=== PATIENT | female | born 1945 | race Caucasian/White ===

== ENCOUNTER 2024-05-04 12:33 | Inpatient (IN) | payer MEDICARE, SELFPAY ==
[2024-05-04] VITALS (11 sets, daily range): BP systolic 113–202; BP diastolic 46–153; BMI 48.5
--- NOTE | 2024-05-04 10:09 | ED.GENMED ---
History of Present Illness
General
Chief Complaint: Breathing Problem
Time Seen by Provider: 05/04/24 09:58
History of Present Illness
History of Present Illness:
78-year-old female with history of coronary artery disease status post myocardial infarction and CABG in 2021 as well as insulin-dependent diabetes, hypertension, and hyperlipidemia presents to the emergency department for evaluation of dry cough
and shortness of breath gradually worsening for the past 3 to 4 days. Reports a mild sore throat but denies fevers or chills. Went to urgent care where she was noted to have a pulse oximetry in the 80s and was given a DuoNeb, and route given a
second DuoNeb by EMS with no improvement. Patient denies any chest pain or leg swelling.
Past History
Past History
ED Past Medical History: CAD, HTN, Hypercholesterolemia and IDDM
ED Past Surgical History: Cardiac, Gynecological and Other (cataract)
Patient has exhibited threatening behavior?: No
Social History
Tobacco: Non-smoker
Alcohol: None
Drug: None
Personal: Single
Living: alone
Employment: Retired
Review of Systems
Review of Systems
Allergies reviewed?: Yes
All Other Systems: ROS reviewed and negative except as documented in HPI and ROS
Phy Exam
Physical Exam
Physical Exam:
GEN: Well appearing, NAD, WDWN
HEENT: Oral mucosa moist, no scleral icterus
Cardiac: Mildly tachycardic, regular
Lung: Tachypneic with audible stridor, no lower field wheezes or rales
MSK: No gross deformity or injuries
Skin: Good color, no pallor or jaundice, no rashes
Neuro: AO x3, moves all extremities freely
Psych: Calm, cooperative
Scores
Heart Failure Risk
Heart Failure Risk Score: Not Applicable
Course
Orders/Labs/Results
Orders:
Orders
05/04/24 10:03
EKG [Electrocardiogram (*1)] Urgent
Reason for Study: Chest Pain
05/04/24 10:04
EKG- Treatment ONCE
05/04/24 10:09
Racepinephrine [Vaponefrin Nebs] 0.5 ml INH R NOW STA
CR Chest - 2 Views Urgent
Comment:
Reason For Exam: SOB
05/04/24 10:15
COVID-19 Antigen Urgent
Source: Nasal Swab
Complete Blood Count/With Diff Urgent
Comprehensive Metabolic Panel Urgent
NT-proBNP Urgent
Influenza A+B Rapid Molecular Urgent
ANA LILIA Source: Nasal Swab
Specimen Description:
05/04/24 10:20
Sodium Chloride 0.9% [Sodium Chloride 0.9% For Inhalation 3 ml] 1 vial .ROUTE .STK-MED ONE
05/04/24 11:04
Bedside Glucose- Treatment ONCE
Dexamethasone Sod Phosphate [Decadron] 10 mg IV NOW STA
Insulin Aspart [NOVOLOG vial] 12 units SC NOW STA
Racepinephrine [Vaponefrin Nebs] 0.5 ml INH R NOW STA
05/04/24 11:57
Admit/Transfer Patient As Directed
Co-Sign Provider:
Level of Care: Inpatient admission
Assign to:: Medical/Surgical
Physician / Group: Hospitalist
Transfer to: Telemetry
Diagnosis: Laryngothracheitis
Reason for Telemetry: Arrhythmia
Date to Stop Telemetry: 05/07/24
Time to Stop Telemetry: 11:00
Reason for Hospitalization: Laryngothracheitis, Respiratory management
Expected length of stay greater than two midnights?: Yes
ELOS- Estimated Length of Stay in days: 3
I certify the patient meets the requirements for IP care: Yes
05/04/24 11:58
PRN Pain Medication Management As Directed
May give lesser potent ordered pain med per pt: Yes
preference::
Protocol:: Medication orders for pain may be administered in a
manner that supports deferring to patient preference
when the pt is:
- Requesting an ordered lesser potent pain medication.
Least to most potent pain medications are defined
as: acetaminophen < NSAID < tramadol < opioids
(morphine, oxycodone, hydromorphone).
- Requesting a lesser dose of the same medication IF
ORDERED.
- Requesting a less intrusive route of administration
if both routes are prescribed by the provider (PO <
IV).
05/04/24 12:07
Code Status As Directed
Resuscitation Status: Full Code
05/04/24 Dinner
1800 calorie (15 carb) Diabetic
At Your Request: Full Participation
05/04/24 16:21
Acetaminophen [Tylenol] 650 mg PO Q6HPRN PRN
Amiodarone [Pacerone] 200 mg PO DAILY
Aspirin Chewable [Low Strength Aspirin] 81 mg PO DAILY
Atorvastatin [Lipitor] 40 mg PO DAILY
Cholecalciferol (Vitamin D3) [VITAMIN D3 (cholecalciferol)] 50 mcg PO DAILY
Clopidogrel Bisulfate [Plavix] 75 mg PO DAILY
Dextrose 50%-Water [Dextrose 50% Syringe] 12.5 grams IV [id number] PRN
Ferrous Sulfate [Feosol] 325 mg PO BID
Glucagon [GlucaGen] 1 mg IM PRN PRN
Heparin 5,000 units SC Q12
Metoprolol Xl [Toprol Xl] 25 mg PO BID
Miconazole Nitrate [Desenex/Mitrazol/Zeasorb] 1 applic TOPICAL BID
Pantoprazole [Protonix] 40 mg PO DAILY
Silver Sulfadiazine [Silvadene] 1 applic TOPICAL DAILY
05/04/24 16:21
Activity As Directed
Activity Level: As Tolerated
Bedside Glucose Monitoring As Directed
Frequency: AC&HS
Additional Instructions:: Change to q6h if pt on TPN, tube feeding or not eating
Intake/ Output As Directed
Frequency: Per unit guidelines
Vital Signs As Directed
Frequency: Per unit guidelines
O2 Therapy [RESP] Routine
Titrate/Wean O2 to maintain O2 sat greater than (%): 92
DX Deep Vein Thrombosis Video Routine
05/04/24 16:30
Insulin Aspart High Resistance [Novolog Flexpen-High Resistance] See Protocol SC AC
Insulin Aspart Pen [Novolog Flexpen] 8 units SC DAILY@1630
05/04/24 22:00
Insulin Glargine Lantus [Lantus] 25 units Subcutaneous Insulin Syringe [Syringe-Insulin] 0 unit SC HS
05/05/24 07:30
Insulin Aspart Pen [Novolog Flexpen] 8 units SC DAILY@0730
05/05/24 11:30
Insulin Aspart Pen [Novolog Flexpen] 8 units SC DAILY@1130
05/07/24 11:00
DC Protocol for Telemetry ONCE
Abnormal Lab Results
05/04/24
10:15
MCHC 32.6 L g/dL
(33.0-37.0)
Absolute Neuts (auto) 7.3 H 10^3/uL
(1.4-6.5)
Neutrophils % 75.8 H %
(42.2-75.2)
Lymphocytes % 15.8 L %
(20.5-51.1)
BUN 29 H mg/dl
(7-17)
Creatinine 1.3 H mg/dL
(0.6-1.0)
Glucose 394 H mg/dl
(70-99)
Total Bilirubin 2.1 H mg/dl
(0.2-1.3)
Total Protein 6.0 L g/dl
(6.3-8.2)
05/04/24 10:15
05/04/24 10:15
Vital Signs
Initial and Last Documented VS:
Initial Vital Signs
Temp Pulse Resp BP Pulse Ox
98.4 F 102 20 202/98 94
05/04/24 09:57 05/04/24 09:57 05/04/24 09:57 05/04/24 09:57 05/04/24 09:57
Last Documented Vital Signs
Temp Pulse Resp BP Pulse Ox
98.4 F 114 22 137/58 94
05/04/24 09:57 05/04/24 16:00 05/04/24 16:00 05/04/24 16:00 05/04/24 16:00
MDM/Problems Addressed
MDM/Problems Addressed:
Patient with audible stridor, modestly improved after racemic epinephrine, chest x-ray and remainder of workup unremarkable. Likely viral induced laryngotracheitis, given some improvement after neb do not suspect parapharyngeal infection thus
imaging is not indicated at this time. She is markedly hyperglycemic thus complicating outpatient management with steroid treatment, given that she is also mildly hypoxic still after neb treatment will admit for IV steroids, glucose management, and
supplemental oxygen as needed
*Critical Care Note
Total Time (30-74mins, 75-104mins- exclusive of procedures): Not Applicable
ED Attending Note
-
Portions of this chart may have been created with voice recognition software.� Occasional wrong word or��sound alike� substitutions may have occurred due to the inherent limitations of voice recognition software.
Discharge Plan
Departure
Patient Disposition: Admit
Date of Disposition: 05/04/24
Time of Disposition: 11:06
Admit to: Med/Surg
Presentation/result/management discussed w/ accepting MD/DO: Hospitalist
Discharge Problem:
Acute laryngotracheitis, Acute hypoxemic respiratory failure
Interventions
Interventions:
*Risk Screen - Suicide Last Done: 05/04/24 10:04
*General Assessment Last Done: 05/04/24 10:04
*Neglect/Abuse Screening Last Done: 05/04/24 10:04
ED- Fall Risk Assessment Last Done: 05/04/24 10:04
*ED COVID-19 Vaccine History Last Done: 05/04/24 10:04
*Nursing Disposition Last Done: 05/04/24 16:13
ED- Cardiac Assessment Last Done: 05/04/24 11:02
ED- Pulmonary Assessment Last Done: 05/04/24 11:02
Discharge Date and Time
Discharge Date/Time: 05/04/24 16:13
[2024-05-04 10:29] LABS: % Basophils 0.3 % (0-2); % Eosinophils 1.5 % (0-6); % Immature Granulocytes 0.3 % (0-0.5); % Lymphocytes 15.8 % (20.5-51.1); % Monocytes 6.3 % (1.7-9.3); % Neutrophils 75.8 % (42.2-75.2); Absolute Eosinophils 0.1 10^3/uL (0-0.7); Absolute Lymphocytes 1.5 10^3/uL (1.2-3.4); Absolute Monocytes 0.6 10^3/uL (0.1-0.6); Absolute Neutrophils 7.3 10^3/uL (1.4-6.5); Hematocrit 40.5 % (37.0-47.0); Hemoglobin 13.2 g/dL (12.0-16.0); Mean Corp Hgb Conc. 32.6 g/dL (33.0-37.0); Mean Corpuscular Hgb 28.8 pg (27.0-31.0); Mean Corpuscular Volume 88.4 fL (81.0-99.0); Mean Platelet Volume 10.1 fL (7.4-10.4); Nucleated Red Blood Cells % 0 %; Platelet Count 182 10^3/uL (130-400); Red Blood Cell Count 4.58 10^6/uL (4.20-5.40); Red Cell Dist. Width 13.9 % (11.5-14.5); White Blood Cell Count 9.6 10^3/uL (4.8-10.8)
[2024-05-04] MEDS: VAPONEFRIN NEBS 0.5 ML INH ×2 (10:34→11:10)
[2024-05-04 10:37] LABS: ALT (SGPT) 20 U/L (0-35); AST (SGOT) 21 U/L (14-36); Albumin 4.1 g/dl (3.5-5.0); Alkaline Phosphatase 126 U/L (38-126); Blood Urea Nitrogen 29 mg/dl (7-17); Calcium 9.2 mg/dl (8.4-10.2); Carbon Dioxide 25 mmol/L (22-30); Chloride 100 mmol/L (98-107); Estimated Creatinine Clearance 44 ml/min; Glucose 394 mg/dl (70-99); Sodium 137 mmol/L (135-145); Total Bilirubin 2.1 mg/dl (0.2-1.3); eGFR 42.09
[2024-05-04 10:41] LABS: COVID-19 Antigen Negative (Negative)
[2024-05-04 10:45] LABS: NT-proBNP 149 pg/ml
[2024-05-04] MEDS: NOVOLOG vial 12 UNITS SC (11:09)
[2024-05-04] MEDS: DECADRON 10 MG IV (11:10)
--- NOTE | 2024-05-04 12:54 | W.PN.UPDATE ---
Update Note
Progress Note Update
I personally performed a history and physical exam of the patient and discussed management with the resident. I reviewed the resident's note and agree with the documented findings and plan of care HPI/CC.
78 y/o F who presents with CC cough/SOB and was found to be stridorous in the ER.
Gen: NAD, AAOx3.
Eyes: EOMI, PERRLA, no scleral icterus.
Neck: supple. No stridor
CV: tachy, reg rhythm, +S1/S2, no m/r/g.
Resp: decreased AE and end expiratory wheezes
Abd: +BS, soft, NT, ND
Skin: No rashes.
Neuro: CN 2-12 intact, non-focal.
Psych: Normal mood and affect.
Lab Results
05/04/24
10:15
WBC 9.6
RBC 4.58
Hgb 13.2
Hct 40.5
MCV 88.4
MCH 28.8
MCHC 32.6 L
RDW 13.9
Plt Count 182
MPV 10.1
Abs Immat Gran (auto) 0.0
Absolute Neuts (auto) 7.3 H
Absolute Lymphs (auto) 1.5
Absolute Monos (auto) 0.6
Absolute Eos (auto) 0.1
Absolute Basos (auto) 0.0
Immature Gran % 0.3
Neutrophils % 75.8 H
Lymphocytes % 15.8 L
Monocytes % 6.3
Eosinophils % 1.5
Basophils % 0.3
Nucleated RBC % 0
Sodium 137
Potassium 4.0
Chloride 100
Carbon Dioxide 25
BUN 29 H
Creatinine 1.3 H
Estimated Creat Clear 44
eGFR 42.09
Glucose 394 H
Calcium 9.2
Total Bilirubin 2.1 H
AST 21
ALT 20
Alkaline Phosphatase 126
Ark-Y-Okviiaxlqft Pept 149
Total Protein 6.0 L
Albumin 4.1
SARS-CoV-2 Antigen Negative
CXR: No acute cardiopulmonary abnormality.
ACute hypoxemic respiratory failure due to acute laryngotracheitis, likely viral:
-COVID/Flu NEG
-CXR without PNA
-s/p racemic epi and Decadron 10mg IV in ER
-duonebs PRN
-cont Decadron 4mg IV Q6H
DM2:
-with steroid induced hypoglycemia
-basal/bolus insulin
-high-res SSI
--- NOTE | 2024-05-04 13:18 | HPS.HSE ---
Addendum entered and electronically signed by Carlos Thacker MD 05/05/24 09:00:
I personally performed a history and physical exam of the patient and discussed management with the resident. I reviewed the resident's note and agree with the documented findings and plan of care HPI/CC.
Original Note:
Family Physician
-
Family Physician: Judah Branch
Chief Complaint
-
Trouble breathing/ coughs
History of Present Illness
Patient is a 78-year-old female with past medical history of CAD/[place] s/p CABG (in 2021), IDDM, essential hypertension, and hyperlipidemia who who mentions she started a 'funny throat' and nasal and chest congestion on Monday. Symptoms progressed
over the next couple day and she started to develop dry cough, as well as shortness of breath. This morning, she was feeling unwell and felt as if she was gagging after coughs, so, she visited urgent care. At urgent care, per patient, she had low
O2sats and was advised to come to the ED. Her son had an upper respiratory symptoms during the past week but had not received a formal diagnosis.
She received DuoNeb in urgent care and also en-route to hospital by EMS, without significant improvement in symptoms.
She denies any fevers or chills. Denies any chest pain or feeling of palpitations. Denies any recent leg swelling. Denies any recent surgery or travel. No history of DVTs in the past. No urinary symptoms. No nausea/vomiting, or diarrhea.
Medical History
Past Medical History
Past Medical History: Reports CAD, Hypercholesterolemia and IDDM
Additional Past Medical History:
right lower extremity surgical wound for CABG
Past Surgical History: Reports Cardiac (CABG), Gynocological and Other (cataract surgery)
Social History
Tobacco: Non-smoker
Alcohol: None
Drug: None
Living: Alone
Employment: Retired
Family History
Family History: Not pertinent
Allergies / Home Medications
Allergies reflects when Allergies were last updated in [email or web address].
Home Medications with original date entered in [employer]
Allergy/Medication List:
Allergies
Allergy/AdvReac Type Severity Reaction Status Date / Time
No Known Allergies Allergy Verified 05/04/24 09:56
Home Medications
atorvastatin 40 mg tablet (Lipitor) 40 mg PO DAILY High cholesterol 01/20/22
cholecalciferol (vitamin D3) 50 mcg (2,000 unit) capsule (Vitamin D3) 50 mcg PO DAILY Supplement 01/20/22
dulaglutide 3 mg/0.5 mL subcutaneous pen injector (Trulicity) 3 mg SC MO Diabetes 01/20/22
insulin aspar prot-insulin aspart 100 unit/mL (70-30) subcutaneous pen (Novolog Mix 70-30FlexPen U-100) 65 unit SC BID Diabetes 01/20/22
acetaminophen 325 mg tablet 650 mg (2 x 325 mg) PO Q6HPRN PRN mild pain,headache,temp >101F #0 tabs 02/01/22
aspirin 81 mg chewable tablet 81 mg PO DAILY #0 tabs 02/01/22
clopidogrel 75 mg tablet 75 mg PO DAILY #0 tabs 02/01/22
ferrous sulfate 325 mg (65 mg iron) tablet 325 mg PO BID #60 tabs 02/01/22
pantoprazole 40 mg tablet,delayed release 40 mg PO DAILY #0 tabs 02/01/22
potassium chloride 20 mEq tablet,extended release(part/cryst) (Klor-Con M) 20 meq PO DAILY #0 tabs 02/01/22
amiodarone 200 mg tablet (Pacerone) 200 mg PO DAILY 02/23/22
cephalexin 500 mg capsule 500 mg PO QID 7 days #28 caps 02/23/22
metoprolol succinate 25 mg tablet,extended release 24 hr 25 mg PO BID 02/23/22
miconazole nitrate 2 % topical powder (Miconazorb AF) 1 applic topical BID abd folds, grion and under breasts 02/23/22
silver sulfadiazine 1 % topical cream (Silvadene) 1 applic topical DAILY #400 grams 02/23/22
torsemide 40 mg tablet 40 mg PO [id number] 02/23/22
midodrine 2.5 mg tablet 2.5 mg PO TID ORTHOSTATIC HYPOTENSION #30 tabs 06/19/22
Review of Systems
-
History Source: Patient and Other (see HPI)
A 12 point ROS was completed and negative except as noted: Yes
Physical Exam
Vital Signs
Vital Signs
Temp Pulse Resp BP Pulse Ox
98.4 F 99 25 149/50 93
05/04/24 09:57 05/04/24 11:02 05/04/24 11:00 05/04/24 10:41 05/04/24 11:00
Physical Exam
General: Respiratory Distress, Good Appetite and Morbidly Obese
HEENT: NormoCephalic, Anicteric and Moist mucous membranes
Respiratory: Wheezes (b/l expiratory wheeze)
Cardiac: S1/S2 and Regular Rhythm
GI: Soft, Non Tender, Non Distended and Normal Bowel Sounds
Musculoskeletal: No Clubbing, No Cyanosis and No Edema
Skin: Warm and Dry
Neuro: Awake, Alert, Oriented and AO x 3
Laboratory Results
-
05/04/24 10:15
05/04/24 10:15
Laboratory Results
Total Bilirubin 2.1 mg/dl (0.2-1.3) H 05/04/24 10:15
AST 21 U/L (14-36) 05/04/24 10:15
ALT 20 U/L (0-35) 05/04/24 10:15
Alkaline Phosphatase 126 U/L (38-126) 05/04/24 10:15
Impression/Plan
-
78-year-old female with past medical history of CAD/[place] s/p CABG, IDDM, essential hypertension, and hyperlipidemia who presented with respiratory distress consistent with laryngotracheitis. Hemodynamic stable on arrival.
Labs were okay except for elevated blood glucose. Patient states she did not take her usual morning insulin today. Received racemic epinephrine and Decadron 10mg IV in ER.
CXR (05/04): No acute cardiopulmonary abnormality.
# Acute hypoxic respiratory failure most likely secondary to viral upper respiratory illness
-Admit to Med/Surg with telemetry monitoring
-COVID/Flu negative
-Supplemental oxygen as needed to maintain SpO2 more than 92%
-Duonebs PRN
-Decadron 4mg IV Q6H
# Insulin-dependent diabetes
-Basal bolus plus high resistance SSI
-Bedside glucose monitoring
-Hemoglobin A1c checked this morning=7.2
-Carb controlled diet
# Elevated bilirubin
-Likely reactive in the setting of underlying infection
# History of CAD/[place] s/p CABG
-Continue aspirin and Plavix
# GERD
-Pantoprazole
# DVT prophylaxis
-Heparin SC Q12h
CODE STATUS: Full code
[2024-05-04 16:29] LABS: Glucose - Point of Care 404 mg/dl (70-99)
[2024-05-04 17:14] LABS: Glucose 445 mg/dl (70-99)
[2024-05-04] MEDS: DESENEX/MITRAZOL/ZEASORB TOPICAL (17:25)
[2024-05-04] MEDS: PROTONIX 40 MG PO (17:28)
[2024-05-04] MEDS: LOW STRENGTH ASPIRIN 81 MG PO (17:28)
[2024-05-04] MEDS: LIPITOR 40 MG PO (17:28)
[2024-05-04] MEDS: TOPROL XL 25 MG PO ×2 (17:29→20:58)
[2024-05-04] MEDS: HEPARIN 5000 UNITS SC ×2 (17:29→20:57)
[2024-05-04] MEDS: VITAMIN D3 (cholecalciferol) 50 MCG PO (17:29)
[2024-05-04] MEDS: FEOSOL PO ×2 (18:12→20:57)
[2024-05-04] MEDS: DECADRON 4 MG IV ×2 (18:12→23:53)
[2024-05-04] MEDS: NOVOLOG FLEXPEN 10 UNITS SC (18:14)
[2024-05-04] MEDS: NOVOLOG FLEXPEN-HIGH RESISTANCE 14 UNITS SC (18:16)
[2024-05-04 20:23] LABS: Glucose - Point of Care 518 mg/dl (70-99)
[2024-05-04] MEDS: DESENEX/MITRAZOL/ZEASORB 1 APPLIC TOPICAL (20:58)
[2024-05-04 21:20] LABS: Glucose 515 mg/dl (70-99)
[2024-05-04] MEDS: NOVOLOG FLEXPEN 12 UNITS SC (21:48)
[2024-05-04] MEDS: LANTUS 0.35 UNITS SC (21:52)
[2024-05-04] MEDS: PULMICORT 0.25 MG INH (22:43)
[2024-05-04 23:57] LABS: Glucose - Point of Care 384 mg/dl (70-99)
[2024-05-05 03:11] VITALS: BP 107/71
[2024-05-05] MEDS: DECADRON 4 MG IV ×2 (05:31→17:12)
[2024-05-05 06:00] VITALS: BMI 47.0
[2024-05-05 06:55] VITALS: BP 180/90
[2024-05-05 07:14] LABS: Glucose - Point of Care 377 mg/dl (70-99)
[2024-05-05 07:25] LABS: ALT (SGPT) 25 U/L (0-35); AST (SGOT) 48 U/L (14-36); Albumin 4.4 g/dl (3.5-5.0); Alkaline Phosphatase 103 U/L (38-126); Blood Urea Nitrogen 40 mg/dl (7-17); Calcium 10.1 mg/dl (8.4-10.2); Carbon Dioxide 25 mmol/L (22-30); Chloride 100 mmol/L (98-107); Estimated Creatinine Clearance 43 ml/min; Glucose 394 mg/dl (70-99); Potassium 4.8 mmol/L (3.5-5.1); Sodium 138 mmol/L (135-145); Total Bilirubin 1.7 mg/dl (0.2-1.3); Total Protein 6.4 g/dl (6.3-8.2); eGFR 42.09
[2024-05-05 07:31] LABS: % Basophils 0.1 % (0-2); % Eosinophils 0.1 % (0-6); % Immature Granulocytes 0.8 % (0-0.5); % Lymphocytes 3.3 % (20.5-51.1); % Monocytes 1.3 % (1.7-9.3); % Neutrophils 94.4 % (42.2-75.2); Absolute Immature Granulocytes 0.1 10^3/uL (0-0.05); Absolute Lymphocytes 0.5 10^3/uL (1.2-3.4); Absolute Monocytes 0.2 10^3/uL (0.1-0.6); Absolute Neutrophils 14.9 10^3/uL (1.4-6.5); Hematocrit 41.7 % (37.0-47.0); Hemoglobin 13.9 g/dL (12.0-16.0); Mean Corp Hgb Conc. 33.3 g/dL (33.0-37.0); Mean Corpuscular Hgb 29.3 pg (27.0-31.0); Mean Corpuscular Volume 87.8 fL (81.0-99.0); Mean Platelet Volume 10.4 fL (7.4-10.4); Nucleated Red Blood Cells % 0 %; Platelet Count 236 10^3/uL (130-400); Red Blood Cell Count 4.75 10^6/uL (4.20-5.40); White Blood Cell Count 15.8 10^3/uL (4.8-10.8)
[2024-05-05] MEDS: NOVOLOG FLEXPEN 10 UNITS SC (08:11)
[2024-05-05] MEDS: NOVOLOG FLEXPEN-HIGH RESISTANCE 12 UNITS SC (08:11)
[2024-05-05] MEDS: FEOSOL PO (08:12)
[2024-05-05] MEDS: DESENEX/MITRAZOL/ZEASORB 1 APPLIC TOPICAL ×2 (08:12→19:51)
[2024-05-05] MEDS: HEPARIN 5000 UNITS SC ×2 (08:12→19:51)
[2024-05-05] MEDS: LOW STRENGTH ASPIRIN 81 MG PO (08:13)
[2024-05-05] MEDS: LIPITOR 40 MG PO (08:13)
[2024-05-05] MEDS: VITAMIN D3 (cholecalciferol) 50 MCG PO (08:14)
[2024-05-05] MEDS: PROTONIX 40 MG PO (08:14)
[2024-05-05] MEDS: TOPROL XL 25 MG PO ×2 (08:14→19:53)
[2024-05-05] MEDS: PULMICORT 0.25 MG INH ×2 (08:37→20:07)
--- NOTE | 2024-05-05 09:01 | W.PN.HOSP.TC ---
Today's Communication/Plan
-
Adjust basal bolus and short-acting insulin dose
Decadron 4 mg every 12 hours
Stable for discharge later in the day/tomorrow
Assessment / Plan
Assessment / Plan
78-year-old female with past medical history of CAD/[place] s/p CABG, IDDM, essential hypertension, and hyperlipidemia who presented with respiratory distress consistent with laryngotracheitis. Hemodynamics stable on arrival.
Hyperglycemia noted on labs.
CXR (05/04): No acute cardiopulmonary abnormality.
# Acute hypoxic respiratory failure most likely secondary to viral upper respiratory illness
-COVID/Flu negative
-Was able to be weaned off supplemental oxygen
-Pulmicort twice daily
-Decadron 4mg IV Q12H
# Insulin-dependent diabetes
-Basal bolus and short acting dose adjusted (35 BID and 15 AC)
-SSI high
-Bedside glucose monitoring-POC and blood glucose show improvement
-Hemoglobin A1c checked prior to admission=7.2
-Continue carb controlled diet
# Elevated bilirubin
-Improving
-Likely reactive in the setting of underlying infection
# History of CAD/[place] s/p CABG
-Continue aspirin and Plavix
# Essential hypertension
-Continue Toprol XL 25 twice daily
# GERD
-Pantoprazole
# DVT prophylaxis
-Heparin SC Q12h
CODE STATUS: Full code
Anticipated Discharge: Within 24 hours
Subjective/Interval History
-
Date of Service: May 05, 2024
Patient is feeling good. Is saturating well on room air without any respiratory distress. No more wheezing. Coughing has improved. Denies any chest pain/fevers/chills.
Objective Data
-
Labs:
Laboratory Results
05/04/24 05/05/24
20:40 06:27
WBC 15.8 H
Hgb 13.9
Hct 41.7
Plt Count 236 D
Sodium 138
Potassium 4.8
Chloride 100
Carbon Dioxide 25
BUN 40 H
Creatinine 1.3 H
Glucose 515 H* 394 H
Calcium 10.1
Total Bilirubin 1.7 H
AST 48 H
ALT 25
Alkaline Phosphatase 103
Vital Signs:
Vital Signs
Temp Pulse Resp BP Pulse Ox
98.1 F 93 16 180/90 97
05/05/24 06:55 05/05/24 08:41 05/05/24 08:41 05/05/24 06:55 05/05/24 08:41
I&O
05/04/24 05/05/24 05/06/24
06:59 06:59 06:59
Intake Total 600 / 600
Balance 600 / 600
Review of Systems
-
History Source: Patient
All other systems: Reviewed and negative
Constitutional: Reports No Symptoms
EENT: Reports No Symptoms Reported
Respiratory: Denies Cough or Trouble Breathing
Cardiac: Denies Chest Pain
Abdomen/GI: Reports No Symptoms
Genitourinary: Reports No Symptoms
Musculoskeletal: Reports No Symptoms
Skin: Reports No Symptoms
Neuro: Reports No Symptoms
Physical Exam
-
General: Well Developed, Well Nourished, No Apparent Distress, Comfortable, Conversant and Morbidly Obese; Negative Respiratory Distress
HEENT: Normocephalic, Atraumatic, Nose Appears Normal and Ears Appear Normal; Negative Oxygen
Respiratory: Clear to Auscultation and Non Labored Respirations; Negative Wheezes, Crackles or Accessory Resp Muscle Use
Cardiac: Regular Rhythm and S1/S2
GI: Soft, Nontender, Nondistended and Normal Bowel Sounds
Musculoskeletal: Normal Gait & Station and Other (RLE > LLE (chronic per pt due to varicose vein))
Skin: Warm and Dry
Neuro: Awake, Alert, Oriented, AO x 3 and No Motor Deficits
Psych: Calm and Intact Judgement/Insight
--- NOTE | 2024-05-05 09:05 | W.PN.UPDATE ---
Update Note
Progress Note Update
I saw and evaluated the patient. I reviewed the resident�s note and agree with findings and plan as documented in the resident�s note.
Gen: NAD, AAOx3.
Eyes: EOMI, PERRLA, no scleral icterus.
Neck: supple.
CV: RRR, +S1/S2, no m/r/g.
Resp: CTAB
Abd: +BS, soft, NT, ND
Skin: No rashes.
Neuro: CN 2-12 intact, non-focal.
Psych: Normal mood and affect.
CXR: No acute cardiopulmonary abnormality.
Acute hypoxemic respiratory failure due to acute laryngotracheitis, likely viral:
-COVID/Flu NEG
-CXR without PNA
-s/p racemic epi and Decadron 10mg IV in ER
-duonebs PRN
-change Decadron to 4mg IV Q12H with last dose this evening
-weaned to RA
DM2:
-with steroid induced hypoglycemia
-change Lantus to 35U BID
-change premeal Novolog to 15U
-high-res SSI
-check a1c
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
Other problems:
CKD3b
CAD s/p CABG, h/o PA
GERD
Morbid obesity due to excess calories: Encourage weight loss. Affects all aspects of care
FULL/Heparin
Dispo: Patient with rapid clinical improvement but severe hyperglycemia limits discharged today. Suspect patient will be able to be discharged later in the day tomorrow.
[2024-05-05] MEDS: LANTUS 0.35 UNITS SC ×2 (09:31→21:47)
[2024-05-05 11:00] VITALS: BP 112/76
[2024-05-05 11:59] LABS: Glucose - Point of Care 337 mg/dl (70-99)
--- NOTE | 2024-05-05 12:41 | CM ---
incident response manager reviewed patient's chart and met with patient and patient lives alone in a one story home with one step to enter, patient is independent with adl's and ambulation, patient has a walker in home that she does not use, patient drives, plan
is to home possibly tomorrow.
PCP: Dr. Mimi Branch
Pharmacy: [facility]
Plan; Home tomorrow no needs.
[2024-05-05] MEDS: NOVOLOG FLEXPEN 15 UNITS SC ×2 (12:48→18:24)
[2024-05-05] MEDS: NOVOLOG FLEXPEN-HIGH RESISTANCE 10 UNITS SC ×2 (12:48→18:24)
[2024-05-05 14:44] LABS: Glycohemoglobin (HgbA1c) 8.7 % (4.0-5.6)
[2024-05-05 15:00] VITALS: BP 157/83
[2024-05-05 17:04] LABS: Glucose - Point of Care 341 mg/dl (70-99)
[2024-05-05 19:33] VITALS: BP 165/75
[2024-05-05] MEDS: FEOSOL 325 MG PO (19:51)
[2024-05-05 21:46] LABS: Glucose - Point of Care 310 mg/dl (70-99)
[2024-05-05 22:56] VITALS: BP 150/77
[2024-05-06 03:18] VITALS: BP 139/73
[2024-05-06 06:00] VITALS: BMI 47.2
[2024-05-06 07:00] VITALS: BP 162/79
[2024-05-06 07:12] LABS: Glucose - Point of Care 446 mg/dl (70-99)
--- NOTE | 2024-05-06 07:28 | PN.DE.MGMTRT ---
Insulin Management
- -
05/06/2024 Diabetes Management Consult
Patient admitted 05/04 with breathing problem. PMH CAD, [place], CABG 2021, HTN, HLD, diabetes. Prior to admission was taking 70/30 insulin 60 units BID. A1C 8.7, cr 1.3, eGFR 42.09.
Patient has been receiving lantus 35 units BID with 15 units novolog AC. Glucose range 310 to 446.
Patient is awake alert and oriented able to discuss diabetes management.
Will stop lantus and AC novlog and resume 70/30 increased dose 64 units BID first dose this AM. Patient has been receiving steroids IV Q12 hours, course has been completed.
Will follow for further needed adjustments.
Diabetes History
- -
Type of Diabetes: 2 requiring insulin
Pre-Admission Diabetes Regimen
Lab Results
Hemoglobin A1c 8.7 % (4.0-5.6) H 05/05/24 06:27
Insulin Pump Settings
IP Diabetes Regimen
05/05/24 05/05/24 05/05/24
11:58 16:58 21:44
POC Glucose 337 H 341 H 310 H
05/06/24
07:10
POC Glucose 446 H
Meal type: Lunch
Meal type: Breakfast
Amount consumed: 100%
Amount consumed: 100%
Patient Education
[2024-05-06 07:43] LABS: % Basophils 0.1 % (0-2); % Immature Granulocytes 0.7 % (0-0.5); % Lymphocytes 2.2 % (20.5-51.1); % Monocytes 5.5 % (1.7-9.3); % Neutrophils 91.5 % (42.2-75.2); Absolute Immature Granulocytes 0.1 10^3/uL (0-0.05); Absolute Lymphocytes 0.4 10^3/uL (1.2-3.4); Absolute Monocytes 0.9 10^3/uL (0.1-0.6); Hematocrit 39.6 % (37.0-47.0); Hemoglobin 12.9 g/dL (12.0-16.0); Mean Corp Hgb Conc. 32.6 g/dL (33.0-37.0); Mean Corpuscular Hgb 28.8 pg (27.0-31.0); Mean Corpuscular Volume 88.4 fL (81.0-99.0); Mean Platelet Volume 10.2 fL (7.4-10.4); Nucleated Red Blood Cells % 0 %; Platelet Count 241 10^3/uL (130-400); Red Blood Cell Count 4.48 10^6/uL (4.20-5.40); Red Cell Dist. Width 14.1 % (11.5-14.5); White Blood Cell Count 16.3 10^3/uL (4.8-10.8)
[2024-05-06 07:54] LABS: Blood Urea Nitrogen 60 mg/dl (7-17); Calcium 9.3 mg/dl (8.4-10.2); Carbon Dioxide 22 mmol/L (22-30); Chloride 97 mmol/L (98-107); Estimated Creatinine Clearance 37 ml/min; Glucose 431 mg/dl (70-99); Potassium 4.6 mmol/L (3.5-5.1); Sodium 133 mmol/L (135-145); eGFR 35.45
[2024-05-06] MEDS: NOVOLOG FLEXPEN-HIGH RESISTANCE 14 UNITS SC (08:13)
[2024-05-06] MEDS: NOVOLOG MIX 70/30 FLEXPEN 64 UNITS SC (08:14)
[2024-05-06] MEDS: PULMICORT 0.25 MG INH (08:14)
[2024-05-06] MEDS: TOPROL XL 25 MG PO (08:15)
[2024-05-06] MEDS: LOW STRENGTH ASPIRIN 81 MG PO (08:15)
[2024-05-06] MEDS: LIPITOR 40 MG PO (08:15)
[2024-05-06] MEDS: PROTONIX 40 MG PO (08:15)
[2024-05-06] MEDS: HEPARIN 5000 UNITS SC (08:18)
[2024-05-06] MEDS: VITAMIN D3 (cholecalciferol) 50 MCG PO (08:25)
[2024-05-06] MEDS: FEOSOL PO (09:53)
[2024-05-06] MEDS: DESENEX/MITRAZOL/ZEASORB 1 APPLIC TOPICAL (09:55)
[2024-05-06 11:35] LABS: Glucose - Point of Care 251 mg/dl (70-99)
[2024-05-06 11:41] VITALS: BP 111/57
[2024-05-06] MEDS: NOVOLOG FLEXPEN-HIGH RESISTANCE 7 UNITS SC (13:18)
[2024-05-06 15:26] VITALS: BP 152/74
[2024-05-06 15:37] LABS: Glucose - Point of Care 385 mg/dl (70-99)
--- NOTE | 2024-05-06 17:17 | W.PN.HOSP.TC ---
Addendum entered and electronically signed by Deshawn Sandoval MD 05/07/24 00:26:
Attending Addendum:
I saw and evaluated the patient. I reviewed the resident�s note and agree with findings and plan as documented in the resident�s note. Sub: 'My sugars are high because of the steroids. I know how to manage my sugars at home and ill follow up with my
endo. Im going home' Full 12 point ROS reviewed and negative except as documented Exam: Vitals reviewed in chart GEN NAD heart RRR lungs clear abd soft LE no edema
# Acute hypoxemic respiratory failure due to acute laryngotracheitis, likely viral:
-COVID/Flu NEG
-CXR without PNA
-s/p racemic epi and Decadron 10mg IV in ER
-duonebs PRN
-off IV steroids
-weaned to RA
# DM2:
- uncontrolled
- with steroid induced hypoglycemia
- cont home dose SSI
# Leukocytosis
- steroid induced
- repeat CBC as OP
Other problems:
CKD3b- cr @ baseline f/u as OP
CAD s/p CABG, h/o IN
GERD
Morbid obesity due to excess calories: Encourage weight loss. Affects all aspects of care
FULL/Heparin
Dispo: DC home with close follow UP
Time spent coordinating care, DC planning, review of DC plan of care with resident, transition of care, review of records, med rec/scripts sent electronically, consults, notes, d/w consultants, nursing, family, and CM� 35 mins
Original Note:
Today's Communication/Plan
-
Discharge patient to home, patient will resume home medications for diabetes management and continue with inhaler that she has at home as well to manage her breathing.
Assessment / Plan
Assessment / Plan
Assessment: 78-year-old female with past medical history of CAD/IN s/p CABG, IDDM, essential hypertension, and hyperlipidemia who presented to the hospital with acute hypoxic respiratory failure most likely due to acute viral laryngotracheitis and
was found to be hyperglycemic at this time.
# Acute hypoxic respiratory failure most likely secondary to viral upper respiratory illness
-COVID/Flu negative and CXR did not suggest pneumonia
-CXR (05/04): No acute cardiopulmonary abnormality
-Weaned off supplemental oxygen and currently on room air
-Patient to continue Pulmicort twice daily
-Decadron discontinued
# Insulin-dependent diabetes
- Diabetic Nurse Practitioner consulted, input appreciated
- Patient resumed home dose of Insulin regimen
- HbA1c- 8.7%
- Continued bedside glucose monitoring showed range from 200-300
- Carb-controlled diet to be continued
# Elevated bilirubin
-Improving
-Likely were reactive in the setting of underlying infection
# History of CAD/IN s/p CABG
-Continue aspirin and Plavix
# Essential hypertension
-Continue Toprol XL 25 twice daily
#Leukocytosis
-WBC elevated, could be due to airway disease or hyperglycemia
-Repeat CBC in a week in outpatient setting
# GERD
-Pantoprazole
# DVT prophylaxis
-Heparin SC Q12h
CODE STATUS: Full code
Anticipated Discharge: Today
Subjective/Interval History
-
Date of Service: May 06, 2024
Patient has been feeling well. Reports that her breathing is much improved. Says she has been able to ambulate by herself and has no issues with respiration. She attributes her high glucose to being on steroid therapy for her breathing. No acute
concerns for today.
Objective Data
-
Labs:
Laboratory Results
05/06/24 05/06/24 05/06/24
07:18 07:18 15:14
WBC 16.3 H
Hgb 12.9
Hct 39.6
Plt Count 241
Sodium 133 L
Potassium 4.6
Chloride 97 L
Carbon Dioxide 22
BUN 60 H
Creatinine 1.5 H
Glucose 431 H Cancelled Cancelled
Calcium 9.3
Vital Signs:
Vital Signs
Temp Pulse Resp BP Pulse Ox
97.8 F 83 18 152/74 96
05/06/24 15:26 05/06/24 15:26 05/06/24 15:26 05/06/24 15:26 05/06/24 15:26
I&O
05/05/24 05/06/24 05/07/24
06:59 06:59 06:59
Intake Total 600 / 600 360 / 360
Balance 600 / 600 360 / 360
Review of Systems
-
History Source: Patient
Constitutional: Reports No Symptoms
EENT: Reports No Symptoms Reported
Respiratory: Denies Cough, Trouble Breathing or Wheezing
Cardiac: Denies Chest Pain, Diaphoresis or Palpitations
Abdomen/GI: Denies Abdominal Pain, Nausea or Vomiting
Genitourinary: Denies Dysuria or Frequency
Skin: Denies Rash
Neuro: Reports No Symptoms
Endocrine: Denies Polyuria, Polydipsia or Excessive Thirst
Physical Exam
-
General: Well Developed, Well Nourished, No Apparent Distress and Comfortable
HEENT: Normocephalic and Atraumatic
Respiratory: Clear to Auscultation and Non Labored Respirations; Negative Wheezes
Cardiac: Regular Rhythm and S1/S2
GI: Soft, Nontender, Nondistended and Normal Bowel Sounds
Musculoskeletal: No Clubbing, No Cyanosis and No Edema
Skin: Warm and Dry
Neuro: Awake, Alert, Oriented and AO x 3
Psych: Calm
Data Reviewed
-
Diagnostic Radiology: Report Reviewed by me, Discussed with Physician and Discussed with Patient
Labs: Labs Reviewed by me, Discussed with Physician and Discussed with Patient
--- NOTE | 2024-05-06 19:37 | W.DCSUMMARY ---
Addendum entered and electronically signed by Deshawn Sandoval MD 05/07/24 00:27:
Read, reviewed, and agree. See same day progress note for additional details. Patient requesting to go home. Safe for DC with close follow UP.
Rodrigo Sandoval MD
Original Note:
Documented by User: Hilton Oscar MD, Resident 05/06/24 19:51
Discharge Summary
Discharge Data
Date of Admission: 05/04/24
Date of Discharge: 05/06/24
-
Pending Results: No
Hospital Course
Discharging Physician : Dr. Deshawn Sandoval
Disposition : Home
Primary care physician : Dr. Branch
Principal Discharge diagnosis : Acute hypoxic respiratory failure most likely secondary to viral upper respiratory illness
Chronic Discharge diagnosis : Insulin-dependent diabetes, Elevated Bilirubin, History of CAD/[place] s/p CABG, Essential Hypertension, GERD
Hospital Course : 78 year old female with a past medical history of CAD/[place] s/p CABG (2021), IDDM, essential hypertension, and hyperlipidemia came to the ED on 05/04 due to having several days of discomfort in her throat along with nasal and chest
congestion. These symptoms kept on progressing until she ended up going to an Urgent care where they told her that her O2 saturation levels were very low and to go to the ED. Patient received DuoNeb treatment in urgent care and also en-route to the
hospital with no apparent improvement in symptoms. Patient was admitted to Med/Surg with telemetry for her acute hypoxic respiratory failure most likely due to a viral upper respiratory illness. Patient was started on supplemental oxygen as needed
and also given Decadron 4mg IV Q6h. Patient's blood sugar levels continued to be monitored at this time and her basal bolus and short-acting doses of insulin were adjusted. Patient's acute hypoxia resolved with treatment and she was able to tolerate
RA but was kept in the hospital due to her uncontrolled hyperglycemia that was most likely caused by the steroid treatment. Her dose was adjusted and her glucose levels started to normalize after and she was discharged home with instructions to
contact her PCP regarding her current hospitalization and also to use her inhaler which she says she has at home if needed.
Insulin-Dependent Diabetes: Patient to resume home medications for management of hyperglycemia upon discharge
Hypertension: Continue Toprol XL 25 BID
History of CAD/[place] s/p CABG: Continue aspirin and Plavix
GERD:Continue Pantoprazole
Images done:
Chest X-Ray (05/04/2024): No acute cardiopulmonary abnormality.
Discharge Plan
-
Patient Disposition: Home (Routine Discharge)
Discharge Diagnosis/Procedures: Acute Hypoxic Respiratory Failure Secondary to Acute Viral Laryngotracheitis
Condition: Fair
Diet: Diabetic, Carb Controlled
Activity: No restrictions
Driving Restrictions: As prior to admission
Bathing Restrictions: None
Instructions: Diabetes and diet, Diabetes and heart disease
Referrals:
Judah Branch DPM [Family Provider] - in one to two weeks (Please call PCP and let them know about hospital stay )
Prescriptions:
New
amiodarone 200 mg Tablet
200 mg PO DAILY 30 Days Qty: 30 0RF
clopidogrel 75 mg Tablet
75 mg PO DAILY 30 Days Qty: 30 0RF
Continued
atorvastatin [Lipitor] 40 mg Tablet
40 mg PO DAILY
insulin asp prt-insulin aspart [Novolog Mix 70-30FlexPen U-100] 100 unit/mL (70-30) Insulin Pen
60 unit SC BID
Patient Comments:
patient explained that her child care group leader told her to log her blood sugar for next couple of weeks, and she lowered her dose to 65 units she also said when she woke up in the middle of night her bs was 67 and before she came here her bs was 168
Rx Instructions:
before breakfast and dinner
cholecalciferol (vitamin D3) [Vitamin D3] 50 mcg (2,000 unit) Capsule
50 mcg PO DAILY
aspirin 81 mg Tablet,Chewable
81 mg PO DAILY Qty: 0 0RF
acetaminophen 325 mg Tablet
650 mg PO Q6HPRN PRN (Reason: mild pain,headache,temp >101F ) Qty: 0 0RF
miconazole nitrate [Miconazorb AF] 2 % powder
1 applic topical BID
metoprolol succinate 25 mg tablet extended release 24 hr
25 mg PO BID
pantoprazole [Protonix] 40 mg Tablet,Delayed Release (Dr/Ec)
40 mg PO DAILY
ezetimibe [Zetia] 10 mg Tablet
10 mg PO DAILY
Mounjaro 7.5 mg/0.5 mL Pen Injector
7.5 mg SC QWEEK
Rx Instructions:
every monday
Discharge Orders:
Discharge Patient (As Directed); Ordered 05/06/24
Ordered By: Hilton Oscar
Discharge Date and Time
Discharge Date/Time: 05/06/24 17:45
Print Language: PORTUGUESE

Documented by User: Deshawn Sandoval MD 05/07/24 00:20
Discharge Summary
Discharge Data
Date of Admission: 05/04/24
Date of Discharge: 05/07/24
Discharge Plan
-
Patient Disposition: Home (Routine Discharge)
Discharge Diagnosis/Procedures: Acute Hypoxic Respiratory Failure Secondary to Acute Viral Laryngotracheitis
Condition: Fair
Diet: Diabetic, Carb Controlled
Activity: No restrictions
Driving Restrictions: As prior to admission
Bathing Restrictions: None
Instructions: Diabetes and diet, Diabetes and heart disease
Referrals:
Judah Branch DPM [Family Provider] - in one to two weeks (Please call PCP and let them know about hospital stay )
Prescriptions:
New
amiodarone 200 mg Tablet
200 mg PO DAILY 30 Days Qty: 30 0RF
clopidogrel 75 mg Tablet
75 mg PO DAILY 30 Days Qty: 30 0RF
Continued
atorvastatin [Lipitor] 40 mg Tablet
40 mg PO DAILY
insulin asp prt-insulin aspart [Novolog Mix 70-30FlexPen U-100] 100 unit/mL (70-30) Insulin Pen
60 unit SC BID
Patient Comments:
patient explained that her child care group leader told her to log her blood sugar for next couple of weeks, and she lowered her dose to 65 units she also said when she woke up in the middle of night her bs was 67 and before she came here her bs was 168
Rx Instructions:
before breakfast and dinner
cholecalciferol (vitamin D3) [Vitamin D3] 50 mcg (2,000 unit) Capsule
50 mcg PO DAILY
aspirin 81 mg Tablet,Chewable
81 mg PO DAILY Qty: 0 0RF
acetaminophen 325 mg Tablet
650 mg PO Q6HPRN PRN (Reason: mild pain,headache,temp >101F ) Qty: 0 0RF
miconazole nitrate [Miconazorb AF] 2 % powder
1 applic topical BID
metoprolol succinate 25 mg tablet extended release 24 hr
25 mg PO BID
pantoprazole [Protonix] 40 mg Tablet,Delayed Release (Dr/Ec)
40 mg PO DAILY
ezetimibe [Zetia] 10 mg Tablet
10 mg PO DAILY
Mounjaro 7.5 mg/0.5 mL Pen Injector
7.5 mg SC QWEEK
Rx Instructions:
every monday
Discharge Orders:
Discharge Patient (As Directed); Ordered 05/06/24
Ordered By: Hilton Oscar
Discharge Date and Time
Discharge Date/Time: 05/06/24 17:45
Print Language: PORTUGUESE
== END 2024-05-06 17:45 | disposition home or self-care (01) | DRG 152 ==
LOC: 4 WEST ACU 12:33
PROVIDERS: ADMITTING PHYSICIAN Internal Medicine; ATTENDING PHYSICIAN Family Medicine; EMERGENCY PHYSICIAN Student in an Organized Health Care Education/Training Program; FAMILY PHYSICIAN Podiatrist Foot & Ankle Surgery
DX: J04.2 Acute laryngotracheitis (principal); J96.01 Acute respiratory failure with hypoxia; R17 Unspecified jaundice; Z68.42 Body mass index [BMI] 45.0-49.9, adult; Z79.4 Long term (current) use of insulin; E11.65 Type 2 diabetes mellitus with hyperglycemia; E11.36 Type 2 diabetes mellitus with diabetic cataract; I25.2 Old myocardial infarction; Z95.1 Presence of aortocoronary bypass graft; I10 Essential (primary) hypertension; K21.9 Gastro-esophageal reflux disease without esophagitis; I25.10 Atherosclerotic heart disease of native coronary artery without angina pectoris; E78.00 Pure hypercholesterolemia, unspecified; Z79.02 Long term (current) use of antithrombotics/antiplatelets; Z79.82 Long term (current) use of aspirin; E66.01 Morbid (severe) obesity due to excess calories; Z11.52 Encounter for screening for COVID-19
CPT/HCPCS: 71046; 80048; 80053; 82947; 82962; 83036; 83880; 85025; 87502; 87811; 93005; 94640; 96372; 96374; 99284

== ENCOUNTER 2024-06-03 11:43 | Inpatient (IN) | payer OTHER, SELFPAY ==
[2024-06-01 22:00] VITALS: BP 94/47
[2024-06-01 22:09] VITALS: BP 98/53
[2024-06-01 22:09] LABS: Glucose - Point of Care 165 mg/dl (70-99)
[2024-06-01 22:32] LABS: % Basophils 0.4 % (0-2); % Eosinophils 0.3 % (0-6); % Immature Granulocytes 0.5 % (0-0.5); % Lymphocytes 5.8 % (20.5-51.1); % Monocytes 7.2 % (1.7-9.3); % Neutrophils 85.8 % (42.2-75.2); Absolute Basophils 0.1 10^3/uL (0-0.2); Absolute Immature Granulocytes 0.1 10^3/uL (0-0.05); Absolute Lymphocytes 0.8 10^3/uL (1.2-3.4); Absolute Neutrophils 12.1 10^3/uL (1.4-6.5); Hematocrit 46.6 % (37.0-47.0); Hemoglobin 15.7 g/dL (12.0-16.0); Mean Corp Hgb Conc. 33.7 g/dL (33.0-37.0); Mean Corpuscular Hgb 28.8 pg (27.0-31.0); Mean Corpuscular Volume 85.5 fL (81.0-99.0); Mean Platelet Volume 10.1 fL (7.4-10.4); Nucleated Red Blood Cells % 0 %; Platelet Count 341 10^3/uL (130-400); Red Blood Cell Count 5.45 10^6/uL (4.20-5.40); Red Cell Dist. Width 14.5 % (11.5-14.5); White Blood Cell Count 14.1 10^3/uL (4.8-10.8)
[2024-06-01 22:48] LABS: ALT (SGPT) 20 U/L (0-35); AST (SGOT) 27 U/L (14-36); Albumin 4.4 g/dl (3.5-5.0); Alkaline Phosphatase 95 U/L (38-126); Blood Urea Nitrogen 46 mg/dl (7-17); Calcium 9.1 mg/dl (8.4-10.2); Carbon Dioxide 17 mmol/L (22-30); Chloride 105 mmol/L (98-107); Glucose 164 mg/dl (70-99); Lipase 162 U/L (23-300); Potassium 4.3 mmol/L (3.5-5.1); Sodium 141 mmol/L (135-145); Total Bilirubin 2.1 mg/dl (0.2-1.3); Total Protein 6.4 g/dl (6.3-8.2)
[2024-06-01 23:00] VITALS: BP 107/61
[2024-06-01 23:05] LABS: Troponin I < 0.012 ng/ml
[2024-06-01] MEDS: ZOFRAN 4 MG IV (23:20)
[2024-06-01] MEDS: NSS 500 IV (23:23)
[2024-06-01 23:40] VITALS: BMI 47.4
--- NOTE | 2024-06-01 23:43 | ED.GENMED ---
History of Present Illness
General
Chief Complaint: Fainting Sensation
Source: patient
Exam Limitations: none
Time Seen by Provider: 06/01/24 23:34
History of Present Illness
History of Present Illness:
See MDM
Past History
Past History
ED Past Medical History: CAD, HTN, Hypercholesterolemia and IDDM
ED Past Surgical History: Cardiac, Gynecological and Other (cataract)
Patient has exhibited threatening behavior?: No
Social History
Tobacco: Non-smoker
Alcohol: None
Drug: None
Personal: Single
Living: alone
Employment: Retired
Phy Exam
Physical Exam
Physical Exam:
See MDM
Course
Orders/Labs/Results
Orders:
Orders
06/01/24 22:18
EKG [Electrocardiogram (*1)] Urgent
Reason for Study: Syncope
EKG- Treatment ONCE
06/01/24 22:25
Complete Blood Count/With Diff Urgent
Comprehensive Metabolic Panel Urgent
Lipase Urgent
Troponin I Urgent
06/01/24 22:49
Ondansetron Injectable [Zofran] 4 mg .ROUTE .STK-MED ONE
06/01/24 23:19
Ondansetron Injectable [Zofran] 4 mg IV NOW STA
06/01/24 23:23
0.9% Sodium Chloride 500 ml [Nss] 500 ml IV BOLUS
06/01/24 23:41
Norovirus by PCR Urgent
ANA LILIA Source: Feces/Stool
Specimen Description:
Abnormal Lab Results
06/01/24 06/01/24
22:08 22:25
WBC 14.1 H 10^3/uL
(4.8-10.8)
RBC 5.45 H 10^6/uL
(4.20-5.40)
Abs Immat Gran (auto) 0.1 H 10^3/uL
(0-0.05)
Absolute Neuts (auto) 12.1 H 10^3/uL
(1.4-6.5)
Absolute Lymphs (auto) 0.8 L 10^3/uL
(1.2-3.4)
Absolute Monos (auto) 1.0 H 10^3/uL
(0.1-0.6)
Neutrophils % 85.8 H %
(42.2-75.2)
Lymphocytes % 5.8 L %
(20.5-51.1)
Carbon Dioxide 17 L mmol/L
(22-30)
BUN 46 H mg/dl
(7-17)
Creatinine 2.0 H mg/dL
(0.6-1.0)
Glucose 164 H mg/dl
(70-99)
Total Bilirubin 2.1 H mg/dl
(0.2-1.3)
POC Glucose 165 H mg/dl
(70-99)
06/01/24 22:25
06/01/24 22:25
Vital Signs
Initial and Last Documented VS:
Initial Vital Signs
Temp Pulse Resp BP Pulse Ox
97.7 F 82 17 94/47 97
06/01/24 22:00 06/01/24 22:00 06/01/24 22:00 06/01/24 22:00 06/01/24 22:00
Last Documented Vital Signs
Temp Pulse Resp BP Pulse Ox
97.7 F 88 16 107/61 98
06/01/24 22:00 06/01/24 23:30 06/01/24 23:30 06/01/24 23:00 06/01/24 23:30
MDM/Problems Addressed
Differential Diagnosis Includes:
HPI and MDM Narrative:
78-year-old female presenting with nausea, vomiting and diarrhea. Patient states it was sudden onset earlier in the evening. She went to the bathroom and was throwing up. She then had diarrhea. While on the toilet, patient syncopized and found
herself wedged between the toilet and the shower. Patient planing of generalized weakness. On arrival, patient started on IV fluids and given Zofran. She states her nausea has improved but she is too weak to get herself out of the bed to go to
the bathroom. Blood work was done prior to my evaluation and she does have elevated creatinine from baseline. Given her comorbidities and lab abnormalities and her inability to get herself to the bathroom, will admit for IV fluids and further
treatment
Physical exam
General: Weak and fatigued
HEENT: protecting airway. Dry mucous membranes
Neck: appears supple
CV: No evidence of cyanosis
Resp: No accessory muscle use
Abd: Non-distended. Soft and nontender
Extremities: No deformities
Neuro: alert
Psych: Normal affect
Skin: Intact
Problems Addressed including Acute and Chronic Conditions affecting care:
1. Acute dehydration
Acuity: acute
Prognosis: stable
Details: Patient started on IV fluids
2. Nausea, vomiting and diarrhea
Acuity: acute
Prognosis: stable
Details: Nausea improved with Zofran
3. Acute kidney injury
Acuity: acute
Prognosis: stable
Details: Appears prerenal. Will continue IV fluids
Differential Diagnosis (but not limited to): Norovirus, gastroenteritis, gastritis
Testing considered: CT abdomen/pelvis but there is no tenderness noted
Drug therapy (if applicable): OTC meds, please see d/c instruction regarding Rx drugs
Amount and/or Complexity of Data Reviewed
Clinical info obtained from: Patient
External data reviewed: N/A
Labs I independently reviewed (but not limited to): Leukocytosis, hyperglycemia, elevated creatinine
Radiology: N/A
Pulse Ox: not hypoxic
EKG independently reviewed: Sinus rhythm, normal axis, no STEMI
Delivery Crew Worker: N/A
Critical Care: N/A
Risk of Complication:
Social Determinants of health: Good social support
Discussed with other providers: Hospitalist
Escalation of Care includes Admit/Obs: Given her comorbidities with dehydration and RACHELLE, will admit for fluids and further evaluation
Occasional wrong word or 'sound a like' substitutions may have occurred due to the inherent limitations of voice recognition software. Read the chart carefully and recognize, using context, where substitutions have occurred.
*Critical Care Note
Total Time (30-74mins, 75-104mins- exclusive of procedures): Not Applicable
ED Attending Note
-
Portions of this chart may have been created with voice recognition software.� Occasional wrong word or��sound alike� substitutions may have occurred due to the inherent limitations of voice recognition software.
Discharge Plan
Departure
Patient Disposition: Admit
Date of Disposition: 06/01/24
Time of Disposition: 23:43
Admit to: Med/Surg
Presentation/result/management discussed w/ accepting MD/DO: Hospitalist
Discharge Problem:
Acute dehydration, RACHELLE (acute kidney injury), Gastroenteritis
Prescriptions:
No Action
atorvastatin [Lipitor] 40 mg Tablet
40 mg PO DAILY
insulin asp prt-insulin aspart [Novolog Mix 70-30FlexPen U-100] 100 unit/mL (70-30) Insulin Pen
60 unit SC BID
Patient Comments:
patient explained that her lens grinder rough told her to log her blood sugar for next couple of weeks, and she lowered her dose to 65 units she also said when she woke up in the middle of night her bs was 67 and before she came here her bs was 168
Rx Instructions:
before breakfast and dinner
cholecalciferol (vitamin D3) [Vitamin D3] 50 mcg (2,000 unit) Capsule
50 mcg PO DAILY
aspirin 81 mg Tablet,Chewable
81 mg PO DAILY Qty: 0 0RF
acetaminophen 325 mg Tablet
650 mg PO Q6HPRN PRN (Reason: mild pain,headache,temp >101F ) Qty: 0 0RF
miconazole nitrate [Miconazorb AF] 2 % powder
1 applic topical BID
metoprolol succinate 25 mg tablet extended release 24 hr
25 mg PO BID
pantoprazole [Protonix] 40 mg Tablet,Delayed Release (Dr/Ec)
40 mg PO DAILY
ezetimibe [Zetia] 10 mg Tablet
10 mg PO DAILY
Mounjaro 7.5 mg/0.5 mL Pen Injector
7.5 mg SC QWEEK
Rx Instructions:
every monday
amiodarone 200 mg Tablet
200 mg PO DAILY 30 Days Qty: 30 0RF
clopidogrel 75 mg Tablet
75 mg PO DAILY 30 Days Qty: 30 0RF
Referrals:
Latasha Branch DO [Family Provider] -
Interventions
Interventions:
*Risk Screen - Suicide Last Done: 06/01/24 22:11
*General Assessment Last Done: 06/01/24 22:11
*Neglect/Abuse Screening Last Done: 06/01/24 22:11
ED- Fall Risk Assessment Last Done: 06/01/24 22:11
*ED COVID-19 Vaccine History Last Done: 06/01/24 22:11
WG-Cdvaxi-Quxlvtsnei Assessment Last Done: 06/01/24 22:11
ED- Cardiac Assessment Last Done: 06/01/24 22:11
ED- Neurological Assessment Last Done: 06/01/24 22:11
Discharge Date and Time
Print Language: KHMER
[2024-06-02] VITALS (15 sets, daily range): BP systolic 113–167; BP diastolic 34–72; PULSE 96; O2SAT 99
--- NOTE | 2024-06-02 00:03 | HPS.HSE ---
Family Physician
-
Family Physician: Latasha Branch
Chief Complaint
-
Weakness and diarrhea
History of Present Illness
78-year-old woman comes in with nausea, vomiting and diarrhea. Sudden onset earlier in the evening. While on the toilet, patient syncopized and found herself wedged between the toilet and the shower. In ED she complaned of generalized weakness.
In ED she was given IV fluids and Zofran. She states her nausea has improved but she is too weak to get herself out of the bed to go to the bathroom. Comfortable. No current chest pain. No difficulties breathing while lying down in bed. No
recent h/o increased leg edema. H/O past OK.
Medical History
Past Medical History
Past Medical History: Reports Other
Additional Past Medical History:
Acute congestive heart failure with left ventricular diastolic dysfunction
Primary hypertension
Acute kidney failure
Breath shortness
Acute myocardial infarction, subendocardial infarction
NSTEMI
Diabetes, Type II
Dyslipidemia
morbid obesity
RACHELLE
neuropathy lat-fem nerve
Ferreira's Palsy
Surgical History DH-CABGx4 MORFIN->LAD,RSVG->Diag, RSVG->OM, RSVG->PDA, ROCIO exclusion with Atriclip 35mm 01/26/22
DH-CABG 01/20-
DH-L and R heart cath. 01/21/22
DHER-for scan for Ferreira's palsy 04/2021
hyperglycemia 01/2022
Coronary artery disease involving [place] coronary artery of [place] heart with unstable angina pectoris
Heart failure with preserved ejection fraction, borderline, class II
PAF (paroxysmal atrial fibrillation)
Aortic atherosclerosis
Renal insufficiency
Hepatic steatosis
Suspected sleep apnea
Past Surgical History: Reports Other
Additional Past Surgical History:
See above
Social History
Tobacco: Non-smoker
Alcohol: None
Drug: None
Living: With Family
Employment: Not Employed
Family History
Family History: Not pertinent
Allergies / Home Medications
Allergies reflects when Allergies were last updated in [employer].
Home Medications with original date entered in [employer]
Allergy/Medication List:
Allergies
Allergy/AdvReac Type Severity Reaction Status Date / Time
No Known Allergies Allergy Verified 05/04/24 09:56
Home Medications
atorvastatin 40 mg tablet (Lipitor) 40 mg PO DAILY High cholesterol 01/20/22
cholecalciferol (vitamin D3) 50 mcg (2,000 unit) capsule (Vitamin D3) 50 mcg PO DAILY Supplement 01/20/22
insulin aspar prot-insulin aspart 100 unit/mL (70-30) subcutaneous pen (Novolog Mix 70-30FlexPen U-100) 60 unit SC BID Diabetes 01/20/22
acetaminophen 325 mg tablet 650 mg (2 x 325 mg) PO Q6HPRN PRN mild pain,headache,temp >101F #0 tabs 02/01/22
aspirin 81 mg chewable tablet 81 mg PO DAILY #0 tabs 02/01/22
metoprolol succinate 25 mg tablet,extended release 24 hr 25 mg PO BID 02/23/22
miconazole nitrate 2 % topical powder (Miconazorb AF) 1 applic topical BID abd folds, grion and under breasts 02/23/22
ezetimibe 10 mg tablet (Zetia) 10 mg PO DAILY 05/04/24
pantoprazole 40 mg tablet,delayed release (Protonix) 40 mg PO DAILY 05/04/24
tirzepatide 7.5 mg/0.5 mL subcutaneous pen injector (Mounjaro) 7.5 mg SC QWEEK 05/04/24
amiodarone 200 mg tablet 200 mg PO DAILY 30 days #30 tabs 05/06/24
clopidogrel 75 mg tablet 75 mg PO DAILY 30 days #30 tabs 05/06/24
Review of Systems
-
History Source: Patient
A 12 point ROS was completed and negative except as noted: Yes
Physical Exam
Vital Signs
Vital Signs
Temp Pulse Resp BP Pulse Ox
97.7 F 88 16 107/61 98
06/01/24 22:00 06/01/24 23:30 06/01/24 23:30 06/01/24 23:00 06/01/24 23:30
Physical Exam
General: Well Developed, Well Nourished, No Apparent Distress, Comfortable and Morbidly Obese
HEENT: NormoCephalic, Moist mucous membranes, Nose Appears Normal and Ears Appear Normal
Respiratory: Clear
Cardiac: S1/S2 and Regular Rhythm
GI: Soft, Non Tender and Non Distended
Musculoskeletal: No Clubbing, No Cyanosis and No Edema
Skin: Warm and Dry
Neuro: Awake, Alert, Oriented and AO x 3
Psych: Calm
Laboratory Results
-
06/01/24 22:25
06/01/24 22:25
Laboratory Results
Total Bilirubin 2.1 mg/dl (0.2-1.3) H 06/01/24 22:25
AST 27 U/L (14-36) 06/01/24 22:25
ALT 20 U/L (0-35) 06/01/24 22:25
Alkaline Phosphatase 95 U/L (38-126) 06/01/24 22:25
Troponin I < 0.012 ng/ml 06/01/24 22:25
Lipase 162 U/L (23-300) 06/01/24 22:25
Data Reviewed
-
Lab Data: Labs Reviewed by me
Impression/Plan
-
IMPRESSION:
78 woman with complex PMH and gastroenteritis. Weak and cannot walk. Significant findings:
WBC 14.1
BUN/Creat 46/2.0 (baseline 40-60/1.5)
PLAN:
1. Gastroenteritis - likely viral
IV fluids overnight
PT consult in AM
2. Acute on chronic renal injury (RACHELLE)
IV fluids overnight
Recheck renal function in am
3. High risk of miocardial injury given past h/o OK and probable low BP leading to syncope
Cycle troponins
Monitor on telemetry
4. Otherwise complex PMH - continue home meds for:
Acute congestive heart failure with left ventricular diastolic dysfunction
Primary hypertension
Acute kidney failure
Breath shortness
Acute myocardial infarction, subendocardial infarction
NSTEMI
Diabetes, Type II
Dyslipidemia
morbid obesity
RACHELLE episodes
neuropathy lat-fem nerve
Ferreira's Palsy
Surgical History DH-CABGx4 MORFIN->LAD,RSVG->Diag, RSVG->OM, RSVG->PDA, ROCIO exclusion with Atriclip 35mm 01/26/22
DH-CABG 01/20-
DH-L and R heart cath. 01/21/22
hyperglycemia 01/2022
Coronary artery disease involving [place] coronary artery of [place] heart with unstable angina pectoris
Heart failure with preserved ejection fraction, borderline, class II
PAF (paroxysmal atrial fibrillation)
Aortic atherosclerosis
Renal insufficiency
Hepatic steatosis
Suspected sleep apnea
Code: DNR
VCD for DVTp
[2024-06-02] MEDS: LR 1000 IV ×2 (04:59→14:06)
[2024-06-02] MEDS: ZOFRAN 4 MG IV (06:52)
[2024-06-02 07:25] LABS: Blood Urea Nitrogen 57 mg/dl (7-17); Calcium 8.2 mg/dl (8.4-10.2); Carbon Dioxide 18 mmol/L (22-30); Chloride 105 mmol/L (98-107); Estimated Creatinine Clearance 30 ml/min; Glucose 293 mg/dl (70-99); Potassium 4.5 mmol/L (3.5-5.1); Sodium 136 mmol/L (135-145); eGFR 26.69
[2024-06-02 07:26] LABS: Troponin I 0.014 ng/ml
[2024-06-02 08:43] LABS: Hematocrit 39.7 % (37.0-47.0); Hemoglobin 13.6 g/dL (12.0-16.0); Mean Corp Hgb Conc. 34.3 g/dL (33.0-37.0); Mean Corpuscular Hgb 29.8 pg (27.0-31.0); Mean Corpuscular Volume 87.1 fL (81.0-99.0); Mean Platelet Volume 10.2 fL (7.4-10.4); Platelet Count 212 10^3/uL (130-400); Red Blood Cell Count 4.56 10^6/uL (4.20-5.40); Red Cell Dist. Width 14.6 % (11.5-14.5); White Blood Cell Count 8.6 10^3/uL (4.8-10.8)
[2024-06-02] MEDS: ZETIA 10 MG PO (08:57)
[2024-06-02] MEDS: PROTONIX 40 MG PO (08:57)
[2024-06-02] MEDS: PLAVIX 75 MG PO (08:57)
[2024-06-02] MEDS: LOW STRENGTH ASPIRIN 81 MG PO (08:58)
[2024-06-02] MEDS: PACERONE 200 MG PO (08:58)
[2024-06-02] MEDS: VITAMIN D3 (cholecalciferol) 50 MCG PO (09:01)
[2024-06-02] MEDS: TOPROL XL 25 MG PO ×2 (09:01→20:49)
[2024-06-02] MEDS: LIPITOR 40 MG PO (09:01)
[2024-06-02] MEDS: DESENEX/MITRAZOL/ZEASORB 1 APPLIC TOPICAL ×2 (09:02→20:49)
[2024-06-02] MEDS: NOVOLOG MIX 70/30 FLEXPEN 60 UNITS SC ×2 (09:06→21:32)
[2024-06-02] MEDS: NOVOLOG FLEXPEN-MODERATE RESISTANCE 7 UNITS SC (09:09)
[2024-06-02 09:15] LABS: Glucose - Point of Care 326 mg/dl (70-99)
[2024-06-02 10:23] LABS: Troponin I 0.016 ng/ml
[2024-06-02 12:57] LABS: Glucose - Point of Care 241 mg/dl (70-99)
[2024-06-02] MEDS: NOVOLOG FLEXPEN-MODERATE RESISTANCE 3 UNITS SC (13:01)
--- NOTE | 2024-06-02 13:34 | W.PN.HOSP.TC ---
Today's Communication/Plan
-
Supportive care for norovirus
Maintenance IVF
Hold ANABEL and HCTZ
Resume amlodipine at 5 mg, uptitrate as needed
Telemetry
Assessment / Plan
Assessment / Plan
#Syncope
#Hypotension
-Suspicion for hypotension versus vasovagal response; had low BP with EMS
-Was on the commode when syncope occurred, denies prodromal symptoms
-States she typically has high blood pressure, BP here softer on arrival
-No evidence of underlying arrhythmia on studies done here
-Denies any issues with syncope previously
-Continue on telemetry
-Consider MCOT at DC
#Norovirus gastroenteritis
-Presented with nausea and diarrhea that abruptly started evening of 06/01
-Has family members/friends with similar symptomatology
-Norovirus today was positive, started Imodium
-Continue with supportive medications
#Prerenal RACHELLE on CKD
-Secondary to reduced intake, diarrhea; reportedly hypotensive with EMS
-Baseline creatinine 1.3, creatinine 2.0 on arrival
-Started on IV fluids, HCTZ and ACEi held; creatinine down to 1.9
-Trend BMP on IVF, avoid NSAIDs and IV contrast
-Hold ANABEL inhibitor and HCTZ, may DC HCTZ permanently
#HFpEF
-Likely ischemic cardiomyopathy without systolic dysfunction
-Not currently on GDMT or loop diuretic
-Unclear if this is true diagnosis
-Monitor volume status on IVF
#Paroxysmal AF
-Unclear history, possibly transient and related with CABG
-Home medications include metoprolol and amiodarone; not on AC
-Appears to be in sinus rhythm at this time
#CAD s/p CABG x 4
-Home medications include metoprolol succinate, high intensity statin, aspirin
-Patient states she does have chronic exertional dyspnea since CABG
-Would likely benefit from repeat ischemic workup as OP
-No signs of acute coronary syndrome
#Primary HTN
-No known history of hypertensive systemic disease states
-Home medications include HCTZ, metoprolol, amlodipine, benazepril
-Holding benazepril and HCTZ for RACHELLE
-Resume amlodipine, was held for hypotension
#HLD
-History of ASCVD with CAD status post CABG
-Home regimen includes high intensity statin and ezetimibe
#GERD
-Home medications include daily PPI
-No known history of Phillips's or erosive disease
#IDDM
-Home medications include NovoLog 70-30 65 units daily, 60 units HS
-Also currently on Mounjaro, high intensity statin for ASCVD
-Unclear if she has some associated microvascular disease
-Possibly related with CKD and history of CAD
#H/O Ferreira's palsy
-Unclear etiology
#Suspected SATURNINO
-Should have follow-up with pulm for sleep study
DVT prophylaxis: SCDs
Diet: Regular, as tolerated
CODE STATUS: DNR
Anticipated Discharge: Within 24 hours
Subjective/Interval History
-
Date of Service: June 02, 2024
Seen and examined at the bedside. No acute events reported overnight. AFVSS this morning
States that she feels better, still has some diarrhea and nausea. Norovirus positive. Creatinine down from 2-1.9
Denies any new complaints
Objective Data
-
Labs:
Laboratory Results
06/02/24
06:49
WBC 8.6
Hgb 13.6
Hct 39.7
Plt Count 212 D
Sodium 136
Potassium 4.5
Chloride 105
Carbon Dioxide 18 L
BUN 57 H
Creatinine 1.9 H
Glucose 293 H
Calcium 8.2 L
Vital Signs:
Vital Signs
Temp Pulse Resp BP Pulse Ox
99.6 F 93 20 158/54 97
06/02/24 12:08 06/02/24 12:00 06/02/24 12:00 06/02/24 11:57 06/02/24 06:45
Review of Systems
-
History Source: Patient
All other systems: Reviewed and negative
Physical Exam
-
General: Well Developed, No Apparent Distress, Comfortable and Morbidly Obese
HEENT: Normocephalic, Atraumatic, Moist Mucous Membranes and Anicteric
Respiratory: Clear to Auscultation and Non Labored Respirations
Cardiac: Regular Rhythm, S1/S2 and Tachycardic; Negative Murmur, Rub or Gallop
GI: Soft, Nontender, Nondistended and Normal Bowel Sounds
Musculoskeletal: No Clubbing, No Cyanosis and No Edema
Skin: Warm and Dry; Negative Rash
Neuro: AO x 3 and Nonfocal/Grossly Intact
Psych: Calm
Data Reviewed
-
Labs: Labs Reviewed by me and Discussed with Patient
[2024-06-02] MEDS: NORVASC 5 MG PO (14:05)
[2024-06-02] MEDS: IMODIUM 2 MG PO ×2 (14:06→20:50)
[2024-06-02 17:13] LABS: Troponin I 0.013 ng/ml
[2024-06-02 17:49] LABS: Glucose - Point of Care 284 mg/dl (70-99)
[2024-06-02] MEDS: NOVOLOG FLEXPEN-MODERATE RESISTANCE 5 UNITS SC (17:54)
[2024-06-02] MEDS: MAALOX 30 ML PO (18:40)
[2024-06-02 20:49] LABS: Glucose - Point of Care 284 mg/dl (70-99)
[2024-06-03] VITALS (12 sets, daily range): BP systolic 133–171; BP diastolic 47–108; PULSE 80; O2SAT 94; BMI 47.7
[2024-06-03] MEDS: LR 1000 IV ×4 (00:22→20:24)
[2024-06-03 06:36] LABS: % Basophils 0.2 % (0-2); % Eosinophils 0.9 % (0-6); % Immature Granulocytes 0.8 % (0-0.5); % Lymphocytes 15.5 % (20.5-51.1); % Monocytes 13.6 % (1.7-9.3); Absolute Eosinophils 0.1 10^3/uL (0-0.7); Absolute Lymphocytes 0.8 10^3/uL (1.2-3.4); Absolute Monocytes 0.7 10^3/uL (0.1-0.6); Absolute Neutrophils 3.7 10^3/uL (1.4-6.5); Hematocrit 36.1 % (37.0-47.0); Hemoglobin 12.1 g/dL (12.0-16.0); Mean Corp Hgb Conc. 33.5 g/dL (33.0-37.0); Mean Corpuscular Hgb 29.3 pg (27.0-31.0); Mean Corpuscular Volume 87.4 fL (81.0-99.0); Mean Platelet Volume 10.5 fL (7.4-10.4); Nucleated Red Blood Cells % 0 %; Platelet Count 189 10^3/uL (130-400); Red Blood Cell Count 4.13 10^6/uL (4.20-5.40); Red Cell Dist. Width 14.7 % (11.5-14.5); White Blood Cell Count 5.3 10^3/uL (4.8-10.8)
[2024-06-03 06:52] LABS: Blood Urea Nitrogen 52 mg/dl (7-17); Calcium 7.8 mg/dl (8.4-10.2); Carbon Dioxide 21 mmol/L (22-30); Chloride 104 mmol/L (98-107); Estimated Creatinine Clearance 35 ml/min; Glucose 76 mg/dl (70-99); Potassium 3.7 mmol/L (3.5-5.1); Sodium 136 mmol/L (135-145); eGFR 32.81
[2024-06-03] MEDS: NOVOLOG FLEXPEN-MODERATE RESISTANCE SC ×3 (09:42→18:04)
[2024-06-03] MEDS: PACERONE 200 MG PO (09:43)
[2024-06-03] MEDS: LOW STRENGTH ASPIRIN 81 MG PO (09:43)
[2024-06-03] MEDS: PROTONIX 40 MG PO (09:43)
[2024-06-03] MEDS: TOPROL XL 25 MG PO ×2 (09:44→20:17)
[2024-06-03] MEDS: ZETIA 10 MG PO (09:45)
[2024-06-03] MEDS: NORVASC 5 MG PO (09:45)
[2024-06-03] MEDS: VITAMIN D3 (cholecalciferol) 50 MCG PO (09:46)
[2024-06-03] MEDS: LIPITOR 40 MG PO (09:46)
[2024-06-03] MEDS: DESENEX/MITRAZOL/ZEASORB 1 APPLIC TOPICAL ×2 (09:46→20:18)
[2024-06-03] MEDS: NOVOLOG MIX 70/30 FLEXPEN 60 UNITS SC ×2 (09:47→18:07)
[2024-06-03] MEDS: PLAVIX PO (09:49)
--- NOTE | 2024-06-03 12:30 | CM ---
Addendum entered by Veena Stahl 06/03/24 14:50:
PT now inpatient- IMM verbally reviewed
Copy provided
Original Note:
CM spoke with pt on room phone due to contact precautions [phone]
Pt resides alone in a condo in a [place] community
Rancher with 1 BELINDA
Pt is indep with her ADLs, no ADs
Pt has a WW and SPC for use if needed
Pt has hx with [facility] and [facility]
No financial insecurities
PCP- Latasha Branch
Rx- [facility]
PT eval yesterday notes SNF vs VN recs
Per nursing, plan for dc today pending PT re-eval
Call with therapy and they will see her today
per pt, she is not interested in SNF
She is in agreement with [facility] referral
She notes her dtr will be available to assist her and will transport her home on dc
NEETA verbally reviewed- copy provided
VN order requested
Discharge Disposition- home with [facility] VN via dtr transport
Fax- [phone]
--- NOTE | 2024-06-03 12:37 | W.PN.HOSP.TC ---
Addendum entered and electronically signed by Pawan Noble MD 06/03/24 15:08:
bps slightly lower, will provide additional iv fluids and reassess with PT for safe DC
Original Note:
Today's Communication/Plan
-
supportive care
bmp in 3-5 days
f/u pcp, pulmonary, cardiology outpt
hold ACEI, HCTZ for now
Assessment / Plan
Assessment / Plan
#Syncope
#Hypotension
-Suspicion for hypotension versus vasovagal response; had low BP with EMS
-Was on the commode when syncope occurred, denies prodromal symptoms
�No further episodes inpatient
� Follow-up cardiology outpatient
#Norovirus gastroenteritis
-Presented with nausea and diarrhea that abruptly started evening of 06/01
-Has family members/friends with similar symptomatology
-Norovirus today was positive, started Imodium
-Continue with supportive medications
� Improved, tolerated LRD - continue supportyive care
#Prerenal RACHELLE on CKD
-Secondary to reduced intake, diarrhea; reportedly hypotensive with EMS
-Baseline creatinine 1.3, creatinine 2.0 on arrival
-Started on IV fluids, HCTZ and ACEi held; creatinine down to 1.9
-Trend BMP on IVF, avoid NSAIDs and IV contrast
-Hold ANABEL inhibitor and HCTZ, can consider restarting outpt
-f/u bmp outpt
#HFpEF
-Likely ischemic cardiomyopathy without systolic dysfunction
-Not currently on GDMT or loop diuretic
-Unclear if this is true diagnosis
-Monitor volume status on IVF
-f/u cards outpt
#Paroxysmal AF
-Unclear history, possibly transient and related with CABG
-Home medications include metoprolol and amiodarone; not on AC
-Appears to be in sinus rhythm at this time
-f/u cards outpt
#CAD s/p CABG x 4
-Home medications include metoprolol succinate, high intensity statin, aspirin
-Patient states she does have chronic exertional dyspnea since CABG
-Would likely benefit from repeat ischemic workup as OP
-No signs of acute coronary syndrome
-f/u cards oupt
-hold acei due to rachelle and restart outpt
#Primary HTN
-No known history of hypertensive systemic disease states
-Home medications include HCTZ, metoprolol, amlodipine, benazepril
-Holding benazepril and HCTZ for RACHELLE
-Resume amlodipine, was held for hypotension
#HLD
-History of ASCVD with CAD status post CABG
-Home regimen includes high intensity statin and ezetimibe
#GERD
-Home medications include daily PPI
-No known history of Phillips's or erosive disease
#IDDM
-Home medications include NovoLog 70-30 65 units daily, 60 units HS
-Also currently on Mounjaro, high intensity statin for ASCVD
-Unclear if she has some associated microvascular disease
-Possibly related with CKD and history of CAD
#H/O Ferreira's palsy
-Unclear etiology
#Suspected SATURNINO
-Should have follow-up with pulm for sleep study
DVT prophylaxis: SCDs
Diet: Regular, as tolerated
CODE STATUS: DNR
More than 30 minutes spent in discharge including
Final examination of the patient
Summarizing hospital stay
Instructions for continuing care to all relevant caregivers
Preparation of discharge records, prescriptions, and referral forms
Total time spent (36 in minutes):
Anticipated Discharge: Today
Subjective/Interval History
-
Date of Service: June 03, 2024
Had appetite, tolerating diet
Objective Data
-
Labs:
Laboratory Results
06/03/24
05:40
WBC 5.3
Hgb 12.1
Hct 36.1 L
Plt Count 189
Sodium 136
Potassium 3.7
Chloride 104
Carbon Dioxide 21 L
BUN 52 H
Creatinine 1.6 H
Glucose 76
Calcium 7.8 L
Vital Signs:
Vital Signs
Temp Pulse Resp BP Pulse Ox
98.6 F 80 20 137/56 94
06/03/24 03:00 06/03/24 04:00 06/03/24 04:00 06/03/24 04:00 06/03/24 10:50
Review of Systems
-
History Source: Patient
All other systems: Not reviewed unless documented
Physical Exam
-
General: Well Developed, No Apparent Distress, Comfortable and Morbidly Obese
HEENT: Normocephalic, Atraumatic, Moist Mucous Membranes and Anicteric
Respiratory: Clear to Auscultation and Non Labored Respirations
Cardiac: Regular Rhythm, S1/S2 and Tachycardic; Negative Murmur, Rub or Gallop
GI: Soft, Nontender, Nondistended and Normal Bowel Sounds
Musculoskeletal: No Clubbing, No Cyanosis and No Edema
Skin: Warm and Dry; Negative Rash
Neuro: AO x 3 and Nonfocal/Grossly Intact
Psych: Calm
Data Reviewed
-
Labs: Labs Reviewed by me
--- NOTE | 2024-06-03 12:46 | W.DS.TRANS ---
DC Summary - Concession Manager
-
Discharge Instructions:
Discharge Diagnosis/Procedures #Norovirus gastroenteritis
##Syncope
#Hypotension
Diet Low Residue
Activity As tolerated
Blood Work cbc and bmp in 3-5 days with pcp
Others Tests sleep study
Instructions:
Stand-Alone Forms:
Changes to Home Medications: Yes
Discharge Medications:
DC Medications w/original date entered in [employer]
cholecalciferol (vitamin D3) 50 mcg (2,000 unit) capsule (Vitamin D3) 50 mcg PO DAILY Supplement 01/20/22
insulin aspar prot-insulin aspart 100 unit/mL (70-30) subcutaneous pen (Novolog Mix 70-30FlexPen U-100) 65 unit SC DAILY Diabetes 01/20/22
metoprolol succinate 25 mg tablet,extended release 24 hr 25 mg PO BID Blood Pressure 02/23/22
miconazole nitrate 2 % topical powder (Miconazorb AF) 1 applic topical BIDPRN PRN skin folds 02/23/22
ezetimibe 10 mg tablet (Zetia) 10 mg PO DAILY High Cholesterol 05/04/24
pantoprazole 40 mg tablet,delayed release (Protonix) 40 mg PO DAILY Gastrointestinal Issue 05/04/24
tirzepatide 7.5 mg/0.5 mL subcutaneous pen injector (Mounjaro) 7.5 mg SC MO Diabetes 05/04/24
acetaminophen 325 mg tablet 650 mg PO Q6H PRN mild pain 06/02/24
albuterol sulfate 90 mcg/actuation aerosol inhaler 2 puff inhalation R Q4HPRN PRN sob 06/02/24
amlodipine 5 mg-benazepril 10 mg capsule 1 cap PO DAILY 06/02/24
aspirin 81 mg tablet,delayed release 81 mg PO DAILY 06/02/24
atorvastatin 80 mg tablet 80 mg PO DAILY 06/02/24
hydrochlorothiazide 25 mg tablet 25 mg PO DAILY 06/02/24
insulin aspar prot-insulin aspart 100 unit/mL (70-30) subcutaneous pen 60 unit SC QPM 06/02/24
amiodarone 200 mg tablet 200 mg PO DAILY #0 tabs 06/03/24
amlodipine 5 mg tablet 5 mg PO DAILY #0 tabs 06/03/24
clopidogrel 75 mg tablet 75 mg PO DAILY #0 tabs 06/03/24
loperamide 2 mg capsule (Imodium A-D) 2 mg PO Q6H PRN loose stool #30 caps 06/03/24
Home Medication Changes
loperamide 2 mg capsule (Imodium A-D) 2 mg PO Q6H PRN loose stool #30 caps 06/03/24
Pending Results: No
[2024-06-03 12:50] LABS: Glucose - Point of Care 70 mg/dl (70-99)
[2024-06-03] MEDS: IMODIUM 2 MG PO (15:25)
[2024-06-03 18:01] LABS: Glucose - Point of Care 138 mg/dl (70-99)
[2024-06-03 22:46] LABS: Glucose - Point of Care 76 mg/dl (70-99)
[2024-06-03] MEDS: ZOFRAN 4 MG IV (23:06)
[2024-06-04] VITALS (9 sets, daily range): BP systolic 97–171; BP diastolic 50–129; PULSE 88–143; BMI 49.5
[2024-06-04] MEDS: LR 1000 IV ×3 (06:09→13:09)
--- NOTE | 2024-06-04 06:44 | W.PN.UPDATE ---
Update Note
Progress Note Update
RN reports pt with abd yisel and nausea overnight. RN bladder scanned pt due to her pain and found to have >900 [address] Str cath for 950ml.
cloudy and odorous. will send for ua cs. Pt feels better afterwards
[2024-06-04 06:49] LABS: Blood Urea Nitrogen 47 mg/dl (7-17); Calcium 8.4 mg/dl (8.4-10.2); Carbon Dioxide 20 mmol/L (22-30); Chloride 103 mmol/L (98-107); Estimated Creatinine Clearance 31 ml/min; Glucose 118 mg/dl (70-99); Magnesium 1.6 mg/dl (1.6-2.3); Potassium 4.2 mmol/L (3.5-5.1); Sodium 135 mmol/L (135-145); eGFR 28.48
[2024-06-04 07:19] LABS: Urine Albumin Negative (Neg - Trace); Urine Bilirubin Negative (Negative); Urine Character Clear (Clear); Urine Color Yellow; Urine Glucose Negative (Negative); Urine Ketone Negative (Negative); Urine Leukocyte Negative (Negative); Urine Nitrite Negative (Negative); Urine Occult Blood Negative (Negative); Urine Urobilinogen Negative (Neg - 1+)
[2024-06-04] MEDS: PACERONE 200 MG PO (08:46)
[2024-06-04] MEDS: ZETIA 10 MG PO (08:46)
[2024-06-04] MEDS: PLAVIX 75 MG PO (08:46)
[2024-06-04] MEDS: LOW STRENGTH ASPIRIN 81 MG PO (08:47)
[2024-06-04] MEDS: VITAMIN D3 (cholecalciferol) 50 MCG PO (08:47)
[2024-06-04] MEDS: TOPROL XL 25 MG PO ×2 (08:48→20:13)
[2024-06-04] MEDS: PROTONIX 40 MG PO (08:48)
[2024-06-04] MEDS: NORVASC 5 MG PO (08:49)
[2024-06-04] MEDS: LIPITOR 40 MG PO (08:49)
--- NOTE | 2024-06-04 09:00 | PTCARENOTE ---
pt ambulated to bathroom w/ minimal assitance. upon walking back to bathroom pt became light headed and fell to the ground. nursing able to assist pt back to bed. no loc. vss. bs 147. pulse ox was 88%. 2l nc placed. md aware of entire event. nursing
water and sewer systems supervisor aware. orthos obtained. +tilt. lr bolus ordered and infusing. pt safely back in bed.
[2024-06-04 09:08] LABS: Glucose - Point of Care 145 mg/dl (70-99)
[2024-06-04] MEDS: NOVOLOG FLEXPEN-MODERATE RESISTANCE SC (09:16)
[2024-06-04] MEDS: NOVOLOG MIX 70/30 FLEXPEN SC ×2 (10:18→18:39)
[2024-06-04] MEDS: DESENEX/MITRAZOL/ZEASORB 1 APPLIC TOPICAL ×2 (10:18→20:33)
[2024-06-04] MEDS: NOVOLOG MIX 70/30 FLEXPEN 60 UNITS SC (10:35)
[2024-06-04 13:02] LABS: Glucose - Point of Care 210 mg/dl (70-99)
[2024-06-04] MEDS: NOVOLOG FLEXPEN-MODERATE RESISTANCE 3 UNITS SC (13:08)
--- NOTE | 2024-06-04 14:40 | W.PN.HOSP.TC ---
Today's Communication/Plan
-
aggressive fluid resuscitation
may need pat stockings/abd binder if continued ortho positive
Assessment / Plan
Assessment / Plan
#Syncope
#Hypotension
#Orthostatic Hypotension
-denies prodromal symptoms, remembers event
�No further episodes inpatient
� Follow-up cardiology outpatient
-IVF; LR bolus x 2
-Monitor orthos
-will benefit from SNF
-f/u ECHO
#Norovirus gastroenteritis
-Presented with nausea and diarrhea that abruptly started evening of 06/01
-Has family members/friends with similar symptomatology
-Norovirus was positive, started Imodium
-Continue with supportive medications
� Improved, tolerated LRD - continue supportyive care
#Prerenal RACHELLE on CKD
-Secondary to reduced intake, diarrhea; reportedly hypotensive with EMS
-Baseline creatinine 1.3, creatinine 2.0 on arrival
-Started on IV fluids, HCTZ and ACEi held; creatinine down to 1.9
-Trend BMP on IVF, avoid NSAIDs and IV contrast
-Hold ANABEL inhibitor and HCTZ, can consider restarting outpt
-f/u bmp outpt
#HFpEF
-Likely ischemic cardiomyopathy without systolic dysfunction
-Not currently on GDMT or loop diuretic
-Unclear if this is true diagnosis
-Monitor volume status on IVF
-f/u cards outpt
#Paroxysmal AF
-Unclear history, possibly transient and related with CABG
-Home medications include metoprolol and amiodarone; not on AC
-Appears to be in sinus rhythm at this time
-f/u cards outpt
#CAD s/p CABG x 4
-Home medications include metoprolol succinate, high intensity statin, aspirin
-Patient states she does have chronic exertional dyspnea since CABG
-Would likely benefit from repeat ischemic workup as OP
-No signs of acute coronary syndrome
-f/u cards oupt
-hold acei due to rachelle and restart outpt
#Primary HTN
-No known history of hypertensive systemic disease states
-Home medications include HCTZ, metoprolol, amlodipine, benazepril
-Holding benazepril and HCTZ for RACHELLE
-Resume amlodipine, was held for hypotension
#HLD
-History of ASCVD with CAD status post CABG
-Home regimen includes high intensity statin and ezetimibe
#GERD
-Home medications include daily PPI
-No known history of Phillips's or erosive disease
#IDDM
-Home medications include NovoLog 70-30 65 units daily, 60 units HS
-Also currently on Mounjaro, high intensity statin for ASCVD
-Unclear if she has some associated microvascular disease
-Possibly related with CKD and history of CAD
#H/O Ferreira's palsy
-Unclear etiology
#Suspected SATURNINO
-Should have follow-up with pulm for sleep study
DVT prophylaxis: hsq
Diet: Regular, as tolerated
CODE STATUS: DNR
Anticipated Discharge: Within 24 hours
Subjective/Interval History
-
Date of Service: June 04, 2024
Fell today, ortho positive. no loss of consciousness
Objective Data
-
Labs:
Laboratory Results
06/04/24
05:57
Sodium 135
Potassium 4.2
Chloride 103
Carbon Dioxide 20 L
BUN 47 H
Creatinine 1.8 H
Glucose 118 H
Calcium 8.4
Vital Signs:
Vital Signs
Temp Pulse Resp BP Pulse Ox
98.1 F 99 29 151/68 95
06/04/24 12:23 06/04/24 09:20 06/04/24 09:20 06/04/24 09:20 06/04/24 09:20
I&O
06/03/24 06/04/24 06/05/24
06:59 06:59 06:59
Intake Total 3160 / 3160
Output Total 950 / 950
Balance 2210 / 2210
Review of Systems
-
History Source: Patient
All other systems: Not reviewed unless documented
Physical Exam
-
General: Well Developed, No Apparent Distress, Comfortable and Morbidly Obese
HEENT: Normocephalic, Atraumatic, Moist Mucous Membranes and Anicteric
Respiratory: Clear to Auscultation and Non Labored Respirations
Cardiac: Regular Rhythm, S1/S2 and Tachycardic; Negative Murmur, Rub or Gallop
GI: Soft, Nontender, Nondistended and Normal Bowel Sounds
Musculoskeletal: No Clubbing, No Cyanosis and No Edema
Skin: Warm and Dry; Negative Rash
Neuro: AO x 3 and Nonfocal/Grossly Intact
Psych: Calm
Data Reviewed
-
Labs: Labs Reviewed by me
--- NOTE | 2024-06-04 14:46 | CM ---
CM spoke with pt on room phone due to precautions
Pt will fall in room and now in agreement with SNF
PASRR completed and large net of SNF referrals sent via [facility] is 1 st choice and she will require iso bed
TT/Dr Noble and OT order requested for auth
Pt will require BC auth for SNF placement
Discharge Disposition- SNF pending auth
[2024-06-04 16:00] LABS: Glucose - Point of Care 157 mg/dl (70-99)
[2024-06-04] MEDS: HEPARIN 5000 UNITS SC (16:49)
[2024-06-04] MEDS: NOVOLOG FLEXPEN-MODERATE RESISTANCE 1 UNITS SC (18:09)
[2024-06-04] MEDS: NOVOLOG MIX 70/30 FLEXPEN 50 UNITS SC (19:09)
[2024-06-04 21:19] LABS: Glucose - Point of Care 136 mg/dl (70-99)
[2024-06-04] MEDS: ZOFRAN 4 MG IV (22:56)
[2024-06-05] VITALS (9 sets, daily range): BP systolic 130–173; BP diastolic 57–90; PULSE 81–90; O2SAT 93
[2024-06-05] MEDS: LR 1000 IV (00:16)
[2024-06-05] MEDS: HEPARIN 5000 UNITS SC ×2 (00:16→09:31)
[2024-06-05] MEDS: TYLENOL 650 MG PO (04:06)
[2024-06-05] MEDS: MYLICON 80 MG PO (04:07)
--- NOTE | 2024-06-05 04:30 | PTCARENOTE ---
Pt only voiding a small amount of urine into [employer]. Bladder scan result at 0430 was 1199 mL. This RN and four other RNs attempted to straight cath patient ~ 10 times with 15 Fr and 16 Fr catheters, unsuccessful on each attempt. Will pass along
to day shift RN to place urology consult for difficult catheterization and Andrade placement. Pt updated on plan of care.
[2024-06-05 07:32] LABS: Hematocrit 36.6 % (37.0-47.0); Hemoglobin 12.6 g/dL (12.0-16.0); Mean Corp Hgb Conc. 34.4 g/dL (33.0-37.0); Mean Corpuscular Hgb 29.3 pg (27.0-31.0); Mean Corpuscular Volume 85.1 fL (81.0-99.0); Mean Platelet Volume 10.3 fL (7.4-10.4); Platelet Count 209 10^3/uL (130-400); Red Cell Dist. Width 14.6 % (11.5-14.5); White Blood Cell Count 13.2 10^3/uL (4.8-10.8)
[2024-06-05 08:05] LABS: Blood Urea Nitrogen 41 mg/dl (7-17); Calcium 7.9 mg/dl (8.4-10.2); Carbon Dioxide 23 mmol/L (22-30); Chloride 101 mmol/L (98-107); Estimated Creatinine Clearance 26 ml/min; Glucose 66 mg/dl (70-99); Potassium 3.9 mmol/L (3.5-5.1); Sodium 134 mmol/L (135-145); eGFR 22.39
[2024-06-05 08:10] LABS: Glucose - Point of Care 75 mg/dl (70-99)
[2024-06-05] MEDS: NOVOLOG FLEXPEN-MODERATE RESISTANCE SC ×2 (08:15→12:36)
[2024-06-05] MEDS: NORVASC 5 MG PO (09:31)
[2024-06-05] MEDS: PROTONIX 40 MG PO (09:31)
[2024-06-05] MEDS: ZETIA 10 MG PO (09:31)
[2024-06-05] MEDS: TOPROL XL 25 MG PO ×2 (09:31→20:42)
[2024-06-05] MEDS: PACERONE 200 MG PO (09:31)
[2024-06-05] MEDS: LOW STRENGTH ASPIRIN 81 MG PO (09:31)
[2024-06-05] MEDS: PLAVIX 75 MG PO (09:31)
[2024-06-05] MEDS: VITAMIN D3 (cholecalciferol) 50 MCG PO (09:31)
[2024-06-05] MEDS: LIPITOR 40 MG PO (09:31)
[2024-06-05] MEDS: NOVOLOG MIX 70/30 FLEXPEN SC ×3 (09:32→17:53)
[2024-06-05] MEDS: DESENEX/MITRAZOL/ZEASORB 1 APPLIC TOPICAL ×2 (09:33→20:43)
[2024-06-05] MEDS: LR IV (09:52)
[2024-06-05 11:30] LABS: Glucose - Point of Care 132 mg/dl (70-99)
[2024-06-05] MEDS: NOVOLOG MIX 70/30 FLEXPEN 40 UNITS SC (13:05)
--- NOTE | 2024-06-05 13:46 | CM ---
Chart reviewed and plan is for skilled placement, insurance case manager met with patient this am and patient is agreeable to [facility], referral sent to [facility] and PT/OT notes updated today.
Plan; Skilled placement at [facility].
--- NOTE | 2024-06-05 14:12 | W.PN.HOSP.TC ---
Today's Communication/Plan
-
For placement
UA with reflex
Supportive care
IVF as needed
Assessment / Plan
Assessment / Plan
#Syncope
#Hypotension
#Orthostatic Hypotension
-denies prodromal symptoms, remembers event
�No further episodes inpatient
� Follow-up cardiology outpatient
-IVF; LR bolus x 2
-Monitor orthos
-will benefit from SNF
-f/u ECHO�EF 51%
#Norovirus gastroenteritis
-Presented with nausea and diarrhea that abruptly started evening of 06/01
-Has family members/friends with similar symptomatology
-Norovirus was positive, started Imodium
-Continue with supportive medications
� Improved, tolerated LRD - continue supportyive care
#Prerenal RACHELLE on CKD
-Secondary to reduced intake, diarrhea; reportedly hypotensive with EMS
-Baseline creatinine 1.3, creatinine 2.0 on arrival
-Started on IV fluids, HCTZ and ACEi held; creatinine down to 1.9
-Trend BMP on IVF, avoid NSAIDs and IV contrast
-Hold ANABEL inhibitor and HCTZ, can consider restarting outpt
-f/u bmp outpt
- Difficulty urinating, urology consulted for Andrade placement
#Burning with urination
- Questionable UTI
� Follow-up UA/urine culture with Andrade placement
#Hyponatremia
� Monitor with resuscitation
#HFpEF
-EF 51%
-Not currently on GDMT or loop diuretic
-Monitor volume status on IVF
-f/u cards outpt
#Paroxysmal AF
-Unclear history, possibly transient and related with CABG
-Home medications include metoprolol and amiodarone; not on AC
-Appears to be in sinus rhythm at this time
-f/u cards outpt
#CAD s/p CABG x 4
-Home medications include metoprolol succinate, high intensity statin, aspirin
-Patient states she does have chronic exertional dyspnea since CABG
-Would likely benefit from repeat ischemic workup as OP
-No signs of acute coronary syndrome
-f/u cards oupt
-hold acei due to rachelle and restart outpt
#Primary HTN
-No known history of hypertensive systemic disease states
-Home medications include HCTZ, metoprolol, amlodipine, benazepril
-Holding benazepril and HCTZ for RACHELLE
-Resume amlodipine, was held for hypotension
#HLD
-History of ASCVD with CAD status post CABG
-Home regimen includes high intensity statin and ezetimibe
#GERD
-Home medications include daily PPI
-No known history of Phillips's or erosive disease
#IDDM
-Home medications include NovoLog 70-30 65 units daily, 60 units HS
-Also currently on Mounjaro, high intensity statin for ASCVD
-Unclear if she has some associated microvascular disease
-Possibly related with CKD and history of CAD
#H/O Ferreira's palsy
-Unclear etiology
#Suspected SATURNINO
-Should have follow-up with pulm for sleep study
DVT prophylaxis: hsq
Diet: Regular, as tolerated
CODE STATUS: DNR
Anticipated Discharge: 24 - 48 hours
Subjective/Interval History
-
Date of Service: June 05, 2024
Difficulty urinating, difficulty placing urinary cath, burning with urination
Objective Data
-
Labs:
Laboratory Results
06/05/24
06:52
WBC 13.2 H
Hgb 12.6
Hct 36.6 L
Plt Count 209
Sodium 134 L
Potassium 3.9
Chloride 101
Carbon Dioxide 23
BUN 41 H
Creatinine 2.2 H
Glucose 66 L
Calcium 7.9 L
Vital Signs:
Vital Signs
Temp Pulse Resp BP Pulse Ox
97.9 F 74 18 169/82 94
06/05/24 07:30 06/05/24 07:30 06/05/24 07:30 06/05/24 07:30 06/05/24 13:11
I&O
06/04/24 06/05/24 06/06/24
06:59 06:59 06:59
Intake Total 3160 / 3160 1720 / 1720
Output Total 950 / 950
Balance 2210 / 2210 1720 / 1720
Review of Systems
-
History Source: Patient
All other systems: Not reviewed unless documented
Data Reviewed
-
Labs: Labs Reviewed by me
--- NOTE | 2024-06-05 16:21 | W.PN.URO.CBU ---
Today's Communication / Plan
-
keep nascimento through discharge
Assessment / Plan
-
urinary retention difficuilt nascimento placed 1500cc drained cx ent kep nascimento
Diagnosis
-
Date of Service: June 05, 2024
-
Patient Diagnosis:urinary retention difficult nascimento atrophic vaginiits
Post Op Day:
Subjective
-
lower abd peressure cannotn void
Objective
-
Vital Signs
Temp Pulse Resp BP Pulse Ox
98.2 F 85 18 173/72 94
06/05/24 15:31 06/05/24 15:31 06/05/24 15:31 06/05/24 15:31 06/05/24 15:31
Intake and Output
06/04/24 06/05/24 06/06/24
06:59 06:59 06:59
Intake Total 3160 / 3160 1720 / 1720
Output Total 950 / 950
Balance 2210 / 2210 1720 / 1720
Intake:
Oral fluids 960 / 960 720 / 720
IV fluids (Total) 1200 / 1200 1000 / 1000
IV piggybacks 1000 / 1000
Output:
Straight cath output 950 / 950
Other:
How many times incontinent 1
MODERATE amount urine
How many times incontinent 3
SATURATED amount urine
Laboratory Results
06/05/24 06:52
06/05/24 06:52
Review of Systems
-
: Difficulty Voiding
Physical Exam
-
General - well developed, well nourished, no acute distress
Chest - clear bilaterally
Abdomen - soft, non-tender, positive bowel sounds, no CVAT, no incisional pain or distention
Genitalia - atrophic
Rectal - normal
Skin - warm & dry with no rash
Neuro - AOx3, no motor deficits
Extremities - no clubbing, no cyanosis, no edema
Incision - clean, dry
Dressing - clean, dry, intact
Care Review
Data Reviewed
Discussed with: Hospitalist and Nursing
CT Scan: Image Pers Reviewed
[2024-06-05 16:28] LABS: Urine Albumin 3+ (Neg - Trace); Urine Bilirubin Negative (Negative); Urine Character Very Cloudy (Clear); Urine Color Red; Urine Glucose Negative (Negative); Urine Ketone Trace (Negative); Urine Leukocyte 2+ (Negative); Urine Nitrite Negative (Negative); Urine Occult Blood 4+ (Negative); Urine Specific Gravity 1.015 (<1.030); Urine Urobilinogen Negative (Neg - 1+)
[2024-06-05 16:36] LABS: Urine Red Blood Cell >100 /HPF (0-2)
[2024-06-05 16:37] LABS: Urine Bacteria Many (Negative)
[2024-06-05] MEDS: HEPARIN SC (16:43)
[2024-06-05 17:17] LABS: Glucose - Point of Care 150 mg/dl (70-99)
[2024-06-05] MEDS: NOVOLOG FLEXPEN-MODERATE RESISTANCE 1 UNITS SC (18:32)
[2024-06-05] MEDS: NOVOLOG MIX 70/30 FLEXPEN 50 UNITS SC (18:33)
[2024-06-05 20:57] LABS: Glucose - Point of Care 155 mg/dl (70-99)
[2024-06-06] MEDS: TYLENOL 650 MG PO ×3 (00:29→20:33)
[2024-06-06 07:59] LABS: Hematocrit 37.3 % (37.0-47.0); Hemoglobin 12.2 g/dL (12.0-16.0); Mean Corp Hgb Conc. 32.7 g/dL (33.0-37.0); Mean Corpuscular Hgb 28.5 pg (27.0-31.0); Mean Corpuscular Volume 87.1 fL (81.0-99.0); Mean Platelet Volume 9.9 fL (7.4-10.4); Platelet Count 182 10^3/uL (130-400); Red Blood Cell Count 4.28 10^6/uL (4.20-5.40); Red Cell Dist. Width 14.6 % (11.5-14.5); White Blood Cell Count 13.1 10^3/uL (4.8-10.8)
[2024-06-06] MEDS: LIPITOR 40 MG PO (08:02)
[2024-06-06] MEDS: PROTONIX 40 MG PO (08:02)
[2024-06-06] MEDS: TOPROL XL 25 MG PO ×2 (08:03→20:27)
[2024-06-06] MEDS: PACERONE 200 MG PO (08:03)
[2024-06-06] MEDS: PLAVIX 75 MG PO (08:04)
[2024-06-06] MEDS: LOW STRENGTH ASPIRIN 81 MG PO (08:04)
[2024-06-06] MEDS: VITAMIN D3 (cholecalciferol) 50 MCG PO (08:06)
[2024-06-06] MEDS: NORVASC 5 MG PO (08:10)
[2024-06-06] MEDS: ZETIA 10 MG PO (08:10)
[2024-06-06] MEDS: DESENEX/MITRAZOL/ZEASORB 1 APPLIC TOPICAL ×2 (08:11→20:42)
[2024-06-06 08:15] VITALS: BP 176/67
[2024-06-06 08:17] LABS: Glucose - Point of Care 67 mg/dl (70-99)
[2024-06-06] MEDS: NOVOLOG FLEXPEN-MODERATE RESISTANCE SC (08:19)
[2024-06-06 08:38] LABS: Glucose - Point of Care 64 mg/dl (70-99)
[2024-06-06 09:00] LABS: Blood Urea Nitrogen 36 mg/dl (7-17); Calcium 8.1 mg/dl (8.4-10.2); Carbon Dioxide 28 mmol/L (22-30); Chloride 100 mmol/L (98-107); Estimated Creatinine Clearance 39 ml/min; Glucose 58 mg/dl (70-99); Potassium 3.5 mmol/L (3.5-5.1); Sodium 138 mmol/L (135-145); eGFR 35.45
[2024-06-06 09:01] LABS: Glucose - Point of Care 87 mg/dl (70-99)
--- NOTE | 2024-06-06 09:24 | PN.DE.MGMTRT ---
Insulin Management
- -
06/06/2024 Diabetes Management Consult
Patient admitted 06/01 with weakness, diarrhea, gastroenteritis. PMH CAD, SC, CABG 2021, HTN, HLD, diabetes, CKD. Prior to admission was taking 70/30 insulin 65 units with breakfast and 60 units with dinner. A1C 8.7, cr 1.5, eGFR 35.45.
Patient received 40 units 70/30 @ 13:05 and another 50 units of 70/30 @ 16:30. Fasting this AM glucose 58.
Patient is awake alert and oriented able to discuss diabetes management. States she sees Dr. Renea Hartley at [facility] on a regular basis for diabetes care. She states that she often has to decrease her 70/30 doses which she does based on
her blood sugar.
She has agreed to 50 units 70/30 BID, will change moderate corrective to low.
Discussed with nurse.
Will follow for further needed adjustments
Diabetes History
- -
Type of Diabetes: 2 requiring insulin
Pre-Admission Diabetes Regimen
06/06/24
07:12
Creatinine 1.5 H
Insulin Pump Settings
IP Diabetes Regimen
06/05/24 06/05/24 06/05/24
11:29 17:16 20:55
Glucose
POC Glucose 132 H 150 H 155 H
06/06/24 06/06/24 06/06/24
07:12 08:16 08:37
Glucose 58 L
POC Glucose 67 L 64 L
06/06/24
08:59
Glucose
POC Glucose 87
Patient Education
[2024-06-06] MEDS: NOVOLOG MIX 70/30 FLEXPEN 50 UNITS SC ×2 (10:35→18:13)
--- NOTE | 2024-06-06 10:35 | CM ---
client program manager spoke with patient this am and plan is for skilled placement for patient, patient has selected [facility] referral sent to [facility] and immigration case manager is waiting to see if they have a bed for paint, patient will need Auth for skilled
placement.
Plan; Skilled placement at [facility] depending if they have a bed for patient.
[2024-06-06 10:41] LABS: Glucose - Point of Care 178 mg/dl (70-99)
[2024-06-06] MEDS: ROCEPHIN 1000 MG IV (12:06)
[2024-06-06] MEDS: STERILE WATER FOR INJECTION 10 ML IV (12:07)
[2024-06-06] MEDS: FLUSH (NSS) 2 FLUSH IV (12:10)
--- NOTE | 2024-06-06 12:11 | W.PN.URO.CBU ---
Today's Communication / Plan
-
keep nascimento
Assessment / Plan
-
urinary retention difficuilt nascimento placed 1500cc drained cx ent kep nascimento
Diagnosis
-
Date of Service: June 06, 2024
-
Patient Diagnosis:
Post Op Day:
Patient Diagnosis:urinary retention difficult nascimento atrophic vaginiits
Post Op Day:
Subjective
-
tolerating nascimento
Objective
-
Vital Signs
Temp Pulse Resp BP Pulse Ox
98.0 F 75 20 176/67 98
06/06/24 08:15 06/06/24 08:15 06/06/24 08:15 06/06/24 08:15 06/06/24 08:15
Intake and Output
06/05/24 06/06/24 06/07/24
06:59 06:59 06:59
Intake Total 1720 / 1720 960 / 960 480 / 480
Output Total 1600 / 1600 1200 / 1200
Balance 1720 / 1720 -640 / -640 -720 / -720
Intake:
Oral fluids 720 / 720 960 / 960 480 / 480
IV fluids (Total) 1000 / 1000
Output:
Urine, Nascimento 1600 / 1600 1200 / 1200
Other:
How many times incontinent 1
MODERATE amount urine
Laboratory Results
06/06/24 07:12
06/06/24 07:12
Review of Systems
-
: Difficulty Voiding
Physical Exam
-
General - well developed, well nourished, no acute distress
Chest - clear bilaterally
Abdomen - soft, non-tender, positive bowel sounds, no CVAT, no incisional pain or distention
Genitalia - normal
Rectal - normal
Skin - warm & dry with no rash
Neuro - AOx3, no motor deficits
Extremities - no clubbing, no cyanosis, no edema
Incision - clean, dry
Dressing - clean, dry, intact
Care Review
Data Reviewed
Discussed with: Hospitalist
[2024-06-06 12:24] LABS: Glucose - Point of Care 186 mg/dl (70-99)
[2024-06-06] MEDS: NOVOLOG FLEXPEN-LOW RESISTANCE 1 UNITS SC (13:56)
--- NOTE | 2024-06-06 14:25 | W.PN.HOSP.TC ---
Today's Communication/Plan
-
Initiate antibiotics
Follow-up cultures
Monitor renal function with Andrade
Diabetic management
Increase amlodipine to 10 mg daily
Assessment / Plan
Assessment / Plan
#Syncope
#Hypotension
#Orthostatic Hypotension
-denies prodromal symptoms, remembers event
�No further episodes inpatient
� Follow-up cardiology outpatient
-IVF; LR bolus x 2
-Monitor orthos
-will benefit from SNF
-f/u ECHO�EF 51%
#Norovirus gastroenteritis
-Presented with nausea and diarrhea that abruptly started evening of 06/01
-Has family members/friends with similar symptomatology
-Norovirus was positive, started Imodium
-Continue with supportive medications
� Improved, tolerated LRD - continue supportyive care
#UTI
� Empiric antibiotics initiated
� Follow-up cultures
#Prerenal RACHELLE on CKD, improving
-Secondary to reduced intake, diarrhea; reportedly hypotensive with EMS although possibly worse with urinary retention
-Baseline creatinine 1.3, creatinine 2.0 on arrival
-Started on IV fluids, HCTZ and ACEi held; creatinine down to 1.9
-Trend BMP on IVF, avoid NSAIDs and IV contrast
-Hold ANABEL inhibitor and HCTZ, can consider restarting outpt
-f/u bmp outpt
#Urinary retention
Andrade placed
� Follow-up urology outpatient
#Hyponatremia
� Monitor with resuscitation
#HFpEF
-EF 51%
-Not currently on GDMT or loop diuretic
-Monitor volume status on IVF
-f/u cards outpt
#Paroxysmal AF
-Unclear history, possibly transient and related with CABG
-Home medications include metoprolol and amiodarone; not on AC
-Appears to be in sinus rhythm at this time
-f/u cards outpt
#CAD s/p CABG x 4
-Home medications include metoprolol succinate, high intensity statin, aspirin
-Patient states she does have chronic exertional dyspnea since CABG
-Would likely benefit from repeat ischemic workup as OP
-No signs of acute coronary syndrome
-f/u cards oupt
-hold acei due to rachelle and restart outpt
#Primary HTN
-No known history of hypertensive systemic disease states
-Home medications include HCTZ, metoprolol, amlodipine, benazepril
-Holding benazepril and HCTZ for RACHELLE; may cont to hold hctz in the future
-Resume amlodipine, was held for hypotension; increase to 10mg; hold ACEI for now
#HLD
-History of ASCVD with CAD status post CABG
-Home regimen includes high intensity statin and ezetimibe
#GERD
-Home medications include daily PPI
-No known history of Phillips's or erosive disease
#IDDM
-Home medications include NovoLog 70-30 65 units daily, 60 units HS
-Also currently on Mounjaro, high intensity statin for ASCVD
-Unclear if she has some associated microvascular disease
-Possibly related with CKD and history of CAD
� Diabetic SALON ASSISTANT consulted
#H/O Ferreira's palsy
-Unclear etiology
#Suspected SATURNINO
-Should have follow-up with pulm for sleep study
DVT prophylaxis: hsq
Diet: Regular, as tolerated
CODE STATUS: DNR
Anticipated Discharge: Within 24 hours
Subjective/Interval History
-
Date of Service: June 06, 2024
Retaining, Andrade placed and resolution of symptoms.
Objective Data
-
Labs:
Laboratory Results
06/06/24
07:12
WBC 13.1 H
Hgb 12.2
Hct 37.3
Plt Count 182
Sodium 138
Potassium 3.5
Chloride 100
Carbon Dioxide 28
BUN 36 H
Creatinine 1.5 H
Glucose 58 L
Calcium 8.1 L
Vital Signs:
Vital Signs
Temp Pulse Resp BP Pulse Ox
98.0 F 75 20 176/67 98
06/06/24 08:15 06/06/24 08:15 06/06/24 08:15 06/06/24 08:15 06/06/24 08:15
I&O
06/05/24 06/06/24 06/07/24
06:59 06:59 06:59
Intake Total 1720 / 1720 960 / 960 480 / 480
Output Total 1600 / 1600 1200 / 1200
Balance 1720 / 1720 -640 / -640 -720 / -720
Review of Systems
-
History Source: Patient
All other systems: Not reviewed unless documented
Physical Exam
-
General: Well Developed, No Apparent Distress, Comfortable and Morbidly Obese
HEENT: Normocephalic, Atraumatic, Moist Mucous Membranes and Anicteric
Respiratory: Clear to Auscultation and Non Labored Respirations
Cardiac: Regular Rhythm, S1/S2 and Tachycardic; Negative Murmur, Rub or Gallop
GI: Soft, Nontender, Nondistended and Normal Bowel Sounds
Musculoskeletal: No Clubbing, No Cyanosis and No Edema
Skin: Warm and Dry; Negative Rash
Neuro: AO x 3 and Nonfocal/Grossly Intact
Psych: Calm
Data Reviewed
-
Labs: Labs Reviewed by me
[2024-06-06 16:00] VITALS: BP 150/54
[2024-06-06 17:28] LABS: Glucose - Point of Care 106 mg/dl (70-99)
[2024-06-06] MEDS: NOVOLOG FLEXPEN-LOW RESISTANCE SC (18:12)
[2024-06-06] MEDS: NOVOLOG MIX 70/30 FLEXPEN SC (19:38)
[2024-06-06 20:09] VITALS: BP 161/64
[2024-06-06 21:23] LABS: Glucose - Point of Care 63 mg/dl (70-99)
[2024-06-06 21:42] LABS: Glucose - Point of Care 61 mg/dl (70-99)
[2024-06-06 21:59] LABS: Glucose - Point of Care 75 mg/dl (70-99)
[2024-06-06 23:17] VITALS: BP 165/63
[2024-06-07] VITALS (7 sets, daily range): BP systolic 90–192; BP diastolic 56–101; PULSE 65–91; O2SAT 99; BMI 48.8
[2024-06-07 00:17] LABS: Glucose - Point of Care 91 mg/dl (70-99)
[2024-06-07] MEDS: TUMS CHEWABLE TABLET 200 MG PO (00:57)
[2024-06-07 02:14] LABS: Glucose - Point of Care 60 mg/dl (70-99)
[2024-06-07 02:41] LABS: Glucose - Point of Care 65 mg/dl (70-99)
[2024-06-07 03:10] LABS: Glucose - Point of Care 92 mg/dl (70-99)
[2024-06-07 06:36] LABS: Glucose - Point of Care 85 mg/dl (70-99)
--- NOTE | 2024-06-07 06:53 | PTCARENOTE ---
Patient reports feeling 'run down and weak.' Reported dry heaving about 30 mins ago. Vital signs Temp 101.6, Resp rate 24, HR 86, BP 192/72, Pulse ox 95% room air. Most recent bedside glucose check this morning was 85. Patient agreeable to drink
apple juice.
Repeat BP check 175/64. Administered Tylenol and scheduled BP medications. Patient had difficulty taking medications as she started dry heaving. Day shift nurse receiving report was informed during bedside report.
[2024-06-07] MEDS: TOPROL XL 25 MG PO ×2 (07:03→20:57)
[2024-06-07] MEDS: TYLENOL 650 MG PO ×2 (07:04→16:47)
[2024-06-07] MEDS: NORVASC 10 MG PO (07:04)
--- NOTE | 2024-06-07 07:25 | PN.DE.MGMTRT ---
Insulin Management
- -
06/07/2024 Diabetes Management Consult Follow up
Patient admitted 06/01 with weakness, diarrhea, gastroenteritis. PMH CAD, [place], CABG 2021, HTN, HLD, diabetes, CKD. Prior to admission was taking 70/30 insulin 65 units with breakfast and 60 units with dinner. A1C 8.7, cr 1.5, eGFR 35.45.
Patient is awake alert and oriented able to discuss diabetes management. States she sees Dr. Renea Hartley at [facility] on a regular basis for diabetes care. She states that she often has to decrease her 70/30 doses which she does based on
her blood sugar and that Dr. aHrtley has agreed that Nicki knows her diabetes and is OK that she adjusts the insulin.
06/06 Dose of 70/30 decreased to 50 units BID. First dose administered @ 10:35AM dinner dose administered @ 18:13. 9:21pm glucose 63, treated. 3AM glucose 92, fasting this AM glucose 85.
Will further reduce 70/30 insulin to 40 units BID, with low corrective AC.
Will follow for further needed adjustments
Diabetes History
- -
Type of Diabetes: 2 requiring insulin
Pre-Admission Diabetes Regimen
06/06/24
07:12
Creatinine 1.5 H
Insulin Pump Settings
IP Diabetes Regimen
06/06/24 06/06/24 06/06/24
07:12 08:16 08:37
Glucose 58 L
POC Glucose 67 L 64 L
06/06/24 06/06/24 06/06/24
08:59 10:40 12:23
Glucose
POC Glucose 87 178 H 186 H
06/06/24 06/06/24 06/06/24
17:27 21:21 21:41
Glucose
POC Glucose 106 H 63 L 61 L
06/06/24 06/07/24 06/07/24
21:58 00:16 02:09
Glucose
POC Glucose 75 91 60 L
06/07/24 06/07/24 06/07/24
02:35 03:08 06:34
Glucose
POC Glucose 65 L 92 85
Meal type: Breakfast
Amount consumed: 50%
Patient Education
[2024-06-07 07:58] LABS: Hemoglobin 12.6 g/dL (12.0-16.0); Mean Corp Hgb Conc. 34.1 g/dL (33.0-37.0); Mean Corpuscular Hgb 28.8 pg (27.0-31.0); Mean Corpuscular Volume 84.5 fL (81.0-99.0); Mean Platelet Volume 9.7 fL (7.4-10.4); Platelet Count 206 10^3/uL (130-400); Red Blood Cell Count 4.38 10^6/uL (4.20-5.40); Red Cell Dist. Width 14.2 % (11.5-14.5); White Blood Cell Count 22.2 10^3/uL (4.8-10.8)
[2024-06-07] MEDS: ZOFRAN 4 MG IV (08:36)
[2024-06-07 08:38] LABS: Blood Urea Nitrogen 25 mg/dl (7-17); Calcium 7.8 mg/dl (8.4-10.2); Carbon Dioxide 26 mmol/L (22-30); Chloride 98 mmol/L (98-107); Estimated Creatinine Clearance 57 ml/min; Glucose 97 mg/dl (70-99); Sodium 135 mmol/L (135-145); eGFR 57.66
[2024-06-07] MEDS: NOVOLOG FLEXPEN-LOW RESISTANCE SC (08:48)
[2024-06-07] MEDS: NOVOLOG MIX 70/30 FLEXPEN SC ×2 (08:49)
--- NOTE | 2024-06-07 09:32 | W.PN.URO.CBU ---
Today's Communication / Plan
-
keep nascimento
Assessment / Plan
-
urinary retention difficuilt nascimento placed 1500cc drained cx ent kep nascimento
Diagnosis
-
Date of Service: June 07, 2024
-
Patient Diagnosis:
Post Op Day:
Patient Diagnosis:
Post Op Day:
Patient Diagnosis:urinary retention difficult nascimento atrophic vaginiits
Post Op Day:
Subjective
-
tolerating nascimento
Objective
-
Vital Signs
Temp Pulse Resp BP Pulse Ox
99.8 F 82 18 147/63 95
06/07/24 08:47 06/07/24 08:47 06/07/24 08:47 06/07/24 08:47 06/07/24 08:47
Intake and Output
06/06/24 06/07/24 06/08/24
06:59 06:59 06:59
Intake Total 960 / 960 1200 / 1200
Output Total 1600 / 1600 3700 / 3700
Balance -640 / -640 -2500 / -2500
Intake:
Oral fluids 960 / 960 1200 / 1200
Output:
Urine, Nascimento 1600 / 1600 3700 / 3700
Laboratory Results
06/07/24 07:33
06/07/24 07:33
Physical Exam
-
General - well developed, well nourished, no acute distress
Chest - clear bilaterally
Abdomen - soft, non-tender, positive bowel sounds, no CVAT, no incisional pain or distention
Genitalia - normal
Rectal - normal
Skin - warm & dry with no rash
Neuro - AOx3, no motor deficits
Extremities - no clubbing, no cyanosis, no edema
Incision - clean, dry
Dressing - clean, dry, intact
Care Review
Data Reviewed
Discussed with: Hospitalist and Nursing
[2024-06-07 10:23] LABS: Glucose - Point of Care 123 mg/dl (70-99)
--- NOTE | 2024-06-07 10:49 | CM ---
business relationship manager reviewed patient's chart and met with patient and patient is not stable for discharge today per physician, plan is for patient to go to a skilled facility at discharge.
Plan; Skilled placement at [facility] when stable, referral sent to [facility].
[2024-06-07] MEDS: PROTONIX 40 MG PO (10:58)
[2024-06-07] MEDS: VITAMIN D3 (cholecalciferol) 50 MCG PO (10:58)
[2024-06-07] MEDS: LIPITOR 40 MG PO (10:58)
[2024-06-07] MEDS: ZETIA 10 MG PO (10:58)
[2024-06-07] MEDS: STERILE WATER FOR INJECTION IV (10:59)
[2024-06-07] MEDS: ZOSYN 100 IV ×3 (10:59→21:41)
[2024-06-07] MEDS: LOW STRENGTH ASPIRIN 81 MG PO (10:59)
[2024-06-07 13:21] LABS: Glucose - Point of Care 207 mg/dl (70-99)
[2024-06-07] MEDS: DESENEX/MITRAZOL/ZEASORB 1 APPLIC TOPICAL ×2 (14:12→20:57)
[2024-06-07] MEDS: NOVOLOG FLEXPEN-LOW RESISTANCE 2 UNITS SC ×2 (14:12→18:28)
[2024-06-07 14:52] LABS: COVID-19 Antigen Negative (Negative)
--- NOTE | 2024-06-07 15:29 | W.PN.HOSP.TC ---
Today's Communication/Plan
-
cultures
adv to zosyn
Assessment / Plan
Assessment / Plan
#Syncope
#Hypotension
#Orthostatic Hypotension
-denies prodromal symptoms, remembers event
�No further episodes inpatient
� Follow-up cardiology outpatient
-IVF; LR bolus x 2
-Monitor orthos
-will benefit from SNF
-f/u ECHO�EF 51%
#Norovirus gastroenteritis
-Presented with nausea and diarrhea that abruptly started evening of 06/01
-Has family members/friends with similar symptomatology
-Norovirus was positive, started Imodium
-Continue with supportive medications
� Improved, tolerated LRD - continue supportyive care
#Sepsis
#UTI
� Empiric antibiotics initiated
� Follow-up cultures
#Prerenal RACHELLE on CKD, resolved
-Secondary to reduced intake, diarrhea; reportedly hypotensive with EMS although possibly worse with urinary retention
-Started on IV fluids, HCTZ and ACEi held
-Trend BMP on IVF, avoid NSAIDs and IV contrast
-Hold ANABEL inhibitor and HCTZ
#Urinary retention
Andrade placed
� Follow-up urology outpatient
#Hyponatremia
� Monitor with resuscitation
-resolved
#HFpEF
-EF 51%
-Not currently on GDMT or loop diuretic
-Monitor volume status on IVF
-f/u cards outpt
#Paroxysmal AF
-Unclear history, possibly transient and related with CABG
-Home medications include metoprolol and amiodarone; not on AC
-Appears to be in sinus rhythm at this time
-f/u cards outpt
#CAD s/p CABG x 4
-Home medications include metoprolol succinate, high intensity statin, aspirin
-Patient states she does have chronic exertional dyspnea since CABG
-Would likely benefit from repeat ischemic workup as OP
-No signs of acute coronary syndrome
-f/u cards oupt
-hold acei due to rachelle and restart outpt
#Primary HTN
-No known history of hypertensive systemic disease states
-Home medications include HCTZ, metoprolol, amlodipine, benazepril
-Holding benazepril and HCTZ for RACHELLE; may cont to hold hctz in the future due to hyponatremia
-Resume amlodipine, was held for hypotension; increase to 10mg; hold ACEI for now
#HLD
-History of ASCVD with CAD status post CABG
-Home regimen includes high intensity statin and ezetimibe
#GERD
-Home medications include daily PPI
-No known history of Phillips's or erosive disease
#IDDM
-Home medications include NovoLog 70-30 65 units daily, 60 units HS
-Also currently on Mounjaro, high intensity statin for ASCVD
-Unclear if she has some associated microvascular disease
-Possibly related with CKD and history of CAD
� Diabetic HIGH PRESSURE KETTLE OPERATOR consulted
#H/O Ferreira's palsy
-Unclear etiology
#Suspected SATURNINO
-Should have follow-up with pulm for sleep study
DVT prophylaxis: hsq
Diet: Regular, as tolerated
CODE STATUS: DNR
Anticipated Discharge: 24 - 48 hours
Subjective/Interval History
-
Date of Service: June 07, 2024
spiked temp today
Objective Data
-
Labs:
Laboratory Results
06/07/24
07:33
WBC 22.2 H
Hgb 12.6
Hct 37.0
Plt Count 206
Sodium 135
Potassium 4.0
Chloride 98
Carbon Dioxide 26
BUN 25 H
Creatinine 1.0
Glucose 97
Calcium 7.8 L
Vital Signs:
Vital Signs
Temp Pulse Resp BP Pulse Ox
99.8 F 82 18 147/63 95
01/17/25 08:47 06/07/24 08:47 06/07/24 08:47 06/07/24 08:47 06/07/24 08:47
I&O
06/06/24 06/07/24 06/08/24
06:59 06:59 06:59
Intake Total 960 / 960 1200 / 1200
Output Total 1600 / 1600 3700 / 3700
Balance -640 / -640 -2500 / -2500
Review of Systems
-
History Source: Patient
All other systems: Not reviewed unless documented
Physical Exam
-
General: Well Developed, No Apparent Distress, Comfortable and Morbidly Obese
HEENT: Normocephalic, Atraumatic, Moist Mucous Membranes and Anicteric
Respiratory: Clear to Auscultation and Non Labored Respirations
Cardiac: Regular Rhythm, S1/S2 and Tachycardic; Negative Murmur, Rub or Gallop
GI: Soft, Nontender, Nondistended and Normal Bowel Sounds
Musculoskeletal: No Clubbing, No Cyanosis and No Edema
Skin: Warm and Dry; Negative Rash
Neuro: AO x 3 and Nonfocal/Grossly Intact
Psych: Calm
Data Reviewed
-
Diagnostic Radiology: Report Reviewed by me
Labs: Labs Reviewed by me
[2024-06-07] MEDS: HEPARIN 5000 UNITS SC (16:47)
[2024-06-07 17:33] LABS: Glucose - Point of Care 230 mg/dl (70-99)
[2024-06-07] MEDS: NOVOLOG MIX 70/30 FLEXPEN 40 UNITS SC (18:27)
[2024-06-07 21:36] LABS: Glucose - Point of Care 220 mg/dl (70-99)
[2024-06-08] MEDS: TYLENOL 650 MG PO ×2 (00:11→21:41)
[2024-06-08] MEDS: HEPARIN 5000 UNITS SC ×4 (00:13→21:40)
[2024-06-08] MEDS: ZOSYN 100 IV ×4 (03:54→21:40)
[2024-06-08 08:37] VITALS: BP 150/58
[2024-06-08 08:40] LABS: Glucose - Point of Care 199 mg/dl (70-99)
[2024-06-08] MEDS: LIPITOR 40 MG PO (08:40)
[2024-06-08] MEDS: VITAMIN D3 (cholecalciferol) 50 MCG PO (08:40)
[2024-06-08] MEDS: NORVASC 10 MG PO (08:40)
[2024-06-08] MEDS: PROTONIX 40 MG PO (08:40)
[2024-06-08] MEDS: TOPROL XL 25 MG PO ×2 (08:40→19:49)
[2024-06-08] MEDS: LOW STRENGTH ASPIRIN 81 MG PO (08:40)
[2024-06-08] MEDS: ZETIA 10 MG PO (08:40)
[2024-06-08] MEDS: NOVOLOG MIX 70/30 FLEXPEN 40 UNITS SC ×2 (08:41→16:48)
[2024-06-08] MEDS: NOVOLOG FLEXPEN-LOW RESISTANCE 1 UNITS SC (08:41)
[2024-06-08] MEDS: ZOFRAN 4 MG IV ×2 (08:42→21:49)
[2024-06-08 09:03] LABS: Hematocrit 33.8 % (37.0-47.0); Hemoglobin 11.4 g/dL (12.0-16.0); Mean Corp Hgb Conc. 33.7 g/dL (33.0-37.0); Mean Corpuscular Hgb 28.7 pg (27.0-31.0); Mean Corpuscular Volume 85.1 fL (81.0-99.0); Mean Platelet Volume 9.8 fL (7.4-10.4); Platelet Count 197 10^3/uL (130-400); Red Blood Cell Count 3.97 10^6/uL (4.20-5.40); Red Cell Dist. Width 14.4 % (11.5-14.5); White Blood Cell Count 21.9 10^3/uL (4.8-10.8)
[2024-06-08] MEDS: DESENEX/MITRAZOL/ZEASORB 1 APPLIC TOPICAL ×2 (09:09→19:49)
[2024-06-08 09:25] LABS: Blood Urea Nitrogen 25 mg/dl (7-17); Calcium 7.5 mg/dl (8.4-10.2); Carbon Dioxide 27 mmol/L (22-30); Chloride 96 mmol/L (98-107); Estimated Creatinine Clearance 44 ml/min; Glucose 147 mg/dl (70-99); Potassium 3.7 mmol/L (3.5-5.1); Sodium 132 mmol/L (135-145); eGFR 42.09
[2024-06-08] MEDS: STERILE WATER FOR INJECTION IV (10:52)
--- NOTE | 2024-06-08 11:43 | PTOTSP ---
Speech Therapy
Presentation: Patient was oriented and willing to participate. Patient's speech and language appeared to be WNL during conversation.
Complaints: Patient reported having 'gagging episodes' since having the norovirus. These episodes do not result in vomiting or nausea but are difficult on patient. Patient was administered medication by RN (whole with thin liquids) which improved
patient's reported discomfort.
Swallowing Function: MOBILE HOME SERVICER observed patient with several bites of cracker and straw sips of thin liquids in which patient appeared to tolerate as she did not exhibit any overt clinical s/sx of aspiration or difficulty with mastication/ manipulation.
Patient denied dysphagia complaints or 'gagging episode' during the evaluation. Patient shared that she sometimes takes larger pills with puree to assist with propelling as it can be diffiuclt for patient (since 2021).
Recommendations:
1) Continuation of regular consistency solids and thin liquids
2) Aspiration precautions
3) Medications as tolerated (larger pills with puree)
Plan: MOBILE HOME SERVICER will continue to follow; pending hospitalization.
[2024-06-08 12:17] LABS: Glucose - Point of Care 146 mg/dl (70-99)
[2024-06-08] MEDS: NOVOLOG FLEXPEN-LOW RESISTANCE SC (12:17)
--- NOTE | 2024-06-08 13:23 | W.PN.HOSP.TC ---
Today's Communication/Plan
-
zosyn
repeat blood cultures
Assessment / Plan
Assessment / Plan
#Sepsis
#UTI - E. coli, Klebsiella Aerogenes
� Cont Zosyn
� Follow-up cultures, repeat today
#Norovirus gastroenteritism, resolved
-Presented with nausea and diarrhea that abruptly started evening of 06/01
-Has family members/friends with similar symptomatology
-Norovirus was positive, started Imodium
-Continue with supportive medications
� Improved, tolerated LRD - continue supportyive care
#Syncope
#Hypotension
#Orthostatic Hypotension
--likely 2/2 to above
-denies prodromal symptoms, remembers event
�No further episodes inpatient
� Follow-up cardiology outpatient
-IVF; LR bolus x 2
-Monitor orthos
-will benefit from SNF
-f/u ECHO�EF 51%
#Prerenal RACHELLE on CKD, resolved
-Secondary to reduced intake, diarrhea; reportedly hypotensive with EMS although possibly worse with urinary retention
-Started on IV fluids, HCTZ and ACEi held
-Trend BMP on IVF, avoid NSAIDs and IV contrast
-Hold ANABEL inhibitor and HCTZ
#Urinary retention
Andrade placed
� Follow-up urology outpatient
#Hyponatremia
� Monitor with resuscitation
#HFpEF
-EF 51%
-Not currently on GDMT or loop diuretic
-Monitor volume status on IVF
-f/u cards outpt
#Paroxysmal AF
-Home medications include metoprolol and amiodarone; not on AC
-f/u cards outpt
#CAD s/p CABG x 4
-Home medications include metoprolol succinate, high intensity statin, aspirin
-Patient states she does have chronic exertional dyspnea since CABG
-Would likely benefit from repeat ischemic workup as OP
-No signs of acute coronary syndrome
-f/u cards oupt
-hold acei due to rachelle and restart outpt
#Primary HTN
-No known history of hypertensive systemic disease states
-Home medications include HCTZ, metoprolol, amlodipine, benazepril
-Holding benazepril and HCTZ for RACHELLE; may cont to hold hctz in the future due to hyponatremia
-Resume amlodipine, was held for hypotension; increase to 10mg; hold ACEI for now
#HLD
-History of ASCVD with CAD status post CABG
-Home regimen includes high intensity statin and ezetimibe
#GERD
-Home medications include daily PPI
-No known history of Phillips's or erosive disease
#IDDM
-Home medications include NovoLog 70-30 65 units daily, 60 units HS
-Also currently on Mounjaro, high intensity statin for ASCVD
-Unclear if she has some associated microvascular disease
-Possibly related with CKD and history of CAD
� Diabetic AMMONIA REFRIGERATION TECHNICIAN consulted
#H/O Ferreira's palsy
-Unclear etiology
#Suspected SATURNINO
-Should have follow-up with pulm for sleep study
DVT prophylaxis: hsq
Diet: Regular, as tolerated
CODE STATUS: DNR
Anticipated Discharge: 24 - 48 hours
Subjective/Interval History
-
Date of Service: June 08, 2024
Spiked temperature overnight
Objective Data
-
Labs:
Laboratory Results
06/08/24
07:26
WBC 21.9 H
Hgb 11.4 L
Hct 33.8 L
Plt Count 197
Sodium 132 L
Potassium 3.7
Chloride 96 L
Carbon Dioxide 27
BUN 25 H
Creatinine 1.3 H
Glucose 147 H
Calcium 7.5 L
Vital Signs:
Vital Signs
Temp Pulse Resp BP Pulse Ox
99.7 F 74 20 150/58 95
06/08/24 08:37 06/08/24 08:37 06/08/24 08:37 06/08/24 08:37 06/08/24 08:37
I&O
06/07/24 06/08/24 06/09/24
06:59 06:59 06:59
Intake Total 1200 / 1200 1300 / 1300
Output Total 3700 / 3700 1250 / 1250
Balance -2500 / -2500 50 / 50
Review of Systems
-
History Source: Patient
All other systems: Not reviewed unless documented
Data Reviewed
-
Diagnostic Radiology: Report Reviewed by me
Labs: Labs Reviewed by me
[2024-06-08 15:14] VITALS: BP 154/57; BP 159/53; PULSE 84; PULSE 85
[2024-06-08 15:15] VITALS: BP 154/57
[2024-06-08 16:38] LABS: Glucose - Point of Care 204 mg/dl (70-99)
[2024-06-08] MEDS: NOVOLOG FLEXPEN-LOW RESISTANCE 2 UNITS SC (16:47)
[2024-06-08] MEDS: MYLICON PO (21:43)
[2024-06-08 23:00] VITALS: BP 156/60
[2024-06-08 23:19] LABS: Glucose - Point of Care 150 mg/dl (70-99)
[2024-06-08] MEDS: IMODIUM 2 MG PO (23:52)
--- NOTE | 2024-06-08 23:57 | PTCARENOTE ---
Patient with nausea followed by abrupt onset diarrhea. 3 episodes liquid stool thus far, PRN Immodium given, PRN Zofran given. Patient states she had not had a BM since Monday prior to this. Nascimneto draining brown urine with sediment, extensive nascimento
care performed.
[2024-06-09 00:39] VITALS: BP 156/60
[2024-06-09] MEDS: ZOSYN 100 IV ×2 (03:29→09:20)
[2024-06-09] MEDS: MYLICON 80 MG PO ×2 (04:19→09:20)
[2024-06-09 07:10] LABS: Glucose - Point of Care 194 mg/dl (70-99)
[2024-06-09 07:45] VITALS: BP 155/56; BP 158/76; PULSE 80; PULSE 83
[2024-06-09 08:18] LABS: Hemoglobin 11.3 g/dL (12.0-16.0); Mean Corp Hgb Conc. 35.3 g/dL (33.0-37.0); Mean Corpuscular Hgb 30.1 pg (27.0-31.0); Mean Corpuscular Volume 85.1 fL (81.0-99.0); Mean Platelet Volume 9.7 fL (7.4-10.4); Platelet Count 234 10^3/uL (130-400); Red Blood Cell Count 3.76 10^6/uL (4.20-5.40); Red Cell Dist. Width 14.6 % (11.5-14.5); White Blood Cell Count 19.7 10^3/uL (4.8-10.8)
[2024-06-09 08:51] LABS: ALT (SGPT) 25 U/L (0-35); AST (SGOT) 32 U/L (14-36); Albumin 2.3 g/dl (3.5-5.0); Alkaline Phosphatase 126 U/L (38-126); Blood Urea Nitrogen 32 mg/dl (7-17); Calcium 7.5 mg/dl (8.4-10.2); Carbon Dioxide 26 mmol/L (22-30); Chloride 96 mmol/L (98-107); Estimated Creatinine Clearance 30 ml/min; Glucose 196 mg/dl (70-99); Sodium 132 mmol/L (135-145); Total Protein 4.4 g/dl (6.3-8.2); eGFR 26.69
[2024-06-09 08:58] LABS: Potassium 3.6 mmol/L (3.5-5.1)
[2024-06-09] MEDS: NOVOLOG FLEXPEN-LOW RESISTANCE 1 UNITS SC (09:08)
[2024-06-09] MEDS: NOVOLOG MIX 70/30 FLEXPEN 40 UNITS SC ×2 (09:09→17:48)
[2024-06-09] MEDS: DESENEX/MITRAZOL/ZEASORB 1 APPLIC TOPICAL ×2 (09:14→19:56)
[2024-06-09] MEDS: TOPROL XL 25 MG PO ×2 (09:20→19:56)
[2024-06-09] MEDS: LIPITOR 40 MG PO (09:21)
[2024-06-09] MEDS: LOW STRENGTH ASPIRIN 81 MG PO (09:21)
[2024-06-09] MEDS: PROTONIX 40 MG PO (09:21)
[2024-06-09] MEDS: NORVASC 10 MG PO (09:21)
[2024-06-09] MEDS: VITAMIN D3 (cholecalciferol) 50 MCG PO (09:22)
[2024-06-09] MEDS: STERILE WATER FOR INJECTION IV (09:22)
[2024-06-09] MEDS: HEPARIN 5000 UNITS SC ×3 (09:22→23:22)
[2024-06-09] MEDS: ZETIA 10 MG PO (09:25)
[2024-06-09 11:53] LABS: Glucose - Point of Care 279 mg/dl (70-99)
--- NOTE | 2024-06-09 13:04 | W.PN.HOSP.TC ---
Today's Communication/Plan
-
LR Bolus, IVF - monitor Scr
CDiff f/u
F/u fever, temp curve on abx
Assessment / Plan
Assessment / Plan
#Sepsis
#UTI - E. coli, Klebsiella Aerogenes
� Cont Zosyn
� Afebrile for 24 hours
� Monitor white count on Zosyn
� Follow cultures from 06/08
#Worsening diarrhea
� Norovirus symptoms resolved although now with new diarrhea over the last 12 hours with antibiotics
� Follow-up C. difficile
#Norovirus gastroenteritism, resolved
-Presented with nausea and diarrhea that abruptly started evening of 06/01
-Has family members/friends with similar symptomatology
-Norovirus was positive, started Imodium
-Continue with supportive medications
� Improved, tolerated LRD - continue supportyive care
#Syncope
#Hypotension
#Orthostatic Hypotension
--likely 2/2 to above
-denies prodromal symptoms, remembers event
�No further episodes inpatient
� Follow-up cardiology outpatient
-IVF PRN
-Monitor orthos
-will benefit from SNF
-f/u ECHO�EF 51%
#Prerenal RACHELLE on CKD, now again worsening
-LR bolus today, IVF
-Secondary to reduced intake, diarrhea; reportedly hypotensive with EMS although possibly worse with urinary retention
-Started on IV fluids, HCTZ and ACEi held
-Trend BMP on IVF, avoid NSAIDs and IV contrast
-Hold ANABEL inhibitor and HCTZ
#Elevated bilirubin
-now abd pain
-monitor
#Urinary retention
Andrade placed
� Follow-up urology outpatient
#Hyponatremia
� Monitor with resuscitation
#HFpEF
-EF 51%
-Not currently on GDMT or loop diuretic
-Monitor volume status on IVF
-f/u cards outpt
#Paroxysmal AF
-Home medications include metoprolol and amiodarone; not on AC
-f/u cards outpt
#CAD s/p CABG x 4
-Home medications include metoprolol succinate, high intensity statin, aspirin
-Patient states she does have chronic exertional dyspnea since CABG
-Would likely benefit from repeat ischemic workup as OP
-No signs of acute coronary syndrome
-f/u cards oupt
-hold acei due to rachelle and restart outpt
#Primary HTN
-No known history of hypertensive systemic disease states
-Home medications include HCTZ, metoprolol, amlodipine, benazepril
-Holding benazepril and HCTZ for RACHELLE; may cont to hold hctz in the future due to hyponatremia
-Resume amlodipine, was held for hypotension; increase to 10mg; hold ACEI for now
#HLD
-History of ASCVD with CAD status post CABG
-Home regimen includes high intensity statin and ezetimibe
#GERD
-Home medications include daily PPI
-No known history of Phillips's or erosive disease
#IDDM
-Home medications include NovoLog 70-30 65 units daily, 60 units HS
-Also currently on Mounjaro, high intensity statin for ASCVD
-Unclear if she has some associated microvascular disease
-Possibly related with CKD and history of CAD
� Diabetic PIER MASTER ASSISTANT consulted
#H/O Ferreira's palsy
-Unclear etiology
#Suspected SATURNINO
-Should have follow-up with pulm for sleep study
DVT prophylaxis: hsq
Diet: Regular, as tolerated
CODE STATUS: DNR
Anticipated Discharge: > 48 hours
Subjective/Interval History
-
Date of Service: June 09, 2024
Afebrile for 24 hours now, although with diarrhea
Objective Data
-
Labs:
Laboratory Results
06/09/24
07:47
WBC 19.7 H
Hgb 11.3 L
Hct 32.0 L
Plt Count 234
Sodium 132 L
Potassium 3.6
Chloride 96 L
Carbon Dioxide 26
BUN 32 H
Creatinine 1.9 H
Glucose 196 H
Calcium 7.5 L
Total Bilirubin 2.0 H
AST 32
ALT 25
Alkaline Phosphatase 126
Vital Signs:
Vital Signs
Temp Pulse Resp BP Pulse Ox
98.6 F 80 20 155/56 93
06/09/24 07:45 06/09/24 07:45 06/09/24 07:45 06/09/24 07:45 06/09/24 07:45
I&O
06/08/24 06/09/24 06/10/24
06:59 06:59 06:59
Intake Total 1300 / 1300 1490 / 1490 100 / 100
Output Total 1250 / 1250 1025 / 1025
Balance 50 / 50 465 / 465 100 / 100
Review of Systems
-
History Source: Patient
All other systems: Not reviewed unless documented
Data Reviewed
-
Diagnostic Radiology: Report Reviewed by me
Labs: Labs Reviewed by me
[2024-06-09] MEDS: NOVOLOG FLEXPEN-LOW RESISTANCE 3 UNITS SC (13:39)
[2024-06-09] MEDS: LR 1000 IV ×2 (13:47→15:28)
[2024-06-09] MEDS: FLUSH (NSS) 1 FLUSH IV (13:49)
[2024-06-09] MEDS: ZOSYN 50 IV ×2 (15:33→21:21)
[2024-06-09 15:39] VITALS: BP 160/62
[2024-06-09 17:36] LABS: Glucose - Point of Care 221 mg/dl (70-99)
[2024-06-09] MEDS: NOVOLOG FLEXPEN-LOW RESISTANCE 2 UNITS SC (17:47)
[2024-06-09 21:16] LABS: Glucose - Point of Care 152 mg/dl (70-99)
[2024-06-09] MEDS: TYLENOL 650 MG PO (21:22)
[2024-06-09 23:11] VITALS: BP 140/60
[2024-06-09 23:27] LABS: Glucose - Point of Care 104 mg/dl (70-99)
--- NOTE | 2024-06-09 23:28 | PTCARENOTE ---
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 was checked by RN and was 104. Pt asked for some orange juice.
[2024-06-10] MEDS: ZOSYN 50 IV ×4 (03:21→21:24)
[2024-06-10] MEDS: TYLENOL 650 MG PO ×2 (03:22→15:40)
[2024-06-10 07:33] VITALS: BP 138/55
[2024-06-10 07:33] LABS: Hematocrit 32.6 % (37.0-47.0); Hemoglobin 10.8 g/dL (12.0-16.0); Mean Corp Hgb Conc. 33.1 g/dL (33.0-37.0); Mean Corpuscular Hgb 28.3 pg (27.0-31.0); Mean Corpuscular Volume 85.6 fL (81.0-99.0); Mean Platelet Volume 9.4 fL (7.4-10.4); Platelet Count 245 10^3/uL (130-400); Red Blood Cell Count 3.81 10^6/uL (4.20-5.40); Red Cell Dist. Width 14.4 % (11.5-14.5); White Blood Cell Count 20.9 10^3/uL (4.8-10.8)
[2024-06-10 07:50] LABS: Glucose - Point of Care 137 mg/dl (70-99)
--- NOTE | 2024-06-10 07:54 | PN.DE.MGMTRT ---
Insulin Management
- -
06/10/2024 Diabetes Management Follow up
Patient admitted 06/01 with weakness, diarrhea, gastroenteritis. PMH CAD, [place], CABG 2021, HTN, HLD, diabetes, CKD. Prior to admission was taking 70/30 insulin 65 units with breakfast and 60 units with dinner. States she sees Dr. Renea Hartley at
[facility] on a regular basis for diabetes care. She states that she often has to decrease her 70/30 doses which she does based on her blood sugar and that Dr. Hartley has agreed that Nicki knows her diabetes and is OK that she adjusts
the insulin. A1C 8.7, cr 1.5, eGFR 35.45.
Patient is awake alert and oriented, sitting up in bed, offers no complaints, able to discuss diabetes management.
05/22 Dose of 70/30 decreased to 40 units BID. Premeal glucose consistently >180, range of 194 to 279, requiring 1-3 units of corrective insulin with meals
Will increase AM dose to 55 units. Cont PM dose of 40 units, with low corrective AC.
Will follow for further needed adjustments.
Discussed with pt and nurse.
Diabetes History
- -
Type of Diabetes: 2 requiring insulin
Pre-Admission Diabetes Regimen
06/09/24
07:47
Creatinine 1.9 H
Insulin Pump Settings
IP Diabetes Regimen
06/09/24 06/09/24 06/09/24
07:47 11:52 17:34
Glucose 196 H
POC Glucose 279 H 221 H
06/09/24 06/09/24 06/10/24
21:13 23:24 07:49
Glucose
POC Glucose 152 H 104 H 137 H
Meal type: Lunch
Amount consumed: 100%
Patient Education
[2024-06-10 08:07] LABS: ALT (SGPT) 24 U/L (0-35); AST (SGOT) 36 U/L (14-36); Albumin 2.2 g/dl (3.5-5.0); Alkaline Phosphatase 153 U/L (38-126); Blood Urea Nitrogen 40 mg/dl (7-17); Calcium 7.3 mg/dl (8.4-10.2); Carbon Dioxide 25 mmol/L (22-30); Chloride 95 mmol/L (98-107); Estimated Creatinine Clearance 20 ml/min; Glucose 117 mg/dl (70-99); Potassium 3.7 mmol/L (3.5-5.1); Sodium 131 mmol/L (135-145); Total Bilirubin 1.2 mg/dl (0.2-1.3); Total Protein 4.1 g/dl (6.3-8.2); eGFR 16.07
[2024-06-10] MEDS: NOVOLOG FLEXPEN-LOW RESISTANCE SC (08:43)
[2024-06-10] MEDS: LR 1000 IV ×2 (08:50→15:41)
[2024-06-10] MEDS: PROTONIX 40 MG PO (08:52)
[2024-06-10] MEDS: HEPARIN 5000 UNITS SC ×2 (08:52→15:41)
[2024-06-10] MEDS: TOPROL XL 25 MG PO ×2 (08:52→21:24)
[2024-06-10] MEDS: ZETIA 10 MG PO (08:53)
[2024-06-10] MEDS: NORVASC 10 MG PO (08:53)
[2024-06-10] MEDS: LOW STRENGTH ASPIRIN 81 MG PO (08:53)
[2024-06-10] MEDS: LIPITOR 40 MG PO (08:53)
[2024-06-10] MEDS: VITAMIN D3 (cholecalciferol) 50 MCG PO (08:53)
[2024-06-10] MEDS: DESENEX/MITRAZOL/ZEASORB 1 APPLIC TOPICAL ×2 (08:54→21:24)
[2024-06-10] MEDS: NOVOLOG MIX 70/30 FLEXPEN SC (10:00)
[2024-06-10] MEDS: STERILE WATER FOR INJECTION IV (10:16)
[2024-06-10] MEDS: NOVOLOG MIX 70/30 FLEXPEN 55 UNITS SC (10:19)
--- NOTE | 2024-06-10 11:10 | W.PN.HOSP.TC ---
Today's Communication/Plan
-
Reduce dose of Zosyn
Nephrology consult
Recheck labs in the morning
Assessment / Plan
Assessment / Plan
Gen-AAOx3, NAD, morbid obesity
HEENT-NC, AT, anicteric, clear oral mm
Neck-supple
CV-reg, no M, +S1/S2
Lungs-clear B/L
Abd-soft, NT, ND
Ext-no edema
Musculoskeletal-no cyanosis, clubbing
Skin-warm and dry
Neuro-grossly non-focal
Psych-calm, cooperative
Sepsis due to UTI -hemodynamically stable. Leukocytosis noted. Last fever was 18 AM. Blood cultures negative so far. Urine culture shows E. coli, Klebsiella. Currently on IV Zosyn. Will reduce dose given RACHELLE.
Acute norovirus gastroenteritis -symptoms improved. Stool negative for C. difficile.
-Presented with nausea and diarrhea that abruptly started evening of 06/01
-Has family members/friends with similar symptomatology
-Norovirus was positive, started Imodium
-Continue with supportive medications
� Improved, tolerated LRD - continue supportyive care
Syncope, Orthostatic Hypotension
--likely 2/2 to volume depletion due to GI losses
-denies prodromal symptoms, remembers event
�No further episodes inpatient
� Follow-up cardiology outpatient
-IVF PRN
-Monitor orthos
-will benefit from SNF
-f/u ECHO�EF 51%
RACHELLE on CKD 3a -worsening RACHELLE noted. Creatinine was 1.0 on 06/07, 2.9 today. Unclear if due to antibiotic induced interstitial nephritis versus ATN from orthostasis versus other etiology. Consult nephrology. Check differential and CBC.
Renal ultrasound shows chronic medical renal disease without hydronephrosis.
-Hold ANABEL inhibitor and HCTZ
Acute urinary retention
Andrade placed 06/05.
� Follow-up urology outpatient
Hyponatremia
� Monitor with resuscitation
Chronic heart failure preserved EF
-EF 51%
-Not currently on GDMT or loop diuretic
-Monitor volume status on IVF
-f/u cards outpt
Paroxysmal AF
-Home medications include metoprolol and amiodarone; not on AC
-f/u cards outpt
CAD s/p CABG x 4
-Home medications include metoprolol succinate, high intensity statin, aspirin
-Patient states she does have chronic exertional dyspnea since CABG
-Would likely benefit from repeat ischemic workup as OP
-No signs of acute coronary syndrome
-f/u cards oupt
-hold acei due to rachelle and restart outpt
Essential hypertension
-No known history of hypertensive systemic disease states
-Home medications include HCTZ, metoprolol, amlodipine, benazepril
-Holding benazepril and HCTZ for RACHELLE; may cont to hold hctz in the future due to hyponatremia
-Resume amlodipine, was held for hypotension; increase to 10mg; hold ACEI for now
Hyperlipidemia
-History of ASCVD with CAD status post CABG
-Home regimen includes high intensity statin and ezetimibe
GERD
-Home medications include daily PPI
-No known history of Phillips's or erosive disease
DM2 with hyperglycemia -glucose 117 this morning. Hemoglobin A1c 8.7% in April.
-Home medications include NovoLog 70-30 65 units daily, 60 units HS
-Also currently on Mounjaro, high intensity statin for ASCVD
-Unclear if she has some associated microvascular disease
-Possibly related with CKD and history of CAD
� Diabetic FOREST PATHOLOGY PROFESSOR consulted
H/O Ferreira's palsy
Suspected SATURNINO
-Should have follow-up with pulm for sleep study
Morbid obesity due to excess calories
DNR
Dispo -SNF when medically stable.
Anticipated Discharge: > 48 hours
Subjective/Interval History
-
Date of Service: June 10, 2024
Patient seen and examined. Complaining of abdominal bloating, gas.
Objective Data
-
Labs:
Laboratory Results
06/10/24
07:03
WBC 20.9 H
Hgb 10.8 L
Hct 32.6 L
Plt Count 245
Sodium 131 L
Potassium 3.7
Chloride 95 L
Carbon Dioxide 25
BUN 40 H
Creatinine 2.9 H
Glucose 117 H
Calcium 7.3 L
Total Bilirubin 1.2
AST 36
ALT 24
Alkaline Phosphatase 153 H
Vital Signs:
Vital Signs
Temp Pulse Resp BP Pulse Ox
99.6 F 74 18 138/55 95
06/10/24 07:33 06/10/24 08:52 06/10/24 07:33 06/10/24 08:53 06/10/24 07:33
I&O
06/09/24 06/10/24 06/11/24
06:59 06:59 06:59
Intake Total 1490 / 1490 2930 / 2930
Output Total 1025 / 1025 750 / 750
Balance 465 / 465 2180 / 2180
Review of Systems
-
History Source: Patient
All other systems: Reviewed and negative
[2024-06-10 11:47] LABS: Glucose - Point of Care 167 mg/dl (70-99)
[2024-06-10 11:57] LABS: % Basophils 0.3 % (0-2); % Immature Granulocytes 1.6 % (0-0.5); % Monocytes 6.6 % (1.7-9.3); % Neutrophils 86.5 % (42.2-75.2); Absolute Basophils 0.1 10^3/uL (0-0.2); Absolute Eosinophils 0.2 10^3/uL (0-0.7); Absolute Immature Granulocytes 0.3 10^3/uL (0-0.05); Absolute Lymphocytes 0.8 10^3/uL (1.2-3.4); Absolute Monocytes 1.4 10^3/uL (0.1-0.6); Absolute Neutrophils 17.9 10^3/uL (1.4-6.5); Nucleated Red Blood Cells % 0 %
[2024-06-10] MEDS: NOVOLOG FLEXPEN-LOW RESISTANCE 1 UNITS SC ×2 (13:53→17:21)
--- NOTE | 2024-06-10 14:01 | W.CON.NEPH ---
Consultation
-
Date/Time Consultation Requested: 06/10/2024 12 PM
Date/Time Consultation Performed: 06/10/2024 2pm
Requesting Provider: Dr. Miranda
Performing Provider: Dr. Izquierdo
Reason for Consultation: RACHELLE
Medical History
-
Chief Complaint: Nausea vomiting diarrhea
History of Present Illness:
This is a 78-year-old female who has hypertension controlled with a multidrug regimen, hyperlipidemia controlled on statin therapy, diabetes controlled with insulin therapy. She had acute onset of nausea vomiting and diarrhea. She began feeling
quite weak and was brought to the emergency room. She was found to have norovirus. While in the hospital she was also noted to have significant urinary retention of over 1 L and Andrade catheter was required to be placed by urology given the
difficulty of placement. She also had a urinary tract infection and is now on antibiotics. Her creatinine baseline is somewhat variable by her report and from past records appears to run between 1 and 2.0. Her creatinine was 1 at the time of
admission is risen now up to 2.9 and we are asked to assist with management of the acute kidney injury. She reports that her diarrhea has improved slightly. There have been no issues with the Andrade catheter.
Past Medical History
Primary hypertension
Breath shortness
Acute myocardial infarction, subendocardial infarction
NSTEMI
Diabetes, Type II
Dyslipidemia
morbid obesity
neuropathy lat-fem nerve
Ferreira's Palsy
DH-CABG 01/20-
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
hyperglycemia 01/2022
Heart failure with preserved ejection fraction, borderline, class II
PAF (paroxysmal atrial fibrillation)
Aortic atherosclerosis
Renal insufficiency
Hepatic steatosis
Suspected sleep apnea
Social History
Tobacco: Non-Smoker
Alcohol: None
Family History
Family History: Not Pertinent
Allergies / Home Medications
Allergy/AdvReac Type Severity Reaction Status Date / Time
No Known Allergies Allergy Verified 06/02/24 11:06
�Medication �Instructions �Recorded �Confirmed �Type
cholecalciferol (vitamin D3) 50 50 mcg PO DAILY Supplement 01/20/22 06/02/24 History
mcg (2,000 unit) capsule (Vitamin
D3)
insulin aspar prot-insulin aspart 65 unit SC DAILY Diabetes 01/20/22 06/02/24 History
100 unit/mL (70-30) subcutaneous
pen (Novolog Mix 70-30FlexPen
U-100)
metoprolol succinate 25 mg 25 mg PO BID Blood Pressure 02/23/22 06/02/24 History
tablet,extended release 24 hr
miconazole nitrate 2 % topical 1 applic topical BIDPRN PRN skin 02/23/22 06/02/24 History
powder (Miconazorb AF) folds
ezetimibe 10 mg tablet (Zetia) 10 mg PO DAILY High Cholesterol 05/04/24 06/02/24 History
pantoprazole 40 mg tablet,delayed 40 mg PO DAILY Gastrointestinal 05/04/24 06/02/24 History
release (Protonix) Issue
tirzepatide 7.5 mg/0.5 mL 7.5 mg SC MO Diabetes 05/04/24 06/02/24 History
subcutaneous pen injector
(Mounjaro)
acetaminophen 325 mg tablet 650 mg PO Q6H PRN mild pain 06/02/24 06/02/24 History
albuterol sulfate 90 mcg/actuation 2 puff inhalation R Q4HPRN PRN sob 06/02/24 06/02/24 History
aerosol inhaler
amlodipine 5 mg-benazepril 10 mg 1 cap PO DAILY 06/02/24 06/02/24 History
capsule
aspirin 81 mg tablet,delayed 81 mg PO DAILY 06/02/24 06/02/24 History
release
atorvastatin 80 mg tablet 80 mg PO DAILY 06/02/24 06/02/24 History
hydrochlorothiazide 25 mg tablet 25 mg PO DAILY 06/02/24 06/02/24 History
insulin aspar prot-insulin aspart 60 unit SC QPM 06/02/24 06/02/24 History
100 unit/mL (70-30) subcutaneous
pen
amlodipine 5 mg tablet 5 mg PO DAILY #0 tabs 06/03/24 Rx
loperamide 2 mg capsule (Imodium 2 mg PO Q6H PRN loose stool #30 06/03/24 Rx
A-D) caps
Review of Systems
-
Diarrhea
No shortness of breath or chest pain
No nausea
All other systems: Negative unless noted
Physical Exam
Vital Signs
Vital Signs
Temp Pulse Resp BP Pulse Ox
99.6 F 74 18 138/55 95
06/10/24 07:33 06/10/24 08:52 06/10/24 07:33 06/10/24 08:53 06/10/24 07:33
Lab Results
WBC 20.9 10^3/uL (4.8-10.8) H 06/10/24 07:03
RBC 3.81 10^6/uL (4.20-5.40) L 06/10/24 07:03
Hgb 10.8 g/dL (12.0-16.0) L 06/10/24 07:03
Hct 32.6 % (37.0-47.0) L 06/10/24 07:03
Plt Count 245 10^3/uL (130-400) 06/10/24 07:03
Sodium 131 mmol/L (135-145) L 06/10/24 07:03
Potassium 3.7 mmol/L (3.5-5.1) 06/10/24 07:03
Chloride 95 mmol/L (98-107) L 06/10/24 07:03
Carbon Dioxide 25 mmol/L (22-30) 06/10/24 07:03
BUN 40 mg/dl (7-17) H 06/10/24 07:03
Creatinine 2.9 mg/dL (0.6-1.0) H 06/10/24 07:03
eGFR 16.07 06/10/24 07:03
Glucose 117 mg/dl (70-99) H 06/10/24 07:03
Calcium 7.3 mg/dl (8.4-10.2) L 06/10/24 07:03
Albumin 2.2 g/dl (3.5-5.0) L 06/10/24 07:03
Laboratory Tests
06/05/24 06/07/24 06/08/24
16:18 07:33 07:26
Sodium
Creatinine 1.0 1.3 H
Calcium
Ur Occult Blood Reflex 4+ A
Urine RBC >100 A
Urine Bacteria (Reflex) Many A
Urine Albumin (Reflex) 3+ A
06/09/24 06/10/24
07:47 07:03
Sodium 132 L
Creatinine 1.9 H
Calcium 7.3 L
Ur Occult Blood Reflex
Urine RBC
Urine Bacteria (Reflex)
Urine Albumin (Reflex)
Renal ultrasound 06/06/2024
Findings: Right kidney measures 8.9 cm, and the left kidney measures 10.7 cm in length. Bilateral renal cortical thinning redemonstrated, similar to prior. No hydronephrosis, contour deforming solid renal mass or echogenic shadowing foci to suggest
renal calculi.
Physical Exam
Patient is awake alert oriented and in no distress. Mood and affect were pleasant, insight and judgment were good. Pupils are equal round and reactive to light, extraocular movements are intact, sclera were anicteric. Hearing was normal, ears and
nose are intact. Oropharynx was clear. Neck was supple with trachea midline and no thyromegaly. Heart was regular rate and rhythm without rubs. Lower extremities with 1+ edema. Lungs were clear to auscultation bilaterally and with normal
excursion. Abdomen was soft, nontender, with normal active bowel sounds, and no hepatosplenomegaly. Skin was without rash and with normal turgor.
Data Reviewed
-
Radiology: Image Personally Visualized and interpreted (Chest x-ray on 06/07/2024 by my reading shows no acute disease)
Ultrasound: Report Reviewed by me
Medical Tests (Nuc Med, Echo etc): Report Reviewed by me (Echocardiogram on 06/05/2024 shows ejection fraction 51%, mild TR, aortic sclerosis)
Labs: Labs Reviewed by me
Old Records: Reviewed
Assessment/Plan
-
Assessment
RACHELLE
Norovirus gastroenteritis
Urinary retention
Heart failure preserved EF
Paroxysmal atrial fibrillation
Coronary artery disease with bypass
Hypertension
Diabetes mellitus type 2
Obesity
Plan
Check urine eosinophils
Repeat urine studies
IV fluids will continue
Maintain Andrade catheter
Follow BMP
Cause of RACHELLE uncertain
--- NOTE | 2024-06-10 15:13 | CM ---
Chart reviewed and plan is for skilled placement, per updated physical therapy notes recommendation is for skilled placement, referral sent to [facility].
Plan; Skilled placement at [facility] when stable, referral sent to [facility].
[2024-06-10 15:18] VITALS: BP 139/46
[2024-06-10 16:28] LABS: Urine Albumin 1+ (Neg - Trace); Urine Bilirubin Negative (Negative); Urine Character Very Cloudy (Clear); Urine Color Yellow; Urine Glucose Negative (Negative); Urine Ketone Negative (Negative); Urine Leukocyte Trace (Negative); Urine Nitrite Negative (Negative); Urine Occult Blood 4+ (Negative); Urine Urobilinogen Negative (Neg - 1+)
[2024-06-10 16:29] LABS: Osmolality Urine 213 mOsm/kg (300-900)
[2024-06-10 16:43] LABS: Urine Sodium 29 mmol/L (30-90)
[2024-06-10 16:55] LABS: Urine Red Blood Cell 70-80 /HPF (0-2)
[2024-06-10 16:56] LABS: Urine Bacteria Many (Negative)
[2024-06-10 16:59] LABS: Glucose - Point of Care 160 mg/dl (70-99)
[2024-06-10] MEDS: NOVOLOG MIX 70/30 FLEXPEN 40 UNITS SC (17:23)
[2024-06-10 20:57] LABS: Glucose - Point of Care 122 mg/dl (70-99)
--- NOTE | 2024-06-10 22:52 | PTCARENOTE ---
Pt with new onset bright red blood in nascimento catheter tubing, pt offers no complaints at this time. Coverint mens locker room attendant notified, responded bedside to assess pt. SQ heparin placed on hold at this time.
[2024-06-10 23:33] VITALS: BP 147/55
[2024-06-11] MEDS: ZOSYN 50 IV ×4 (03:39→21:08)
[2024-06-11] MEDS: TYLENOL 650 MG PO ×2 (03:39→22:19)
[2024-06-11 05:51] LABS: Glucose - Point of Care 86 mg/dl (70-99)
[2024-06-11] MEDS: ZOFRAN 4 MG IV (05:53)
[2024-06-11 06:08] VITALS: BP 190/69
[2024-06-11 06:15] VITALS: BP 182/72
[2024-06-11] MEDS: NORVASC 10 MG PO (06:16)
[2024-06-11] MEDS: TOPROL XL 25 MG PO ×2 (06:17→21:08)
--- NOTE | 2024-06-11 07:07 | PTCARENOTE ---
Pt c/o 'not feeling well' and feeling sweaty. Accuchek obtained, resulted 86, apple juice given to pt upon request. Pt denies nausea, reports 'upset stomach', PRN Zofran given. Manual BP 182/72. Discussed with covering CREW SCHEDULER, pt scheduled for Norvasc
and Metoprolol 0800 this AM, administered early per CREW SCHEDULER request.
[2024-06-11 07:56] VITALS: BP 137/54
[2024-06-11] MEDS: LIPITOR 40 MG PO (08:02)
[2024-06-11] MEDS: VITAMIN D3 (cholecalciferol) 50 MCG PO (08:02)
[2024-06-11] MEDS: ZETIA 10 MG PO (08:02)
[2024-06-11] MEDS: PROTONIX 40 MG PO (08:02)
[2024-06-11] MEDS: LOW STRENGTH ASPIRIN 81 MG PO (08:02)
[2024-06-11 08:04] LABS: Glucose - Point of Care 100 mg/dl (70-99)
[2024-06-11] MEDS: DESENEX/MITRAZOL/ZEASORB 1 APPLIC TOPICAL ×2 (08:05→21:08)
--- NOTE | 2024-06-11 08:13 | PN.DE.MGMTRT ---
Insulin Management
- -
06/11/2024 Diabetes Management Follow up
Patient admitted 06/01 with weakness, diarrhea, gastroenteritis. PMH CAD, [place], CABG 2021, HTN, HLD, diabetes, CKD. Prior to admission was taking 70/30 insulin 65 units with breakfast and 60 units with dinner. States she sees Dr. Renea Hartley at
[facility] on a regular basis for diabetes care. She states that she often has to decrease her 70/30 doses which she does based on her blood sugar and that Dr. Hartley has agreed that Nicki knows her diabetes and is OK that she adjusts
the insulin. A1C 8.7; cr 2.9, eGFR 16.07 06/10.
Patient is awake alert and oriented, sitting up in bed, offers no complaints, able to discuss diabetes management.
06/10 Dose of 70/30 increased to 55 units in AM. Premeal glucose range of 137 to 167. Dinner dose of 70/30 remains @ 40 units. Fasting glucose this AM 86.
Will continue AM dose 70/30 55 units and PM dose 40 units, with low corrective AC.
Will follow for further needed adjustments.
Discussed with pt and nurse.
Diabetes History
- -
Type of Diabetes: 2 requiring insulin
Pre-Admission Diabetes Regimen
Insulin Pump Settings
IP Diabetes Regimen
06/10/24 06/10/24 06/10/24
11:46 16:58 20:55
POC Glucose 167 H 160 H 122 H
06/11/24 06/11/24
05:49 08:02
POC Glucose 86 100 H
Meal type: Breakfast
Amount consumed: 100%
Patient Education
[2024-06-11] MEDS: NOVOLOG FLEXPEN-LOW RESISTANCE SC ×3 (08:16→17:34)
[2024-06-11] MEDS: NOVOLOG MIX 70/30 FLEXPEN 55 UNITS SC (08:16)
--- NOTE | 2024-06-11 08:35 | W.PN.HOSP.TC ---
Today's Communication/Plan
-
Await labs
Assessment / Plan
Assessment / Plan
Gen-AAOx3, NAD, morbid obesity
HEENT-NC, AT, anicteric, clear oral mm
Neck-supple
CV-reg, no M, +S1/S2
Lungs-clear B/L
Abd-soft, NT, ND
Ext-no edema
Musculoskeletal-no cyanosis, clubbing
Skin-warm and dry
Neuro-grossly non-focal
Psych-calm, cooperative
Sepsis due to UTI -hemodynamically stable. Leukocytosis noted. Last fever was 06/08 AM. Blood cultures negative so far. Urine culture shows E. coli, Klebsiella. Currently on IV Zosyn, started 06/07.
Acute norovirus gastroenteritis -symptoms improved. Stool negative for C. difficile.
-Presented with nausea and diarrhea that abruptly started evening of 06/01
-Has family members/friends with similar symptomatology
-Norovirus was positive, started Imodium
-Continue with supportive medications
Ongoing diarrhea likely due to antibiotics. Stool C. difficile -06/09. Patient declined Imodium as needed, concerned about constipation..
Syncope, Orthostatic Hypotension
--likely 2/2 to volume depletion due to GI losses
-denies prodromal symptoms, remembers event
�No further episodes inpatient
� Follow-up cardiology outpatient
-IVF PRN
-Monitor orthos
-will benefit from SNF
-f/u ECHO�EF 51%
RACHELLE on CKD 3a -worsening RACHELLE noted. Creatinine was 1.0 on 06/07, 2.9 today. Unclear if due to antibiotic induced interstitial nephritis versus ATN from orthostasis versus other etiology. Nephrology consulted.
Renal ultrasound shows chronic medical renal disease without hydronephrosis.
-Hold ANABEL inhibitor and HCTZ
Acute urinary retention
Andrade placed 06/05.
� Follow-up urology outpatient
Hyponatremia
� Monitor with resuscitation
Chronic heart failure preserved EF
-EF 51%
-Not currently on GDMT or loop diuretic
-Monitor volume status on IVF
-f/u cards outpt
Paroxysmal AF
-Home medications include metoprolol and amiodarone; not on AC
-f/u cards outpt
CAD s/p CABG x 4
-Home medications include metoprolol succinate, high intensity statin, aspirin
-Patient states she does have chronic exertional dyspnea since CABG
-Would likely benefit from repeat ischemic workup as OP
-No signs of acute coronary syndrome
-f/u cards oupt
-hold ACEI due to RACHELLE and restart outpt
Essential hypertension
-No known history of hypertensive systemic disease states
-Home medications include HCTZ, metoprolol, amlodipine, benazepril
-Holding benazepril and HCTZ for RACHELLE; may cont to hold hctz in the future due to hyponatremia
-Resume amlodipine, was held for hypotension; increase to 10mg; hold ACEI for now
Hyperlipidemia
-History of ASCVD with CAD status post CABG
-Home regimen includes high intensity statin and ezetimibe
GERD
-Home medications include daily PPI
-No known history of Phillips's or erosive disease
DM2 with hyperglycemia -glucose 117 this morning. Hemoglobin A1c 8.7% in April.
-Home medications include NovoLog 70-30 65 units daily, 60 units HS
-Also currently on Mounjaro, high intensity statin for ASCVD
-Unclear if she has some associated microvascular disease
-Possibly related with CKD and history of CAD
� Diabetic HEAVY MACHINERY OPERATOR consulted
H/O Ferreira's palsy
Suspected SATURNINO
-Should have follow-up with pulm for sleep study
Morbid obesity due to excess calories
DNR
Dispo -SNF when medically stable.
Anticipated Discharge: > 48 hours
Subjective/Interval History
-
Date of Service: June 11, 2024
Patient seen and examined. Complaining of diarrhea.
Objective Data
-
Labs:
Laboratory Results
06/11/24
07:11
WBC Pending
Hgb Pending
Hct Pending
Plt Count Pending
Sodium Pending
Potassium Pending
Chloride Pending
Carbon Dioxide Pending
BUN Pending
Creatinine Pending
Glucose Pending
Calcium Pending
Vital Signs:
Vital Signs
Temp Pulse Resp BP Pulse Ox
98.3 F 67 18 137/54 95
06/11/24 07:56 06/11/24 07:56 06/11/24 07:56 06/11/24 07:56 06/11/24 07:56
I&O
06/10/24 06/11/24 06/12/24
06:59 06:59 06:59
Intake Total 2930 / 2930 2365 / 2365
Output Total 750 / 750 1575 / 1575
Balance 2180 / 2180 790 / 790
Review of Systems
-
History Source: Patient
All other systems: Reviewed and negative
[2024-06-11 08:56] LABS: % Basophils 0.2 % (0-2); % Eosinophils 1.2 % (0-6); % Lymphocytes 4.9 % (20.5-51.1); % Monocytes 6.1 % (1.7-9.3); % Neutrophils 86.6 % (42.2-75.2); Absolute Eosinophils 0.2 10^3/uL (0-0.7); Absolute Immature Granulocytes 0.2 10^3/uL (0-0.05); Absolute Lymphocytes 0.9 10^3/uL (1.2-3.4); Absolute Monocytes 1.2 10^3/uL (0.1-0.6); Absolute Neutrophils 16.4 10^3/uL (1.4-6.5); Hematocrit 32.1 % (37.0-47.0); Hemoglobin 10.8 g/dL (12.0-16.0); Mean Corp Hgb Conc. 33.6 g/dL (33.0-37.0); Mean Corpuscular Hgb 28.6 pg (27.0-31.0); Mean Corpuscular Volume 84.9 fL (81.0-99.0); Mean Platelet Volume 9.5 fL (7.4-10.4); Nucleated Red Blood Cells % 0 %; Platelet Count 249 10^3/uL (130-400); Red Blood Cell Count 3.78 10^6/uL (4.20-5.40); Red Cell Dist. Width 14.3 % (11.5-14.5)
[2024-06-11 09:30] LABS: Blood Urea Nitrogen 43 mg/dl (7-17); Calcium 7.4 mg/dl (8.4-10.2); Carbon Dioxide 25 mmol/L (22-30); Chloride 96 mmol/L (98-107); Estimated Creatinine Clearance 17 ml/min; Glucose 92 mg/dl (70-99); Potassium 3.6 mmol/L (3.5-5.1); Sodium 133 mmol/L (135-145); eGFR 13.28
[2024-06-11] MEDS: STERILE WATER FOR INJECTION IV (10:53)
--- NOTE | 2024-06-11 11:09 | W.PN.NEPH.PH ---
Today's Communication / Plan
-
serologies
Assessment/Plan
-
Assessment
RACHELLE
Norovirus gastroenteritis
Urinary retention
Heart failure preserved EF
Paroxysmal atrial fibrillation
Coronary artery disease with bypass
Hypertension
Diabetes mellitus type 2
Obesity
Plan
IV fluids will continue
Maintain Nascimento catheter
Follow BMP
Cr may be plateauing, but will consider a third insult at this time. check serologies.
-
-
Date of Service: June 11, 2024
CC / HPI / ROS
-
Chief Complaint:
RACHELLE
History of Present Illness:
RACHELLE/Cr worse to 3.4
Na remains low 133
K normal
diarrhea worse today
nascimento in place for retention and gross hematuria
Review of Systems:
no CP/SOB
Labs
-
Labs:
WBC 19.0 10^3/uL (4.8-10.8) H 06/11/24 07:11
RBC 3.78 10^6/uL (4.20-5.40) L 06/11/24 07:11
Hgb 10.8 g/dL (12.0-16.0) L 06/11/24 07:11
Hct 32.1 % (37.0-47.0) L 06/11/24 07:11
Plt Count 249 10^3/uL (130-400) 06/11/24 07:11
Sodium 133 mmol/L (135-145) L 06/11/24 07:11
Potassium 3.6 mmol/L (3.5-5.1) 06/11/24 07:11
Chloride 96 mmol/L (98-107) L 06/11/24 07:11
Carbon Dioxide 25 mmol/L (22-30) 06/11/24 07:11
BUN 43 mg/dl (7-17) H 06/11/24 07:11
Creatinine 3.4 mg/dL (0.6-1.0) H 06/11/24 07:11
eGFR 13.28 06/11/24 07:11
Glucose 92 mg/dl (70-99) 06/11/24 07:11
Calcium 7.4 mg/dl (8.4-10.2) L 06/11/24 07:11
Albumin 2.2 g/dl (3.5-5.0) L 06/10/24 07:03
Physical Exam
-
Vital Signs:
Vital Signs
Temp Pulse Resp BP Pulse Ox
98.3 F 67 18 137/54 95
06/11/24 07:56 06/11/24 07:56 06/11/24 07:56 06/11/24 07:56 06/11/24 07:56
Cardiovascular:: Regular rate and rhythm
Respiratory:: Bilateral: Coarse
Lung Excursion:: Normal
Abdomen:: Nontender and Soft
Bowel Sounds:: Normal
Extremity Edema:: None: Bilateral:
[2024-06-11 12:48] LABS: Glucose - Point of Care 110 mg/dl (70-99)
--- NOTE | 2024-06-11 13:54 | CM ---
Chart reviewed and patient is for skilled placement at [facility] when stable, director case management did reach out to [facility] admissions.
Plan; Skilled placement at [facility] when stable.
[2024-06-11 14:27] LABS: Anti Streptolysin Negative (Negative)
[2024-06-11 15:40] VITALS: BP 156/55
[2024-06-11] MEDS: LR 1000 IV ×2 (15:49)
[2024-06-11 17:15] LABS: Glucose - Point of Care 131 mg/dl (70-99)
[2024-06-11] MEDS: NOVOLOG MIX 70/30 FLEXPEN 40 UNITS SC (18:30)
[2024-06-11 22:33] LABS: Glucose - Point of Care 88 mg/dl (70-99)
[2024-06-11 23:31] VITALS: BP 168/52
[2024-06-12] MEDS: ZOSYN 50 IV ×4 (04:09→21:20)
--- NOTE | 2024-06-12 05:03 | DOWNTIME ---
There was a [employer] Work[employer] Management Consultant Downtime on 06/12/2024 from 0100 to 06/12/2023 at 0205 . Downtime documentation of patient's care, including medication administrations, has been reconciled in the electronic record per guidelines. Refer to the
patient's paper chart under the miscellaneous tab to see printed paper medication records and downtime forms.
[2024-06-12 07:08] VITALS: BP 159/62
--- NOTE | 2024-06-12 07:42 | PN.DE.MGMTRT ---
Insulin Management
- -
06/12/2024 Diabetes Management Follow up
Patient admitted 06/01 with weakness, diarrhea, gastroenteritis. PMH CAD, [place], CABG 2021, HTN, HLD, diabetes, CKD. Prior to admission was taking 70/30 insulin 65 units with breakfast and 60 units with dinner. States she sees Dr. Renea Hartley at
[facility] on a regular basis for diabetes care. She states that she often has to decrease her 70/30 doses which she does based on her blood sugar and that Dr. Hartley has agreed that Nicki knows her diabetes and is OK that she adjusts
the insulin. A1C 8.7; cr 2.9, eGFR 16.07 06/10.
Patient is awake alert and oriented, sitting up in bed, offers no complaints, able to discuss diabetes management.
06/11 Dose of 70/30 55 units in AM and 40 units with dinner. Premeal glucose range of 86 to 131. Fasting glucose this AM 107 .
Will continue AM dose 70/30 55 units and dinner dose 40 units, with low corrective AC.
Will follow for further needed adjustments.
Discussed with pt and nurse.
Diabetes History
- -
Type of Diabetes: 2 requiring insulin
Pre-Admission Diabetes Regimen
06/11/24
07:11
Creatinine 3.4 H
Insulin Pump Settings
IP Diabetes Regimen
06/11/24 06/11/24 06/11/24
07:11 08:02 12:47
Glucose 92
POC Glucose 100 H 110 H
06/11/24 06/11/24
17:15 22:22
Glucose
POC Glucose 131 H 88
Patient Education
[2024-06-12 08:16] LABS: Blood Urea Nitrogen 42 mg/dl (7-17); Calcium 7.8 mg/dl (8.4-10.2); Carbon Dioxide 27 mmol/L (22-30); Chloride 97 mmol/L (98-107); Estimated Creatinine Clearance 19 ml/min; Glucose 96 mg/dl (70-99); Potassium 3.8 mmol/L (3.5-5.1); Sodium 135 mmol/L (135-145); eGFR 15.43
[2024-06-12 08:18] LABS: Glucose - Point of Care 107 mg/dl (70-99)
[2024-06-12] MEDS: NOVOLOG FLEXPEN-LOW RESISTANCE SC ×2 (08:18→12:50)
[2024-06-12] MEDS: LIPITOR 40 MG PO (08:20)
[2024-06-12] MEDS: TOPROL XL 25 MG PO ×2 (08:20→19:49)
[2024-06-12] MEDS: NORVASC 10 MG PO (08:20)
[2024-06-12] MEDS: VITAMIN D3 (cholecalciferol) 50 MCG PO (08:20)
[2024-06-12] MEDS: LOW STRENGTH ASPIRIN 81 MG PO (08:20)
[2024-06-12] MEDS: DESENEX/MITRAZOL/ZEASORB 1 APPLIC TOPICAL ×2 (08:21→19:48)
[2024-06-12] MEDS: PROTONIX 40 MG PO (08:21)
[2024-06-12] MEDS: ZETIA 10 MG PO (08:21)
[2024-06-12] MEDS: LR 1000 IV ×2 (08:22→21:51)
[2024-06-12] MEDS: NOVOLOG MIX 70/30 FLEXPEN 55 UNITS SC (08:22)
--- NOTE | 2024-06-12 08:56 | W.PN.HOSP.TC ---
Today's Communication/Plan
-
Continue current care
Assessment / Plan
Assessment / Plan
Gen-AAOx3, NAD, morbid obesity
HEENT-NC, AT, anicteric, clear oral mm
Neck-supple
CV-reg, no M, +S1/S2
Lungs-clear B/L
Abd-soft, NT, ND
Ext-no edema
Musculoskeletal-no cyanosis, clubbing
Skin-warm and dry
Neuro-grossly non-focal
Psych-calm, cooperative
Sepsis due to UTI -hemodynamically stable. Leukocytosis noted. Last fever was 06/08 AM. Blood cultures negative so far. Urine culture shows E. coli, Klebsiella. Currently on IV Zosyn, started 06/07. End date will be 06/13 to complete a 7-day
course.
Acute norovirus gastroenteritis -symptoms improved. Stool negative for C. difficile.
-Presented with nausea and diarrhea that abruptly started evening of 06/01
-Has family members/friends with similar symptomatology
-Norovirus was positive, started Imodium
-Continue with supportive medications
Diarrhea improved shortly after admission but then recurred with initiation of antibiotics for UTI. Ongoing diarrhea likely due to antibiotics. Stool C. difficile -06/09. Patient declined Imodium as needed, concerned about constipation..
Syncope, Orthostatic Hypotension
--likely 2/2 to volume depletion due to GI losses
-denies prodromal symptoms, remembers event
�No further episodes inpatient
� Follow-up cardiology outpatient
-IVF PRN
-Monitor orthos
-will benefit from SNF
-f/u ECHO�EF 51%
RACHELLE on CKD 3a -worsening RACHELLE noted. Creatinine peaked and now improving, 3.0. Unclear if due to antibiotic induced interstitial nephritis versus ATN from orthostasis versus other etiology. Nephrology consulted.
Renal ultrasound shows chronic medical renal disease without hydronephrosis.
-Hold ANABEL inhibitor and HCTZ
Acute urinary retention
Andrade placed 06/05.
� Follow-up urology outpatient
Hyponatremia -improved.
Chronic heart failure preserved EF
-EF 51%
-Not currently on GDMT or loop diuretic
-Monitor volume status on IVF
-f/u cards outpt
Paroxysmal AF
-Home medications include metoprolol and amiodarone; not on AC
-f/u cards outpt
CAD s/p CABG x 4
-Home medications include metoprolol succinate, high intensity statin, aspirin
-Patient states she does have chronic exertional dyspnea since CABG
-Would likely benefit from repeat ischemic workup as OP
-No signs of acute coronary syndrome
-f/u cards oupt
-hold ACEI due to RACHELLE and restart outpt
Essential hypertension
-No known history of hypertensive systemic disease states
-Home medications include HCTZ, metoprolol, amlodipine, benazepril
-Holding benazepril and HCTZ for RACHELLE; may cont to hold hctz in the future due to hyponatremia
-Resume amlodipine, was held for hypotension; increase to 10mg; hold ACEI for now
Hyperlipidemia
-History of ASCVD with CAD status post CABG
-Home regimen includes high intensity statin and ezetimibe
GERD
-Home medications include daily PPI
-No known history of Phillips's or erosive disease
DM2 with hyperglycemia -glucose 117 this morning. Hemoglobin A1c 8.7% in April.
-Home medications include NovoLog 70-30 65 units daily, 60 units HS
-Also currently on Mounjaro, high intensity statin for ASCVD
-Unclear if she has some associated microvascular disease
-Possibly related with CKD and history of CAD
� Diabetic CUPOLA TAPPER HELPER consulted
H/O Ferreira's palsy
Suspected SATURNINO
-Should have follow-up with pulm for sleep study
Morbid obesity due to excess calories
DNR
Dispo -SNF when medically stable.
Anticipated Discharge: > 48 hours
Subjective/Interval History
-
Date of Service: June 12, 2024
Patient seen and examined. Still with diarrhea.
Objective Data
-
Labs:
Laboratory Results
06/12/24
07:27
Sodium 135
Potassium 3.8
Chloride 97 L
Carbon Dioxide 27
BUN 42 H
Creatinine 3.0 H
Glucose 96
Calcium 7.8 L
Vital Signs:
Vital Signs
Temp Pulse Resp BP Pulse Ox
98.6 F 85 18 159/62 95
06/12/24 07:08 06/12/24 08:20 06/12/24 07:08 06/12/24 08:20 06/12/24 07:08
I&O
06/11/24 06/12/24 06/13/24
06:59 06:59 06:59
Intake Total 2365 / 2365 1285 / 1285
Output Total 1575 / 1575 3650 / 3650
Balance 790 / 790 -2365 / -2365
Review of Systems
-
History Source: Patient
All other systems: Reviewed and negative
--- NOTE | 2024-06-12 10:04 | PTOTSP ---
Speech Pathology
Dysphagia Follow Up
Impression:
WFL oropharyngeal swallow with all textures trialed this date. No overt concerns for aspiration at this time.
Recommendations:
1. Regular textures (IDDSI 7), thin liquids (IDDSI 0)
2. Meds as tolerated (utilize puree as needed due to sensitive gag reflex)
3. Aspiration precautions
4. [employer] service to s/o. Please re-consult as needed.
[2024-06-12] MEDS: STERILE WATER FOR INJECTION IV (10:49)
[2024-06-12 12:31] VITALS: BP 152/58; PULSE 85; O2SAT 96
[2024-06-12 12:48] LABS: Glucose - Point of Care 110 mg/dl (70-99)
--- NOTE | 2024-06-12 13:25 | CM ---
home manager reviewed patient's chart and spoke with patient this am, patient plans on going for skilled placement at [facility] when stable, patient is current with [facility] visiting nurses and after skilled rehab patient will go home with [facility]
visiting nurses, correctional casework specialist spoke with Renea at [facility]
Plan; Skilled placement at [facility] when stable.
[2024-06-12 15:23] VITALS: BP 152/60
--- NOTE | 2024-06-12 15:36 | W.PN.NEPH.PH ---
Today's Communication / Plan
-
continue IV fluids
Assessment/Plan
-
Assessment
RACHELLE
Norovirus gastroenteritis
Urinary retention
Heart failure preserved EF
Paroxysmal atrial fibrillation
Coronary artery disease with bypass
Hypertension
Diabetes mellitus type 2
Obesity
Plan
IV fluids will continue
Maintain Nascimento catheter
Follow BMP
Creatinine proven.
serology is pending
-
-
Date of Service: June 12, 2024
CC / HPI / ROS
-
Chief Complaint:
RACHELLE
History of Present Illness:
RACHELLE/Cr improving
Na normalized
K normal
nascimento in place for retention and gross hematuria
Review of Systems:
no CP/SOB
diarrhea seems to be improving
Labs
-
Labs:
WBC 19.0 10^3/uL (4.8-10.8) H 06/11/24 07:11
RBC 3.78 10^6/uL (4.20-5.40) L 06/11/24 07:11
Hgb 10.8 g/dL (12.0-16.0) L 06/11/24 07:11
Hct 32.1 % (37.0-47.0) L 06/11/24 07:11
Plt Count 249 10^3/uL (130-400) 06/11/24 07:11
Sodium 135 mmol/L (135-145) 06/12/24 07:27
Potassium 3.8 mmol/L (3.5-5.1) 06/12/24 07:27
Chloride 97 mmol/L (98-107) L 06/12/24 07:27
Carbon Dioxide 27 mmol/L (22-30) 06/12/24 07:27
BUN 42 mg/dl (7-17) H 06/12/24 07:27
Creatinine 3.0 mg/dL (0.6-1.0) H 06/12/24 07:27
eGFR 15.43 06/12/24 07:27
Glucose 96 mg/dl (70-99) 06/12/24 07:27
Calcium 7.8 mg/dl (8.4-10.2) L 06/12/24 07:27
Albumin 2.2 g/dl (3.5-5.0) L 06/10/24 07:03
Physical Exam
-
Vital Signs:
Vital Signs
Temp Pulse Resp BP Pulse Ox
99.2 F 91 20 152/60 95
06/12/24 15:23 06/12/24 15:23 06/12/24 15:23 06/12/24 15:23 06/12/24 15:23
Cardiovascular:: Regular rate and rhythm
Respiratory:: Bilateral: CTA and Bilateral: Coarse
Lung Excursion:: Normal
Abdomen:: Nontender and Soft
Bowel Sounds:: Normal
Extremity Edema:: None: Bilateral:
[2024-06-12 16:58] LABS: Glucose - Point of Care 226 mg/dl (70-99)
[2024-06-12] MEDS: NOVOLOG FLEXPEN-LOW RESISTANCE 2 UNITS SC (17:12)
[2024-06-12] MEDS: NOVOLOG MIX 70/30 FLEXPEN 40 UNITS SC (17:12)
[2024-06-12] MEDS: TYLENOL 650 MG PO (20:05)
[2024-06-12 22:01] LABS: Glucose - Point of Care 153 mg/dl (70-99)
[2024-06-12 23:17] VITALS: BP 160/52
[2024-06-13] MEDS: ZOSYN 50 IV ×4 (03:24→21:32)
[2024-06-13] MEDS: IMODIUM 2 MG PO ×2 (03:38→13:03)
[2024-06-13 05:31] LABS: Complement C3 156 mg/dl (88-165)
[2024-06-13 07:45] VITALS: BP 152/55
[2024-06-13 07:59] LABS: Glucose - Point of Care 139 mg/dl (70-99)
[2024-06-13 08:04] LABS: % Basophils 0.1 % (0-2); % Eosinophils 1.1 % (0-6); % Immature Granulocytes 1.3 % (0-0.5); % Monocytes 6.2 % (1.7-9.3); % Neutrophils 87.3 % (42.2-75.2); Absolute Eosinophils 0.2 10^3/uL (0-0.7); Absolute Immature Granulocytes 0.2 10^3/uL (0-0.05); Absolute Lymphocytes 0.7 10^3/uL (1.2-3.4); Absolute Monocytes 1.1 10^3/uL (0.1-0.6); Hematocrit 30.3 % (37.0-47.0); Hemoglobin 10.4 g/dL (12.0-16.0); Mean Corp Hgb Conc. 34.3 g/dL (33.0-37.0); Mean Corpuscular Hgb 28.9 pg (27.0-31.0); Mean Corpuscular Volume 84.2 fL (81.0-99.0); Mean Platelet Volume 9.3 fL (7.4-10.4); Nucleated Red Blood Cells % 0 %; Platelet Count 256 10^3/uL (130-400); Red Cell Dist. Width 14.2 % (11.5-14.5); White Blood Cell Count 17.1 10^3/uL (4.8-10.8)
[2024-06-13] MEDS: NOVOLOG FLEXPEN-LOW RESISTANCE SC (08:08)
[2024-06-13 08:20] LABS: Blood Urea Nitrogen 37 mg/dl (7-17); Calcium 7.3 mg/dl (8.4-10.2); Carbon Dioxide 28 mmol/L (22-30); Chloride 97 mmol/L (98-107); Estimated Creatinine Clearance 20 ml/min; Glucose 140 mg/dl (70-99); Potassium 3.6 mmol/L (3.5-5.1); Sodium 134 mmol/L (135-145); eGFR 16.76
--- NOTE | 2024-06-13 08:55 | PN.DE.MGMTRT ---
Insulin Management
- -
06/13/2024 Diabetes Management Follow up
Patient admitted 06/01 with weakness, diarrhea, gastroenteritis. PMH CAD, [place], CABG 2021, HTN, HLD, diabetes, CKD. Prior to admission was taking 70/30 insulin 65 units with breakfast and 60 units with dinner. States she sees Dr. Renea Hartley at
[facility] on a regular basis for diabetes care. She states that she often has to decrease her 70/30 doses which she does based on her blood sugar and that Dr. Hartley has agreed that Nicki knows her diabetes and is OK that she adjusts
the insulin. A1C 8.7; cr 2.9, eGFR 16.07 06/10.
Patient is awake alert and oriented, sitting up in bed, offers no complaints, able to discuss diabetes management.
06/11 Dose of 70/30 55 units in AM and 40 units with dinner.
06/12 Premeal glucose range of 107 to 226. Fasting glucose this AM 140(V) .
Will make no changes to current insulin dose. Continue AM dose 70/30 55 units and dinner dose 40 units, with low corrective AC.
Will follow for further needed adjustments.
Discussed with pt and nurse
Diabetes History
- -
Type of Diabetes: 2 requiring insulin
Pre-Admission Diabetes Regimen
06/13/24
07:26
Creatinine 2.8 H
Insulin Pump Settings
IP Diabetes Regimen
06/12/24 06/12/24 06/12/24
12:47 16:57 22:00
Glucose
POC Glucose 110 H 226 H 153 H
06/13/24 06/13/24
07:26 07:57
Glucose 140 H
POC Glucose 139 H
Meal type: Breakfast
Amount consumed: 100%
Patient Education
[2024-06-13] MEDS: VITAMIN D3 (cholecalciferol) 50 MCG PO (09:18)
[2024-06-13] MEDS: PROTONIX 40 MG PO (09:18)
[2024-06-13] MEDS: LIPITOR 40 MG PO (09:18)
[2024-06-13] MEDS: ZETIA 10 MG PO (09:18)
[2024-06-13] MEDS: NOVOLOG MIX 70/30 FLEXPEN 55 UNITS SC (09:18)
[2024-06-13] MEDS: LOW STRENGTH ASPIRIN 81 MG PO (09:18)
[2024-06-13] MEDS: TOPROL XL 25 MG PO ×2 (09:19→20:49)
[2024-06-13] MEDS: NORVASC 10 MG PO (09:19)
[2024-06-13] MEDS: DESENEX/MITRAZOL/ZEASORB 1 APPLIC TOPICAL ×2 (09:24→20:49)
[2024-06-13] MEDS: STERILE WATER FOR INJECTION IV (09:25)
--- NOTE | 2024-06-13 10:10 | W.PN.HOSP.TC ---
Today's Communication/Plan
-
Continue current care
labs in the morning
Assessment / Plan
Assessment / Plan
Gen-AAOx3, NAD, morbid obesity
HEENT-NC, AT, anicteric, clear oral mm
Neck-supple
CV-reg, no M, +S1/S2
Lungs-clear B/L
Abd-soft, NT, ND
Ext-no edema
Musculoskeletal-no cyanosis, clubbing
Skin-warm and dry
Neuro-grossly non-focal
Psych-calm, cooperative
Sepsis due to UTI -hemodynamically stable. Leukocytosis noted. Last fever was 06/08 AM. Blood cultures negative so far. Urine culture shows E. coli, Klebsiella. Currently on IV Zosyn, started 06/07. End date will be 06/13 to complete a 7-day
course.
Acute norovirus gastroenteritis -symptoms improved. Stool negative for C. difficile.
-Presented with nausea and diarrhea that abruptly started evening of 06/01
-Has family members/friends with similar symptomatology
-Norovirus was positive, started Imodium
-Continue with supportive medications
Diarrhea improved shortly after admission but then recurred with initiation of antibiotics for UTI. Ongoing diarrhea likely due to antibiotics. Stool C. difficile -06/09. Patient declined Imodium as needed, concerned about constipation..
Syncope, Orthostatic Hypotension
--likely 2/2 to volume depletion due to GI losses
-denies prodromal symptoms, remembers event
�No further episodes inpatient
� Follow-up cardiology outpatient
-IVF PRN
-Monitor orthos
-will benefit from SNF
-f/u ECHO�EF 51%
RACHELLE on CKD 3a -worsening RACHELLE noted. Creatinine peaked and now improving, 2.8. Unclear if due to antibiotic induced interstitial nephritis versus ATN from orthostasis versus other etiology. Nephrology consulted.
Renal ultrasound shows chronic medical renal disease without hydronephrosis.
-Hold ANABEL inhibitor and HCTZ
Acute urinary retention
Andrade placed 06/05.
� Follow-up urology outpatient. Voiding trial prior to discharge.
Hyponatremia -134.
Chronic heart failure preserved EF
-EF 51%
-Not currently on GDMT or loop diuretic
-Monitor volume status on IVF
-f/u cards outpt
Paroxysmal AF
-Home medications include metoprolol and amiodarone; not on AC
-f/u cards outpt
CAD s/p CABG x 4
-Home medications include metoprolol succinate, high intensity statin, aspirin
-Patient states she does have chronic exertional dyspnea since CABG
-Would likely benefit from repeat ischemic workup as OP
-No signs of acute coronary syndrome
-f/u cards oupt
-hold ACEI due to RACHELLE and restart outpt
Essential hypertension
-No known history of hypertensive systemic disease states
-Home medications include HCTZ, metoprolol, amlodipine, benazepril
-Holding benazepril and HCTZ for RACHELLE; may cont to hold hctz in the future due to hyponatremia
-Resume amlodipine, was held for hypotension; increase to 10mg; hold ACEI for now
Hyperlipidemia
-History of ASCVD with CAD status post CABG
-Home regimen includes high intensity statin and ezetimibe
GERD
-Home medications include daily PPI
-No known history of Phillips's or erosive disease
DM2 with hyperglycemia -glucose 117 this morning. Hemoglobin A1c 8.7% in April.
-Home medications include NovoLog 70-30 65 units daily, 60 units HS
-Also currently on Mounjaro, high intensity statin for ASCVD
-Unclear if she has some associated microvascular disease
-Possibly related with CKD and history of CAD
� Diabetic COLD HEADER consulted
H/O Ferreira's palsy
Suspected SATURNINO
-Should have follow-up with pulm for sleep study
Morbid obesity due to excess calories
DNR
Dispo -SNF when medically stable.
Anticipated Discharge: 24 - 48 hours
Subjective/Interval History
-
Date of Service: June 13, 2024
Patient seen and examined. No new complaints. Requesting Andrade catheter to be removed.
Objective Data
-
Labs:
Laboratory Results
06/13/24
07:26
WBC 17.1 H
Hgb 10.4 L
Hct 30.3 L
Plt Count 256
Sodium 134 L
Potassium 3.6
Chloride 97 L
Carbon Dioxide 28
BUN 37 H
Creatinine 2.8 H
Glucose 140 H
Calcium 7.3 L
Vital Signs:
Vital Signs
Temp Pulse Resp BP Pulse Ox
99.2 F 76 20 152/55 92
06/13/24 07:45 06/13/24 09:19 06/13/24 07:45 06/13/24 09:19 06/13/24 07:45
I&O
06/12/24 06/13/24 06/14/24
06:59 06:59 06:59
Intake Total 1285 / 1285 960 / 960
Output Total 3650 / 3650 2200 / 2200 1300 / 1300
Balance -2365 / -2365 -1240 / -1240 -1300 / -1300
Review of Systems
-
History Source: Patient
All other systems: Reviewed and negative
[2024-06-13 11:55] LABS: Glucose - Point of Care 198 mg/dl (70-99)
[2024-06-13 11:57] LABS: Urine Albumin Trace (Neg - Trace); Urine Bilirubin Negative (Negative); Urine Character Slightly Cloudy (Clear); Urine Color Yellow; Urine Glucose Negative (Negative); Urine Ketone Negative (Negative); Urine Leukocyte Negative (Negative); Urine Nitrite Negative (Negative); Urine Occult Blood 3+ (Negative); Urine Specific Gravity 1.015 (<1.030); Urine Urobilinogen Negative (Neg - 1+)
[2024-06-13] MEDS: LR 1000 IV (12:58)
[2024-06-13] MEDS: NOVOLOG FLEXPEN-LOW RESISTANCE 1 UNITS SC ×2 (13:00→18:07)
[2024-06-13 13:26] LABS: Urine Squamous Cell 0-2 /LPF (Few)
[2024-06-13 13:27] LABS: Urine Amorphous Seen; Urine Red Blood Cell 0-2 /HPF (0-2); Urine White Cell 0-2 /HPF (0-5); Urine Yeast Moderate (Negative)
--- NOTE | 2024-06-13 15:08 | W.PN.NEPH.PH ---
Today's Communication / Plan
-
continue IV fluids
Assessment/Plan
-
Assessment
RACHELLE
Norovirus gastroenteritis
Urinary retention
Heart failure preserved EF
Paroxysmal atrial fibrillation
Coronary artery disease with bypass
Hypertension
Diabetes mellitus type 2
Obesity
Plan
Positive norovirus/ E. coli UTI
IV fluids will continue
Maintain Nascimento catheter
Follow BMP
Creatinine improven.
serology is pending
repeat urinalysis noted blood cells with 3+ occult blood
-
-
Date of Service: June 13, 2024
CC / HPI / ROS
-
Chief Complaint:
RACHELLE
History of Present Illness:
RACHELLE/Cr improving
Na normalized
K normal
nascimento in place for retention and gross hematuria
Review of Systems:
no CP/SOB
diarrhea seems to be improving
Labs
-
Labs:
WBC 17.1 10^3/uL (4.8-10.8) H 06/13/24 07:26
RBC 3.60 10^6/uL (4.20-5.40) L 06/13/24 07:26
Hgb 10.4 g/dL (12.0-16.0) L 06/13/24 07:26
Hct 30.3 % (37.0-47.0) L 06/13/24 07:26
Plt Count 256 10^3/uL (130-400) 06/13/24 07:26
Sodium 134 mmol/L (135-145) L 06/13/24 07:26
Potassium 3.6 mmol/L (3.5-5.1) 06/13/24 07:26
Chloride 97 mmol/L (98-107) L 06/13/24 07:26
Carbon Dioxide 28 mmol/L (22-30) 06/13/24 07:26
BUN 37 mg/dl (7-17) H 06/13/24 07:26
Creatinine 2.8 mg/dL (0.6-1.0) H 06/13/24 07:26
eGFR 16.76 06/13/24 07:26
Glucose 140 mg/dl (70-99) H 06/13/24 07:26
Calcium 7.3 mg/dl (8.4-10.2) L 06/13/24 07:26
Albumin 2.2 g/dl (3.5-5.0) L 06/10/24 07:03
Physical Exam
-
Vital Signs:
Vital Signs
Temp Pulse Resp BP Pulse Ox
99.2 F 76 20 152/55 92
06/13/24 07:45 06/13/24 09:19 06/13/24 07:45 06/13/24 09:19 06/13/24 07:45
Cardiovascular:: Regular rate and rhythm
Respiratory:: Bilateral: CTA and Bilateral: Coarse
Lung Excursion:: Normal
Abdomen:: Nontender and Soft
Bowel Sounds:: Normal
Extremity Edema:: None: Bilateral:
[2024-06-13 15:22] VITALS: BP 132/44
[2024-06-13 17:24] LABS: Glucose - Point of Care 187 mg/dl (70-99)
--- NOTE | 2024-06-13 18:00 | PTCARENOTE ---
Spoke with Diabetic LEATHER GRADER Douse, Anastasiya about patient's BG being 187 and patient only ordering small amount of liquids/custard for dinner. To give 30 Units instead of 40 70/30.
[2024-06-13] MEDS: NOVOLOG MIX 70/30 FLEXPEN SC (18:08)
[2024-06-13] MEDS: NOVOLOG MIX 70/30 FLEXPEN 30 UNITS SC (18:23)
[2024-06-13] MEDS: TYLENOL 650 MG PO (20:45)
[2024-06-13 21:31] LABS: Glucose - Point of Care 137 mg/dl (70-99)
[2024-06-13 23:51] VITALS: BP 143/52
[2024-06-14 01:10] LABS: Glucose - Point of Care 70 mg/dl (70-99)
[2024-06-14 01:41] LABS: ANA, IgG Reflex to HEp-2 None Detected (None Detected)
[2024-06-14 02:01] LABS: Glucose - Point of Care 111 mg/dl (70-99)
[2024-06-14] MEDS: LR 1000 IV (02:03)
[2024-06-14] MEDS: TYLENOL 650 MG PO ×2 (07:05→20:00)
[2024-06-14 07:26] LABS: % Basophils 0.3 % (0-2); % Eosinophils 1.9 % (0-6); % Immature Granulocytes 1.3 % (0-0.5); % Lymphocytes 4.8 % (20.5-51.1); % Monocytes 6.1 % (1.7-9.3); % Neutrophils 85.6 % (42.2-75.2); Absolute Eosinophils 0.3 10^3/uL (0-0.7); Absolute Immature Granulocytes 0.2 10^3/uL (0-0.05); Absolute Lymphocytes 0.7 10^3/uL (1.2-3.4); Absolute Monocytes 0.9 10^3/uL (0.1-0.6); Absolute Neutrophils 13.1 10^3/uL (1.4-6.5); Hematocrit 31.1 % (37.0-47.0); Hemoglobin 10.5 g/dL (12.0-16.0); Mean Corp Hgb Conc. 33.8 g/dL (33.0-37.0); Mean Corpuscular Hgb 28.3 pg (27.0-31.0); Mean Corpuscular Volume 83.8 fL (81.0-99.0); Nucleated Red Blood Cells % 0 %; Platelet Count 279 10^3/uL (130-400); Red Blood Cell Count 3.71 10^6/uL (4.20-5.40); Red Cell Dist. Width 14.2 % (11.5-14.5); White Blood Cell Count 15.3 10^3/uL (4.8-10.8)
--- NOTE | 2024-06-14 07:45 | PN.DE.MGMTRT ---
Insulin Management
- -
06/14/2024 Diabetes Management Follow up
Patient admitted 06/01 with weakness, diarrhea, gastroenteritis. PMH CAD, [place], CABG 2021, HTN, HLD, diabetes, CKD. Prior to admission was taking 70/30 insulin 65 units with breakfast and 60 units with dinner. States she sees Dr. Renea Hartley at
[facility] on a regular basis for diabetes care. She states that she often has to decrease her 70/30 doses which she does based on her blood sugar and that Dr. Hartley has agreed that Nicki knows her diabetes and is OK that she adjusts
the insulin. A1C 8.7; cr 2.9, eGFR 16.07 06/10.
Patient is awake alert and oriented, sitting up in bed, offers no complaints, able to discuss diabetes management.
06/11 Dose of 70/30 55 units in AM and 40 units with dinner.
06/13 received reduced dose of 30 units 70/30 at dinner time due to poor intake. FBG 139(V), 138 POC this AM.
06/13 Premeal glucose range of 139 to 198, Will make no changes to current insulin dose.
Continue AM dose 70/30 55 units and dinner dose 40 units, with low corrective AC.
Discussed with pt and nurse. Nurse will contact me at dinner to reduce dose if pt plans to eat less than 30G cho at dinner
Diabetes History
- -
Type of Diabetes: 2 requiring insulin
Pre-Admission Diabetes Regimen
06/13/24
07:
Creatinine 2.8 H
Insulin Pump Settings
IP Diabetes Regimen
06/13/24 06/13/24 06/13/24
07:26 07:57 11:54
Glucose 140 H
POC Glucose 139 H 198 H
06/13/24 06/13/24 06/14/24
17:22 21:29 01:09
Glucose
POC Glucose 187 H 137 H 70
06/14/24
02:00
Glucose
POC Glucose 111 H
Meal type: Lunch
Meal type: Breakfast
Meal type: Breakfast
Amount consumed: 55%
Amount consumed: 60%
Patient Education
[2024-06-14 07:58] LABS: Glucose - Point of Care 138 mg/dl (70-99)
[2024-06-14 08:11] LABS: Blood Urea Nitrogen 34 mg/dl (7-17); Calcium 7.6 mg/dl (8.4-10.2); Carbon Dioxide 29 mmol/L (22-30); Chloride 97 mmol/L (98-107); Estimated Creatinine Clearance 24 ml/min; Glucose 139 mg/dl (70-99); Potassium 3.3 mmol/L (3.5-5.1); Sodium 135 mmol/L (135-145); eGFR 20.17
[2024-06-14 08:24] VITALS: BP 152/57
--- NOTE | 2024-06-14 08:42 | W.PN.HOSP.TC ---
Today's Communication/Plan
-
DC Andrade, voiding trial
Continue current care
Discharge planning
Assessment / Plan
Assessment / Plan
Gen-AAOx3, NAD, morbid obesity
HEENT-NC, AT, anicteric, clear oral mm
Neck-supple
CV-reg, no M, +S1/S2
Lungs-clear B/L
Abd-soft, NT, ND
Ext-no edema
Musculoskeletal-no cyanosis, clubbing
Skin-warm and dry
Neuro-grossly non-focal
Psych-calm, cooperative
Sepsis due to UTI -hemodynamically stable. Leukocytosis improving. Last fever was 1/18 AM. Blood cultures negative so far. Urine culture shows E. coli, Klebsiella. Completed course of antibiotics. Temp 100.0, does not look toxic, monitor for
now. If temperature goes higher we will check blood cultures.
Acute norovirus gastroenteritis -symptoms improved. Stool negative for C. difficile.
-Presented with nausea and diarrhea that abruptly started evening of 06/01
-Has family members/friends with similar symptomatology
-Norovirus was positive, started Imodium
-Continue with supportive medications
Diarrhea improved shortly after admission but then recurred with initiation of antibiotics for UTI. Ongoing diarrhea likely due to antibiotics. Stool C. difficile -06/09. Patient declined Imodium as needed, concerned about constipation.
Hypokalemia -replete orally. Check magnesium.
Syncope, Orthostatic Hypotension
--likely 2/2 to volume depletion due to GI losses
-denies prodromal symptoms, remembers event
�No further episodes inpatient
� Follow-up cardiology outpatient
-IVF PRN
-Monitor orthos
-will benefit from SNF
-f/u ECHO�EF 51%
RACHELLE on CKD 3a -worsening RACHELLE noted. Creatinine peaked and now improving, 2.4 . Unclear if due to antibiotic induced interstitial nephritis versus ATN from orthostasis versus other etiology. Nephrology consulted.
Renal ultrasound shows chronic medical renal disease without hydronephrosis.
-Hold ANABEL inhibitor and HCTZ
Acute urinary retention
Andrade placed 06/05. Andrade discontinued 06/14 AM, await voiding trial. Out of bed to chair.
Hyponatremia - 135.
Chronic heart failure preserved EF
-EF 51%
-Not currently on GDMT or loop diuretic
-Monitor volume status on IVF
-f/u cards outpt
Paroxysmal AF
-Home medications include metoprolol and amiodarone; not on AC
-f/u cards outpt
CAD s/p CABG x 4
-Home medications include metoprolol succinate, high intensity statin, aspirin
-Patient states she does have chronic exertional dyspnea since CABG
-Would likely benefit from repeat ischemic workup as OP
-No signs of acute coronary syndrome
-f/u cards oupt
-hold ACEI due to RACHELLE and restart outpt
Essential hypertension
-No known history of hypertensive systemic disease states
-Home medications include HCTZ, metoprolol, amlodipine, benazepril
-Holding benazepril and HCTZ for RACHELLE; may cont to hold hctz in the future due to hyponatremia
-Resume amlodipine, was held for hypotension; increase to 10mg; hold ACEI for now
Hyperlipidemia
-History of ASCVD with CAD status post CABG
-Home regimen includes high intensity statin and ezetimibe
GERD
-Home medications include daily PPI
-No known history of Phillips's or erosive disease
DM2 with hyperglycemia -glucose 117 this morning. Hemoglobin A1c 8.7% in April.
-Home medications include NovoLog 70-30 65 units daily, 60 units HS
-Also currently on Mounjaro, high intensity statin for ASCVD
-Unclear if she has some associated microvascular disease
-Possibly related with CKD and history of CAD
� Diabetic MUSIC LEADER consulted
H/O Ferreira's palsy
Suspected SATURNINO
-Should have follow-up with pulm for sleep study
Morbid obesity due to excess calories
DNR
Dispo -suspect she is ready for SNF.
Anticipated Discharge: Within 24 hours
Subjective/Interval History
-
Date of Service: June 14, 2024
Patient seen and examined. Feeling better. Diarrhea improving. No complaints.
Objective Data
-
Labs:
Laboratory Results
06/14/24
07:02
WBC 15.3 H
Hgb 10.5 L
Hct 31.1 L
Plt Count 279
Sodium 135
Potassium 3.3 L
Chloride 97 L
Carbon Dioxide 29
BUN 34 H
Creatinine 2.4 H
Glucose 139 H
Calcium 7.6 L
Vital Signs:
Vital Signs
Temp Pulse Resp BP Pulse Ox
100.0 F 92 15 152/57 90
06/14/24 08:24 06/14/24 08:24 06/14/24 08:24 06/14/24 08:24 06/14/24 08:24
I&O
06/13/24 06/14/24 06/15/24
06:59 06:59 06:59
Intake Total 960 / 960 600 / 600
Output Total 2200 / 2200 3000 / 3000
Balance -1240 / -1240 -2400 / -2400
Review of Systems
-
History Source: Patient
All other systems: Reviewed and negative
[2024-06-14] MEDS: NOVOLOG FLEXPEN-LOW RESISTANCE SC (08:56)
[2024-06-14] MEDS: TOPROL XL 25 MG PO ×2 (08:57→19:52)
[2024-06-14] MEDS: NOVOLOG MIX 70/30 FLEXPEN 55 UNITS SC (08:57)
[2024-06-14] MEDS: PROTONIX 40 MG PO (08:57)
[2024-06-14] MEDS: KCL 40 MEQ PO (08:58)
[2024-06-14] MEDS: NORVASC 10 MG PO (08:58)
[2024-06-14] MEDS: LOW STRENGTH ASPIRIN 81 MG PO (08:58)
[2024-06-14] MEDS: VITAMIN D3 (cholecalciferol) 50 MCG PO (08:58)
[2024-06-14] MEDS: LIPITOR 40 MG PO (08:58)
[2024-06-14] MEDS: DESENEX/MITRAZOL/ZEASORB 1 APPLIC TOPICAL ×2 (08:59→19:55)
[2024-06-14] MEDS: ZETIA 10 MG PO (09:00)
[2024-06-14] MEDS: STERILE WATER FOR INJECTION IV (09:01)
[2024-06-14 09:10] LABS: Magnesium 1.2 mg/dl (1.6-2.3)
[2024-06-14 09:41] LABS: Glucose - Point of Care 197 mg/dl (70-99)
[2024-06-14 09:58] VITALS: BP 147/44; BP 148/44; O2SAT 98
[2024-06-14 10:10] VITALS: BP 144/44
[2024-06-14 10:45] LABS: Myeloperoxidase Antibody 0 AU/mL (0-19); Serine Protease-3, IgG 0 AU/mL (0-19)
[2024-06-14 12:08] LABS: Glucose - Point of Care 157 mg/dl (70-99)
[2024-06-14] MEDS: NOVOLOG FLEXPEN-LOW RESISTANCE 1 UNITS SC ×2 (12:34→17:46)
--- NOTE | 2024-06-14 13:12 | W.PN.NEPH.PH ---
Today's Communication / Plan
-
voiding trial
Assessment/Plan
-
Assessment
RACHELLE
Norovirus gastroenteritis
Urinary retention
Heart failure preserved EF
Paroxysmal atrial fibrillation
Coronary artery disease with bypass
Hypertension
Diabetes mellitus type 2
Obesity
hypomagnesemia
Plan
off IVF
replete K, Mag
voiding trial
can consider tamsulosin
-
-
Date of Service: June 14, 2024
CC / HPI / ROS
-
Chief Complaint:
RACHELLE
History of Present Illness:
RACHELLE/Cr improving to 2.4
Na normalized
K low 3.3
nascimento out this morning
Review of Systems:
no CP/SOB
diarrhea better
Labs
-
Labs:
WBC 15.3 10^3/uL (4.8-10.8) H 06/14/24 07:02
RBC 3.71 10^6/uL (4.20-5.40) L 06/14/24 07:02
Hgb 10.5 g/dL (12.0-16.0) L 06/14/24 07:02
Hct 31.1 % (37.0-47.0) L 06/14/24 07:02
Plt Count 279 10^3/uL (130-400) 06/14/24 07:02
Sodium 135 mmol/L (135-145) 06/14/24 07:02
Potassium 3.3 mmol/L (3.5-5.1) L 06/14/24 07:02
Chloride 97 mmol/L (98-107) L 06/14/24 07:02
Carbon Dioxide 29 mmol/L (22-30) 06/14/24 07:02
BUN 34 mg/dl (7-17) H 06/14/24 07:02
Creatinine 2.4 mg/dL (0.6-1.0) H 06/14/24 07:02
eGFR 20.17 06/14/24 07:02
Glucose 139 mg/dl (70-99) H 06/14/24 07:02
Calcium 7.6 mg/dl (8.4-10.2) L 06/14/24 07:02
Albumin 2.2 g/dl (3.5-5.0) L 06/10/24 07:03
Physical Exam
-
Vital Signs:
Vital Signs
Temp Pulse Resp BP Pulse Ox
100.0 F 92 15 152/57 90
06/14/24 08:24 06/14/24 08:24 06/14/24 08:24 06/14/24 08:24 06/14/24 08:24
Cardiovascular:: Regular rate and rhythm
Respiratory:: Bilateral: Coarse
Lung Excursion:: Normal
Abdomen:: Nontender and Soft
Bowel Sounds:: Normal
Extremity Edema:: +1: Bilateral:
[2024-06-14] MEDS: MAGNESIUM SULFATE 100 IV (15:27)
[2024-06-14 15:34] VITALS: BP 173/59
--- NOTE | 2024-06-14 15:35 | CM ---
CM reviewed chart, [facility] unable to accept at this time. Clinicals sent to local SNFs, awaiting accepting bed. Patient will need insurance auth through [facility]. CM will continue to follow for all discharge planning needs.
Plan; SNF once facility found, will require insurance auth.
[2024-06-14 16:47] LABS: Glucose - Point of Care 183 mg/dl (70-99)
[2024-06-14] MEDS: NOVOLOG MIX 70/30 FLEXPEN 40 UNITS SC (17:46)
[2024-06-14] MEDS: KCL 20 MEQ PO (19:53)
[2024-06-14 21:21] LABS: Glucose - Point of Care 168 mg/dl (70-99)
[2024-06-14 23:50] VITALS: BP 138/53
[2024-06-15 00:16] VITALS: BP 138/53
[2024-06-15] MEDS: MYLICON 80 MG PO (03:09)
[2024-06-15 07:17] LABS: % Basophils 0.2 % (0-2); % Eosinophils 2.1 % (0-6); % Lymphocytes 6.8 % (20.5-51.1); % Monocytes 6.3 % (1.7-9.3); % Neutrophils 83.6 % (42.2-75.2); Absolute Eosinophils 0.2 10^3/uL (0-0.7); Absolute Immature Granulocytes 0.1 10^3/uL (0-0.05); Absolute Lymphocytes 0.8 10^3/uL (1.2-3.4); Absolute Monocytes 0.7 10^3/uL (0.1-0.6); Absolute Neutrophils 9.7 10^3/uL (1.4-6.5); Hematocrit 31.4 % (37.0-47.0); Hemoglobin 10.8 g/dL (12.0-16.0); Mean Corp Hgb Conc. 34.4 g/dL (33.0-37.0); Mean Corpuscular Hgb 28.7 pg (27.0-31.0); Mean Corpuscular Volume 83.5 fL (81.0-99.0); Mean Platelet Volume 9.4 fL (7.4-10.4); Nucleated Red Blood Cells % 0 %; Platelet Count 293 10^3/uL (130-400); Red Blood Cell Count 3.76 10^6/uL (4.20-5.40); Red Cell Dist. Width 14.3 % (11.5-14.5); White Blood Cell Count 11.5 10^3/uL (4.8-10.8)
[2024-06-15 07:35] VITALS: BP 167/61
[2024-06-15 07:38] LABS: Glucose - Point of Care 112 mg/dl (70-99)
[2024-06-15 07:50] LABS: Blood Urea Nitrogen 30 mg/dl (7-17); Calcium 7.7 mg/dl (8.4-10.2); Carbon Dioxide 28 mmol/L (22-30); Chloride 100 mmol/L (98-107); Estimated Creatinine Clearance 25 ml/min; Glucose 102 mg/dl (70-99); Potassium 3.7 mmol/L (3.5-5.1); Sodium 137 mmol/L (135-145); eGFR 21.22
[2024-06-15] MEDS: NOVOLOG FLEXPEN-LOW RESISTANCE SC ×2 (08:33→11:48)
[2024-06-15] MEDS: NORVASC 10 MG PO (08:46)
[2024-06-15] MEDS: KCL 20 MEQ PO ×2 (08:46→21:18)
[2024-06-15] MEDS: LOW STRENGTH ASPIRIN 81 MG PO (08:46)
[2024-06-15] MEDS: LIPITOR 40 MG PO (08:46)
[2024-06-15] MEDS: TOPROL XL 25 MG PO ×2 (08:47→21:18)
[2024-06-15] MEDS: PROTONIX 40 MG PO (08:47)
[2024-06-15] MEDS: NOVOLOG MIX 70/30 FLEXPEN 55 UNITS SC (08:47)
[2024-06-15] MEDS: STERILE WATER FOR INJECTION IV (08:48)
[2024-06-15] MEDS: VITAMIN D3 (cholecalciferol) 50 MCG PO (08:48)
[2024-06-15] MEDS: ZETIA 10 MG PO (08:48)
[2024-06-15] MEDS: DESENEX/MITRAZOL/ZEASORB 1 APPLIC TOPICAL ×2 (08:50→21:18)
--- NOTE | 2024-06-15 11:02 | W.PN.NEPH.PH ---
Today's Communication / Plan
-
Follow BMP
Assessment/Plan
-
Assessment
RACHELLE
Norovirus gastroenteritis
Urinary retention
Heart failure preserved EF
Paroxysmal atrial fibrillation
Coronary artery disease with bypass
Hypertension
Diabetes mellitus type 2
Obesity
hypomagnesemia
Plan
Maintain Andrade
Add tamsulosin
Follow BMP
twice daily potassium twice daily
-
-
Date of Service: June 15, 2024
CC / HPI / ROS
-
Chief Complaint:
RACHELLE
History of Present Illness:
RACHELLE/Cr improving to 2.3
Na normalized
K normal 3.7
Failed voiding trial Andrade replaced
Review of Systems:
no CP/SOB
Labs
-
Labs:
WBC 11.5 10^3/uL (4.8-10.8) H 06/15/24 06:43
RBC 3.76 10^6/uL (4.20-5.40) L 06/15/24 06:43
Hgb 10.8 g/dL (12.0-16.0) L 06/15/24 06:43
Hct 31.4 % (37.0-47.0) L 06/15/24 06:43
Plt Count 293 10^3/uL (130-400) 06/15/24 06:43
Sodium 137 mmol/L (135-145) 06/15/24 06:43
Potassium 3.7 mmol/L (3.5-5.1) 06/15/24 06:43
Chloride 100 mmol/L (98-107) 06/15/24 06:43
Carbon Dioxide 28 mmol/L (22-30) 06/15/24 06:43
BUN 30 mg/dl (7-17) H 06/15/24 06:43
Creatinine 2.3 mg/dL (0.6-1.0) H 06/15/24 06:43
eGFR 21.22 06/15/24 06:43
Glucose 102 mg/dl (70-99) H 06/15/24 06:43
Calcium 7.7 mg/dl (8.4-10.2) L 06/15/24 06:43
Albumin 2.2 g/dl (3.5-5.0) L 06/10/24 07:03
Physical Exam
-
Vital Signs:
Vital Signs
Temp Pulse Resp BP Pulse Ox
98.4 F 77 20 167/61 95
06/15/24 07:35 06/15/24 07:35 06/15/24 07:35 06/15/24 07:35 06/15/24 07:35
Cardiovascular:: Regular rate and rhythm
Respiratory:: Bilateral: Coarse
Lung Excursion:: Normal
Abdomen:: Nontender and Soft
Bowel Sounds:: Normal
Extremity Edema:: +1: Bilateral:
[2024-06-15 11:46] LABS: Glucose - Point of Care 135 mg/dl (70-99)
--- NOTE | 2024-06-15 12:24 | W.PN.HOSP.TC ---
Today's Communication/Plan
-
Discharge planning
Assessment / Plan
Assessment / Plan
Gen-AAOx3, NAD, morbid obesity
HEENT-NC, AT, anicteric, clear oral mm
Neck-supple
CV-reg, no M, +S1/S2
Lungs-clear B/L
Abd-soft, NT, ND
Ext-no edema
Musculoskeletal-no cyanosis, clubbing
Skin-warm and dry
Neuro-grossly non-focal
Psych-calm, cooperative
Sepsis due to UTI -hemodynamically stable. Leukocytosis improving. Last fever was 06/08 AM. Blood cultures negative so far. Urine culture shows E. coli, Klebsiella. Completed course of antibiotics.
Acute norovirus gastroenteritis -symptoms improved. Stool negative for C. difficile.
-Presented with nausea and diarrhea that abruptly started evening of 06/01
-Has family members/friends with similar symptomatology
-Norovirus was positive
-Continue with supportive medications
Diarrhea improved.
Hypokalemia -improved.
Hypomagnesemia -improved.
Syncope, Orthostatic Hypotension
--likely 2/2 to volume depletion due to GI losses
-denies prodromal symptoms, remembers event
�No further episodes inpatient
� Follow-up cardiology outpatient
-IVF PRN
-Monitor orthos
-will benefit from SNF
-f/u ECHO�EF 51%
RACHELLE on CKD 3a -worsening RACHELLE noted. Creatinine peaked and now improving, 2.3. Unclear if due to antibiotic induced interstitial nephritis versus ATN from orthostasis versus other etiology. Nephrology consulted.
Renal ultrasound shows chronic medical renal disease without hydronephrosis.
-Hold ANABEL inhibitor and HCTZ
Acute urinary retention
Andrade placed 06/05. Andrade discontinued 06/14 AM, failed voiding trial. Andrade re-inserted staffing consultant 06/15.
Hyponatremia - improved.
Chronic heart failure preserved EF
-EF 51%
-Not currently on GDMT or loop diuretic
-Monitor volume status on IVF
-f/u cards outpt
Paroxysmal AF
-Home medications include metoprolol and amiodarone; not on AC
-f/u cards outpt
CAD s/p CABG x 4
-Home medications include metoprolol succinate, high intensity statin, aspirin
-Patient states she does have chronic exertional dyspnea since CABG
-Would likely benefit from repeat ischemic workup as OP
-No signs of acute coronary syndrome
-f/u cards oupt
-hold ACEI due to RACHELLE and restart outpt
Essential hypertension
-No known history of hypertensive systemic disease states
-Home medications include HCTZ, metoprolol, amlodipine, benazepril
-Holding benazepril and HCTZ for RACHELLE; may cont to hold hctz in the future due to hyponatremia
-Resume amlodipine, was held for hypotension; increase to 10mg; hold ACEI for now
Hyperlipidemia
-History of ASCVD with CAD status post CABG
-Home regimen includes high intensity statin and ezetimibe
GERD
-Home medications include daily PPI
-No known history of Phillips's or erosive disease
DM2 with hyperglycemia -glucose 117 this morning. Hemoglobin A1c 8.7% in April.
-Home medications include NovoLog 70-30 insulin 65 units daily, 60 units HS
-Also currently on Mounjaro, high intensity statin for ASCVD
-Unclear if she has some associated microvascular disease
-Possibly related with CKD and history of CAD
� Diabetic BIOMEDICAL ENGINEER following
H/O Ferreira's palsy
Suspected SATURNINO
-Should have follow-up with pulm for sleep study
Morbid obesity due to excess calories
DNR
Dispo -medically stable for discharge to SNF.
Anticipated Discharge: 24 - 48 hours
Subjective/Interval History
-
Date of Service: June 15, 2024
Patient seen/examined. Frustrated over urinary retention. Denies diarrhea.
Objective Data
-
Labs:
Laboratory Results
06/15/24
06:43
WBC 11.5 H
Hgb 10.8 L
Hct 31.4 L
Plt Count 293
Sodium 137
Potassium 3.7
Chloride 100
Carbon Dioxide 28
BUN 30 H
Creatinine 2.3 H
Glucose 102 H
Calcium 7.7 L
Vital Signs:
Vital Signs
Temp Pulse Resp BP Pulse Ox
98.4 F 77 20 167/61 95
06/15/24 07:35 06/15/24 07:35 06/15/24 07:35 06/15/24 07:35 06/15/24 07:35
I&O
06/14/24 06/15/24 06/16/24
06:59 06:59 06:59
Intake Total 600 / 600
Output Total 3000 / 3000
Balance -2400 / -2400
Review of Systems
-
History Source: Patient
All other systems: Reviewed and negative
[2024-06-15] MEDS: FLOMAX 0.4 MG PO (12:50)
[2024-06-15 15:10] VITALS: BP 158/56
[2024-06-15 16:49] LABS: Glucose - Point of Care 175 mg/dl (70-99)
[2024-06-15] MEDS: NOVOLOG FLEXPEN-LOW RESISTANCE 1 UNITS SC (18:13)
[2024-06-15] MEDS: NOVOLOG MIX 70/30 FLEXPEN 40 UNITS SC (18:14)
[2024-06-15] MEDS: TYLENOL 650 MG PO (21:24)
[2024-06-15 21:31] LABS: Glucose - Point of Care 182 mg/dl (70-99)
[2024-06-15 22:23] LABS: Glucose - Point of Care 171 mg/dl (70-99)
[2024-06-15 23:00] VITALS: BP 153/54
[2024-06-16 07:43] VITALS: BP 100/64
[2024-06-16 08:49] LABS: Blood Urea Nitrogen 29 mg/dl (7-17); Calcium 8.2 mg/dl (8.4-10.2); Carbon Dioxide 27 mmol/L (22-30); Chloride 101 mmol/L (98-107); Estimated Creatinine Clearance 27 ml/min; Glucose 82 mg/dl (70-99); Magnesium 1.8 mg/dl (1.6-2.3); Potassium 3.9 mmol/L (3.5-5.1); Sodium 136 mmol/L (135-145); eGFR 23.67
[2024-06-16 08:55] LABS: Glucose - Point of Care 94 mg/dl (70-99)
[2024-06-16] MEDS: NOVOLOG FLEXPEN-LOW RESISTANCE SC ×2 (08:56→12:00)
[2024-06-16] MEDS: KCL 20 MEQ PO ×2 (09:21→20:11)
[2024-06-16] MEDS: ZETIA 10 MG PO (09:21)
[2024-06-16] MEDS: PROTONIX 40 MG PO (09:21)
[2024-06-16] MEDS: VITAMIN D3 (cholecalciferol) 50 MCG PO (09:21)
[2024-06-16] MEDS: FLOMAX 0.4 MG PO (09:21)
[2024-06-16] MEDS: NORVASC PO (09:22)
[2024-06-16] MEDS: LIPITOR 40 MG PO (09:22)
[2024-06-16] MEDS: TOPROL XL PO (09:22)
[2024-06-16] MEDS: LOW STRENGTH ASPIRIN 81 MG PO (09:22)
[2024-06-16] MEDS: STERILE WATER FOR INJECTION IV (09:23)
[2024-06-16] MEDS: NOVOLOG MIX 70/30 FLEXPEN 55 UNITS SC (09:24)
[2024-06-16] MEDS: DESENEX/MITRAZOL/ZEASORB 1 APPLIC TOPICAL ×2 (09:25→20:10)
--- NOTE | 2024-06-16 11:42 | W.PN.HOSP.TC ---
Today's Communication/Plan
-
Discharge planning
Assessment / Plan
Assessment / Plan
Gen-AAOx3, NAD, morbid obesity
HEENT-NC, AT, anicteric, clear oral mm
Neck-supple
CV-reg, no M, +S1/S2
Lungs-clear B/L
Abd-soft, NT, ND
Ext-no edema
Musculoskeletal-no cyanosis, clubbing
Skin-warm and dry
Neuro-grossly non-focal
Psych-calm, cooperative
Sepsis due to UTI -hemodynamically stable. Leukocytosis improving. Last fever was 06/08 AM. Blood cultures negative so far. Urine culture shows E. coli, Klebsiella. Completed course of antibiotics.
Acute norovirus gastroenteritis -symptoms improved. Stool negative for C. difficile.
-Presented with nausea and diarrhea that abruptly started evening of 06/01
-Has family members/friends with similar symptomatology
-Norovirus was positive
-Continue with supportive medications
Diarrhea improved.
Hypokalemia -improved.
Hypomagnesemia -improved.
Syncope, Orthostatic Hypotension
--likely 2/2 to volume depletion due to GI losses
-denies prodromal symptoms, remembers event
�No further episodes inpatient
� Follow-up cardiology outpatient
-IVF PRN
-Monitor orthos
-will benefit from SNF
-f/u ECHO�EF 51%
RACHELLE on CKD 3a -worsening RACHELLE noted. Creatinine peaked and now improving, 2.1. Unclear if due to antibiotic induced interstitial nephritis versus ATN from orthostasis versus other etiology. Nephrology consulted.
Renal ultrasound shows chronic medical renal disease without hydronephrosis.
-Hold ANABEL inhibitor and HCTZ
Acute urinary retention
Andrade placed 06/05. Andrade discontinued 06/14 AM, failed voiding trial. Andrade re-inserted eyewear manufacturing supervisor 06/15. Patient insists on speaking with urology again.
Hyponatremia - improved.
Chronic heart failure preserved EF
-EF 51%
-Not currently on GDMT or loop diuretic
-Monitor volume status on IVF
-f/u cards outpt
Paroxysmal AF
-Home medications include metoprolol and amiodarone; not on AC
-f/u cards outpt
CAD s/p CABG x 4
-Home medications include metoprolol succinate, high intensity statin, aspirin
-Patient states she does have chronic exertional dyspnea since CABG
-Would likely benefit from repeat ischemic workup as OP
-No signs of acute coronary syndrome
-f/u cards oupt
-hold ACEI due to RACHELLE and restart outpt
Essential hypertension
-No known history of hypertensive systemic disease states
-Home medications include HCTZ, metoprolol, amlodipine, benazepril
-Holding benazepril and HCTZ for RACHELLE; may cont to hold hctz in the future due to hyponatremia
-Resume amlodipine, was held for hypotension; increase to 10mg; hold ACEI for now
Hyperlipidemia
-History of ASCVD with CAD status post CABG
-Home regimen includes high intensity statin and ezetimibe
GERD
-Home medications include daily PPI
-No known history of Phillips's or erosive disease
DM2 with hyperglycemia -glucose 117 this morning. Hemoglobin A1c 8.7% in April.
-Home medications include NovoLog 70-30 insulin 65 units daily, 60 units HS
-Also currently on Mounjaro, high intensity statin for ASCVD
-Unclear if she has some associated microvascular disease
-Possibly related with CKD and history of CAD
� Diabetic NANOTECHNOLOGY ENGINEERING TECHNOLOGIST following
H/O Ferreira's palsy
Suspected SATURNINO
-Should have follow-up with pulm for sleep study
Morbid obesity due to excess calories
DNR
Dispo -medically stable for discharge to SNF.
Anticipated Discharge: Within 24 hours
Subjective/Interval History
-
Date of Service: June 16, 2024
Patient seen and examined. Complaining of requiring Andrade catheter. Feeling frustrated.
Objective Data
-
Labs:
Laboratory Results
06/16/24
07:45
Sodium 136
Potassium 3.9
Chloride 101
Carbon Dioxide 27
BUN 29 H
Creatinine 2.1 H
Glucose 82
Calcium 8.2 L
Vital Signs:
Vital Signs
Temp Pulse Resp BP Pulse Ox
98.8 F 77 18 100/61 95
06/16/24 07:43 06/16/24 07:43 06/16/24 07:43 06/16/24 09:22 06/16/24 09:00
I&O
06/15/24 06/16/24 06/17/24
06:59 06:59 06:59
Intake Total 1040 / 1040
Output Total 1400 / 1400
Balance -360 / -360
Review of Systems
-
History Source: Patient
All other systems: Reviewed and negative
--- NOTE | 2024-06-16 11:45 | W.PN.NEPH.PH ---
Today's Communication / Plan
-
follow BMP
Assessment/Plan
-
Assessment
RACHELLE
Norovirus gastroenteritis
Urinary retention
Heart failure preserved EF
Paroxysmal atrial fibrillation
Coronary artery disease with bypass
Hypertension
Diabetes mellitus type 2
Obesity
hypomagnesemia
Plan
Maintain Andrade
on tamsulosin
Follow BMP
watch K on supplementation
pt says she wants to see uroogy again before she leaves
-
-
Date of Service: June 16, 2024
CC / HPI / ROS
-
Chief Complaint:
RACHELLE
History of Present Illness:
RACHELLE/Cr improving to 2.1
Na normalized
K normal
Failed voiding trial Andrade replaced
Review of Systems:
no CP/SOB
Labs
-
Labs:
WBC 11.5 10^3/uL (4.8-10.8) H 06/15/24 06:43
RBC 3.76 10^6/uL (4.20-5.40) L 06/15/24 06:43
Hgb 10.8 g/dL (12.0-16.0) L 06/15/24 06:43
Hct 31.4 % (37.0-47.0) L 06/15/24 06:43
Plt Count 293 10^3/uL (130-400) 06/15/24 06:43
Sodium 136 mmol/L (135-145) 06/16/24 07:45
Potassium 3.9 mmol/L (3.5-5.1) 06/16/24 07:45
Chloride 101 mmol/L (98-107) 06/16/24 07:45
Carbon Dioxide 27 mmol/L (22-30) 06/16/24 07:45
BUN 29 mg/dl (7-17) H 06/16/24 07:45
Creatinine 2.1 mg/dL (0.6-1.0) H 06/16/24 07:45
eGFR 23.67 06/16/24 07:45
Glucose 82 mg/dl (70-99) 06/16/24 07:45
Calcium 8.2 mg/dl (8.4-10.2) L 06/16/24 07:45
Albumin 2.2 g/dl (3.5-5.0) L 06/10/24 07:03
Physical Exam
-
Vital Signs:
Vital Signs
Temp Pulse Resp BP Pulse Ox
98.8 F 77 18 100/61 95
06/16/24 07:43 06/16/24 07:43 06/16/24 07:43 06/16/24 09:22 06/16/24 09:00
Cardiovascular:: Regular rate and rhythm
Respiratory:: Bilateral: Coarse
Lung Excursion:: Normal
Abdomen:: Nontender and Soft
Bowel Sounds:: Normal
Extremity Edema:: +2: Bilateral:
[2024-06-16 11:53] LABS: Glucose - Point of Care 111 mg/dl (70-99)
--- NOTE | 2024-06-16 11:58 | W.PN.UPDATE ---
Update Note
Progress Note Update
Reviewed with patient her continued urinary retention on trial of void this weekend
Advise she be discharged with nascimento catheter in place and plan for a repeat trial of void in 1-2 weeks
Outpatient follow up to review and order urodynamics testing if retention persists
I suspect she will void on her own once she is more mobile and closer to baseline functional status
[2024-06-16 15:07] VITALS: BP 161/63
[2024-06-16 16:41] LABS: Glucose - Point of Care 161 mg/dl (70-99)
[2024-06-16] MEDS: NOVOLOG FLEXPEN-LOW RESISTANCE 1 UNITS SC (17:18)
[2024-06-16] MEDS: NOVOLOG MIX 70/30 FLEXPEN 40 UNITS SC (17:19)
[2024-06-16] MEDS: TOPROL XL 25 MG PO (20:11)
[2024-06-16] MEDS: IMODIUM 2 MG PO (20:39)
[2024-06-16] MEDS: TYLENOL 650 MG PO (20:39)
[2024-06-16 21:24] LABS: Glucose - Point of Care 171 mg/dl (70-99)
[2024-06-16 23:38] VITALS: BP 147/58
--- NOTE | 2024-06-17 07:51 | PN.DE.MGMTRT ---
Insulin Management
- -
06/17/2024: Diabetes Management Follow up
Patient admitted 06/01 with weakness, diarrhea, gastroenteritis. PMH CAD, SC, CABG 2021, HTN, HLD, diabetes, CKD. Prior to admission was taking 70/30 insulin 65 units with breakfast and 60 units with dinner. States she sees Dr. Renea Hartley at
[facility] on a regular basis for diabetes care. She states that she often has to decrease her 70/30 doses which she does based on her blood sugar and that Dr. Hartley has agreed that Nicki knows her diabetes and is OK that she adjusts
the insulin. A1C 8.7; cr 2.9, eGFR 16.07 06/10.
Patient is awake alert and oriented, sitting up in chair, offers no complaints, able to discuss diabetes management.
Doing well, eager to get out of the hospital. States her appetite is back at baseline.
06/16 Premeal glucose range of 94 to 161, FBG 118 POC this AM. Will make no changes to current insulin dose.
Continue AM dose 70/30 55 units and dinner dose 40 units, with low corrective AC.
Discussed with pt and nurse. Nurse will contact me at dinner to reduce dose if pt plans to eat less than 30G cho at dinner
Diabetes History
- -
Type of Diabetes: 2 requiring insulin
Pre-Admission Diabetes Regimen
06/16/24
07:45
Creatinine 2.1 H
Insulin Pump Settings
IP Diabetes Regimen
06/16/24 06/16/24 06/16/24
07:45 08:54 11:52
Glucose 82
POC Glucose 94 111 H
06/16/24 06/16/24
16:40 21:15
Glucose
POC Glucose 161 H 171 H
Patient Education
[2024-06-17 07:55] VITALS: BP 150/60
--- NOTE | 2024-06-17 08:00 | PTCARENOTE ---
Spoke with Energy Analyst, Jennifer Aguilar, about whether or not patient still requires enhanced precautions. Per patient's individual case and when last positive/symptomatic, patient can be standard precautions at this time.
[2024-06-17 08:03] LABS: Glucose - Point of Care 118 mg/dl (70-99)
[2024-06-17] MEDS: NOVOLOG FLEXPEN-LOW RESISTANCE SC ×2 (08:08→12:16)
[2024-06-17] MEDS: VITAMIN D3 (cholecalciferol) 50 MCG PO (08:39)
[2024-06-17] MEDS: LIPITOR 40 MG PO (08:39)
[2024-06-17] MEDS: ZETIA 10 MG PO (08:39)
[2024-06-17] MEDS: PROTONIX 40 MG PO (08:39)
[2024-06-17] MEDS: FLOMAX 0.4 MG PO (08:39)
[2024-06-17] MEDS: LOW STRENGTH ASPIRIN 81 MG PO (08:39)
[2024-06-17] MEDS: KCL 20 MEQ PO (08:40)
[2024-06-17] MEDS: NOVOLOG MIX 70/30 FLEXPEN 55 UNITS SC (08:40)
[2024-06-17] MEDS: TOPROL XL 25 MG PO (08:40)
[2024-06-17] MEDS: NORVASC 10 MG PO (08:40)
[2024-06-17] MEDS: STERILE WATER FOR INJECTION IV (08:41)
[2024-06-17] MEDS: DESENEX/MITRAZOL/ZEASORB 1 APPLIC TOPICAL (08:41)
[2024-06-17 08:57] LABS: Blood Urea Nitrogen 25 mg/dl (7-17); Calcium 8.2 mg/dl (8.4-10.2); Carbon Dioxide 28 mmol/L (22-30); Chloride 103 mmol/L (98-107); Estimated Creatinine Clearance 32 ml/min; Glucose 94 mg/dl (70-99); Potassium 4.5 mmol/L (3.5-5.1); Sodium 138 mmol/L (135-145); eGFR 28.48
--- NOTE | 2024-06-17 10:19 | CM ---
Addendum entered by Scarlet Vidales 06/17/24 15:58:
Auth has been received 06-17 to 06/22, Auth [id number], NRD 06/21, call [phone]. w/c transport has been set up for 6:45pm, son to pay for transportation.
[facility]
Report [phone]

Original Note:
commercial real estate manager continues to follow with patient progress notes and manager of case management spoke with admissions at [facility] and they still have no beds, patient has been denied at [facility], [facility], and [facility] due to no beds available.
commercial real estate manager reached out to [facility], and per admissions they can accept patient today, per physician patient is stable for discharge. Patient will need Auth for skilled placement and manager of case management spoke with Kinjal in admissions
at [facility] and will await updated PT/OT and then obtain Auth.
Plan; Skilled placement at [facility] pending Auth, needs updated PT/OT in order to obtain Auth.
[2024-06-17 11:13] VITALS: BP 101/76; PULSE 79; O2SAT 96
[2024-06-17 11:17] VITALS: BP 101/76; PULSE 79; O2SAT 96
[2024-06-17 12:01] LABS: Glucose - Point of Care 122 mg/dl (70-99)
--- NOTE | 2024-06-17 12:09 | WOUNDNOTE ---
[facility] RN note: Patient seen for HAPI report for a 'stage 2' injury. Assessed sacral skin with MICKEY Bose, sacrum intact with resolving MASD. Salud/inner buttocks MASD better as per RN. Skin on heels intact. MICKEY Bose provided patient's salud care,
miconazole and Calazime ointment applied. Patient given an air chair cushion. Patient has a [facility] air bed. Patient reports a good appetite.
--- NOTE | 2024-06-17 14:39 | W.PN.HOSP.TC ---
Today's Communication/Plan
-
hold hctz/acei
amlodipine 10mg
f/u urology, pulmonary, cards, pcp outpt
f/u bmp outpt
Assessment / Plan
Assessment / Plan
Gen-AAOx3, NAD, morbid obesity
HEENT-NC, AT, anicteric, clear oral mm
Neck-supple
CV-reg, no M, +S1/S2
Lungs-clear B/L
Abd-soft, NT, ND
Ext-no edema
Musculoskeletal-no cyanosis, clubbing
Skin-warm and dry
Neuro-grossly non-focal
Psych-calm, cooperative
Sepsis due to UTI -hemodynamically stable. Leukocytosis improving. Last fever was 118 AM. Blood cultures negative so far. Urine culture shows E. coli, Klebsiella. Completed course of antibiotics.
Acute norovirus gastroenteritis -symptoms improved. Stool negative for C. difficile.
-Presented with nausea and diarrhea that abruptly started evening of 06/01
-Has family members/friends with similar symptomatology
-Norovirus was positive
-Continue with supportive medications
Diarrhea improved.
Hypokalemia -improved.
Hypomagnesemia -improved.
Syncope, Orthostatic Hypotension
--likely 2/2 to volume depletion due to GI losses
-denies prodromal symptoms, remembers event
�No further episodes inpatient
� Follow-up cardiology outpatient
-IVF PRN
-Monitor orthos
-will benefit from SNF
-f/u ECHO�EF 51%
RACHELLE on CKD 3a -worsening RACHELLE noted. Creatinine peaked and now improving, Unclear if due to antibiotic induced interstitial nephritis versus ATN from orthostasis versus other etiology. Nephrology consulted.
Renal ultrasound shows chronic medical renal disease without hydronephrosis.
-Hold ANABEL inhibitor and HCTZ
-F/u renal outpatient
Acute urinary retention
Andrade placed 06/05. Andrade discontinued 06/14 AM, failed voiding trial. Andrade re-inserted svp digital ad sales 06/15. F/u urology outpatient for TOV
Hyponatremia - improved.
Chronic heart failure preserved EF
-EF 51%
-Not currently on GDMT or loop diuretic
-Monitor volume status on IVF
-f/u cards outpt
Paroxysmal AF
-Home medications include metoprolol; not on AC
-f/u cards outpt
CAD s/p CABG x 4
-Home medications include metoprolol succinate, high intensity statin, aspirin
-Patient states she does have chronic exertional dyspnea since CABG
-Would likely benefit from repeat ischemic workup as OP
-No signs of acute coronary syndrome
-f/u cards oupt
-hold ACEI due to RACHELLE and restart outpt
Essential hypertension
-No known history of hypertensive systemic disease states
-Home medications include HCTZ, metoprolol, amlodipine, benazepril
-Holding benazepril and HCTZ for RACHELLE; may cont to hold hctz in the future due to hyponatremia
-Resume amlodipine, was held for hypotension; increase to 10mg; hold ACEI for now
Hyperlipidemia
-History of ASCVD with CAD status post CABG
-Home regimen includes high intensity statin and ezetimibe
GERD
-Home medications include daily PPI
-No known history of Phillips's or erosive disease
DM2 with hyperglycemia -glucose 117 this morning. Hemoglobin A1c 8.7% in April.
-Home medications include NovoLog 70-30 insulin 65 units daily, 60 units HS
-Also currently on Mounjaro, high intensity statin for ASCVD
-Unclear if she has some associated microvascular disease
-Possibly related with CKD and history of CAD
� Diabetic EMPLOYEE BENEFITS ADMINISTRATOR following; NPH adjusted
H/O Ferreira's palsy
Suspected SATURNINO
-Should have follow-up with pulm for sleep study
Morbid obesity due to excess calories
DNR
Dispo -medically stable for discharge to SNF.
More than 30 minutes spent in discharge including
Final examination of the patient
Summarizing hospital stay
Instructions for continuing care to all relevant caregivers
Preparation of discharge records, prescriptions, and referral forms
Total time spent (37 in minutes):
Anticipated Discharge: Today
Subjective/Interval History
-
Date of Service: June 17, 2024
no acute events
Objective Data
-
Labs:
Laboratory Results
06/17/24
07:33
Sodium 138
Potassium 4.5
Chloride 103
Carbon Dioxide 28
BUN 25 H
Creatinine 1.8 H
Glucose 94
Calcium 8.2 L
Vital Signs:
Vital Signs
Temp Pulse Resp BP Pulse Ox
98.3 F 79 16 151/60 95
06/17/24 07:55 06/17/24 08:40 06/17/24 07:55 06/17/24 08:40 06/17/24 07:55
I&O
06/16/24 06/17/24 06/18/24
06:59 06:59 06:59
Intake Total 1040 / 1040 240 / 240
Output Total 1400 / 1400 1700 / 1700 1200 / 1200
Balance -360 / -360 -1460 / -1460 -1200 / -1200
Review of Systems
-
History Source: Patient
All other systems: Not reviewed unless documented
Physical Exam
-
General: Well Developed, No Apparent Distress, Comfortable and Morbidly Obese
HEENT: Normocephalic, Atraumatic, Moist Mucous Membranes and Anicteric
Respiratory: Clear to Auscultation and Non Labored Respirations
Cardiac: Regular Rhythm, S1/S2 and Tachycardic; Negative Murmur, Rub or Gallop
GI: Soft, Nontender, Nondistended and Normal Bowel Sounds
Musculoskeletal: No Clubbing, No Cyanosis and No Edema
Skin: Warm and Dry; Negative Rash
Neuro: AO x 3 and Nonfocal/Grossly Intact
Psych: Calm
Data Reviewed
-
Diagnostic Radiology: Report Reviewed by me
Labs: Labs Reviewed by me
--- NOTE | 2024-06-17 14:42 | W.DS.TRANS ---
DC Summary - Telephone Solicitor Supervisor
-
Discharge Instructions:
Discharge Diagnosis/Procedures #Norovirus gastroenteritis
##Syncope
#Hypotension
Diet Low Residue,Diabetic, Carb Controlled
Activity As tolerated
Blood Work cbc and bmp in 3-5 days with pcp
Others Tests sleep study
Instructions:
Stand-Alone Forms:
Changes to Home Medications: Yes
Discharge Medications:
DC Medications w/original date entered in [employer]
cholecalciferol (vitamin D3) 50 mcg (2,000 unit) capsule (Vitamin D3) 50 mcg PO DAILY Supplement 01/20/22
insulin aspar prot-insulin aspart 100 unit/mL (70-30) subcutaneous pen (Novolog Mix 70-30FlexPen U-100) 65 unit SC DAILY Diabetes 01/20/22
metoprolol succinate 25 mg tablet,extended release 24 hr 25 mg PO BID Blood Pressure 02/23/22
miconazole nitrate 2 % topical powder (Miconazorb AF) 1 applic topical BIDPRN PRN skin folds 02/23/22
ezetimibe 10 mg tablet (Zetia) 10 mg PO DAILY High Cholesterol 05/04/24
pantoprazole 40 mg tablet,delayed release (Protonix) 40 mg PO DAILY Gastrointestinal Issue 05/04/24
tirzepatide 7.5 mg/0.5 mL subcutaneous pen injector (Mounjaro) 7.5 mg SC MO Diabetes 05/04/24
acetaminophen 325 mg tablet 650 mg PO Q6H PRN mild pain 06/02/24
albuterol sulfate 90 mcg/actuation aerosol inhaler 2 puff inhalation R Q4HPRN PRN sob 06/02/24
amlodipine 5 mg-benazepril 10 mg capsule 1 cap PO DAILY 06/02/24
aspirin 81 mg tablet,delayed release 81 mg PO DAILY 06/02/24
atorvastatin 80 mg tablet 80 mg PO DAILY 06/02/24
insulin aspar prot-insulin aspart 100 unit/mL (70-30) subcutaneous pen 60 unit SC QPM 06/02/24
loperamide 2 mg capsule (Imodium A-D) 2 mg PO Q6H PRN loose stool #30 caps 06/03/24
amlodipine 10 mg tablet 10 mg PO DAILY #0 tabs 06/17/24
insulin aspar prot-insulin aspart 100 unit/mL (70-30) subcutaneous pen 40 unit (0.4 mL) SC DAILY@1700 #0 mL 06/17/24
insulin aspar prot-insulin aspart 100 unit/mL (70-30) subcutaneous pen 55 unit (0.55 mL) SC DAILY@0800 #0 mL 06/17/24
tamsulosin 0.4 mg capsule 0.4 mg PO DAILY #0 caps 06/17/24
Home Medication Changes
amlodipine 10 mg tablet 10 mg PO DAILY #0 tabs 06/17/24
insulin aspar prot-insulin aspart 100 unit/mL (70-30) subcutaneous pen 40 unit (0.4 mL) SC DAILY@1700 #0 mL 06/17/24
insulin aspar prot-insulin aspart 100 unit/mL (70-30) subcutaneous pen 55 unit (0.55 mL) SC DAILY@0800 #0 mL 06/17/24
tamsulosin 0.4 mg capsule 0.4 mg PO DAILY #0 caps 06/17/24
Pending Results: No
--- NOTE | 2024-06-17 15:52 | W.PN.NEPH.PH ---
Today's Communication / Plan
-
ok for d/c
Assessment/Plan
-
Assessment
RACHELLE with CKD3
Norovirus gastroenteritis
Urinary retention
Heart failure preserved EF
Paroxysmal atrial fibrillation
Coronary artery disease with bypass
Hypertension
Diabetes mellitus type 2
Obesity
hypomagnesemia
Plan
RACHELLE-cr improving to 1.8, likely baseline cr mid 1 range
Maintain Andrade and on tamsulosin, f/u with
BP labile, monitor, holding ACEI-resume when cr at baseline
careful with k replacement, likely no need at d/c
BMP in 1week with PCP
nephro f/u if needed
d/w pt
-
-
Date of Service: June 17, 2024
CC / HPI / ROS
-
Chief Complaint:
RACHELLE
History of Present Illness:
RACHELLE/Cr improving to 1.8
Na normalized
K normal
Failed voiding trial Andrade replaced 06/16
Review of Systems:
no CP/SOB
feels well
Labs
-
Labs:
WBC 11.5 10^3/uL (4.8-10.8) H 06/15/24 06:43
RBC 3.76 10^6/uL (4.20-5.40) L 06/15/24 06:43
Hgb 10.8 g/dL (12.0-16.0) L 06/15/24 06:43
Hct 31.4 % (37.0-47.0) L 06/15/24 06:43
Plt Count 293 10^3/uL (130-400) 06/15/24 06:43
Sodium 138 mmol/L (135-145) 06/17/24 07:33
Potassium 4.5 mmol/L (3.5-5.1) 06/17/24 07:33
Chloride 103 mmol/L (98-107) 06/17/24 07:33
Carbon Dioxide 28 mmol/L (22-30) 06/17/24 07:33
BUN 25 mg/dl (7-17) H 06/17/24 07:33
Creatinine 1.8 mg/dL (0.6-1.0) H 06/17/24 07:33
eGFR 28.48 06/17/24 07:33
Glucose 94 mg/dl (70-99) 06/17/24 07:33
Calcium 8.2 mg/dl (8.4-10.2) L 06/17/24 07:33
Albumin 2.2 g/dl (3.5-5.0) L 06/10/24 07:03
Physical Exam
-
Vital Signs:
Vital Signs
Temp Pulse Resp BP Pulse Ox
98.3 F 79 16 151/60 95
06/17/24 07:55 06/17/24 08:40 06/17/24 07:55 06/17/24 08:40 06/17/24 07:55
Cardiovascular:: Regular rate and rhythm
Respiratory:: Bilateral: CTA
Lung Excursion:: Normal
Abdomen:: Nontender and Soft
Extremity Edema:: +1: Bilateral:
Andrade Catheter: Yes
[2024-06-17 16:08] VITALS: BP 152/55
[2024-06-17 16:29] LABS: Glucose - Point of Care 162 mg/dl (70-99)
[2024-06-17] MEDS: NOVOLOG FLEXPEN-LOW RESISTANCE 1 UNITS SC (16:41)
[2024-06-17] MEDS: NOVOLOG MIX 70/30 FLEXPEN 40 UNITS SC (16:41)
--- NOTE | 2024-06-17 17:35 | PTCARENOTE ---
Spoke with Kinjal (RN) at [facility] and gave report on patient.
== END 2024-06-17 19:37 | DRG 682 ==
LOC: 4 WEST ACU 11:43
PROVIDERS: Hospitalist; Internal Medicine; Internal Medicine Nephrology; Nurse Practitioner Family; ADMITTING PHYSICIAN Internal Medicine; ATTENDING PHYSICIAN Internal Medicine; CONSULT PHYSICIAN Specialist; EMERGENCY PHYSICIAN Student in an Organized Health Care Education/Training Program; FAMILY PHYSICIAN Internal Medicine
DX: N17.9 Acute kidney failure, unspecified (principal); A41.9 Sepsis, unspecified organism; I50.33 Acute on chronic diastolic (congestive) heart failure; A08.11 Acute gastroenteropathy due to Norwalk agent; Z68.42 Body mass index [BMI] 45.0-49.9, adult; E66.01 Morbid (severe) obesity due to excess calories; N18.30 Chronic kidney disease, stage 3 unspecified; E83.42 Hypomagnesemia; E11.36 Type 2 diabetes mellitus with diabetic cataract; E11.40 Type 2 diabetes mellitus with diabetic neuropathy, unspecified; E11.65 Type 2 diabetes mellitus with hyperglycemia; E78.00 Pure hypercholesterolemia, unspecified; E86.0 Dehydration; G51.0 Bell's palsy; I11.0 Hypertensive heart disease with heart failure; I48.0 Paroxysmal atrial fibrillation; I70.0 Atherosclerosis of aorta; I95.1 Orthostatic hypotension; Z66 Do not resuscitate; Z79.4 Long term (current) use of insulin; Z79.82 Long term (current) use of aspirin; Z11.52 Encounter for screening for COVID-19
CPT/HCPCS: 71046; 76770; 80048; 80053; 81003; 81015; 81099; 82570; 82962; 83516; 83690; 83735; 83935; 84300; 84484; 85025; 85027; 86038; 86063; 86160; 87040; 87077; 87086; 87186; 87324; 87449; 87502; 87798; 87811; 92526; 92610; 93005; 93306; 96361; 96374; 97116; 97167; 97530; 97535; 99285

== ENCOUNTER 2024-07-21 14:16 | Inpatient (IN) | payer OTHER, SELFPAY ==
[2024-07-21] VITALS (11 sets, daily range): BP systolic 116–188; BP diastolic 51–80; BMI 50.5; BMI 48.6
[2024-07-21 06:37] LABS: % Basophils 0.3 % (0-2); % Eosinophils 0.8 % (0-6); % Immature Granulocytes 0.6 % (0-0.5); % Lymphocytes 4.7 % (20.5-51.1); % Monocytes 8.7 % (1.7-9.3); % Neutrophils 84.9 % (42.2-75.2); Absolute Eosinophils 0.1 10^3/uL (0-0.7); Absolute Immature Granulocytes 0.1 10^3/uL (0-0.05); Absolute Lymphocytes 0.5 10^3/uL (1.2-3.4); Absolute Monocytes 0.9 10^3/uL (0.1-0.6); Absolute Neutrophils 8.8 10^3/uL (1.4-6.5); Mean Corp Hgb Conc. 31.3 g/dL (33.0-37.0); Mean Corpuscular Hgb 27.6 pg (27.0-31.0); Mean Corpuscular Volume 88.4 fL (81.0-99.0); Mean Platelet Volume 9.8 fL (7.4-10.4); Nucleated Red Blood Cells % 0 %; Platelet Count 287 10^3/uL (130-400); Red Blood Cell Count 3.62 10^6/uL (4.20-5.40); Red Cell Dist. Width 16.1 % (11.5-14.5); White Blood Cell Count 10.3 10^3/uL (4.8-10.8)
[2024-07-21 06:46] LABS: ALT (SGPT) 193 U/L (0-35); AST (SGOT) 454 U/L (14-36); Albumin 3.9 g/dl (3.5-5.0); Alkaline Phosphatase 262 U/L (38-126); Blood Urea Nitrogen 33 mg/dl (7-17); Calcium 9.4 mg/dl (8.4-10.2); Carbon Dioxide 25 mmol/L (22-30); Chloride 104 mmol/L (98-107); Estimated Creatinine Clearance 53 ml/min; Glucose 175 mg/dl (70-99); Potassium 4.3 mmol/L (3.5-5.1); Sodium 139 mmol/L (135-145); Total Bilirubin 3.4 mg/dl (0.2-1.3); eGFR 51.43
[2024-07-21 06:56] LABS: NT-proBNP 2540 pg/ml; Troponin I 0.032 ng/ml
--- NOTE | 2024-07-21 07:01 | ED.GENMED ---
History of Present Illness
General
Chief Complaint: Chest Pain
Source: patient and family (son)
Exam Limitations: none
Time Seen by Provider: 07/21/24 06:07
Nursing documentation reviewed up to this point in time: agreed with
History of Present Illness
History of Present Illness:
78-year-old female with a past medical history of hypertension, hyperlipidemia, CAD status post bypass, insulin-dependent diabetes, chronic respiratory failure on 2 L of home oxygenWho presents to the emergency department for evaluation of chest
pain and shortness of breath. Patient reports that she has had chronic but generally worsening shortness of breath over the past few months particular with exertion. Today she presents because of chest pain in the setting of this worsening
dyspnea. She says that chest pain started last night around 8 PM and has been constant and progressive. Patient reports symptoms started shortly after she ate some crackers with juice for some mild hypoglycemia. She reports an intense pressure in
her chest that radiates towards her back. No clear triggering or relieving factors noted. Denies associated nausea, vomiting, abdominal pain. She has not had any recent cough. She does note that she has chronic swelling in her legs related to
'vascular disease' but right leg seems more swollen than usual. Denies any leg pain. She denies any fever or chills. No other complaints noted. She did take full dose aspirin prior to arrival here as well as some nitroglycerin spray from EMS�she
says this helped 'a little bit.'
Past History
Past History
ED Past Medical History: CAD, HTN, Hypercholesterolemia and IDDM
ED Past Surgical History: Cardiac, Gynecological and Other (cataract)
Patient has exhibited threatening behavior?: No
Social History
Tobacco: Non-smoker
Alcohol: None
Drug: None
Personal: Single
Living: alone
Employment: Retired
Review of Systems
Review of Systems
All Other Systems: ROS reviewed and negative except as documented in HPI and ROS
Constitutional: Denies fever or chills
Respiratory: Reports cough (chronic) and trouble breathing
Cardiac: Reports chest pain; Denies diaphoresis or palpitations
ABD/GI: Denies abdominal pain, nausea or vomiting
: Denies flank pain
Musculoskeletal: Reports edema and back pain; Denies neck pain
Neurological: Denies dizzy or headache
Phy Exam
Physical Exam
Physical Exam:
General: Awake, alert, oriented x3; no acute distress
Head: Normocephalic, atraumatic
Eyes: Conjunctiva normal, sclera anicteric
Throat: Airway intact, handling secretions
Neck: Trachea midline, supple without meningismus
Lungs: Occasional cough, mild tachypnea, normal pulse ox on room air; lungs sound clear to auscultation
Heart: Regular rate and rhythm, systolic murmur
Abd: Soft, non distended, nontender
Neuro: No gross deficits
Skin: no rash
Extremities: Patient has +1 edema left lower extremity, +2 edema right lower extremity no skin changes, no tenderness; distal extremities are warm and well-perfused
Scores
Heart Failure Risk
Heart Failure Risk Score: Not Applicable
Heart Score for Chest Pain Patients
STEMI patient?: Not applicable
Withdrawal Assessment of Alcohol
Withdrawal Assessment Completed?: Not applicable
Course
Orders/Labs/Results
Orders:
Orders
07/21/24 05:59
Electrocardiogram (*1) Urgent
Reason for Study: Chest Pain
07/21/24 06:00
EKG- Treatment ONCE
07/21/24 06:09
Complete Blood Count/With Diff Urgent
Comprehensive Metabolic Panel Urgent
NT-proBNP Urgent
Troponin I Urgent
07/21/24 06:13
Add On- LAB Urgent
Tests Added?: bnp
07/21/24 06:18
CT Chest PE Study Urgent
Comment:
Reason For Exam: chest and back pain, SOB, RLE swelling
CR Chest Portable - 1 View Urgent
Comment:
Reason For Exam: sob, chest pain
Reason Study Needs to be Portable: Unable to Transport
US Periph Venous LOWER Ext RT Urgent
Comment:
Reason For Exam: RLE swelling
07/21/24 07:02
PTT Urgent
Prothrombin Time Urgent
07/21/24 07:10
US Abdomen Complete/Upper Urgent
Comment:
Reason For Exam: abnormal LFTs
07/21/24 10:28
Furosemide [Lasix] 40 mg IV NOW STA
Piperacillin/Tazo 3.375 Gram [Zosyn] 3.375 gram in 50 ml IV NOW
Vancomycin [Vancocin] 1,500 mg 0.9% Sodium Chloride 500 ml [Nss] 500 ml IV NOW
Abnormal Lab Results
07/21/24
06:09
RBC 3.62 L 10^6/uL
(4.20-5.40)
Hgb 10.0 L g/dL
(12.0-16.0)
Hct 32.0 L %
(37.0-47.0)
MCHC 31.3 L g/dL
(33.0-37.0)
RDW 16.1 H %
(11.5-14.5)
Abs Immat Gran (auto) 0.1 H 10^3/uL
(0-0.05)
Absolute Neuts (auto) 8.8 H 10^3/uL
(1.4-6.5)
Absolute Lymphs (auto) 0.5 L 10^3/uL
(1.2-3.4)
Absolute Monos (auto) 0.9 H 10^3/uL
(0.1-0.6)
Immature Gran % 0.6 H %
(0-0.5)
Neutrophils % 84.9 H %
(42.2-75.2)
Lymphocytes % 4.7 L %
(20.5-51.1)
BUN 33 H mg/dl
(7-17)
Creatinine 1.1 H mg/dL
(0.6-1.0)
Glucose 175 H mg/dl
(70-99)
Total Bilirubin 3.4 H mg/dl
(0.2-1.3)
AST 454 H U/L
(14-36)
ALT 193 H U/L
(0-35)
Alkaline Phosphatase 262 H U/L
(38-126)
Total Protein 6.0 L g/dl
(6.3-8.2)
07/21/24 06:09
07/21/24 06:09
Vital Signs
Initial and Last Documented VS:
Initial Vital Signs
Temp Pulse Resp BP Pulse Ox
36.6 C 76 28 174/78 98
07/21/24 05:51 07/21/24 05:51 07/21/24 05:51 07/21/24 05:51 07/21/24 05:51
Last Documented Vital Signs
Temp Pulse Resp BP Pulse Ox
36.6 C 80 31 187/59 97
07/21/24 05:51 07/21/24 10:00 07/21/24 10:00 07/21/24 10:00 07/21/24 10:00
MDM/Problems Addressed
Differential Diagnosis Includes:
Pneumothorax, pneumonia, PE, ACS, CHF
MDM/Problems Addressed:
78-year-old female presents for evaluation of worsening shortness of breath and chest pain�shortness of breath has been worsening over the past few months but chest pain started abruptly last night. Hypertensive, tachypneic, normal pulse ox on 2 L
home oxygen. Physical exam as above. EKG shows no STEMI. Will place an IV check labs including a CBC and a CMP, coags, troponin, proBNP. Will check stat chest x-ray but plan for CTA to rule out PE as well as a right lower extremity ultrasound.
Monitor closely reassess after the above.
Initial labs reviewed: CBC shows stable anemia, CMP shows creatinine 1.1 which is actually slightly better than baseline. LFTs markedly abnormal with elevated T. bili, AST/ALT. Added upper abdominal ultrasound. Her troponin is negative proBNP is
slightly elevated. I reviewed her chest x-ray she does have a left midlung opacity could be pneumonia but given acuity of onset not necessarily consistent with diagnosis of pneumonia, lack of fever or leukocytosis I do think we should proceed with
CTA to rule out PE.
Right lower extremity ultrasound is negative for DVT. Her abdominal ultrasound did show a new gallbladder sludge and moderate size gallstones increased in number; no hard findings of acute cholecystitis. CT of her chest showed no PE but she does
have moderate pleural effusions and she also has left upper and right upper lobe findings concerning for pneumonia. My clinical suspicion at this point is that her chest pain radiating to her back is related to hepatobiliary issue�my concern is for
choledocholithiasis with her abnormal LFTs and gallstones on abdominal ultrasound. I have somewhat lower suspicion that she has acute cholecystitis as she has minimal tenderness and no fever or leukocytosis. Her respiratory issue could be related
to pneumonia although she says this has been ongoing for months without an acute change necessarily; nevertheless given findings on CT I think she should be covered for pneumonia. Will treat with Vanco and Zosyn to cover her for pneumonia as well
as for any hepatobiliary infection. The other possibility is that findings on CT are more from CHF as she has an elevated proBNP and bilateral leg swelling. Will plan to treat with some Lasix and nitroglycerin on top of antibiotic coverage. Will
plan admit to the hospitalist for continued management. Discussed with hospitalist team.
*Radiology
Radiology exam reviewed: radiology read reviewed
*Pulse Oximetry
Patient hypoxic: no (on home O2)
*EKG
Interpreted by ED Provider?: Yes
Heart Rate: 77
Rate: normal
Rhythm: sinus
[place]: normal axis
Interval: normal interval
QRS Pattern: low voltage
Ischemia: no ischemia
*Critical Care Note
Total Time (30-74mins, 75-104mins- exclusive of procedures): Not Applicable
Data Reviewed
Review of Other/Old Records Reveals: Labs and Records
Source: patient, records, family and ambulance crew
Patient Management
Discussion with other providers: Hospitalist (Discussed with hospitalist)
Escalation/DeEscalation of care consider admission/obs:
Admission indicated
ED Attending Note
-
Portions of this chart may have been created with voice recognition software.� Occasional wrong word or��sound alike� substitutions may have occurred due to the inherent limitations of voice recognition software.
Discharge Plan
Departure
Patient Disposition: Admit
Date of Disposition: 07/21/24
Time of Disposition: 10:29
Admit to doctor: Do
Presentation/result/management discussed w/ accepting MD/DO: Hospitalist
Discharge Problem:
CHF (congestive heart failure), Pneumonia, Choledocholithiasis, Cholelithiasis
Prescriptions:
No Action
cholecalciferol (vitamin D3) [Vitamin D3] 50 mcg (2,000 unit) Capsule
50 mcg PO DAILY
miconazole nitrate [Miconazorb AF] 2 % powder
1 applic topical BIDPRN PRN (Reason: skin folds)
metoprolol succinate 25 mg tablet extended release 24 hr
25 mg PO BID
pantoprazole [Protonix] 40 mg Tablet,Delayed Release (Dr/Ec)
40 mg PO DAILY
ezetimibe [Zetia] 10 mg Tablet
10 mg PO DAILY
Mounjaro 7.5 mg/0.5 mL Pen Injector
7.5 mg SC MO
amlodipine-benazepril 5-10 mg Capsule
1 cap PO DAILY
Rx Instructions:
5 mg benazapril, 10 mg amlodipine
atorvastatin 80 mg Tablet
80 mg PO DAILY
acetaminophen 325 mg Tablet
650 mg PO Q6H PRN (Reason: mild pain)
aspirin 81 mg Tablet,Delayed Release (Dr/Ec)
81 mg PO DAILY
albuterol sulfate 90 mcg/actuation Hfa Aerosol Inhaler
2 puff INHALATION R Q4HPRN PRN (Reason: sob)
loperamide [Imodium A-D] 2 mg capsule
2 mg PO Q6H PRN (Reason: loose stool) Qty: 30 0RF
tamsulosin 0.4 mg Capsule
0.4 mg PO DAILY Qty: 0 0RF
amlodipine 10 mg Tablet
10 mg PO DAILY Qty: 0 0RF
insulin asp prt-insulin aspart 100 unit/mL (70-30) Insulin Pen
40 unit SC DAILY@1700 Qty: 0 0RF
insulin asp prt-insulin aspart 100 unit/mL (70-30) Insulin Pen
55 unit SC DAILY@0800 Qty: 0 0RF
Referrals:
Latasha Branch DO [Family Provider] -
Interventions
Interventions:
*Risk Screen - Suicide Last Done: 07/21/24 05:56
*General Assessment Last Done: 07/21/24 06:15
*Neglect/Abuse Screening Last Done: 07/21/24 05:56
*ED COVID-19 Vaccine History Last Done: 07/21/24 06:15
ED- Cardiac Assessment Last Done: 07/21/24 06:15
ED- Pulmonary Assessment Last Done: 07/21/24 06:15
Discharge Date and Time
Print Language: ARGENTINE
[2024-07-21 07:33] LABS: INR 1.09; PT 14.5 Sec (11.4-14.6)
[2024-07-21 07:34] LABS: APTT 29.1 Sec (23.4-35.0)
[2024-07-21] MEDS: ZOSYN 50 IV (10:34)
[2024-07-21] MEDS: NITRO-BID 1 INCH TOPICAL (10:40)
[2024-07-21] MEDS: VANCOCIN 540 MG IV (11:08)
[2024-07-21] MEDS: LASIX 40 MG IV ×2 (11:08→16:44)
--- NOTE | 2024-07-21 13:53 | HPS.HSE ---
Addendum entered and electronically signed by Maribel Bell MD 07/21/24 15:40:
I personally performed a history and physical exam of the patient and discussed management with the resident. I reviewed the resident's note and agree with the documented findings and plan of care HPI/CC.
GENERAL: well developed, well nourished, obese female in no apparent distress
HEENT:NC/AT--5L O2 NC
HEART: regular rate and rhythm, +S1, +S2, 2/6 KADE
LUNGS : no crackles or wheezing--decreased BS at bases bilaterally R>L
ABDOM: soft, nontender, nondistended, + bowel sounds
EXT: no cyanosis, clubbing-- 2+ LE edema bilaterally--R leg > L leg in size
NEUROLOGIC: grossly intact
Acute hypoxic respiratory failure--suspect due to acute exacerbation of HFpEF--cannot rule out developing PNA by CXR or CT scan chest but not overly concerned (no fever, only dry cough, can speak in full sentences)--doubt ACS with normal troponin
and EKG-- proBNP 2500--wean O2 to off if able--cont IV lasix, daily weights, I/Os, fluid restriction--check procalcitonin--for now cont vanco/zosyn--consult cards/pulm
Elevated LFTs--both cholestatic picture and transaminitis--AST/ALT: 454/193, alk phos 262, T. bili 3.4--US with gallstones but no dilated ducts seen, passive hepatic congestion from CHF also possible, ? contribution of atorvastatin--Hold ezetimibe
and atorvastatin--Will consider MRCP/GI consult
Lower extremity edema--Right leg venous insufficiency at baseline, increased lower extremity edema bilateral--No wounds or ulcers--US neg for DVT, likely due to heart failure vs venous insufficiency--cont diuresis and compression therapy
Hx of urinary retention--had difficult nascimento placement last admission, pt would prefer not to have another--agree with bladder scan--cont tamsulosin
Insulin-dependent diabetes mellitus-- pt takes 70/30 BID--cont SSI, check HGB G9S--stujmbrc diet--Patient has been off Mounjaro for about a month because it was not o offered at rehab--Diabetes INSTRUMENT ROOM TECHNICIAN consult
Essential hypertension--Continue home antihypertensives as able
GERD---Continue pantoprazole
CKD 3--Avoid nephrotoxic agents, follow BMP while diuresis--creat baseline appears to be around 1.5--so 1.1 on admission appeard consistent with volume retention--consider renal consult if needed
Chronic back pain--Osteoarthritis of spine--On minimal Tylenol as needed--Hold if worsening LFT
Chronic constipation--Stable with daily oatmeal (increased fiber)--Bowel regimen as needed
DVT proph--Lovenox
CODE STATUS--DNR
Original Note:
Family Physician
-
Family Physician: Latasha Branch DO. ([facility] internal medicine)
Chief Complaint
-
Shortness of breath, chest pressure
History of Present Illness
Pt was having worse SOB from her baseline last night, but woke up around 4 AM today with worsening chest pressure which she describes as something sitting on her chest, and also describes a burning in her chest 'like heartburn'. She called the
on-call nurse from [facility] who advised her to go to the ED. last night's dinner was salmon with broccoli.
She has had chronic shortness of breath since a myocardial infarction in January 2022 requiring bypass, but noticed worsening of dyspnea while she was in rehab recently. She had a recent hospitalization at for norovirus, UTI, and COVID,
discharged to rehab 06/19/2024 and only returned to her home on 07/17/24 on home O2 2L NC upon discharge from rehab. She had a planned PCP visit scheduled for tomorrow where she planned to discuss her worsening SOB with her doctor. Prior to her
admission in May, she was not on chronic O2. She now reports shortness of breath with minimal exertion such as walking around the room.
She does have orthopnea and does not sleep lying flat. She has chronic right leg swelling since bypass graft was harvested from her right leg in 2021, but she reports bilateral leg swelling today. She denies any fever but has had chills and a dry
cough recently. Denies nausea/vomiting, abdominal pain, diarrhea, blood in stool or urine, or dysuria. There is some difficulty with passing urine. She denies a known history of GERD and states she rarely gets acid reflux, but takes pantoprazole
40 mg daily. She denies a known history of sleep apnea, but states that her bursar Dr. Fraga recommends a sleep study for suspected sleep apnea. She denies any history of swallowing problems.
Medical History
Past Medical History
Past Medical History: Reports CAD (2021 s/p bypass, ), CHF (HFpEF), HTN, Hypercholesterolemia, IDDM and OK
Additional Past Medical History:
CKD 3, chronic respiratory failure, chronic anemia, urinary retention, obesity, constipation, osteoarthritis of spine,
Past Surgical History: Reports Cardiac (CABG 2021), Gynocological and Other (Cataract)
Social History
Tobacco: Non-smoker (Secondhand smoke exposure)
Alcohol: None
Drug: None
Living: With Family
Family History
Family History: CAD and Other (Heart failure, pacemaker, emphysema)
Allergies / Home Medications
Allergies reflects when Allergies were last updated in [facility].
Home Medications with original date entered in [facility]
Allergy/Medication List:
Allergies
Allergy/AdvReac Type Severity Reaction Status Date / Time
No Known Allergies Allergy Verified 07/21/24 05:59
Home Medications
cholecalciferol (vitamin D3) 50 mcg (2,000 unit) capsule (Vitamin D3) 50 mcg PO DAILY Supplement 01/20/22
metoprolol succinate 25 mg tablet,extended release 24 hr 25 mg PO BID Blood Pressure 02/23/22
miconazole nitrate 2 % topical powder (Miconazorb AF) 1 applic topical BID skin folds, breasts 02/23/22
ezetimibe 10 mg tablet (Zetia) 10 mg PO DAILY High Cholesterol 05/04/24
pantoprazole 40 mg tablet,delayed release (Protonix) 40 mg PO DAILY Gastrointestinal Issue 05/04/24
tirzepatide 7.5 mg/0.5 mL subcutaneous pen injector (Mounjaro) 7.5 mg SC MO Diabetes 05/04/24
acetaminophen 325 mg tablet 650 mg PO Q6HPRN PRN mild pain 06/02/24
albuterol sulfate 90 mcg/actuation aerosol inhaler 2 puff inhalation R Q4HPRN PRN sob 06/02/24
aspirin 81 mg tablet,delayed release 81 mg PO DAILY 06/02/24
atorvastatin 80 mg tablet 80 mg PO DAILY 06/02/24
amlodipine 5 mg-benazepril 10 mg capsule 1 cap PO DAILY 07/21/24
hydrochlorothiazide 25 mg tablet 25 mg PO DAILY 07/21/24
insulin aspar prot-insulin aspart 100 unit/mL (70-30) subcutaneous pen 45 unit SC DAILY 07/21/24
insulin aspar prot-insulin aspart 100 unit/mL (70-30) subcutaneous pen 55 unit SC QPM 07/21/24
Review of Systems
-
History Source: Patient
Constitutional: Reports Weight Gain and Chills; Denies Fever
Respiratory: Reports Cough (dry) and Trouble Breathing
Cardiac: Reports Other (Chest pressure)
Abdomen/GI: Denies Abdominal Pain, Nausea, Vomiting, Diarrhea or Constipated
: Reports Difficulty Voiding; Denies Dysuria or Bleeding
Neurological: Denies Dizzy or Headache
Hematologic/Lymphatic: Denies Bleeding
Physical Exam
Vital Signs
Vital Signs
Temp Pulse Resp BP Pulse Ox
97.8 F 75 22 173/62 93
07/21/24 05:51 07/21/24 12:00 07/21/24 12:00 07/21/24 12:00 07/21/24 12:00
Physical Exam
General: Conversant, Respiratory Distress and Morbidly Obese
HEENT: NormoCephalic, Anicteric, Moist mucous membranes and Atraumatic
Respiratory: Accessory Resp Muscle Use and Decreased Breath Sounds (RLL field); No Wheezes, Rales, Rhonchi or Crackles
Cardiac: S1/S2 and Murmur; No Rub
GI: Soft, Non Distended, Normal Bowel Sounds and Tender (Deep palpation right upper quadrant)
Musculoskeletal: No Clubbing, No Cyanosis, Edema, Left Lower Extremity and Edema, Right Lower Extremity
Skin: Warm and Dry; No Rash or Jaundice
Neuro: Awake, Alert and Oriented
Psych: Calm
Laboratory Results
-
07/21/24 06:09
07/21/24 06:09
Laboratory Results
PT 14.5 Sec (11.4-14.6) 07/21/24 07:02
INR 1.09 07/21/24 07:02
APTT 29.1 Sec (23.4-35.0) 07/21/24 07:02
Total Bilirubin 3.4 mg/dl (0.2-1.3) H 07/21/24 06:09
AST 454 U/L (14-36) H 07/21/24 06:09
ALT 193 U/L (0-35) H 07/21/24 06:09
Alkaline Phosphatase 262 U/L (38-126) H 07/21/24 06:09
Troponin I 0.032 ng/ml 07/21/24 06:09
Impression/Plan
-
IMPRESSION: 78-year-old female with history of HFpEF, CKD 3, chronic anemia, recent use of 2 L home O2 nasal cannula, CAD plus bypass January 2022, hypertension, hyperlipidemia, IDDM, obesity, who presents with worsening chest pressure and
shortness of breath.
Acute hypoxic respiratory insufficiency:
Troponin normal. EKG unremarkable. ProBNP: 2500. Concern for acute HFpEF exacerbation, possibly developing pneumonia as well.
Chest x-ray: mild opacification in the left suprahilar region which is new and concerning for developing pneumonia.
CTA: No evidence of pulmonary embolus. Moderate right and small left pleural effusions. Moderate left upper lobe, mild right upper lobe and minimal left lower lobe findings suggesting pneumonia. Mild right upper lobe and right lower lobe probable
atelectasis.
-Recently put on chronic O2 2L, currently requiring 5 L.
-Received 40 mg IV Lasix x 1 in ED. Continue 40 mg IV twice daily
-On Zosyn and vancomycin for pneumonia, continue.
-Check Pro-Jeremy, MRSA screen
-Cards consult, pulm consult
-Fluid restriction, strict I&O's, daily weights
Transaminitis:
AST/ALT: 454/193, lipase normal, alk phos elevated 262, T. bili 3.4
Positive Mendoza sign on PE. Passive congestion vs choledocholithiasis
-Hold ezetimibe and atorvastatin
-Will consider MRCP
Lower extremity edema:
Right leg venous insufficiency at baseline, increased lower extremity edema bilateral. No wounds or ulcers.
Likely secondary to heart failure exacerbation.
-Darrel wrap, leg elevation as tolerated
-Continue diuresis
Hx of urinary retention:
-Also had difficulty passing urine while in ED
-Bladder scan protocol
Insulin-dependent diabetes mellitus:
On aspart 55 units at bedtime, aspart 40 units a.m. adjusted as needed at home.
-Will start with 40 units at bedtime, 30 units a.m., moderate res ISS
-Patient has been off Mounjaro for about a month because it was not o offered at rehab
-Diabetes INSTRUMENT ROOM TECHNICIAN consult
-Check HbA1c
Essential hypertension:
-Continue home antihypertensives
GERD:
-Continue pantoprazole
HFpEF:
Continue metoprolol 25 twice daily
CKD 3:
-Avoid nephrotoxic agents, follow BMP while diuresis
Chronic back pain:
Osteoarthritis of spine
-On minimal Tylenol as needed. Hold if worsening LFT
Chronic constipation:
Stable with daily oatmeal (increased fiber)
-Bowel regimen as needed
DVT prophylaxis: Lovenox
CODE STATUS: DNR
[2024-07-21] MEDS: PROTONIX 40 MG PO (16:43)
[2024-07-21] MEDS: LOVENOX 40 MG SC (16:44)
[2024-07-21] MEDS: NOVOLOG FLEXPEN-MODERATE RESISTANCE 1 UNITS SC (16:46)
[2024-07-21 16:47] LABS: Glucose - Point of Care 188 mg/dl (70-99)
--- NOTE | 2024-07-21 16:54 | CON.PUL ---
Consultation
Consultation Request
Date/Time Consultation Requested: 07/21/2024 - 1553
Date/Time Consultation Performed: 07/21/2024 - 1640
Requesting Provider: Dr. Ca
Performing Provider: Dr. Juares
Reason for Consultation: SOB/Hypoxia/CHF exacerbation/Possible PNA
Medical History
-
Chief Complaint: Chest pain + SOB
History of Present Illness:
78-year-old morbidly obese female with a past medical history of CAD s/p CABG x 4 with left atrial appendage exclusion (01/2022), DM type II, dyslipidemia, hypertension, chronic HFpEF, Ferreira's palsy and neuropathy who presents with chest pain
radiating to the back, indigestion and shortness of breath. She took aspirin prior to arrival and EMS gave her nitroglycerin spray that helped her symptoms. She had just returned from rehab, as per patient. She has been having chronic shortness
of breath since her heart attack in January 2022. She was recently hospitalized here from 06/03 - 06/17/2024 due to norovirus gastroenteritis with syncope and hypotension. She was advised to obtain sleep study as an outpatient (still pending).
She was discharged to a rehab and returned home on 07/17/2024 on home oxygen at 2 L/min. She has been having bilateral leg swelling and shortness of breath when laying flat. She has had no fevers and she does have a dry cough. She was afebrile in
the ER, hypertensive to 174/78, heart rate 76, respiratory rate 28 and saturating 98% on room air. Labs showed Hb 10, glucose 175, creatinine 1.1, elevated LFTs, proBNP 2540 hospitalization. CXR showed left suprahilar opacification concerning for
pneumonia. CTA chest was obtained showing no evidence of PE or dissection, with bilateral pleural effusions, right greater than sign left, with bilateral consolidative opacities concerning for pneumonia. In the ER she was given 40 mg IV Lasix,
nitroglycerin ointment 1 inch, Zosyn and vancomycin and admitted to the hospitalist service. Pulmonary service now consulted for additional management/recommendations.
Patient was seen and evaluated today at bedside. She said that the chest pressure that she came in with is now gone, and the Nitropaste is helping her. She does not take lasix at home, and denies having any episodes of CHF since her KS in 2021.
The chest pressure and shortness of breath that she feels now is different from when she had her heart attack in 2021. She mainly feels short of breath with exertion. She says that when she went to the rehab recently she was diagnosed with
pneumonia there and was treated with Levaquin for 7 days. She says the pneumonia was on her left lung. She also diagnosed with COVID-19 at the rehab but she thinks she caught it here during her prior hospitalization. She has been using her O2
since she was DC'd from the rehab (2L/min ATC). She checks her pulse ox at home and it can drop as low as 88% after activity. She denies a formal Dx of SATURNINO, but she thinks she snores, denies restorative sleep, but also denies excessive daytime
sleepiness.
PMHx: History of NSTEMI, CAD s/p CABG x 4 with ROCIO�E (01/2022), DM type II, dislipidemia, hypertension, morbid obesity, chronic HFpEF, Ferreira's palsy, neuropathy
PSHx: CABG x 4+ left atrial appendage exclusion (01/2022)
Past Medical History
Past Medical History: Other (Above as per HPI)
Past Surgical History: Other (Above as per HPI)
Social History
Tobacco: Non-smoker
Alcohol: None
Drug: None
Family History
Family History: CAD (Mother + sibling), Diabetes (Mother) and Other (Sibling: Aortic aneurysm)
Allergies / Home Medications
Allergies
Allergy/AdvReac Type Severity Reaction Status Date / Time
No Known Allergies Allergy Verified 07/21/24 05:59
Home Medications
�Medication �Instructions �Recorded �Confirmed �Last Taken �Type
cholecalciferol (vitamin D3) 50 50 mcg PO DAILY Supplement 01/20/22 07/21/24 07/20/24 History
mcg (2,000 unit) capsule (Vitamin
D3)
metoprolol succinate 25 mg 25 mg PO BID Blood Pressure 02/23/22 07/21/24 07/20/24 History
tablet,extended release 24 hr
miconazole nitrate 2 % topical 1 applic topical BID skin folds, 02/23/22 07/21/24 07/20/24 History
powder (Miconazorb AF) breasts
ezetimibe 10 mg tablet (Zetia) 10 mg PO DAILY High Cholesterol 05/04/24 07/21/24 07/20/24 History
pantoprazole 40 mg tablet,delayed 40 mg PO DAILY Gastrointestinal 05/04/24 07/21/24 07/20/24 History
release (Protonix) Issue
tirzepatide 7.5 mg/0.5 mL 7.5 mg SC MO Diabetes 05/04/24 07/21/24 07/15/24 History
subcutaneous pen injector
(Mounjaro)
acetaminophen 325 mg tablet 650 mg PO Q6HPRN PRN mild pain 06/02/24 07/21/24 Unknown History
albuterol sulfate 90 mcg/actuation 2 puff inhalation R Q4HPRN PRN sob 06/02/24 07/21/24 Unknown History
aerosol inhaler
aspirin 81 mg tablet,delayed 81 mg PO DAILY 06/02/24 07/21/24 07/20/24 History
release
atorvastatin 80 mg tablet 80 mg PO DAILY 06/02/24 07/21/24 07/20/24 History
amlodipine 5 mg-benazepril 10 mg 1 cap PO DAILY 07/21/24 07/21/24 07/20/24 History
capsule
hydrochlorothiazide 25 mg tablet 25 mg PO DAILY 07/21/24 07/21/24 07/20/24 History
insulin aspar prot-insulin aspart 45 unit SC DAILY 07/21/24 07/21/24 07/20/24 History
100 unit/mL (70-30) subcutaneous
pen (Novolog Mix 70-30FlexPen
U-100)
insulin aspar prot-insulin aspart 55 unit SC QPM 07/21/24 07/21/24 07/20/24 History
100 unit/mL (70-30) subcutaneous
pen (Novolog Mix 70-30FlexPen
U-100)
Review of Systems
-
History Source: Patient
All other systems: Negative unless noted
Vitals / Labs / Diagnostic Testing
Vital Signs
Temp Pulse Resp BP Pulse Ox
98.3 F 79 20 118/64 98
07/21/24 19:41 07/21/24 19:41 07/21/24 19:41 07/21/24 19:41 07/21/24 19:41
Lab Data
07/21/24 06:09
07/21/24 06:09
Laboratory Results
07/21/24
07:02
PT 14.5
INR 1.09
APTT 29.1
Diagnostic Testing:
Physical Exam
-
HEENT: Normocephalic, Anicteric and Other (Thick neck)
Cardiovascular: S1/S2 and Peripheral Edema (Right lower extremity +2 edema, trace edema on left lower extremity)
Respiratory: Wheeze (n), Rales (Bilateral (R>L)), Rhonchi (n) and Non-Labored Respirations
GI: Soft, Distended (Significant abdominal obesity), Non Tender and Normal Bowel Sounds
Neurology: Awake, Alert and Tremors (n)
Skin: Warm and Dry
General: Respiratory Distress (n), Comfortable, Fever (n) and Chills (n)
Assessment
-
Assessment: 78-year-old morbidly obese female with a past medical history of CAD s/p CABG x 4 with left atrial appendage exclusion (01/2022), DM type II, dyslipidemia, hypertension, chronic HFpEF, Ferreira's palsy and neuropathy who presents with chest
pain radiating to the back, indigestion and shortness of breath. She took aspirin prior to arrival and EMS gave her nitroglycerin spray that helped her symptoms. She had just returned from rehab, as per patient. She has been having chronic
shortness of breath since her heart attack in January 2022. She was recently hospitalized here from 06/03 - 06/17/2024 due to norovirus gastroenteritis with syncope and hypotension. She was advised to obtain sleep study as an outpatient (still
pending). She was discharged to a rehab and returned home on 07/17/2024 on home oxygen at 2 L/min. She has been having bilateral leg swelling and shortness of breath when laying flat. She has had no fevers and she does have a dry cough. She was
afebrile in the ER, hypertensive to 174/78, heart rate 76, respiratory rate 28 and saturating 98% on room air. Labs showed Hb 10, glucose 175, creatinine 1.1, elevated LFTs, proBNP 2540 (of note she was 149 on 05/04/2024). CXR showed left
suprahilar opacification concerning for pneumonia. CTA chest was obtained showing no evidence of PE or dissection, with bilateral pleural effusions, right greater than sign left, with bilateral consolidative opacities concerning for pneumonia. In
the ER she was given 40 mg IV Lasix, nitroglycerin ointment 1 inch, Zosyn and vancomycin and admitted to the hospitalist service. Pulmonary service now consulted for additional management/recommendations.
Chronic conditions [facility]: History of NSTEMI, CAD s/p CABG x 4 with ROCIO�E (01/2022), DM type II, dislipidemia, hypertension, morbid obesity, chronic HFpEF, Ferreira's palsy, neuropathy
Impression:
#Acute respiratory failure with hypoxia likely due to acute decompensated heart failure/acute HFpEF exacerbation
#Recent diagnosis of pneumonia while at rehab last month, Tx with levaquin x 7 days
#Bilateral perihilar opacities likely due to acute pulmonary edema; less likely pneumonia
#Bilateral pleural effusions (R >L)
#Gallbladder sludge + gallstones without evidence of acute cholecystitis on abdominal ultrasound from 07/21/2024
#Fatty liver disease due to morbid obesity
#Multivessel CAD with NSTEMI s/p CABG x 4 with left atrial appendage exclusion with a 35mm AtriClip (OR date: 01/26/2022)
#Morbid obesity - BMI: 48.5
#DM type II (uncontrolled � HbA1c: 8.7 on 05/05/2024)
#Hypertension
#Dyslipidemia
Plan:
- Patient presented with shortness of breath. CTA chest on 07/21/2024 shows bilateral pleural effusions with interlobular septal thickening and bilateral consolidative opacities likely due to her recent pneumonia (Dx last month and Tx with levaquin x
7 days) and possibly appears more fluffy now due to acute pulmonary edema; her proBNP is now 2540, which is the highest that she has been since has been checked here dose on hospital, hence would continue treatment for acute decompensated heart
failure with aggressive diuresis
- Replete electrolytes with K>4, Mg>2 while diuresing
- Patient recently had an echo on 06/05/2024 showing normal biventricular size and function with mild concentric LVH, normal regional wall motion and LVEF 51%, with normal PASP
- Cardiology consulted and recommendations appreciated
- Unlikely pneumonia, especially with a procalcitonin of 0.22, and she is non-toxic appearing with no productive cough, fever or chills; of note, urinalysis shows no signs of infection
- She is currently on empiric antibiotics with Vanco/Zosyn --> would cautiously continue antibiotics as this is unlikely a pneumonia given her imaging and blood work, and the imaging is likely reflecting her recent PNA that has not yet
radiographically resolved
- Would recommend repeat imaging in another 3-5 weeks to re-assess her lung parenchyma
- If she remains afebrile over the next 24-48 hours then would stop antibiotics completely
- I reviewed her most prior CTA chest from 01/17/2022 and she has no underlying abnormal pulmonary parenchyma, including no emphysema, ILD or any concerning nodules/masses
- Maintain SpO2 >90-94% with supplemental O2 and wean as tolerated while keeping SpO2 >90-94%
- Continue aspiration precautions, keeping HOB >30-45�
- prn nebulized bronchodilators - not currently bronchospastic
- Incentive spirometer encouraged q1hr while awake
- PT/OT recommended
- Patient's BMI is 48.5. Weight loss is critical for her. Would recommend her seeing us in the office and if she makes a diagnosis of sleep apnea she would be a candidate for Zepbound
- Recommend outpatient pulmonary/sleep office follow-up to discuss sleep disordered breathing as she thinks she snores and she has non-restorative sleep
- Trend H/H and transfuse if needed to keep Hb>7g/dL; keep plt>20k, unless there is concern for bleeding then keep plt>50k
- Maintain euglycemia with goal BG >100 and <180
- DVT ppx: LMWH
Pulmonary service will continue to follow along. Pulmonary outpatient office follow-up recommended.
Data:
CTA Chest 07/21/2024:
No evidence of pulmonary embolus.
Moderate right and small left pleural effusions.
Moderate left upper lobe, mild right upper lobe and minimal left lower lobe findings suggesting pneumonia.
Mild right upper lobe and right lower lobe probable atelectasis.
Small hypodense right thyroid lesion likely a benign nodule. Nonurgent dedicated thyroid ultrasound recommended if not previously evaluated
Abdominal ultrasound 07/21/2024:
New moderate gallbladder sludge and many moderate sized gallstones which have increased in number. No secondary findings to suggest acute cholecystitis. Clinical and laboratory correlation recommended.
Hepatic fatty infiltration. Stable
Nonvisualization of the proximal abdominal aorta due to overlying bowel gas.
Bilateral pleural effusions. New
Transthoracic echocardiogram 06/05/2024:
Normal left ventricular size and function. Mild concentric left ventricular
hypertrophy. Normal regional wall motion. LV ejection fraction is 51% by
volumetric assessment. Normal diastolic function.
Normal right ventricular size and function.
Aortic sclerosis without stenosis.
Mild tricuspid regurgitation. Estimated pulmonary artery pressure of 25-30
mmHg. Assuming a right atrial pressure of 3 mmHg.
Compared to the previous echo 01/26/22, there is no significant change.
Total time spent today was 57 minutes for this encounter. Time includes reviewing laboratory test/imaging results, reviewing pertinent medical records, obtaining and reviewing medical history, performing an appropriate exam, ordering medications,
tests and procedures. Time also includes documentation of this encounter, coordinating patient care and communicating with other healthcare professionals. Total time does not include separately billed tests performed on this date of service.
--- NOTE | 2024-07-21 17:03 | PHA.VAN.IN ---
Assessment
- Assessment
Renal Function: Unknown baseline
Concomitant Antimicrobials: piperacillin/tazobactam
Plan
- Plan
Initial / Loading Dose: 2000mg - 07/21 11:08
Maintenance Regimen: dosing by level
Monitoring: random 07/22 0600
MRSA Screen: Ordered per protocol
Patient unlikely to follow population based PK
SCR baseline reportedly ~1.5 - pt currently under this at 1.1 - will follow trend and dose by level for now as suspect SCR may be unstable for next day or so
Given weight and loading dose received this AM, will give additional 500mg to help maintain level
Pharmacokinetics Vancomycin I
- -
Patient Age: 78
Patient Sex: Female
Vancomycin Day #: 1
Indication: Pulmonary/Respiratory
Requesting Provider: Dr. Ca (resident)
Pertinent Antimicrobial Allergies:
NKDA
Height / Weight:
Height 5 ft 2 in
Actual Weight 120.383 kg
Pertinent Past Medical History: BMI ~48.5, DM, CKD 3
- Vital Signs / Lab Results
Temp Pulse Resp BP Pulse Ox
98.4 F 82 18 177/65 99
07/21/24 15:58 07/21/24 15:58 07/21/24 15:58 07/21/24 15:58 07/21/24 16:51
Lab Results - Hematology
07/21/24
06:09
WBC 10.3
Lab Results - Chemistry
07/21/24
06:09
BUN 33 H
Creatinine 1.1 H
Estimated Creat Clear 53
Albumin 3.9
[2024-07-21 17:24] LABS: Procalcitonin 0.22 ng/ml (0.0-0.25)
--- NOTE | 2024-07-21 17:37 | CON.CAR ---
Consultation
Consultation Request
Date/Time Consultation Requested: July 21, 2024
Date/Time Consultation Performed: July 21, 2024
Requesting Provider: Hospitalist
Performing Provider: Terri
Reason for Consultation: Heart failure pneumonia
Medical History
-
Chief Complaint: Heart failure pneumonia
History of Present Illness:
Long complex medical history and this very pleasant 78-year-old female who has had a myriad of medical issues and recent prolonged hospitalization. She presents today with multilobar pneumonia via CAT scan in the left upper lobe and right upper
lobe and a possibly left lower lobe. She also has small bilateral pleural effusions and CT and chest x-ray also is read as apical pneumonia. Her abdominal ultrasound does show gallbladder sludge and moderate sized gallbladder stones. She carries
a complex past medical history including diastolic heart failure and four-vessel CABG in 2021. Her recent hospitalization included norovirus, orthostatic hypotension from significant diarrhea and syncope, multi bacterial urinary tract infection
including E. coli and Klebsiella. She was given IV diuretic in the ER and she is having vigorous diuresis. She has been placed on vancomycin and piperacillin by primary team. She is on 2 L of O2 at the bedside but feels relatively comfortable
Past Medical History
Past Medical History: CAD, CHF (Diastolic), HTN and Renal Failure
Past Surgical History: Cardiac
Social History
Tobacco: Non-Smoker
Alcohol: None
Drug: None
Personal: Other
Living: With Family
Employment: Not Employed
Family History
Family History: Reviewed & Not Pertinent
Allergies / Home Medications
Allergy/AdvReac Type Severity Reaction Status Date / Time
No Known Allergies Allergy Verified 07/21/24 05:59
�Medication �Instructions �Recorded �Confirmed �Type
cholecalciferol (vitamin D3) 50 50 mcg PO DAILY Supplement 01/20/22 07/21/24 History
mcg (2,000 unit) capsule (Vitamin
D3)
metoprolol succinate 25 mg 25 mg PO BID Blood Pressure 02/23/22 07/21/24 History
tablet,extended release 24 hr
miconazole nitrate 2 % topical 1 applic topical BID skin folds, 02/23/22 07/21/24 History
powder (Miconazorb AF) breasts
ezetimibe 10 mg tablet (Zetia) 10 mg PO DAILY High Cholesterol 05/04/24 07/21/24 History
pantoprazole 40 mg tablet,delayed 40 mg PO DAILY Gastrointestinal 05/04/24 07/21/24 History
release (Protonix) Issue
tirzepatide 7.5 mg/0.5 mL 7.5 mg SC MO Diabetes 05/04/24 07/21/24 History
subcutaneous pen injector
(Mounjaro)
acetaminophen 325 mg tablet 650 mg PO Q6HPRN PRN mild pain 06/02/24 07/21/24 History
albuterol sulfate 90 mcg/actuation 2 puff inhalation R Q4HPRN PRN sob 06/02/24 07/21/24 History
aerosol inhaler
aspirin 81 mg tablet,delayed 81 mg PO DAILY 06/02/24 07/21/24 History
release
atorvastatin 80 mg tablet 80 mg PO DAILY 06/02/24 07/21/24 History
amlodipine 5 mg-benazepril 10 mg 1 cap PO DAILY 07/21/24 07/21/24 History
capsule
hydrochlorothiazide 25 mg tablet 25 mg PO DAILY 07/21/24 07/21/24 History
insulin aspar prot-insulin aspart 45 unit SC DAILY 07/21/24 07/21/24 History
100 unit/mL (70-30) subcutaneous
pen (Novolog Mix 70-30FlexPen
U-100)
insulin aspar prot-insulin aspart 55 unit SC QPM 07/21/24 07/21/24 History
100 unit/mL (70-30) subcutaneous
pen (Novolog Mix 70-30FlexPen
U-100)
Review of Systems
-
Respiratory: Cough and Trouble Breathing
Cardiac: No Symptoms
Physical Exam
Vital Signs
Temp Pulse Resp BP Pulse Ox
98.4 F 82 18 177/65 99
07/21/24 15:58 07/21/24 15:58 07/21/24 15:58 07/21/24 15:58 07/21/24 16:51
Lab Results
07/21/24 06:09
07/21/24 06:09
Troponin I 0.032 ng/ml 07/21/24 06:09
Cnx-Q-Cbhzedmfslc Pept 2540 pg/ml 07/21/24 06:09
Physical Exam
General: Well Developed and Well Nourished
HEENT: Normocephalic and Anicteric
Respiratory: Wheezes and Crackles
Cardiac: S1/S2, Regular Rhythm and Murmur (No murmur)
Breast: Deferred by me
GI: Soft, Non Tender and Non Distended
Rectal: Deferred by Provider
Genito-urinary: Clear Urine
Musculoskeletal: No Clubbing and No Cyanosis
Skin: Warm and Dry
Neuro: Awake, Alert and Oriented
Hematologic/Lymphatic: No Lymphadenopathy
Psych: Calm
Impression / Plan
-
Impression:
Multilobar pneumonia
Diastolic heart failure
Moderate gallstones
Transaminitis as noted
New gallbladder sludge
History of CABG
History of diabetes
GERD
Mixed hyperlipidemia
Essential hypertension
History of paroxysmal atrial fibrillation
History of sepsis
History of multi organism urinary tract infection
History of norovirus gastroenteritis
History of syncope from orthostatic hypotension due to the gastroenteritis
History of hyponatremia
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 Fraga
Recommendations:
Agree with IV diuresis as you are
Agree with broad-spectrum antibiotics for the multilobar pneumonia as you are
She appears to be responding relatively well to the current diuretic approach
She has a transaminitis and new gallbladder sludge on abdominal ultrasound�defer to primary team approach management. May consider holding off on Tylenol and atorvastatin in the short-term
We will follow with you
Keep K greater than 4 mag greater than 2
Data Reviewed
-
EKG: Tracing Personally Visualized and interpreted
CT Scan: Report Reviewed by me
Medical Tests (Nuc Med, Echo etc): Report Reviewed by me
Labs: Labs Reviewed by me
Old Records: Reviewed
[2024-07-21] MEDS: NOVOLOG MIX 70/30 FLEXPEN SC (18:03)
[2024-07-21] MEDS: NOVOLOG MIX 70/30 FLEXPEN 35 UNITS SC (18:09)
[2024-07-21 18:20] LABS: Urine Albumin Negative (Neg - Trace); Urine Bilirubin Negative (Negative); Urine Character Clear (Clear); Urine Color Yellow; Urine Glucose Negative (Negative); Urine Ketone Negative (Negative); Urine Leukocyte Negative (Negative); Urine Nitrite Negative (Negative); Urine Occult Blood Negative (Negative); Urine Urobilinogen Negative (Neg - 1+)
[2024-07-21] MEDS: ZOSYN IV (18:24)
[2024-07-21 18:35] LABS: TSH Reflex To Free T4 1.23 uIU/ml (0.47-4.68)
[2024-07-21] MEDS: DESENEX/MITRAZOL/ZEASORB 1 APPLIC TOPICAL (21:07)
[2024-07-21] MEDS: TOPROL XL 25 MG PO (21:07)
[2024-07-21 21:41] LABS: Glucose - Point of Care 138 mg/dl (70-99)
[2024-07-21] MEDS: TYLENOL 650 MG PO (23:51)
[2024-07-22] MEDS: ZOSYN 100 IV ×3 (01:07→12:50)
[2024-07-22] MEDS: VANCOCIN HCL 500 MG 100 IV (01:53)
[2024-07-22 03:36] VITALS: BP 116/51
[2024-07-22 06:00] VITALS: BMI 48.8
[2024-07-22 07:25] LABS: Glucose - Point of Care 121 mg/dl (70-99)
[2024-07-22 07:33] VITALS: BP 149/55
[2024-07-22 07:50] LABS: Vancomycin Random 17.1 ug/ml
[2024-07-22 08:05] LABS: ALT (SGPT) 252 U/L (0-35); AST (SGOT) 328 U/L (14-36); Alkaline Phosphatase 318 U/L (38-126); Blood Urea Nitrogen 30 mg/dl (7-17); Calcium 8.7 mg/dl (8.4-10.2); Carbon Dioxide 24 mmol/L (22-30); Chloride 105 mmol/L (98-107); Estimated Creatinine Clearance 44 ml/min; Glucose 105 mg/dl (70-99); HDL Cholesterol 51 mg/dl; LDL Cholesterol, Calculated 28 mg/dl; Magnesium 1.5 mg/dl (1.6-2.3); Potassium 3.9 mmol/L (3.5-5.1); Sodium 138 mmol/L (135-145); Total Bilirubin 5.6 mg/dl (0.2-1.3); Total Cholesterol 93 mg/dl (50-199); Total Protein 5.1 g/dl (6.3-8.2); Triglyceride 73 mg/dl (10-149); Very Low Density Lipoprotein 14 mg/dl (0-30); eGFR 42.09
--- NOTE | 2024-07-22 08:13 | PN.DE.MGMTRT ---
Insulin Management
- -
07/22/2024: Diabetes Management Consult
78 year old female who has had a myriad of medical issues and recent prolonged hospitalization 06/01-06/17. Pt has been re-admitted for multilobar PNA in the left upper lobe and right upper lobe and a possibly left lower lobe. Also noted for
gallbladder sludge and moderate sized gallbladder stones on abd US.
PMH: Diastolic heart failure, NM, CAD s/p CABG in 2021, HTN, HLD, CKD and T2DM.
Her recent hospitalization included norovirus, orthostatic hypotension from significant diarrhea and syncope, multi bacterial urinary tract infection including E. coli and Klebsiella. She was recently discharged from rehab on 70/30 insulin 55 units
in AM and 40 units in PM.
States she sees Dr. Renea Hartley at [facility] on a regular basis for diabetes care. States that she often has to decrease her 70/30 doses based on her blood sugar when she is at home and that Dr. Hartley has agreed that Nicki knows her
diabetes and is OK that she adjusts the insulin.
Her A1C was 8.7% on 05/05/24. Repeat A1C on admission is 7.3% , Cr 1.3, eGFR 42.09
Patient is awake alert and oriented, sitting up @edge of bed eating, offers no complaints, able to discuss diabetes management.
Current diabetes regimen includes reduced dose of 70/30 insulin to 45 units in AM and 35 units in PM
3/2 Premeal glucose 121 to 188, HS glucose was 138, FBG 103(V), pre-lunch glucose is 206. Change diet to 1800 and change to moderate corrective with meals
Will make no other changes to current regimen: 70/30 45 units in AM and 35 units in PM.
Will cont to follow and adjust insulin dose if necessary. Discussed with pt and nurse.
Diabetes History
- -
Type of Diabetes: 2 requiring insulin
Pre-Admission Diabetes Regimen
07/22/24
06:57
Creatinine 1.3 H
Insulin Pump Settings
IP Diabetes Regimen
07/21/24 07/21/24 07/22/24
16:44 21:40 06:57
Glucose 105 H
POC Glucose 188 H 138 H
07/22/24
07:23
Glucose
POC Glucose 121 H
Patient Education
[2024-07-22 08:27] LABS: Glycohemoglobin (HgbA1c) 7.3 % (4.0-5.6)
[2024-07-22] MEDS: NOVOLOG FLEXPEN-LOW RESISTANCE SC (08:36)
[2024-07-22] MEDS: LASIX 40 MG IV ×2 (08:36→17:04)
[2024-07-22] MEDS: LOTREL 5 MG/10 MG 1 CAPSULE PO (08:37)
[2024-07-22] MEDS: PROTONIX 40 MG PO (08:37)
[2024-07-22] MEDS: VITAMIN D3 (cholecalciferol) 50 MCG PO (08:37)
[2024-07-22] MEDS: TOPROL XL 25 MG PO ×2 (08:37→19:51)
[2024-07-22] MEDS: ASPIR LOW (ENTERIC COATED) 81 MG PO (08:37)
[2024-07-22] MEDS: NOVOLOG MIX 70/30 FLEXPEN 45 UNITS SC (08:38)
[2024-07-22] MEDS: DESENEX/MITRAZOL/ZEASORB 1 APPLIC TOPICAL ×2 (08:47→19:52)
[2024-07-22 08:59] LABS: Hematocrit 25.5 % (37.0-47.0); Hemoglobin 8.3 g/dL (12.0-16.0); Mean Corp Hgb Conc. 32.5 g/dL (33.0-37.0); Mean Corpuscular Hgb 27.4 pg (27.0-31.0); Mean Corpuscular Volume 84.2 fL (81.0-99.0); Mean Platelet Volume 9.7 fL (7.4-10.4); Platelet Count 220 10^3/uL (130-400); Red Blood Cell Count 3.03 10^6/uL (4.20-5.40); Red Cell Dist. Width 16.3 % (11.5-14.5); White Blood Cell Count 8.1 10^3/uL (4.8-10.8)
--- NOTE | 2024-07-22 09:50 | PHA.VAN.FU ---
Vancomycin Assessment / Plan
- Assessment
Renal Function: SCR Increasing
WBC's are: WNL
In the past 24 hrs, patient has been: Afebrile
Concomitant Antimicrobials: piperacillin/tazobactam
- Assessment - Therapeutic Drug Monitoring
Random Level: R=17.1 on 3.3 @0656
- Dosing Plan
Dosing by Level: Hold off on dosing today
- Monitoring Plan
Random Level: 3 @ 0600
- Follow Up
Pharmacy will continue to follow.
Vancomycin Follow UP
- -
Patient Age: 78
Patient Sex: Female
Vancomycin Day #: 2
Indication: Pulmonary/Respiratory
Requesting Provider: Dr. Ca (resident)
Pertinent Antimicrobial Allergies:
NKDA
Height / Weight:
Height 5 ft 2 in
Actual Weight 120.882 kg
Pertinent Past Medical History: BMI ~48.5, DM, CKD 3
- Vital Signs / Lab Results
Temp Pulse Resp BP Pulse Ox
98.3 F 69 20 149/55 97
07/22/24 07:33 07/22/24 07:33 07/22/24 07:33 07/22/24 08:36 07/22/24 07:33
Lab Results - Hematology
07/21/24 07/22/24
06:09 06:57
WBC 10.3 8.1
Lab Results - Chemistry
07/21/24 07/22/24
06:09 06:57
BUN 33 H 30 H
Creatinine 1.1 H 1.3 H
Estimated Creat Clear 53 44
Albumin 3.9 3.0 L
Lab Results - Urine
07/21/24
18:10
Urine Nitrite (Reflex) Negative
Leukocyte Esterase Rfl Negative
Microbiology Results
07/21/24 18:06 Nasal Screen MRSA (PCR) - Final
Nose MRSA not detected - performed by PCR methodology.
Therapeutic Drug Monitoring
Random Vancomycin 17.1 ug/ml 07/22/24 06:56
[2024-07-22 11:07] LABS: Glucose - Point of Care 206 mg/dl (70-99)
--- NOTE | 2024-07-22 11:07 | W.PN.PUL3 ---
Today's Communication / Plan
-
Wean o2 as tolerated, home O2 eval noted
Encouraged OOB, IS
IV diuresis per cards ongoing
Stop abx and observe
D/c planning per team, could benefit from rehab placement
Assessment
-
78-year-old morbidly obese female with a past medical history of CAD s/p CABG x 4 with left atrial appendage exclusion (01/2022), DM type II, dyslipidemia, hypertension, chronic HFpEF, Ferreira's palsy and neuropathy who presents with chest pain
radiating to the back, indigestion and shortness of breath. She took aspirin prior to arrival and EMS gave her nitroglycerin spray that helped her symptoms. She has been having chronic shortness of breath since her heart attack in January 2022.
She was recently hospitalized here from 06/03 - 06/17/2024 due to norovirus gastroenteritis with syncope and hypotension. She was discharged to a rehab and returned home on 07/17/2024 on home oxygen at 2 L/min. She has been having bilateral leg
swelling and shortness of breath when laying flat. She was afebrile in the ER, hypertensive to 174/78, heart rate 76, respiratory rate 28 and saturating 98% on room air. Labs showed Hb 10, glucose 175, creatinine 1.1, elevated LFTs, proBNP 2540
(of note she was 149 on 05/04/2024). CXR showed left suprahilar opacification concerning for pneumonia. CTA chest was obtained showing no evidence of PE or dissection, with bilateral pleural effusions, right greater than sign left, with bilateral
consolidative opacities concerning for pneumonia. In the ER she was given 40 mg IV Lasix, nitroglycerin ointment 1 inch, Zosyn and vancomycin and admitted to the hospitalist service. Pulmonary service now consulted for additional
management/recommendations.
Acute respiratory failure with hypoxia likely due to acute decompensated heart failure/acute HFpEF exacerbation
Recent diagnosis of pneumonia while at rehab last month, Tx with levaquin x 7 days
Bilateral perihilar opacities likely due to acute pulmonary edema; less likely pneumonia
Bilateral pleural effusions (R >L)
Gallbladder sludge + gallstones without evidence of acute cholecystitis on abdominal ultrasound from 07/21/2024
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
History of NSTEMI
CAD s/p CABG x 4 with ROCIO�E (01/2022)
DM type II (uncontrolled � HbA1c: 8.7 on 05/05/2024)
Dyslipidemia
Hypertension
Morbid obesity, BMI: 48.5
Chronic HFpEF
Ferreira's palsy
Neuropathy
Fatty liver disease due to morbid obesity
Plan:
Currently on 4L NC, wean as tolerated--sats 98%
She has been on O2 intermittently but not continuously
Home O2 eval
Suspect SOB is multifactorial, she has acute on chronic complaints
Due to morbid obesity, CHF, deconditioning, recent PNA --reviewed this with patient
SNF-rehab and IS would be beneficial
CTA chest on 07/21/2024 shows bilateral pleural effusions with interlobular septal thickening and bilateral consolidative opacities likely due to her recent pneumonia (Dx last month and Tx with levaquin x 7 days) and possibly appears more fluffy now
due to acute pulmonary edema; her proBNP is now 2540, which is the highest that she has been since has been checked here dose on hospital, hence would continue treatment for acute decompensated heart failure with aggressive diuresis
Replete electrolytes with K>4, Mg>2 while diuresing
Patient recently had an echo on 06/05/2024 showing normal biventricular size and function with mild concentric LVH, normal regional wall motion and LVEF 51%, with normal PASP
Cardiology consulted and recommendations appreciated
Unlikely pneumonia, especially with a procalcitonin of 0.22, and she is non-toxic appearing with no productive cough, fever or chills; of note, urinalysis shows no signs of infection
She is currently on empiric antibiotics with Vanco/Zosyn --> would stop abx and observe off given improvement
Would recommend repeat imaging in another 3-5 weeks to re-assess her lung parenchyma
Reviewed her most prior CTA chest from 01/17/2022 and she has no underlying abnormal pulmonary parenchyma, including no emphysema, ILD or any concerning nodules/masses
Maintain SpO2 >90-94% with supplemental O2 and wean as tolerated while keeping SpO2 >90-94%
Continue aspiration precautions, keeping HOB >30-45�
prn nebulized bronchodilators - not currently bronchospastic
Incentive spirometer encouraged q1hr while awake
PT/OT recommended
Patient's BMI is 48.5. Weight loss is critical for her. Would recommend her seeing us in the office and if she makes a diagnosis of sleep apnea she would be a candidate for Zepbound
Recommend outpatient pulmonary/sleep office follow-up to discuss sleep disordered breathing as she thinks she snores and she has non-restorative sleep
We discussed her weight being an issue as well
DVT ppx: LMWH
Pulmonary service will continue to follow along.
Pulmonary outpatient office follow-up recommended.
Diagnostic Data:
CTA Chest 07/21/2024: No evidence of pulmonary embolus. Moderate right and small left pleural effusions. Moderate left upper lobe, mild right upper lobe and minimal left lower lobe findings suggesting pneumonia. Mild right upper lobe and right lower
lobe probable atelectasis. Small hypodense right thyroid lesion likely a benign nodule. Nonurgent dedicated thyroid ultrasound recommended if not previously evaluated
Abdominal ultrasound 07/21/2024: New moderate gallbladder sludge and many moderate sized gallstones which have increased in number. No secondary findings to suggest acute cholecystitis. Clinical and laboratory correlation recommended. Hepatic fatty
infiltration. Stable. Nonvisualization of the proximal abdominal aorta due to overlying bowel gas. Bilateral pleural effusions. New
Transthoracic echocardiogram 06/05/2024: Normal left ventricular size and function. Mild concentric left ventricular hypertrophy. Normal regional wall motion. LV ejection fraction is 51% by volumetric assessment. Normal diastolic function. Normal
right ventricular size and function. Aortic sclerosis without stenosis. Mild tricuspid regurgitation. Estimated pulmonary artery pressure of 25-30 mmHg. Assuming a right atrial pressure of 3 mmHg. Compared to the previous echo 01/26/22, there is no
significant change.
-----
Total time spent today was 53 minutes for this encounter. Time includes reviewing laboratory test/imaging results, reviewing pertinent medical records, obtaining and reviewing medical history, performing an appropriate exam, ordering medications,
tests and procedures. Time also includes documentation of this encounter, coordinating patient care and communicating with other healthcare professionals. Total time does not include separately billed tests performed on this date of service.
Subjective Data
-
Date of Service:
Date of Service: July 22, 2024
Chief Complaint: Pulmonary Follow Up
Subjective:
Remains on 4L NC, SOB ongoing
Sedentary, does not ambulate in room
Objective Data
Data Reviewed
Vital Signs / I&O / Oxygen:
Vital Signs
Temp Pulse Resp BP Pulse Ox
98.3 F 69 20 149/55 97
07/22/24 07:33 07/22/24 07:33 07/22/24 07:33 07/22/24 08:36 07/22/24 07:33
Intake and Output
07/21/24 07/22/24 07/23/24
06:59 06:59 06:59
Intake Total 1500 / 1500
Output Total 2200 / 2200
Balance -700 / -700
SaO2 97
Nasal Cannula flow liters per 4
minute
Physical Exam
General: Comfortable, Other (morbid obesity) and Other (NAD)
HEENT: Normocephalic, Anicteric and Moist Mucous Membranes
Cardiovascular: S1-S2 and Regular Rhythm
Respiratory: Clear and Non-Labored Respirations
GI: Soft, Non Distended and Non Tender
Neurology: Awake, Alert, Oriented and No Motor Deficits
Skin: Warm, Dry and Good Color
Labs/Micro/Reports
Lab Data
07/22/24 06:57
07/22/24 06:57
Microbiology
07/21/24 18:06 Nose Nasal Screen MRSA (PCR) - Final
MRSA not detected - performed by PCR methodology.
[2024-07-22 11:20] VITALS: BP 112/70
--- NOTE | 2024-07-22 11:20 | CM ---
Pt seen bedside, initial assessment completed. Patient is a 78-year-old female with history of HFpEF, CKD 3, chronic anemia, recent use of 2 L home O2 nasal cannula.
Patient reports that she lives alone in a condo single unit home in a [place] community. Home is a rancher style- 1 step to enter the home. Patient is independent w/ ADLs. Patient uses a RW and cane as needed. Patient stated she recently was at [facility], d/c on 07/17 w/ O2 needs. Patient is on 2L O2 at baseline. Patient was at [facility] in the past, current w/ [facility].
Address, points of contact and insurance verified
PCP: Latasha Branch
Pharmacy: [facility]
Plan: Anticipate home. LELE w/ [facility]
CM will cont to follow for d/c planning
--- NOTE | 2024-07-22 11:36 | W.PN.CARDCBS ---
Addendum entered and electronically signed by Uriel Piper MD 07/22/24 13:52:
I saw and examined the patient.
The VENEER STOCK LAYER or PA's note was reviewed and I agree with the note.
Comment: General: Well developed, well nourished in NAD.
Neck: Supple, no JVD, HJR, carotids +2 B/L, no bruits bilaterally.
Heart: Non displaced PMI, RRR, no murmurs, No S3, S4, no rubs.
Lungs: Scattered rhonchi at the bases
Extremities: No clubbing, cyanosis or edema bilaterally.
Neuro: Grossly nonfocal, awake, alert and oriented x3.
She is improved but remains on oxygen. She was on oxygen at home apparently. Continue diuresis and treatment of pneumonia.
Original Note:
Today's Communication / Plan
-
Continue diuresis
Follow renal function closely
Replete mag
Continue management of pneumonia per pulm/primary service
Wean O2 as able.
Impression / Plan
-
PCP: Dr. Branch
Rn Managed Care: Dr. Fraga
Impression:
Presented with SOB and chest pressure
Multilobar pneumonia
Recent admission at w/ UTI, norovirus, RACHELLE 05/2024
Acute HFpEF
Moderate gallstones w/ sludge
Elevated LFTs
CAD
s/p CABG with MORFIN to LAD, SVG to Diag, SVG to OM, SVG to PDA 01/26/22
s/p Pericardial patch repair of medial right atrium 01/26/22
Paroxysmal atrial fibrillation (brief post-op)
DM2
HTN
HLD
Suspected SATURNINO
GERD
Echo: 01/20/22: LV: Normal size. Mild LVH. EF: 50-55% visually. Mid-distal anteroseptal HK. RV: Normal, LA: Mildly dilated, RA: Normal, MV: Mo MS or MR, AV: Trileaflet no AI, TV: Trace TR with PAP 15-20 mmHg
JOSELITO post-op 01/26/22: EF 60-65%, no RWMA, mild MR
Echo 06/05/2024: EF 51%, mild cLVH, aortic sclerosis without stenosis, mild TR, estimated PAP 25-30 mmHg
Plan:
-Presented with SOB and chest pressure. Admitted with multilobar pneumonia and acute heart failure.
-Diuresing with IV lasix 40mg BID. Not on diuretic prior to admission.
-Weight appears stable overnight at 266 lbs, negative on I&Os. Continue to follow daily weights, I&Os.
-Creat 1.3. Follow closely with diuresis.
-Echo 05/2024 with EF 51% and no significant valvular disease. No need to repeat at this time.
-Continue Toprol 25mg BID.
-Continue management of pneumonia per pulmonology/primary service.
-Follow LFTs. Lipitor on hold. LDL 28.
-Remains in SR on review of telemetry. No afib noted. Not on anticoagulation given low burden.
-Continue aspirin 81mg daily.
-Hgb down to 8.3 07/22. Continue to follow.
-K 3.9 with mag 1.5. Will replete.
HPI: Long complex medical history and this very pleasant 78-year-old female who has had a myriad of medical issues and recent prolonged hospitalization. She presents today with multilobar pneumonia via CAT scan in the left upper lobe and right
upper lobe and a possibly left lower lobe. She also has small bilateral pleural effusions and CT and chest x-ray also is read as apical pneumonia. Her abdominal ultrasound does show gallbladder sludge and moderate sized gallbladder stones. She
carries a complex past medical history including diastolic heart failure and four-vessel CABG in 2021. Her recent hospitalization included norovirus, orthostatic hypotension from significant diarrhea and syncope, multi bacterial urinary tract
infection including E. coli and Klebsiella. She was given IV diuretic in the ER and she is having vigorous diuresis. She has been placed on vancomycin and piperacillin by primary team. She is on 2 L of O2 at the bedside but feels relatively
comfortable
Progress Note - Rn Managed Care
Subjective
Date of Service: July 22, 2024
Feels breathing is improving while at rest. Still SOB w/ exertion and still w/ some LE edema.
Objective
Labs:
07/22/24 06:57
07/22/24 06:57
Labs
Hgb 8.3 g/dL (12.0-16.0) L 07/22/24 06:57
Hct 25.5 % (37.0-47.0) L 07/22/24 06:57
Plt Count 220 10^3/uL (130-400) D 07/22/24 06:57
PT 14.5 Sec (11.4-14.6) 07/21/24 07:02
INR 1.09 07/21/24 07:02
APTT 29.1 Sec (23.4-35.0) 07/21/24 07:02
Sodium 138 mmol/L (135-145) 07/22/24 06:57
Potassium 3.9 mmol/L (3.5-5.1) 07/22/24 06:57
BUN 30 mg/dl (7-17) H 07/22/24 06:57
Creatinine 1.3 mg/dL (0.6-1.0) H 07/22/24 06:57
Glucose 105 mg/dl (70-99) H 07/22/24 06:57
Troponins
07/21/24
06:09
Troponin I 0.032
Vital Signs and I&O:
Vital Signs
Temp Pulse Resp BP Pulse Ox
98.6 F 72 18 112/70 99
07/22/24 11:20 07/22/24 11:20 07/22/24 11:20 07/22/24 11:20 07/22/24 11:20
Vital Signs
Temp Pulse Resp BP Pulse Ox
98.6 F 72 18 112/70 99
07/22/24 11:20 07/22/24 11:20 07/22/24 11:20 07/22/24 11:20 07/22/24 11:20
Intake & Output
07/20/24 07/21/24 07/22/24 07/23/24
06:59 06:59 06:59 06:59
Intake Total 1500 / 1500
Output Total 2200 / 2200
Balance -700 / -700
Physical Exam
Physical Exam
GEN: No distress, awake, alert, oriented x3
HEENT: supple, anicteric, mmm
LUNGS: crackles at b/l bases
CV: Reg, S1/S2, no murmur
EXT: No clubbing or cyanosis, +1 edema b/l LE
NEURO: Gross non-focal
SKIN: Warm, dry, no rash
[2024-07-22] MEDS: NOVOLOG FLEXPEN-LOW RESISTANCE 2 UNITS SC (11:51)
[2024-07-22] MEDS: NOVOLOG FLEXPEN-MODERATE RESISTANCE SC (12:49)
[2024-07-22] MEDS: MAGNESIUM OXIDE 500 MG PO (14:37)
--- NOTE | 2024-07-22 14:46 | CON.GI ---
Addendum entered and electronically signed by Zayra Patel MD 07/22/24 19:05:
I saw and examined the patient.
The medical radiation therapist note was reviewed and I agree with the note.
--Elevated liver test-AST 328/ALT 252/alkaline phosphatase 318/total bilirubin 5.6. Liver tests were grossly unremarkable with mildly elevated alkaline phosphatase 05/2024
-- Acute hypoxic respiratory failure -pneumonia versus CHF
plan
MRI 07/22/2024-cholelithiasis without choledocholithiasis.
Likely etiology for elevated liver test secondary to congestive hepatopathy versus sepsis vs DILI
Continue to trend LFT. INR/ plt normal
Will check hepatitis panel
Avoid hepatotoxic substance
Original Note:
Consultation
-
Date/Time Consultation Requested: 07/22/2024 13.39
Date/Time Consultation Performed: 07/22/2024 14.24
Requesting Provider: Griselda Ca MD
Performing Provider: Cate Yañez MD
Reason for Consultation: Transaminitis
Medical History
Chief Complaint / HPI
Chief Complaint: Shortness of breath
History of Present Illness:
The patient is a 78-year-old female with a PMH of CAD s/p CABG, HFpEF, hypertension, hyperlipidemia, history of Ferreira's palsy, insulin-dependent DM type II and neuropathic pain who presented to ER on 07/21/2024 complaining from chest pain radiating to
the back, shortness of breath, heartburn and indigestion. The patient described a burning sensation on her chest like heartburn and she had a chest pain radiating to her back with worsening shortness of breath for which she decided to come
hospital. She took a full dose of aspirin and nitroglycerin spray prior to arrival to the hospital.The patient reported complaining from shortness of breath since 2021 after having heart attack requiring bypass, and she added feeling some
discomfort on her upper abdominal area since yesterday pointing more discomfort on his right upper abdominal quadrant. At admission, her chest CT was not remarkable for PE but showed bilateral pleural effusions and possible pneumonia. Her lab
results were significant for low hemoglobin level of 10 (likely her baseline), BUN 30 (likely baseline), creatinine 1.1, elevated TB to 3.4, with elevated AST to 454, elevated ALT to 193, elevated ALP to 262, elevated glucose to 175 and elevated
proBNP to 2540. Her abdominal US was notable for new moderate gallbladder sludge and many moderate sized gallstones without any findings to suggest acute cholecystitis. Additionally, the patient reported she was told having gallbladder stones
in 2021 which was incidentally. She endorses having symptoms of GERD (on pantoprazole 40 mg daily ), history of constipation in the past and feeling some bloated, having chills and shortness of breath. The patient denies nausea, vomiting,
dysphagia, odynophagia, hematemesis, melena, diarrhea, fever. reports her bowel movements almost daily, her last bowel movement was yesterday and normal formed, denies constipation currently after starting oatmeal.
Off note, her recent hospitalization was between 06/03/24 to 06/17/2024 due having norovirus gastroenteritis and UTI. Following, the patient was discharged to rehab unit where she was diagnosed with COVID and was discharged from rehab on 07/17/2024.
The patient had worsening of dyspnea at rehab and was required home oxygen at 2 L at discharge.
Past Medical History
Past Medical History: CAD (2021 s/p bypass), CHF (HFpEF,), HTN, Hypercholesterolemia, IDDM, [place] and Renal Failure (CKD stage III, chronic respiratory failure, chronic anemia, urinary retention, obesity, history of constipation, osteoarthritis)
Past Surgical History: Cardiac (CABG in January 2022), Gynecological and Other (Cataract)
Social History
Tobacco: Other (Reports being second hand smoke exposure for years)
Alcohol: None
Drug: None
Living: With Family
Employment: Other
Family History
Family History: CAD (Heart failure, pacemaker) and Other (Father has emphysema, sisters has chronic lung diseases like bronchiectasis and asthma)
Allergies / Home Medications
Allergy/AdvReac Type Severity Reaction Status Date / Time
No Known Allergies Allergy Verified 07/21/24 05:59
�Medication �Instructions �Recorded
cholecalciferol (vitamin D3) 50 50 mcg PO DAILY Supplement 01/20/22
mcg (2,000 unit) capsule (Vitamin
D3)
metoprolol succinate 25 mg 25 mg PO BID Blood Pressure 02/23/22
tablet,extended release 24 hr
miconazole nitrate 2 % topical 1 applic topical BID skin folds, 02/23/22
powder (Miconazorb AF) breasts
ezetimibe 10 mg tablet (Zetia) 10 mg PO DAILY High Cholesterol 05/04/24
pantoprazole 40 mg tablet,delayed 40 mg PO DAILY Gastrointestinal 05/04/24
release (Protonix) Issue
tirzepatide 7.5 mg/0.5 mL 7.5 mg SC MO Diabetes 05/04/24
subcutaneous pen injector
(Kiko)
acetaminophen 325 mg tablet 650 mg PO Q6HPRN PRN mild pain 06/02/24
albuterol sulfate 90 mcg/actuation 2 puff inhalation R Q4HPRN PRN sob 06/02/24
aerosol inhaler
aspirin 81 mg tablet,delayed 81 mg PO DAILY Blood Clot 06/02/24
release Prevention/Tx
atorvastatin 80 mg tablet 80 mg PO DAILY High Cholesterol 06/02/24
amlodipine 5 mg-benazepril 10 mg 1 cap PO DAILY Blood Pressure 07/21/24
capsule
hydrochlorothiazide 25 mg tablet 25 mg PO DAILY Fluid 07/21/24
Retention/Swelling
insulin aspar prot-insulin aspart 45 unit SC DAILY Diabetes 07/21/24
100 unit/mL (70-30) subcutaneous
pen (Novolog Mix 70-30FlexPen
U-100)
insulin aspar prot-insulin aspart 55 unit SC QPM Diabetes 07/21/24
100 unit/mL (70-30) subcutaneous
pen (Novolog Mix 70-30FlexPen
U-100)
Review of Systems
-
History Source: Patient
Constitutional: Reports No Symptoms, Weight Gain and Chills
EENT: Reports No Symptoms
Respiratory: Reports Other (Shortness of breath /on supplemental oxygenwith nasal cannula)
Cardiac: Reports Other (Some discomfort)
Abdomen/GI: Reports Other (Discomfort)
: Reports Difficulty Voiding
Musculoskeletal: Reports Edema
Neurological: Reports No Symptoms
Vital Signs
Temp Pulse Resp BP Pulse Ox
98.6 F 72 18 112/70 92
07/22/24 11:20 07/22/24 11:20 07/22/24 11:20 07/22/24 11:20 07/22/24 13:03
Physical Exam
Exam
General: Well Developed, Well Nourished and Other (Obese)
HEENT: Normocephalic and Anicteric
Respiratory: Clear and Non Labored Respirations
Cardiac: S1/S2 and Regular Rhythm
GI: Soft, Non Distended, Tender (Mildly tender on right upper abdominal quadrant) and Other
Musculoskeletal: No Clubbing, No Cyanosis and Edema (Right lower extremity)
Skin: Warm and Dry
Neuro: Awake, Alert and Oriented
Psych: Calm
Results
WBC 8.1 10^3/uL (4.8-10.8) 07/22/24 06:57
Hgb 8.3 g/dL (12.0-16.0) L 07/22/24 06:57
Hct 25.5 % (37.0-47.0) L 07/22/24 06:57
MCV 84.2 fL (81.0-99.0) 07/22/24 06:57
Plt Count 220 10^3/uL (130-400) D 07/22/24 06:57
Absolute Neuts (auto) 8.8 10^3/uL (1.4-6.5) H 07/21/24 06:09
PT 14.5 Sec (11.4-14.6) 07/21/24 07:02
INR 1.09 07/21/24 07:02
APTT 29.1 Sec (23.4-35.0) 07/21/24 07:02
Sodium 138 mmol/L (135-145) 07/22/24 06:57
Potassium 3.9 mmol/L (3.5-5.1) 07/22/24 06:57
Chloride 105 mmol/L (98-107) 07/22/24 06:57
Carbon Dioxide 24 mmol/L (22-30) 07/22/24 06:57
BUN 30 mg/dl (7-17) H 07/22/24 06:57
Creatinine 1.3 mg/dL (0.6-1.0) H 07/22/24 06:57
Calcium 8.7 mg/dl (8.4-10.2) 07/22/24 06:57
Total Bilirubin 5.6 mg/dl (0.2-1.3) H D 07/22/24 06:57
AST 328 U/L (14-36) H 07/22/24 06:57
ALT 252 U/L (0-35) H 07/22/24 06:57
Alkaline Phosphatase 318 U/L (38-126) H 07/22/24 06:57
Diagnostic Image Results:
ABD US 07/21/2024
FINDINGS: The liver is normal in size, measuring 17.5 cm in length. It is increased in echogenicity. There is no focal hepatic lesion or intrahepatic biliary dilation. The gallbladder is physiologically distended with fluid and shows moderate
gallbladder sludge. There are many moderate-sized gallstones.. The common duct is normal, measuring 7 mm. The pancreas is normal in size and echogenicity and shows no focal mass or calcification. The spleen is normal in size and shows no focal
abnormality. Survey evaluation of the kidneys shows no hydronephrosis. No free fluid is seen in the abdomen. The proximal IVC is unremarkable. The proximal abdominal aorta is not visualized due to overlying bowel gas.
There is a small right and a moderate left pleural effusion.
IMPRESSION: New moderate gallbladder sludge and many moderate sized gallstones which have increased in number. No secondary findings to suggest acute cholecystitis. Clinical and laboratory correlation recommended.
Hepatic fatty infiltration. Stable
Nonvisualization of the proximal abdominal aorta due to overlying bowel gas.
Bilateral pleural effusions. New
Prior GI Procedures:
EGD:
Colonoscopy:
Assessment / Plan
-
Assessment
The patient is a 78-year-old obese female with a past medical history of CAD s/p CABG, HFpEF, hypertension, dyslipidemia, insulin-dependent diabetes mellitus type 2, history of Ferreira's palsy and neuropathy who was brought to the hospital for
evaluation of her chest pain radiating to back, having shortness of breath, some heartburn and indigestion. The patient endorsed having GERD and abdominal discomfort, but denies any associated GI symptoms. Her admission lab results were
significant for elevated LFTs and TB levels. Her follow-up LFT and TB levels remain still elevated without any improvement. Her abdominal US was notable for gallbladder sludge and gallstones but without any findings for acute cholecystitis.
Today, on her physical exam, the patient reported mild discomfort on her right upper quadrant abdominal area.
Impression
Transaminitis (cholestatic and hepatocellular pattern)
GERD
History of constipation
Acute hypoxic respiratory failure likely mix of new developing PNA and acute exacerbation of HFpEF
CAD s/p CABG
Hypertension
Hyperlipidemia
IDDM
CKD stage III
Chronic back pain
History of urinary retention
Plan
#Transaminitis likely due pneumonia versus cholecystitis/choledocholithiasis
-Abdominal US on 07/21/2024: : New moderate gallbladder sludge and many moderate sized gallstones. No findings to suggest acute cholecystitis. / Hepatic fatty infiltration-Stable
-AST decreased to 328 from 454, ALT increased from 193 to 252, ALP increased from 262 to 318 this a.m.
-TB 3.4 on 07/21/2024, increased to 5.6 on 07/22/24
-Follow-up LFTs, TB, INR
-Hold ezetimibe and atorvastatin
-Avoid hepatotoxic medications
-MRI/MRCP pending
GERD
-Continue PPI
GI team will follow-up the patient with MRCP results
-
-
Thank you for consultation and allowing me to participate in the patient's care. Please call the [facility] physician during the after hours with any questions or concerns.
[2024-07-22 15:15] VITALS: BP 166/72
--- NOTE | 2024-07-22 15:39 | W.PN.HOSP.TC ---
Today's Communication/Plan
-
Continue diuresis, MRCP/MRI abd
Assessment / Plan
Assessment / Plan
78-year-old female with history of HFpEF, CKD 3, chronic anemia, recent use of 2 L home O2 nasal cannula, CAD plus bypass January 2022, hypertension, hyperlipidemia, IDDM, obesity, who presents with worsening chest pressure and shortness of breath.
Acute hypoxic respiratory failure:
Troponin normal. EKG unremarkable. ProBNP: 2500. Concern for acute HFpEF exacerbation.
Chest x-ray: mild opacification in the left suprahilar region which is new and concerning for developing pneumonia.
CTA: No evidence of pulmonary embolus. Moderate right and small left pleural effusions. Moderate left upper lobe, mild right upper lobe and minimal left lower lobe findings suggesting pneumonia. Mild right upper lobe and right lower lobe probable
atelectasis. History of recent PNA, negative procalc, nonproductive minimal cough, afebrile. Overall picture unlikely PNA.
-Recently put on chronic O2 2L, started on 5L NC on arrival, weaned to 3L today. continue to wean
-Received 40 mg IV Lasix x 1 in ED. Continue 40 mg IV twice daily, follow kidney function
-Discontinued Zosyn and vancomycin for pneumonia, monitor off abx
-Appreciate cards and pulm
-Fluid restriction, strict I&O's, daily weights
Transaminitis:
On arrrival: AST/ALT: 454/193, lipase normal, alk phos elevated 262, T. bili 3.4. Still significantly elevated
Positive Mendoza sign on PE. Likely choledocholithiasis
-Hold ezetimibe and atorvastatin
-GET MRI/MRCP.
-GI consult
Lower extremity edema:
Right leg venous insufficiency at baseline, increased lower extremity edema bilaterally. No wounds or ulcers.
Likely secondary to heart failure exacerbation.
-Darrel wrap, leg elevation as tolerated
-Continue diuresis
Hx of urinary retention:
-Also had difficulty passing urine while in ED
-Bladder scan protocol
Insulin-dependent diabetes mellitus:
On aspart 55 units at bedtime, aspart 40 units a.m. adjusted as needed at home.
-Will start with 40 units at bedtime, 30 units a.m., moderate res ISS
-Patient has been off Mounjaro for about a month because it was not o offered at rehab
-Diabetes ASSISTANT SALES DIRECTOR consult
-Check HbA1c
Essential hypertension:
-Continue home antihypertensives
GERD:
-Continue pantoprazole
HFpEF:
Continue metoprolol 25 twice daily
CKD 3:
-Avoid nephrotoxic agents, follow BMP while diuresis
Chronic back pain:
Osteoarthritis of spine
-On minimal Tylenol as needed. Hold if worsening LFT
Chronic constipation:
Stable with daily oatmeal (increased fiber)
-Bowel regimen as needed
DVT prophylaxis: Lovenox
CODE STATUS: DNR
Anticipated Discharge: > 48 hours
Subjective/Interval History
-
Date of Service: July 22, 2024
no overnight acute events
Objective Data
-
Labs:
Laboratory Results
07/22/24
06:57
WBC 8.1
Hgb 8.3 L
Hct 25.5 L
Plt Count 220 D
Sodium 138
Potassium 3.9
Chloride 105
Carbon Dioxide 24
BUN 30 H
Creatinine 1.3 H
Glucose 105 H
Calcium 8.7
Total Bilirubin 5.6 H D
AST 328 H
ALT 252 H
Alkaline Phosphatase 318 H
Vital Signs:
Vital Signs
Temp Pulse Resp BP Pulse Ox
98.4 F 75 18 166/72 98
07/22/24 15:15 07/22/24 15:15 07/22/24 15:15 07/22/24 15:15 07/22/24 15:15
I&O
07/21/24 07/22/24 07/23/24
06:59 06:59 06:59
Intake Total 1500 / 1500
Output Total 2199 / 2199
Balance -700 / -700
Review of Systems
-
History Source: Patient
Respiratory: Denies Trouble Breathing (on minimal exertion)
Cardiac: Denies Chest Pain
Abdomen/GI: Denies Abdominal Pain, Nausea, Vomiting, Diarrhea or Constipated
Physical Exam
-
General: Respiratory Distress (mild, with prolonged speaking)
HEENT: Atraumatic, Moist Mucous Membranes, Anicteric and Oxygen (3L NC)
Respiratory: Crackles (bibasilar)
Cardiac: Regular Rhythm and S1/S2; Negative Murmur, Rub or Calf Tenderness
GI: Soft, Nondistended, Normal Bowel Sounds and Tender (RUQ, positive mendoza's)
Musculoskeletal: No Cyanosis, Edema, Right Lower Extrem and Edema, Left Lower Extrem
Skin: Warm and Dry
Neuro: Awake, Alert and Oriented
Psych: Calm
--- NOTE | 2024-07-22 15:45 | W.PN.UPDATE ---
Update Note
Progress Note Update
Seen and examined by me independently in collaboration with the medical intern.
Lab data and imaging data reviewed.
Addendum as below :
Presenting symptom was sudden onset of heartburn, indigestion with lower chest upper abdomen pain radiating to back. No nausea vomiting. It was a constant pain which took a while for resolution. She had felt associated shortness of breath.
Patient without any acute respiratory distress. No wheezing. Did not hear any crackles on today's exam.
Abdomen soft but she has right upper quadrant tenderness.
Lab data and imaging data noted.
I feel her presenting complaint of sudden onset of above symptoms, abnormal and raising cholestatic hepatitis picture, gallstones make me worry this is a biliary issue.
Obtain an MRCP and an MRI of abdomen. Consult GI.
Patient has been afebrile, without white count, normal procalcitonin, chest CT shows radiological consolidation but not clinically correlating. Pulmonary input noted. Hold further antibiotics for now and follow clinically.
Total time spent on today's encounter was 52 minutes which included time spent in counseling the patient/family regarding diagnosis and treatment plan as listed above, goals of care, and symptom management. Case was discussed with nursing staff,
specialists, and care coordinators/case management. All labs and imaging personally reviewed by me. Remainder the time spent in detailed review of previous records, lab data, imaging, and other medical provider documentation.
[2024-07-22 16:30] LABS: Glucose - Point of Care 221 mg/dl (70-99)
[2024-07-22] MEDS: NOVOLOG FLEXPEN-MODERATE RESISTANCE 3 UNITS SC (17:04)
[2024-07-22] MEDS: LOVENOX 40 MG SC (17:05)
[2024-07-22] MEDS: NOVOLOG MIX 70/30 FLEXPEN 55 UNITS SC (17:06)
[2024-07-22 18:58] LABS: Hepatitis B Surface Antigen Negative (Negative)
[2024-07-22 19:14] LABS: Hepatitis A Antibody, Total Negative (Negative); Hepatitis B Core Ab, Total Negative (Negative); Hepatitis B Surface Antibody Negative; Hepatitis C Antibody Negative (Negative)
[2024-07-22 19:40] VITALS: BP 147/67
[2024-07-22 21:51] LABS: Glucose - Point of Care 153 mg/dl (70-99)
[2024-07-22 22:41] VITALS: BP 134/52
[2024-07-23] MEDS: TYLENOL 650 MG PO (00:37)
[2024-07-23 02:52] VITALS: BP 143/60
[2024-07-23 06:00] VITALS: BMI 48.2
[2024-07-23 07:43] LABS: Glucose - Point of Care 119 mg/dl (70-99)
[2024-07-23 07:49] VITALS: BP 126/70
--- NOTE | 2024-07-23 07:58 | PN.DE.MGMTRT ---
Insulin Management
- -
07/23/2024: Diabetes Management Consult Follow up
78 year old female who has had a myriad of medical issues and recent prolonged hospitalization 06/01-06/17. Pt has been re-admitted for multilobar PNA in the left upper lobe and right upper lobe and a possibly left lower lobe. Also noted for
gallbladder sludge and moderate sized gallbladder stones on abd US.
PMH: Diastolic heart failure, NH, CAD s/p CABG in 2021, HTN, HLD, CKD and T2DM.
Her recent hospitalization included norovirus, orthostatic hypotension from significant diarrhea and syncope, multi bacterial urinary tract infection including E. coli and Klebsiella. She was recently discharged from rehab on 70/30 insulin 45 units
in AM and 55 units in PM.
States she sees Dr. Renea Hartley at [facility] on a regular basis for diabetes care. States that she often has to decrease her 70/30 doses based on her blood sugar when she is at home and that Dr. Hartley has agreed that Nicki knows her
diabetes and is OK that she adjusts the insulin.
Her A1C was 8.7% on 05/05/24. Repeat A1C on admission is 7.3% , Cr 1.3, eGFR 42.09
Patient is awake alert and oriented, sitting up @edge of bed eating, offers no complaints, able to discuss diabetes management.
3/3 Premeal glucose 121 to 221, HS glucose was 153, FBG 119(V).
Will make no other changes to current regimen: 70/30 45 units in AM and 55 units in PM.
Will cont to follow and adjust insulin dose if necessary. Discussed with pt and nurse.
Diabetes History
- -
Type of Diabetes: 2 requiring insulin
Pre-Admission Diabetes Regimen
07/22/24
06:57
Creatinine 1.3 H
Lab Results
Hemoglobin A1c 7.3 % (4.0-5.6) H 07/21/24 06:09
Insulin Pump Settings
IP Diabetes Regimen
07/22/24 07/22/24 07/22/24
06:57 11:05 16:29
Glucose 105 H
POC Glucose 206 H 221 H
07/22/24 07/23/24
21:50 07:42
Glucose
POC Glucose 153 H 119 H
Meal type: Breakfast
Amount consumed: 100%
Patient Education
[2024-07-23] MEDS: NOVOLOG FLEXPEN-MODERATE RESISTANCE SC (08:06)
[2024-07-23 08:11] LABS: INR 1.14; PT 14.9 Sec (11.4-14.6)
[2024-07-23] MEDS: LASIX 40 MG IV (08:16)
[2024-07-23] MEDS: NOVOLOG MIX 70/30 FLEXPEN 45 UNITS SC (08:18)
[2024-07-23] MEDS: VITAMIN D3 (cholecalciferol) 50 MCG PO (08:19)
[2024-07-23] MEDS: TOPROL XL 25 MG PO ×2 (08:19→20:14)
[2024-07-23] MEDS: PROTONIX 40 MG PO (08:19)
[2024-07-23] MEDS: LOTREL 5 MG/10 MG 1 CAPSULE PO (08:20)
[2024-07-23] MEDS: ASPIR LOW (ENTERIC COATED) 81 MG PO (08:20)
[2024-07-23] MEDS: DESENEX/MITRAZOL/ZEASORB 1 APPLIC TOPICAL ×2 (08:24→20:15)
[2024-07-23 08:25] LABS: Hematocrit 31.5 % (37.0-47.0); Hemoglobin 10.1 g/dL (12.0-16.0); Mean Corp Hgb Conc. 32.1 g/dL (33.0-37.0); Mean Corpuscular Hgb 27.7 pg (27.0-31.0); Mean Corpuscular Volume 86.5 fL (81.0-99.0); Mean Platelet Volume 9.8 fL (7.4-10.4); Platelet Count 271 10^3/uL (130-400); Red Blood Cell Count 3.64 10^6/uL (4.20-5.40); Red Cell Dist. Width 16.6 % (11.5-14.5)
[2024-07-23 08:38] LABS: ALT (SGPT) 248 U/L (0-35); AST (SGOT) 260 U/L (14-36); Albumin 3.6 g/dl (3.5-5.0); Alkaline Phosphatase 351 U/L (38-126); Blood Urea Nitrogen 31 mg/dl (7-17); Calcium 8.8 mg/dl (8.4-10.2); Carbon Dioxide 28 mmol/L (22-30); Chloride 101 mmol/L (98-107); Estimated Creatinine Clearance 38 ml/min; Glucose 103 mg/dl (70-99); Potassium 3.7 mmol/L (3.5-5.1); Sodium 140 mmol/L (135-145); eGFR 35.45
--- NOTE | 2024-07-23 10:29 | W.PN.PUL3 ---
Today's Communication / Plan
-
Home O2 eval -- 92% on RA at rest, 86% on RA with ambulation, needs 2L with exertion ONLY
She continues to use NC at rest, but does not need this
NEEDS aggressive rehab, SNF likely --she has not been motivated to get OOB
IV diuresis remains per team
She is undergoing liver w/u though likely just NAFLD, recommend low fat diet
Nothing further from our perspective, we will sign off at this time, pls call with questions
Assessment
-
78-year-old morbidly obese female with a past medical history of CAD s/p CABG x 4 with left atrial appendage exclusion (01/2022), DM type II, dyslipidemia, hypertension, chronic HFpEF, Ferreira's palsy and neuropathy who presents with chest pain
radiating to the back, indigestion and shortness of breath. She took aspirin prior to arrival and EMS gave her nitroglycerin spray that helped her symptoms. She has been having chronic shortness of breath since her heart attack in January 2022.
She was recently hospitalized here from 06/03 - 06/17/2024 due to norovirus gastroenteritis with syncope and hypotension. She was discharged to a rehab and returned home on 07/17/2024 on home oxygen at 2 L/min. She has been having bilateral leg
swelling and shortness of breath when laying flat. She was afebrile in the ER, hypertensive to 174/78, heart rate 76, respiratory rate 28 and saturating 98% on room air. Labs showed Hb 10, glucose 175, creatinine 1.1, elevated LFTs, proBNP 2540
(of note she was 149 on 05/04/2024). CXR showed left suprahilar opacification concerning for pneumonia. CTA chest was obtained showing no evidence of PE or dissection, with bilateral pleural effusions, right greater than sign left, with bilateral
consolidative opacities concerning for pneumonia. In the ER she was given 40 mg IV Lasix, nitroglycerin ointment 1 inch, Zosyn and vancomycin and admitted to the hospitalist service. Pulmonary service now consulted for additional
management/recommendations.
Acute respiratory failure with hypoxia likely due to acute decompensated heart failure/acute HFpEF exacerbation
Recent diagnosis of pneumonia while at rehab last month, Tx with levaquin x 7 days
Bilateral perihilar opacities likely due to acute pulmonary edema; less likely pneumonia
Bilateral pleural effusions (R >L)
Gallbladder sludge + gallstones without evidence of acute cholecystitis on abdominal ultrasound from 07/21/2024
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
History of NSTEMI
CAD s/p CABG x 4 with ROCIO�E (01/2022)
DM type II (uncontrolled � HbA1c: 8.7 on 05/05/2024)
Dyslipidemia
Hypertension
Morbid obesity, BMI: 48.5
Chronic HFpEF
Ferreira's palsy
Neuropathy
Fatty liver disease due to morbid obesity
Plan:
Currently on 3L NC, wean as tolerated--sats 98%
She has been on O2 intermittently but not continuously
Home O2 eval -- 92% on RA at rest, 86% on RA with ambulation, needs 2L with exertion
Suspect SOB is multifactorial, she has acute on chronic complaints
Due to morbid obesity, CHF, deconditioning, recent PNA --reviewed this with patient
SNF-rehab and IS would be beneficial
CTA chest on 07/21/2024 shows bilateral pleural effusions with interlobular septal thickening and bilateral consolidative opacities likely due to her recent pneumonia (Dx last month and Tx with levaquin x 7 days) and possibly appears more fluffy now
due to acute pulmonary edema; her proBNP is now 2540, which is the highest that she has been since has been checked here dose on hospital, hence would continue treatment for acute decompensated heart failure with aggressive diuresis
Replete electrolytes with K>4, Mg>2 while diuresing
Patient recently had an echo on 06/05/2024 showing normal biventricular size and function with mild concentric LVH, normal regional wall motion and LVEF 51%, with normal PASP
Cardiology consulted and recommendations appreciated
Unlikely pneumonia, especially with a procalcitonin of 0.22, and she is non-toxic appearing with no productive cough, fever or chills; of note, urinalysis shows no signs of infection
She is currently on empiric antibiotics with Vanco/Zosyn --> would stop abx and observe off given improvement
Would recommend repeat imaging in another 3-5 weeks to re-assess her lung parenchyma
Reviewed her most prior CTA chest from 01/17/2022 and she has no underlying abnormal pulmonary parenchyma, including no emphysema, ILD or any concerning nodules/masses
Maintain SpO2 >90-94% with supplemental O2 and wean as tolerated while keeping SpO2 >90-94%
Continue aspiration precautions, keeping HOB >30-45�
prn nebulized bronchodilators - not currently bronchospastic
Incentive spirometer encouraged q1hr while awake
PT/OT recommended
Patient's BMI is 48.5. Weight loss is critical for her. Would recommend her seeing us in the office and if she makes a diagnosis of sleep apnea she would be a candidate for Zepbound
Recommend outpatient pulmonary/sleep office follow-up to discuss sleep disordered breathing as she thinks she snores and she has non-restorative sleep
We discussed her weight being an issue as well
DVT ppx: LMWH
Pulmonary service will continue to follow along.
Pulmonary outpatient office follow-up recommended.
Diagnostic Data:
CTA Chest 07/21/2024: No evidence of pulmonary embolus. Moderate right and small left pleural effusions. Moderate left upper lobe, mild right upper lobe and minimal left lower lobe findings suggesting pneumonia. Mild right upper lobe and right lower
lobe probable atelectasis. Small hypodense right thyroid lesion likely a benign nodule. Nonurgent dedicated thyroid ultrasound recommended if not previously evaluated
Abdominal ultrasound 07/21/2024: New moderate gallbladder sludge and many moderate sized gallstones which have increased in number. No secondary findings to suggest acute cholecystitis. Clinical and laboratory correlation recommended. Hepatic fatty
infiltration. Stable. Nonvisualization of the proximal abdominal aorta due to overlying bowel gas. Bilateral pleural effusions. New
Transthoracic echocardiogram 06/05/2024: Normal left ventricular size and function. Mild concentric left ventricular hypertrophy. Normal regional wall motion. LV ejection fraction is 51% by volumetric assessment. Normal diastolic function. Normal
right ventricular size and function. Aortic sclerosis without stenosis. Mild tricuspid regurgitation. Estimated pulmonary artery pressure of 25-30 mmHg. Assuming a right atrial pressure of 3 mmHg. Compared to the previous echo 01/26/22, there is no
significant change.
-----
Total time spent today was 53 minutes for this encounter. Time includes reviewing laboratory test/imaging results, reviewing pertinent medical records, obtaining and reviewing medical history, performing an appropriate exam, ordering medications,
tests and procedures. Time also includes documentation of this encounter, coordinating patient care and communicating with other healthcare professionals. Total time does not include separately billed tests performed on this date of service.
Subjective Data
-
Date of Service:
Date of Service: July 23, 2024
Chief Complaint: Pulmonary Follow Up
Subjective:
Better today, no new complaints
Has not gotten OOB at all
Objective Data
Data Reviewed
Vital Signs / I&O / Oxygen:
Vital Signs
Temp Pulse Resp BP Pulse Ox
97.7 F 72 18 126/70 96
07/23/24 07:49 07/23/24 08:16 07/23/24 07:49 07/23/24 08:16 07/23/24 08:00
Intake and Output
07/22/24 07/23/24 07/24/24
06:59 06:59 06:59
Intake Total 1500 / 1500 960 / 960
Output Total 2200 / 2200 2222 / 2222
Balance -700 / -700 -1262 / -1262
SaO2 96
Nasal Cannula flow liters per 3
minute
Physical Exam
General: Comfortable, Other (morbid obesity) and Other (NAD)
HEENT: Normocephalic, Anicteric and Moist Mucous Membranes
Cardiovascular: S1-S2 and Regular Rhythm
Respiratory: Clear and Non-Labored Respirations
GI: Soft, Non Distended and Non Tender
Neurology: Awake, Alert, Oriented and No Motor Deficits
Skin: Warm, Dry and Good Color
Labs/Micro/Reports
Lab Data
07/23/24 07:25
07/23/24 07:25
Laboratory Results
07/23/24
07:25
PT 14.9 H
INR 1.14
Microbiology
07/22/24 00:47 Blood/Venous Blood Culture - Preliminary
No Growth in 24 hours- Final report to follow
07/22/24 00:47 Blood/Venous Blood Culture - Preliminary
No Growth in 24 hours- Final report to follow
07/21/24 18:06 Nose Nasal Screen MRSA (PCR) - Final
MRSA not detected - performed by PCR methodology.
[2024-07-23 10:53] LABS: Magnesium 1.4 mg/dl (1.6-2.3)
[2024-07-23 11:17] LABS: Glucose - Point of Care 182 mg/dl (70-99)
[2024-07-23 11:30] VITALS: BP 135/52
[2024-07-23] MEDS: NOVOLOG FLEXPEN-MODERATE RESISTANCE 1 UNITS SC (13:11)
--- NOTE | 2024-07-23 13:23 | W.PN.GI.CBS2 ---
Today's Communication / Plan
-
-AST/ALT, TB trending down slightly
-Follow-up LFTs, TB, INR daily
Assessment / Plan
-
Assessment
The patient is a 78-year-old obese female with a past medical history of CAD s/p CABG, HFpEF, hypertension, dyslipidemia, insulin-dependent diabetes mellitus type 2, history of Ferreira's palsy and neuropathy who was brought to the hospital for
evaluation of her chest pain radiating to back, having shortness of breath, some heartburn and indigestion. The patient endorsed having GERD and abdominal discomfort, but denies any associated GI symptoms. Her admission lab results were
significant for elevated LFTs and TB levels. Her follow-up LFT and TB levels remain still elevated without any improvement. Her abdominal US was notable for gallbladder sludge and gallstones but without any findings for acute cholecystitis.
Patient reports improvement with her pain on right upper abdominal area
Impression
Transaminitis (cholestatic and hepatocellular pattern)
GERD
History of constipation
Acute hypoxic respiratory failure likely mix of new developing PNA and acute exacerbation of HFpEF
CAD s/p CABG
Hypertension
Hyperlipidemia
IDDM
CKD stage III
Chronic back pain
History of urinary retention
Plan
#Transaminitis likely due CHF(congestive hepatopathy) vs sepsis
-Abdominal US on 07/21/2024: : New moderate gallbladder sludge and many moderate sized gallstones. No findings to suggest acute cholecystitis. / Hepatic fatty infiltration-Stable
-AST 260, ALT 248,: AST/ALT trending down slightly ALP seems increased to 351 from 318
-TB 5, INR 1.14
-Follow-up LFTs, TB, INR
-Hold ezetimibe and atorvastatin
-Avoid hepatotoxic medications
-MRI/MRCP: Cholelithiasis without overt MR evidence for acute cholecystitis. No choledocholithiasis.
-Hepatic panel: Negative
GERD
-Continue PPI
Subjective
Subjective
Date of Service: July 23, 2024
Patient reports improvement with her right upper abdominal area pain. Denies shortness of breath while sitting.
Objective
Data Reviewed
Laboratory Data:
Laboratory Results
07/23/24 07:25
07/23/24 07:25
Laboratory Results
PT 14.9 Sec (11.4-14.6) H 07/23/24 07:25
INR 1.14 07/23/24 07:25
APTT 29.1 Sec (23.4-35.0) 07/21/24 07:02
Magnesium 1.4 mg/dl (1.6-2.3) L 07/23/24 07:25
Total Bilirubin 5.0 mg/dl (0.2-1.3) H 07/23/24 07:25
AST 260 U/L (14-36) H 07/23/24 07:25
ALT 248 U/L (0-35) H 07/23/24 07:25
Alkaline Phosphatase 351 U/L (38-126) H 07/23/24 07:25
Vital Signs and I&O:
Vital Signs
Temp Pulse Resp BP Pulse Ox
98.3 F 73 24 135/52 100
07/23/24 11:30 07/23/24 11:30 07/23/24 11:30 07/23/24 11:30 07/23/24 11:30
I&O
07/22/24 07/23/24 07/24/24
06:59 06:59 06:59
Intake Total 1500 / 1500 960 / 960
Output Total 2200 / 2200 2222 / 2222
Balance -700 / -700 -1262 / -1262
Physical Exam
Physical Exam
HEENT: Anicteric and Moist mucous membranes
Cardiology: Normal Sinus Rhythm, S1 and S2
GI: Soft, Non Distended and Non Tender
Extremities: Edema
Neuro: Non Focal
--- NOTE | 2024-07-23 13:45 | CM ---
Chart reviewed and patient lives alone may need home oxygen, per Pulmonary patient may needs skilled, registered nurse hh case manager reached out to physician, for PT/OT orders.
Plan; Await PT/OT evaluations.
--- NOTE | 2024-07-23 14:28 | W.PN.CARDCBS ---
Addendum entered and electronically signed by Chandler Rosas MD 07/23/24 16:44:
I saw and examined the patient.
The Lease Broker's note was reviewed and I agree with the note.
Comment: Briefly, 78-year-old woman past medical history of heart failure with preserved ejection fraction presenting with worsening dyspnea concerning for acute decompensated heart failure.
Received IV Lasix however her creatinine has been uptrending and Lasix were placed on hold
Still requiring supplemental O2, would likely benefit from further diuresis
Recheck creatinine in AM, if higher tomorrow would consider right heart catheterization to evaluate cardiac filling pressures
Consider adding SGLT2 when creatinine stabilizes
Statin on hold with elevated LFTs - thought to be congestive hepatopathy per GI
Original Note:
Today's Communication / Plan
-
holding lasix
reeval Cr in AM
consider RHC
repeat trop
follow LFTs
replete mag
Impression / Plan
-
PCP: Dr. Branch
Transportation Technician: Dr. Fraga
Impression:
Presented with SOB and chest pressure
Multilobar pneumonia
Recent admission at w/ UTI, norovirus, RACHELLE 05/2024
Acute HFpEF
Moderate gallstones w/ sludge
Elevated LFTs
CAD
s/p CABG with MORFIN to LAD, SVG to Diag, SVG to OM, SVG to PDA 01/26/22
s/p Pericardial patch repair of medial right atrium 01/26/22
Paroxysmal atrial fibrillation (brief post-op)
DM2
HTN
HLD
Suspected SATURNINO
GERD
Echo: 01/20/22: LV: Normal size. Mild LVH. EF: 50-55% visually. Mid-distal anteroseptal HK. RV: Normal, LA: Mildly dilated, RA: Normal, MV: Mo MS or MR, AV: Trileaflet no AI, TV: Trace TR with PAP 15-20 mmHg
JOSELITO post-op 01/26/22: EF 60-65%, no RWMA, mild MR
Echo 06/05/2024: EF 51%, mild cLVH, aortic sclerosis without stenosis, mild TR, estimated PAP 25-30 mmHg
Plan:
-Presented with SOB and chest pressure. Admitted with concern for multilobar pneumonia and acute heart failure.
-pulm feels PNA less likely. abx discontinued
-Diuresing with IV lasix 40mg BID and remains with evidence of volume overload, however Cr uptrending to 1.5 on 07/23 so now on hold. Was not on diuretic prior to admission.
-Weight down 3 pounds overnight if accurate.
-will reassess Cr in AM and may need to consider for RHC.
-can attempt tubigrip stockings
-per pulm notes, only needs supp O2 with ambulation
-Echo 05/2024 with EF 51% and no significant valvular disease. No need to repeat at this time.
-trop on arrival was 0.032. will repeat as presented with CP. EKG from arrival SR with NSSTS.
-Continue Toprol 25mg BID.
-Follow LFTs. Lipitor on hold. LDL 28. abd MRI 07/22 with cholelithiasis without cholecystitis and small left and moderate right pleural effusions. consider for R thoracentesis
-Remains in SR on review of telemetry. No afib noted. Not on anticoagulation given low burden.
-Continue aspirin 81mg daily. hgb 10.1 on 07/23.
-mag 1.4. Will replete.
HPI: Long complex medical history and this very pleasant 78-year-old female who has had a myriad of medical issues and recent prolonged hospitalization. She presents today with multilobar pneumonia via CAT scan in the left upper lobe and right
upper lobe and a possibly left lower lobe. She also has small bilateral pleural effusions and CT and chest x-ray also is read as apical pneumonia. Her abdominal ultrasound does show gallbladder sludge and moderate sized gallbladder stones. She
carries a complex past medical history including diastolic heart failure and four-vessel CABG in 2021. Her recent hospitalization included norovirus, orthostatic hypotension from significant diarrhea and syncope, multi bacterial urinary tract
infection including E. coli and Klebsiella. She was given IV diuretic in the ER and she is having vigorous diuresis. She has been placed on vancomycin and piperacillin by primary team. She is on 2 L of O2 at the bedside but feels relatively
comfortable
Progress Note - Transportation Technician
Subjective
Date of Service: July 23, 2024
remains with SOB. reports without significant urine output today
Objective
Labs:
07/23/24 07:25
07/23/24 07:25
Labs
Hgb 10.1 g/dL (12.0-16.0) L D 07/23/24 07:25
Hct 31.5 % (37.0-47.0) L 07/23/24 07:25
Plt Count 271 10^3/uL (130-400) D 07/23/24 07:25
PT 14.9 Sec (11.4-14.6) H 07/23/24 07:25
INR 1.14 07/23/24 07:25
APTT 29.1 Sec (23.4-35.0) 07/21/24 07:02
Sodium 140 mmol/L (135-145) 07/23/24 07:25
Potassium 3.7 mmol/L (3.5-5.1) 07/23/24 07:25
BUN 31 mg/dl (7-17) H 07/23/24 07:25
Creatinine 1.5 mg/dL (0.6-1.0) H 07/23/24 07:25
Glucose 103 mg/dl (70-99) H 07/23/24 07:25
Troponins
07/21/24
06:09
Troponin I 0.032
Vital Signs and I&O:
Vital Signs
Temp Pulse Resp BP Pulse Ox
98.3 F 73 24 135/52 100
07/23/24 11:30 07/23/24 11:30 07/23/24 11:30 07/23/24 11:30 07/23/24 11:30
Vital Signs
Temp Pulse Resp BP Pulse Ox
98.3 F 73 24 135/52 100
07/23/24 11:30 07/23/24 11:30 07/23/24 11:30 07/23/24 11:30 07/23/24 11:30
Intake & Output
07/21/24 07/22/24 07/23/24 07/24/24
07:59 07:59 07:59 07:59
Intake Total 1500 / 1500 960 / 960
Output Total 2200 / 2200 2222 / 2222
Balance -700 / -700 -1262 / -1262
Physical Exam
Physical Exam
GEN: No distress, awake, alert, oriented x3. on supp O2. obese
HEENT: supple, anicteric, mmm, eomi
LUNGS: CTA B/L, no wheezes
CV: Reg, S1/S2, no murmur
ABD: soft, BS+, NT/ND
EXT: No cyanosis, clubbing. 2+ edema of B/L LE
NEURO: Gross non-focal
SKIN: Warm, pink, dry. No rash
--- NOTE | 2024-07-23 14:52 | W.PN.UPDATE ---
Update Note
Progress Note Update
Seen and examined by me independently in collaboration with the medical laboratory scientist.
Lab data and imaging data reviewed.
Addendum as below :
Patient today without any heartburn, reflux symptoms or abdominal pain. She has no more right upper quadrant tenderness today. MRI shows no evidence of obstructive choledocholithiasis or evidence of cholecystitis. Gallstones present. Improving
cholestatic hepatitis picture. Unclear if this is CHF related she passed the stone. Continue to follow LFTs. Appreciate GI input.
Denies shortness of breath. Chest seems clear today. Improved weight. Continue with diuretics per cardiology.
Wean oxygen as able. Based on Home O2 eval would benefit O2 at home.
PT /OT eval
DC planning
[2024-07-23] MEDS: MAGNESIUM SULFATE 50 IV (14:53)
[2024-07-23 15:01] VITALS: BP 147/57
[2024-07-23 15:04] LABS: Glucose - Point of Care 208 mg/dl (70-99)
[2024-07-23 15:36] LABS: Troponin I 0.026 ng/ml
--- NOTE | 2024-07-23 16:19 | W.PN.HOSP.TC ---
Today's Communication/Plan
-
Hold lasix, follow BMP, wean off O2 as tolerated
Assessment / Plan
Assessment / Plan
78-year-old female with history of HFpEF, CKD 3, chronic anemia, recent use of 2 L home O2 nasal cannula, CAD plus bypass January 2022, hypertension, hyperlipidemia, IDDM, obesity, who presents with worsening chest pressure and shortness of breath.
Acute hypoxic respiratory failure:
Troponin normal. EKG unremarkable. ProBNP: 2500. Concern for acute HFpEF exacerbation.
Chest x-ray: mild opacification in the left suprahilar region which is new and concerning for developing pneumonia.
CTA: No evidence of pulmonary embolus. Moderate right and small left pleural effusions. Moderate left upper lobe, mild right upper lobe and minimal left lower lobe findings suggesting pneumonia. Mild right upper lobe and right lower lobe probable
atelectasis. History of recent PNA, negative procalc, nonproductive minimal cough, afebrile. Overall picture unlikely PNA.
-Recently put on chronic O2 2L, started on 5L NC on arrival, weaned to 3L. continue to wean as tolerated
-Hold lasix given RACHELLE, follow kidney function
-Discontinued Zosyn and vancomycin for pneumonia, stable off abx
-Appreciate cards and pulm
-Home O2 eval: 92% on RA at rest, 86% on RA with ambulation, needs 2L with exertion
Transaminitis:
On arrival: AST/ALT: 454/193, lipase normal, alk phos elevated 262, T. bili 3.4. Still significantly elevated
Positive Mendoza sign on PE, picture suggestive of choledocholithiasis. However, abd MRI showed cholelithiasis without overt MR evidence for acute cholecystitis. No choledocholithiasis
-Hold ezetimibe and atorvastatin
-Possible that patient passed stone. Patients reports no abdominal symptoms today and abd physical exam is unremearkable. Will trend LFTs
-Appreciate GI
RACHELLE:
Cr from 1.1 to 1.5 in 48 hours.
Secondary to diuresis
-Hold lasix, Follow BMP
Lower extremity edema:
Right leg venous insufficiency at baseline, increased lower extremity edema bilaterally. No wounds or ulcers.
Likely secondary to heart failure exacerbation.
-Darrel wrap, leg elevation as tolerated
-holding diuresis
Hx of urinary retention:
-Also had difficulty passing urine while in ED
-Resolved
Insulin-dependent diabetes mellitus:
On aspart 55 units at bedtime, aspart 40 units a.m. adjusted as needed at home. HbA1c 7.3
-Keep as is, with SSI
-Patient has been off Mounjaro for about a month because it was not offered at rehab
-Diabetes DOG FOOD SHREDDER OPERATOR consult
Essential hypertension:
-Continue home antihypertensives
GERD:
-Continue pantoprazole
HFpEF:
Continue metoprolol 25 twice daily
CKD 3:
-Avoid nephrotoxic agents, follow BMP while diuresis
Chronic back pain:
Osteoarthritis of spine
-On minimal Tylenol as needed. Hold if worsening LFT
Chronic constipation:
Stable with daily oatmeal (increased fiber)
-Bowel regimen as needed
DVT prophylaxis: Lovenox
CODE STATUS: DNR
Anticipated Discharge: Within 24 hours
Subjective/Interval History
-
Date of Service: July 23, 2024
Objective Data
-
Labs:
Laboratory Results
07/23/24
07:25
WBC 9.0
Hgb 10.1 L D
Hct 31.5 L
Plt Count 271 D
PT 14.9 H
INR 1.14
Sodium 140
Potassium 3.7
Chloride 101
Carbon Dioxide 28
BUN 31 H
Creatinine 1.5 H
Glucose 103 H
Calcium 8.8
Total Bilirubin 5.0 H
AST 260 H
ALT 248 H
Alkaline Phosphatase 351 H
Vital Signs:
Vital Signs
Temp Pulse Resp BP Pulse Ox
98.1 F 79 18 147/57 98
07/23/24 15:01 07/23/24 15:01 07/23/24 15:01 07/23/24 15:01 07/23/24 15:01
I&O
07/22/24 07/23/24 07/24/24
06:59 06:59 06:59
Intake Total 1500 / 1500 960 / 960
Output Total 2200 / 2200 2222 / 2222
Balance -700 / -700 -1262 / -1262
Review of Systems
-
History Source: Patient
Respiratory: Reports Trouble Breathing (on exertion)
Cardiac: Denies Chest Pain or Palpitations
Abdomen/GI: Denies Abdominal Pain, Nausea, Vomiting or Diarrhea
Physical Exam
-
General: No Apparent Distress and Comfortable
HEENT: Normocephalic, Atraumatic and Moist Mucous Membranes
Respiratory: Clear to Auscultation and Non Labored Respirations; Negative Wheezes, Rales, Rhonchi or Crackles
Cardiac: Regular Rhythm and S1/S2; Negative Murmur or Rub
GI: Nontender, Nondistended and Normal Bowel Sounds
Skin: Warm and Dry; Negative Rash
Neuro: Awake, Alert and Oriented
Psych: Calm
[2024-07-23] MEDS: LOVENOX 40 MG SC (17:14)
[2024-07-23] MEDS: NOVOLOG FLEXPEN-MODERATE RESISTANCE 3 UNITS SC (17:15)
[2024-07-23] MEDS: NOVOLOG MIX 70/30 FLEXPEN 55 UNITS SC (17:16)
--- NOTE | 2024-07-23 17:19 | W.PN.GI.CBS2 ---
Today's Communication / Plan
-
LFTs slowly improving
Could be due to CHF/infxn.
Biliary cause possible as well, but MRI negative. Passed GS also possible
Cont to trend LFTs
Assessment / Plan
-
Assessment
The patient is a 78-year-old obese female with a past medical history of CAD s/p CABG, HFpEF, hypertension, dyslipidemia, insulin-dependent diabetes mellitus type 2, history of Ferreira's palsy and neuropathy who was brought to the hospital for
evaluation of her chest pain radiating to back, having shortness of breath, some heartburn and indigestion. The patient endorsed having GERD and abdominal discomfort, but denies any associated GI symptoms. Her admission lab results were
significant for elevated LFTs and TB levels. Her follow-up LFT and TB levels remain still elevated without any improvement. Her abdominal US was notable for gallbladder sludge and gallstones but without any findings for acute cholecystitis.
Patient reports improvement with her pain on right upper abdominal area
Impression
Transaminitis (cholestatic and hepatocellular pattern)
GERD
History of constipation
Acute hypoxic respiratory failure likely mix of new developing PNA and acute exacerbation of HFpEF
CAD s/p CABG
Hypertension
Hyperlipidemia
IDDM
CKD stage III
Chronic back pain
History of urinary retention
Subjective
Subjective
Date of Service: July 23, 2024
No complaints. Denies abd pain
Objective
Data Reviewed
Laboratory Data:
Laboratory Results
07/23/24 07:25
07/23/24 07:25
Laboratory Results
PT 14.9 Sec (11.4-14.6) H 07/23/24 07:25
INR 1.14 07/23/24 07:25
APTT 29.1 Sec (23.4-35.0) 07/21/24 07:02
Magnesium 1.4 mg/dl (1.6-2.3) L 07/23/24 07:25
Total Bilirubin 5.0 mg/dl (0.2-1.3) H 07/23/24 07:25
AST 260 U/L (14-36) H 07/23/24 07:25
ALT 248 U/L (0-35) H 07/23/24 07:25
Alkaline Phosphatase 351 U/L (38-126) H 07/23/24 07:25
Vital Signs and I&O:
Vital Signs
Temp Pulse Resp BP Pulse Ox
98.1 F 79 18 147/57 98
07/23/24 15:01 07/23/24 15:01 07/23/24 15:01 07/23/24 15:01 07/23/24 15:01
I&O
07/22/24 07/23/24 07/24/24
06:59 06:59 06:59
Intake Total 1500 / 1500 960 / 960
Output Total 2200 / 2200 2222 / 2222
Balance -700 / -700 -1262 / -1262
Physical Exam
Physical Exam
GI: Soft, Non Distended and Non Tender
[2024-07-23 19:48] VITALS: BP 146/50
[2024-07-23 21:21] LABS: Glucose - Point of Care 58 mg/dl (70-99)
[2024-07-23 21:50] LABS: Glucose - Point of Care 99 mg/dl (70-99)
[2024-07-23 22:25] VITALS: BP 142/48
[2024-07-24] VITALS (17 sets, daily range): BP systolic 97–186; BP diastolic 41–131; PULSE 77; O2SAT 99; BMI 48.5
[2024-07-24 00:17] LABS: Glucose - Point of Care 58 mg/dl (70-99)
[2024-07-24 00:54] LABS: Glucose - Point of Care 128 mg/dl (70-99)
[2024-07-24 02:58] LABS: Glucose - Point of Care 117 mg/dl (70-99)
[2024-07-24 05:10] LABS: Glucose - Point of Care 85 mg/dl (70-99)
[2024-07-24 07:04] LABS: Hematocrit 25.9 % (37.0-47.0); Hemoglobin 8.5 g/dL (12.0-16.0); Mean Corp Hgb Conc. 32.8 g/dL (33.0-37.0); Mean Corpuscular Hgb 27.1 pg (27.0-31.0); Mean Corpuscular Volume 82.5 fL (81.0-99.0); Mean Platelet Volume 9.5 fL (7.4-10.4); Platelet Count 214 10^3/uL (130-400); Red Blood Cell Count 3.14 10^6/uL (4.20-5.40); Red Cell Dist. Width 16.6 % (11.5-14.5); White Blood Cell Count 7.6 10^3/uL (4.8-10.8)
[2024-07-24 07:15] LABS: ALT (SGPT) 216 U/L (0-35); AST (SGOT) 237 U/L (14-36); Albumin 3.1 g/dl (3.5-5.0); Alkaline Phosphatase 350 U/L (38-126); Blood Urea Nitrogen 38 mg/dl (7-17); Calcium 8.4 mg/dl (8.4-10.2); Carbon Dioxide 25 mmol/L (22-30); Chloride 103 mmol/L (98-107); Estimated Creatinine Clearance 41 ml/min; Glucose 67 mg/dl (70-99); Magnesium 1.8 mg/dl (1.6-2.3); Potassium 3.4 mmol/L (3.5-5.1); Sodium 137 mmol/L (135-145); Total Bilirubin 5.3 mg/dl (0.2-1.3); Total Protein 5.2 g/dl (6.3-8.2); eGFR 38.51
[2024-07-24 07:39] LABS: Glucose - Point of Care 83 mg/dl (70-99)
--- NOTE | 2024-07-24 07:46 | PN.DE.MGMTRT ---
Insulin Management
- -
07/24/2024: Diabetes Management Consult Follow up
78 year old female who has had a myriad of medical issues and recent prolonged hospitalization 06/01-06/17. Pt has been re-admitted for multilobar PNA in the left upper lobe and right upper lobe and a possibly left lower lobe. Also noted for
gallbladder sludge and moderate sized gallbladder stones on abd US.
PMH: Diastolic heart failure, OR, CAD s/p CABG in 2021, HTN, HLD, CKD and T2DM.
Her recent hospitalization included norovirus, orthostatic hypotension from significant diarrhea and syncope, multi bacterial urinary tract infection including E. coli and Klebsiella. She was recently discharged from rehab on 70/30 insulin 45 units
in AM and 55 units in PM.
States she sees Dr. Renea Hartley at [facility] on a regular basis for diabetes care. States that she often has to decrease her 70/30 doses based on her blood sugar when she is at home and that Dr. Hartley has agreed that Nicki knows her
diabetes and is OK that she adjusts the insulin.
Her A1C was 8.7% on 05/05/24. Repeat A1C on admission is 7.3% , Cr 1.3, eGFR 42.09
Patient is awake alert and oriented, sitting up @edge of bed eating, offers no complaints, able to discuss diabetes management.
3/4 Premeal glucose 119 to 208, received 3 units corrective insulin with dinner HS glucose was 59, treated then up to 128.
3/5 Fasting glucose 83. Will reduce dinner 70/30 to 50 units and reduce moderate corrective to low corrective. Will continue 45 units 70/30 with breakfast.
Will cont to follow and adjust insulin dose if necessary. Discussed with pt and nurse.
Diabetes History
- -
Type of Diabetes: 2 requiring insulin
Pre-Admission Diabetes Regimen
07/23/24 07/24/24
07:25 06:05
Creatinine 1.5 H 1.4 H
Lab Results
Hemoglobin A1c 7.3 % (4.0-5.6) H 07/21/24 06:09
Insulin Pump Settings
IP Diabetes Regimen
07/23/24 07/23/24 07/23/24
07:25 11:16 15:03
Glucose 103 H
POC Glucose 182 H 208 H
07/23/24 07/23/24 07/24/24
21:20 21:48 00:16
Glucose
POC Glucose 58 L 99 58 L
07/24/24 07/24/24 07/24/24
00:51 02:56 05:09
Glucose
POC Glucose 128 H 117 H 85
07/24/24 07/24/24
06:05 07:30
Glucose 67 L
POC Glucose 83
Meal type: Breakfast
Amount consumed: 100%
Patient Education
[2024-07-24] MEDS: PROTONIX 40 MG PO (08:39)
[2024-07-24] MEDS: VITAMIN D3 (cholecalciferol) 50 MCG PO (08:39)
[2024-07-24] MEDS: ASPIR LOW (ENTERIC COATED) 81 MG PO (08:39)
[2024-07-24] MEDS: KCL 40 MEQ PO (08:39)
[2024-07-24] MEDS: DESENEX/MITRAZOL/ZEASORB 1 APPLIC TOPICAL ×2 (08:40→20:16)
[2024-07-24] MEDS: TOPROL XL 25 MG PO ×2 (08:48→20:16)
[2024-07-24] MEDS: LOTREL 5 MG/10 MG PO (08:49)
[2024-07-24] MEDS: NOVOLOG FLEXPEN-MODERATE RESISTANCE SC (09:06)
[2024-07-24] MEDS: NOVOLOG MIX 70/30 FLEXPEN SC (09:12)
[2024-07-24] MEDS: NOVOLOG MIX 70/30 FLEXPEN 25 UNITS SC (09:53)
--- NOTE | 2024-07-24 10:02 | W.PN.CARDCBS ---
Addendum entered and electronically signed by Chandler Rosas MD 07/24/24 12:16:
I saw and examined the patient.
The Paving Crew Foreman's note was reviewed and I agree with the note.
Comment: Briefly, 78-year-old woman past medical history of heart failure with preserved ejection fraction presenting with worsening dyspnea concerning for acute decompensated heart failure.
Received IV Lasix however her creatinine uptrended and diuresis was held
Suspect that she would benefit from further diuresis as she is still requiring supplemental O2
Given uncertainty in her volume status I offered the patient that we could arrange for right heart catheterization to evaluate cardiac filling pressures and she is agreeable, tentatively planned for later today -can make a determination on further
diuresis based on this
Would consider adding SGLT2 once creatinine stabilizes given h/o HFpEF and DM2
Statin on hold with elevated LFTs - possible congestive hepatopathy per GI
Rest per Gladys Anderson
Original Note:
Today's Communication / Plan
-
Will plan for right heart cath today
Replete K
Follow creatinine
Wean supp O2 as able
Impression / Plan
-
PCP: Dr. Branch
Chlorination Operator: Dr. Fraga
Impression:
Presented with SOB and chest pressure
Multilobar pneumonia
Recent admission at w/ UTI, norovirus, RACHELLE 05/2024
Acute HFpEF
Moderate gallstones w/ sludge
Elevated LFTs
CAD
s/p CABG with MORFIN to LAD, SVG to Diag, SVG to OM, SVG to PDA 01/26/22
s/p Pericardial patch repair of medial right atrium 01/26/22
Paroxysmal atrial fibrillation (brief post-op)
DM2
HTN
HLD
Suspected SATURNINO
GERD
Echo: 01/20/22: LV: Normal size. Mild LVH. EF: 50-55% visually. Mid-distal anteroseptal HK. RV: Normal, LA: Mildly dilated, RA: Normal, MV: Mo MS or MR, AV: Trileaflet no AI, TV: Trace TR with PAP 15-20 mmHg
JOSELITO post-op 01/26/22: EF 60-65%, no RWMA, mild MR
Echo 06/05/2024: EF 51%, mild cLVH, aortic sclerosis without stenosis, mild TR, estimated PAP 25-30 mmHg
Plan:
-Presented with SOB and chest pressure. Admitted with concern for multilobar pneumonia and acute heart failure.
-pulm feels PNA less likely. abx discontinued
-She was diuresed earlier this admission with some improvement. Creatinine then bumped to 1.5. In past she has had acute renal failure with creatinine up to 3 range. Lasix was placed on hold yesterday. Creatinine slightly improved to 1.4. She
remains with evidence of volume overload on examination and if accurate gain 2 pounds overnight.
-Would consider for right heart cath today to assess volume status further. Discussed procedure with patient and she is agreeable to proceed
-Follow LFTs. Lipitor on hold. LDL 28. GI feels LFT elevation secondary to CHF. abd MRI 07/22 with cholelithiasis without cholecystitis and small left and moderate right pleural effusions. consider for R thoracentesis.
-can attempt tubigrip stockings
-per pulm notes, only needs supp O2 with ambulation
-Echo 05/2024 with EF 51% and no significant valvular disease. No need to repeat at this time.
-trop on arrival was 0.032 and trending down. No chest pain since admission. EKG from arrival SR with NSSTS.
-Continue Toprol 25mg BID.
-Remains in SR on review of telemetry. No afib noted. Not on anticoagulation given low burden.
-Continue aspirin 81mg daily. hgb 8.5 on 07/24.
-d/w hospitalist
HPI: Long complex medical history and this very pleasant 78-year-old female who has had a myriad of medical issues and recent prolonged hospitalization. She presents today with multilobar pneumonia via CAT scan in the left upper lobe and right
upper lobe and a possibly left lower lobe. She also has small bilateral pleural effusions and CT and chest x-ray also is read as apical pneumonia. Her abdominal ultrasound does show gallbladder sludge and moderate sized gallbladder stones. She
carries a complex past medical history including diastolic heart failure and four-vessel CABG in 2021. Her recent hospitalization included norovirus, orthostatic hypotension from significant diarrhea and syncope, multi bacterial urinary tract
infection including E. coli and Klebsiella. She was given IV diuretic in the ER and she is having vigorous diuresis. She has been placed on vancomycin and piperacillin by primary team. She is on 2 L of O2 at the bedside but feels relatively
comfortable
Progress Note - Chlorination Operator
Subjective
Date of Service: July 24, 2024
Remains with some shortness of breath particularly with exertion. Does report breathing is improving from admission
Objective
Labs:
07/24/24 06:05
07/24/24 06:05
Labs
Hgb 8.5 g/dL (12.0-16.0) L 07/24/24 06:05
Hct 25.9 % (37.0-47.0) L 07/24/24 06:05
Plt Count 214 10^3/uL (130-400) D 07/24/24 06:05
PT 14.9 Sec (11.4-14.6) H 07/23/24 07:25
INR 1.14 07/23/24 07:25
APTT 29.1 Sec (23.4-35.0) 07/21/24 07:02
Sodium 137 mmol/L (135-145) 07/24/24 06:05
Potassium 3.4 mmol/L (3.5-5.1) L 07/24/24 06:05
BUN 38 mg/dl (7-17) H 07/24/24 06:05
Creatinine 1.4 mg/dL (0.6-1.0) H 07/24/24 06:05
Glucose 67 mg/dl (70-99) L 07/24/24 06:05
Troponins
07/23/24
14:49
Troponin I 0.026
Vital Signs and I&O:
Vital Signs
Temp Pulse Resp BP Pulse Ox
98.6 F 73 18 97/77 96
07/24/24 07:30 07/24/24 08:48 07/24/24 07:30 07/24/24 08:48 07/24/24 07:30
Vital Signs
Temp Pulse Resp BP Pulse Ox
98.6 F 73 18 97/77 96
07/24/24 07:30 07/24/24 08:48 07/24/24 07:30 07/24/24 08:48 07/24/24 07:30
Intake & Output
07/22/24 07/23/24 07/24/24 07/25/24
07:59 07:59 07:59 07:59
Intake Total 1500 / 1500 960 / 960 720 / 720
Output Total 2200 / 2200 2222 / 2222
Balance -700 / -700 -1262 / -1262 720 / 720
Physical Exam
Physical Exam
GEN: No distress, awake, alert, oriented x3. on supp O2. obese
HEENT: supple, anicteric, mmm, eomi
LUNGS: CTA B/L, no wheezes
CV: Reg, S1/S2, no murmur
ABD: soft, BS+, NT/ND
EXT: No cyanosis, clubbing. 2+ edema of B/L LE
NEURO: Gross non-focal
SKIN: Warm, pink, dry. No rash
[2024-07-24 12:07] LABS: Glucose - Point of Care 131 mg/dl (70-99)
[2024-07-24] MEDS: NOVOLOG FLEXPEN-LOW RESISTANCE SC (12:35)
--- NOTE | 2024-07-24 14:21 | W.PN.UPDATE ---
Addendum entered and electronically signed by Dixon Marcus MD 07/24/24 14:33:
Hemoglobin fluctuant by more than 1 g without any obvious evidence of external bleeding. Check heme test stools iron studies and follow H&H closely for now. Patient states she had in the recent past anemia and might have required a transfusion.
Denies any GI bleed issues.
Original Note:
Update Note
Progress Note Update
Seen and examined by me independently in collaboration with the certified medical dosimetrist.
Lab data and imaging data reviewed.
Addendum as below :
No shortness of breath at rest but exertion. She was recently discharged from rehab on home O2. She has both concentrator and portable O2 set up at home.
Chest sounds clear. She is on 2 L.
Weight is fluctuant with creatinine is rising. LFTs are not improving. Is a concern if LFT abnormalities secondary to congestive hepatopathy.
Discussed with cardiology today regarding fluid status which is difficult to assess clinically.Will obtain a right heart cath today and go from there.
The patient denies any abdominal complaints and her abdomen is benign today. Continue to follow LFTs.
Total time spent on today's encounter was 52 minutes which included time spent in counseling the patient/family regarding diagnosis and treatment plan as listed above, goals of care, and symptom management. Case was discussed with nursing staff,
specialists, and care coordinators/case management. All labs and imaging personally reviewed by me. Remainder the time spent in detailed review of previous records, lab data, imaging, and other medical provider documentation.
--- NOTE | 2024-07-24 14:34 | CM ---
Chart reviewed for d/c planning and hospital course updates. Therapy evaluated patient is recommending HH at d/c, patient is current w/ [facility]. CM will review w/ patient HH providers and refer if agreeable. Patient assessed for home O2 needs,
patient requiring 2L O2 which is baseline for patient as she is recently new to O2 at home. Patient mentioned prev that her daughter purchased the O2 a year ago for her. CM will speak w/ daughter to confirm if she is private paying for this and if
she is interested in CM ordering O2 at d/c w/ a supplier and insurance can cover now that patient qualifies.
Plan: Home. LELE w/ [facility] services. O2 needs, CM will confirm w/ patient and/or daughter if agreeable for CM to order
--- NOTE | 2024-07-24 14:35 | W.PN.GI.CBS2 ---
Addendum entered and electronically signed by Alex Johnston MD 07/24/24 16:34:
I saw and evaluated the patient. I reviewed the resident�s note and agree with findings and plan as documented in the resident�s note.
Denies abd pain.
ABD soft NTND
REC:
Going for RHC today
Elevated R heart pressures could explain elevated LFTs
Trending down overall but bili up a little today
Continue to follow LFTs
No CBD stone on MRI, no abd pain
Original Note:
Today's Communication / Plan
-
-No abdominal pain
-AST/ALT, TB trending down slightly
-Follow-up LFTs, TB, INR daily
Assessment / Plan
-
Assessment
The patient is a 78-year-old obese female with a past medical history of CAD s/p CABG, HFpEF, hypertension, dyslipidemia, insulin-dependent diabetes mellitus type 2, history of Ferreira's palsy and neuropathy who was brought to the hospital for
evaluation of her chest pain radiating to back, having shortness of breath, some heartburn and indigestion. The patient endorsed having GERD and abdominal discomfort, but denies any associated GI symptoms. Her admission lab results were
significant for elevated LFTs and TB levels. Her follow-up LFT and TB levels remain still elevated without any improvement. Her abdominal US was notable for gallbladder sludge and gallstones but without any findings for acute cholecystitis.
Patient denies any pain on right upper quadrant abdominal area. Patient also reports improvement with her breathing.
Impression
Transaminitis (cholestatic and hepatocellular pattern)
GERD
History of constipation
Acute hypoxic respiratory failure likely mix of new developing PNA and acute exacerbation of HFpEF
CAD s/p CABG
Hypertension
Hyperlipidemia
IDDM
CKD stage III
Chronic back pain
History of urinary retention
#Transaminitis likely due CHF(congestive hepatopathy) vs sepsis
-Abdominal US on 07/21/2024: : New moderate gallbladder sludge and many moderate sized gallstones. No findings to suggest acute cholecystitis. / Hepatic fatty infiltration-Stable
-AST 237, ALT 216,: AST/ALT trending down slightly
-TB 5.3, INR 1.14
-Follow-up LFTs, TB, INR
-Hold ezetimibe and atorvastatin
-Avoid hepatotoxic medications
-MRI/MRCP: Cholelithiasis without overt MR evidence for acute cholecystitis. No choledocholithiasis.
-Hepatic panel: Negative
#GERD
-Continue PPI
Subjective
Subjective
Date of Service: July 24, 2024
Patient reports no abdominal pain and feels more comfortable with breathing. Denies nausea, vomiting, melena.
Objective
Data Reviewed
Laboratory Data:
Laboratory Results
07/24/24 06:05
07/24/24 06:05
Laboratory Results
PT 14.9 Sec (11.4-14.6) H 07/23/24 07:25
INR 1.14 07/23/24 07:25
APTT 29.1 Sec (23.4-35.0) 07/21/24 07:02
Magnesium 1.8 mg/dl (1.6-2.3) 07/24/24 06:05
Total Bilirubin 5.3 mg/dl (0.2-1.3) H 07/24/24 06:05
AST 237 U/L (14-36) H 07/24/24 06:05
ALT 216 U/L (0-35) H 07/24/24 06:05
Alkaline Phosphatase 350 U/L (38-126) H 07/24/24 06:05
Vital Signs and I&O:
Vital Signs
Temp Pulse Resp BP Pulse Ox
97.7 F 76 18 135/56 98
07/24/24 11:00 07/24/24 11:00 07/24/24 11:00 07/24/24 11:00 07/24/24 11:00
I&O
07/23/24 07/24/24 07/25/24
06:59 06:59 06:59
Intake Total 960 / 960 720 / 720
Output Total 2221 / 2221
Balance -1262 / -1262 720 / 720
Physical Exam
Physical Exam
HEENT: Anicteric and Moist mucous membranes
Cardiology: S1, S2 and Irregular Rate/Rhythm
Pulmonary: Clear
GI: Soft, Non Distended and Non Tender
Extremities: Edema (Chronic lower extremity edema)
Neuro: Non Focal
--- NOTE | 2024-07-24 15:25 | W.PN.HOSP.TC ---
Today's Communication/Plan
-
Holding lasix, wean O2
Assessment / Plan
Assessment / Plan
78-year-old female with history of HFpEF, CKD 3, chronic anemia, recent use of 2 L home O2 nasal cannula, CAD plus bypass January 2022, hypertension, hyperlipidemia, IDDM, obesity, who presents with worsening chest pressure and shortness of breath.
Acute hypoxic respiratory failure:
Troponin normal. EKG unremarkable. ProBNP: 2500. Concern for acute HFpEF exacerbation.
Chest x-ray: mild opacification in the left suprahilar region which is new and concerning for developing pneumonia.
CTA: No evidence of pulmonary embolus. Moderate right and small left pleural effusions. Moderate left upper lobe, mild right upper lobe and minimal left lower lobe findings suggesting pneumonia. Mild right upper lobe and right lower lobe probable
atelectasis. History of recent PNA, negative procalc, nonproductive minimal cough, afebrile. Overall picture unlikely PNA.
-Recently put on chronic O2 2L, started on 5L NC on arrival, weaned to 3L. continue to wean as tolerated
-Hold lasix given RACHELLE, follow kidney function.
-Discontinued Zosyn and vancomycin for pneumonia, afebrile/stable off abx
-Appreciate cards and pulm
-Home O2 eval: 92% on RA at rest, 86% on RA with ambulation, needs 2L with exertion
-For C
Transaminitis:
On arrival: AST/ALT: 454/193, lipase normal, alk phos elevated 262, T. bili 3.4. LFTs trending slowly downward
Positive Mendoza sign on PE on arrival, picture suggestive of choledocholithiasis. However, abd MRI showed cholelithiasis without overt MR evidence for acute cholecystitis. No choledocholithiasis. Potentially passed stone.
-Other potential causes include
-Hold ezetimibe and atorvastatin
-Possible that patient passed stone. Patients reports no abdominal symptoms today and abd physical exam is unremearkable. Will trend LFTs
-Appreciate GI
RACHELLE:
Secondary to diuresis. Improved slightly Cr 1.4
-Holding lasix, Follow BMP
Chronic anemia:
Pt reports history of anemia, may have required transfusion 3 years ago. Denies any bleeding.
-Check iron studies and hemoccult
-Follow HandH
-Transfuse if Hgb<7
Lower extremity edema:
Right leg venous insufficiency at baseline, increased lower extremity edema bilaterally. No wounds or ulcers.
Likely secondary to heart failure exacerbation.
-Darrel wrap, leg elevation as tolerated
-holding diuresis for RACHELLE
Hx of urinary retention:
-Also had difficulty passing urine while in ED
-Resolved. No catheterization needed
Insulin-dependent diabetes mellitus:
On aspart 55 units at bedtime, aspart 40 units a.m. adjusted as needed at home. HbA1c 7.3
-Keep as is, with SSI
-Patient has been off Mounjaro for about a month because it was not offered at rehab
-Appreciate diabetes [employer]
Essential hypertension:
-Continue home antihypertensives
GERD:
-Continue pantoprazole
HFpEF:
Continue metoprolol 25 twice daily
CKD 3:
-Avoid nephrotoxic agents, follow BMP while diuresis
Chronic back pain:
Osteoarthritis of spine
-On minimal Tylenol as needed. Hold if worsening LFT
Chronic constipation:
Stable with daily oatmeal (increased fiber)
-Bowel regimen as needed
DVT prophylaxis: Lovenox
CODE STATUS: DNR
Anticipated Discharge: Within 24 hours
Subjective/Interval History
-
Date of Service: July 24, 2024
No new complaints. No acute overnight events
Objective Data
-
Labs:
Laboratory Results
07/24/24
06:05
WBC 7.6
Hgb 8.5 L
Hct 25.9 L
Plt Count 214 D
Sodium 137
Potassium 3.4 L
Chloride 103
Carbon Dioxide 25
BUN 38 H
Creatinine 1.4 H
Glucose 67 L
Calcium 8.4
Total Bilirubin 5.3 H
AST 237 H
ALT 216 H
Alkaline Phosphatase 350 H
Vital Signs:
Vital Signs
Temp Pulse Resp BP Pulse Ox
97.7 F 76 18 135/56 98
07/24/24 11:00 07/24/24 11:00 07/24/24 11:00 07/24/24 11:00 07/24/24 11:00
I&O
07/23/24 07/24/24 07/25/24
06:59 06:59 06:59
Intake Total 960 / 960 720 / 720
Output Total 2222 / 2222
Balance -1262 / -1262 720 / 720
Review of Systems
-
History Source: Patient
Constitutional: Denies Fever
Respiratory: Reports Trouble Breathing (on minimal exertion); Denies Cough
Cardiac: Denies Chest Pain
Abdomen/GI: Denies Abdominal Pain, Nausea, Vomiting, Diarrhea, Constipated or Bloody Stools
Musculoskeletal: Reports Edema (improved)
Physical Exam
-
General: Comfortable and Morbidly Obese
HEENT: Normocephalic, Atraumatic, Moist Mucous Membranes, Anicteric and Oxygen (2L NC)
Respiratory: Clear to Auscultation, Non Labored Respirations (at rest) and Other (some respiratory distress with minimal exertion); Negative Wheezes, Rales, Rhonchi or Crackles
Cardiac: Regular Rhythm and S1/S2; Negative Murmur, Rub or Calf Tenderness
GI: Soft, Nontender, Nondistended and Normal Bowel Sounds
Musculoskeletal: Edema, Right Lower Extrem and Edema, Left Lower Extrem
Skin: Warm and Dry
Neuro: Awake, Alert and Oriented
Psych: Calm
[2024-07-24 16:15] LABS: Iron 44 ug/dl (37-170)
[2024-07-24 16:25] LABS: Percent Saturation 17 % (20-50); Total Iron Binding Capacity 247 ug/dl (265-497)
[2024-07-24] MEDS: LASIX 80 MG IV (18:14)
[2024-07-24] MEDS: LOVENOX 40 MG SC (18:15)
[2024-07-24 18:22] LABS: Glucose - Point of Care 263 mg/dl (70-99)
[2024-07-24] MEDS: NOVOLOG FLEXPEN-LOW RESISTANCE 3 UNITS SC (18:28)
--- NOTE | 2024-07-24 18:37 | PTCARENOTE ---
Patient received form the director of labor and delivery, awake and alert. Right groin venous site CDI, dressing dry and soft. 80 mg IV Lasix given, purwick in place., flat until 1944. Patient reports low blood sugars yesterday evening, insulin orders adjusted. Plan of
care reviewed, call arzate in reach
[2024-07-24] MEDS: NOVOLOG MIX 70/30 FLEXPEN 30 UNITS SC (19:02)
--- NOTE | 2024-07-24 20:26 | PTCARENOTE ---
R groin CDI- pedal pulse weak but palpable. POC discussed- HOB elevated now- pt eating dinner.
--- NOTE | 2024-07-24 21:10 | ITS.CL.CATH ---
Special Machine Stitcher - Catheterization
Cardiac Catheterization
Procedure Report:
RIGHT HEART CATHETERIZATION
Date of Procedure: July 24, 2024
Referring: Isaac Lamargarland
INDICATION: Assess invasive hemodynamics in the setting of worsening renal function.
ACCESS: Right common femoral vein, 6 [place] sheath, under ultrasound guidance using a micropuncture kit.
Of note, we attempted right brachial venous access multiple times under ultrasound guidance however despite getting good blood return, we could not successfully advance the wire just beyond the proximal portion due to tortuosity.
Ultrasound was utilized for vascular access. The right common femoral vein was visualized under ultrasound, and the vessel was patent. An image was stored permanently in the patient's medical record. Under direct ultrasound guidance, a 6 [place]
sheath was inserted into the artery using a micropuncture kit through a modified Seldinger technique.
Hemodynamics (mmHg):
RA (m) : 23
RV (s/d,m) : 71/15, 28
PA (s/d, m) : 67/31, 47
PCWP (m) : 33 with V waves up to 52
PA saturation: 54.8% on 2 L of oxygen via nasal cannula
AO saturation: Based on noninvasive pulse ox, 95% on 2 L of oxygen via nasal cannula.
RA saturation: 51.6% on 2 L of oxygen via nasal cannula
Cardiac Output : 4.76 L/min by Sean calculation
Cardiac Index : 2.22 L/min/m-2 by Sean calculation
Pulmonary vascular resistance: 2.94 amos unit
SEDATION: 15 minutes of procedural sedation was utilized. An independent regional medical director was present to assist with and help manage the patient's level of consciousness and physiologic status.
RADIATION SUMMARY: Fluoro Time (min): 1.7, Dose (mGy): 34.01, DAP (Gy.cm2) : 4.55
CONCLUSION:
1. Significantly elevated right and left-sided filling pressures with severe pulmonary hypertension and normal cardiac output.
Yesica Chery MD, FAC, [facility]
[2024-07-24 22:15] LABS: Glucose - Point of Care 214 mg/dl (70-99)
[2024-07-25] VITALS (13 sets, daily range): BP systolic 130–168; BP diastolic 34–75; PULSE 70; O2SAT 95; BMI 49.2; BMI 49.0
[2024-07-25 03:33] LABS: Hematocrit 27.6 % (37.0-47.0); Hemoglobin 9.2 g/dL (12.0-16.0); Mean Corp Hgb Conc. 33.3 g/dL (33.0-37.0); Mean Corpuscular Hgb 27.8 pg (27.0-31.0); Mean Corpuscular Volume 83.4 fL (81.0-99.0); Mean Platelet Volume 9.6 fL (7.4-10.4); Platelet Count 249 10^3/uL (130-400); Red Blood Cell Count 3.31 10^6/uL (4.20-5.40); Red Cell Dist. Width 16.5 % (11.5-14.5); White Blood Cell Count 6.1 10^3/uL (4.8-10.8)
[2024-07-25 03:57] LABS: ALT (SGPT) 233 U/L (0-35); AST (SGOT) 275 U/L (14-36); Albumin 3.2 g/dl (3.5-5.0); Alkaline Phosphatase 408 U/L (38-126); Blood Urea Nitrogen 40 mg/dl (7-17); Calcium 8.6 mg/dl (8.4-10.2); Carbon Dioxide 27 mmol/L (22-30); Chloride 103 mmol/L (98-107); Estimated Creatinine Clearance 38 ml/min; Glucose 157 mg/dl (70-99); Magnesium 1.7 mg/dl (1.6-2.3); Potassium 3.8 mmol/L (3.5-5.1); Sodium 138 mmol/L (135-145); Total Bilirubin 3.9 mg/dl (0.2-1.3); Total Protein 5.4 g/dl (6.3-8.2); eGFR 35.45
[2024-07-25 06:55] LABS: Glucose - Point of Care 154 mg/dl (70-99)
[2024-07-25] MEDS: LOTREL 5 MG/10 MG 1 CAPSULE PO (07:27)
[2024-07-25] MEDS: PROTONIX 40 MG PO (07:27)
[2024-07-25] MEDS: TOPROL XL 25 MG PO ×2 (07:28→20:50)
[2024-07-25] MEDS: VITAMIN D3 (cholecalciferol) 50 MCG PO (07:28)
[2024-07-25] MEDS: ASPIR LOW (ENTERIC COATED) 81 MG PO (07:28)
[2024-07-25] MEDS: NOVOLOG MIX 70/30 FLEXPEN 25 UNITS SC (07:29)
[2024-07-25] MEDS: NOVOLOG FLEXPEN-LOW RESISTANCE 1 UNITS SC ×2 (07:29→11:53)
--- NOTE | 2024-07-25 07:51 | W.PN.CARDCBS ---
Addendum entered and electronically signed by Agnes Fraga DO 07/25/24 10:24:
I saw and examined the patient.
The Leather Leveler's note was reviewed and I agree with the note.
Comment: Patient was seen and examined. Known to me from the office; chart, testing reviewed. She reports less dyspnea on exertion and shortness of breath at rest now on room air. No chest pain or pressure.
General: No acute distress, AAOX3
Heart: Regular, positive S1/S2, No murmur
Lungs: Bronchovesicular breath sounds without wheezes or rhonchi. Decreased particularly right base
Abd: Positive BS, NT/ND, neg rebound/rigidity/guarding
Ext: ++ edema/lymphedema
Neuro: nonfocal
Plan:
Hypoxic respiratory failure, multifactorial: Recent multilobar pneumonia with infiltrates present on CT chest, heart failure with preserved ejection fraction with moderate right pleural effusion, probable sleep apnea, morbid obesity, BMI 48 and
deconditioning [she also has venous insufficiency and a component of lymphedema with expectations that there will always be some degree of lower extremity swelling]
-proBNP 07/21/2024, 2540
-Right heart catheterization July 24, 2024 reviewed: Significantly elevated right/left filling pressures with severe pulmonary hypertension and normal cardiac output.
RA (m) : 23
RV (s/d,m) : 71/15, 28
PA (s/d, m) : 67/31, 47
PCWP (m) : 33 with V waves up to 52
PA saturation: 54.8% on 2 L of oxygen via nasal cannula
AO saturation: Based on noninvasive pulse ox, 95% on 2 L of oxygen via nasal cannula.
RA saturation: 51.6% on 2 L of oxygen via nasal cannula
Cardiac Output : 4.76 L/min by Sean calculation
Cardiac Index : 2.22 L/min/m-2 by Sean calculation
Pulmonary vascular resistance: 2.94 amos unit
-CTA chest negative for PE; no abnormal pleural or parenchymal masses.
-2D echocardiogram June 05, 2024 with normal biventricular size and systolic function with mild LVH and EF low normal 51% by volumetric assessment. No hemodynamically significant valve pathology with aortic sclerosis and trace AI, trace mitral
regurgitation and mild tricuspid regurgitation. Estimated pulmonary artery pressure this study estimated pulmonary pressures 25-30 mmHg. No pericardial effusion. proBNP May 04, 2024 was 149.
-Known coronary artery disease status post CABG in 2021 with no chest pain suggestive of angina and troponins not significantly elevated.
-Continue IV Lasix; volume status is slowly improving
-Continue efforts for normalization of blood pressure: Continue metoprolol succinate 25 mg twice daily and will add hydralazine/Isordil. Amlodipine/ benazepril held at this time due to renal insufficiency. Eventually will consider adding Aldactone
and SGLT2 inhibitor once renal function has improved. Patient had been on hydrochlorothiazide which is currently been held and will likely not be restarted with plan to transition to oral Lasix once more euvolemic
-Will need outpatient pulmonary follow-up to discuss sleep apnea evaluation
-She is on Mounjaro which hopefully can be further titrated to aid with weight loss as an outpatient
Elevated LFTs�appreciate and fatty liver infiltration
-Appreciate GI evaluation including abdominal MRI and abdominal ultrasounds
-Gallbladder sludge/multiple moderate size gallstones with no evidence for acute cholecystitis or choledocholithiasis
-Continue diuretic efforts
-Outpatient atorvastatin and ezetimibe held
Type 2 diabetes mellitus
-Hemoglobin A1c 7.3% improved from 8.7 in April
-Continue efforts towards normoglycemia
-Would continue insulin and Mounjaro with eventual addition of SGLT2 inhibitor
-Weight loss strongly advised
Acute on chronic renal sufficiency�monitor renal function closely with diuresis
Normocytic anemia with iron deficiency
-Defer to primary
Suspected SATURNINO�outpatient pulmonary evaluation planned
Will follow with you
Original Note:
Today's Communication / Plan
-
continue diuresis with IV lasix 80mg BID
follow Cr, LFTs
Impression / Plan
-
PCP: Dr. Branch
Overnight Cashier: Dr. Fraga
Impression:
Presented with SOB and chest pressure
Multilobar pneumonia
Recent admission at w/ UTI, norovirus, RACHELLE 05/2024
Acute HFpEF
Moderate gallstones w/ sludge
Elevated LFTs
CAD
s/p CABG with MORFIN to LAD, SVG to Diag, SVG to OM, SVG to PDA 01/26/22
s/p Pericardial patch repair of medial right atrium 01/26/22
Paroxysmal atrial fibrillation (brief post-op)
DM2
HTN
HLD
Suspected SATURNINO
GERD
Echo: 01/20/22: LV: Normal size. Mild LVH. EF: 50-55% visually. Mid-distal anteroseptal HK. RV: Normal, LA: Mildly dilated, RA: Normal, MV: Mo MS or MR, AV: Trileaflet no AI, TV: Trace TR with PAP 15-20 mmHg
JOSELITO post-op 01/26/22: EF 60-65%, no RWMA, mild MR
Echo 06/05/2024: EF 51%, mild cLVH, aortic sclerosis without stenosis, mild TR, estimated PAP 25-30 mmHg
Plan:
-She presented with shortness of breath and chest pressure. Was diuresed with some improvement, however also with bump in creatinine to 1.5. She had prior acute renal failure with creatinine into threes in the past. She underwent right heart cath
yesterday which revealed evidence of gross volume overload (wedge of 33 with normal cardiac output). Was given IV Lasix 80 mg last night and patient reports good urine output. Creatinine 1.[address] on IV Lasix 80 mg twice daily
and continue to diurese with close monitoring of creatinine. Dry weight unknown
-Follow LFTs with diuresis, possibly passive congestion. Appreciate GI input
-Wean supplemental oxygen as able
-Echo 05/2024 with EF 51% and no significant valvular disease. No need to repeat at this time.
-Does not appear to be ideal candidate for SGLT2 inhibitor given body habitus
-trop on arrival was 0.032 and trending down. No chest pain since admission. EKG from arrival SR with NSSTS.
-Continue Toprol 25mg BID. Remains in SR on review of telemetry. No afib noted. Not on anticoagulation given low burden.
-Continue aspirin 81mg daily. hgb 9.2. iron studies noted, defer need for repletion to primary service
-d/w nursing
HPI: Long complex medical history and this very pleasant 78-year-old female who has had a myriad of medical issues and recent prolonged hospitalization. She presents today with multilobar pneumonia via CAT scan in the left upper lobe and right
upper lobe and a possibly left lower lobe. She also has small bilateral pleural effusions and CT and chest x-ray also is read as apical pneumonia. Her abdominal ultrasound does show gallbladder sludge and moderate sized gallbladder stones. She
carries a complex past medical history including diastolic heart failure and four-vessel CABG in 2021. Her recent hospitalization included norovirus, orthostatic hypotension from significant diarrhea and syncope, multi bacterial urinary tract
infection including E. coli and Klebsiella. She was given IV diuretic in the ER and she is having vigorous diuresis. She has been placed on vancomycin and piperacillin by primary team. She is on 2 L of O2 at the bedside but feels relatively
comfortable
Progress Note - Overnight Cashier
Subjective
Date of Service: July 25, 2024
Reports improvement in breathing and good urine output overnight
Objective
Labs:
07/25/24 03:15
07/25/24 03:15
Labs
Hgb 9.2 g/dL (12.0-16.0) L 07/25/24 03:15
Hct 27.6 % (37.0-47.0) L 07/25/24 03:15
Plt Count 249 10^3/uL (130-400) 07/25/24 03:15
PT 14.9 Sec (11.4-14.6) H 07/23/24 07:25
INR 1.14 07/23/24 07:25
APTT 29.1 Sec (23.4-35.0) 07/21/24 07:02
Sodium 138 mmol/L (135-145) 07/25/24 03:15
Potassium 3.8 mmol/L (3.5-5.1) 07/25/24 03:15
BUN 40 mg/dl (7-17) H 07/25/24 03:15
Creatinine 1.5 mg/dL (0.6-1.0) H 07/25/24 03:15
Glucose 157 mg/dl (70-99) H 07/25/24 03:15
Troponins
07/23/24
14:49
Troponin I 0.026
Vital Signs and I&O:
Vital Signs
Temp Pulse Resp BP Pulse Ox
98.8 F 70 20 167/51 99
07/25/24 06:50 07/25/24 07:27 07/25/24 06:50 07/25/24 07:27 07/25/24 06:50
Vital Signs
Temp Pulse Resp BP Pulse Ox
98.8 F 70 20 167/51 99
07/25/24 06:50 07/25/24 07:27 07/25/24 06:50 07/25/24 07:27 07/25/24 06:50
Intake & Output
07/22/24 07/23/24 07/24/24 07/25/24
07:59 07:59 07:59 07:59
Intake Total 1500 / 1500 960 / 960 720 / 720 640 / 640
Output Total 2200 / 2200 2222 / 2222 950 / 950
Balance -700 / -700 -1262 / -1262 720 / 720 -310 / -310
Physical Exam
Physical Exam
GEN: No distress, awake, alert, oriented x3. on supp O2. obese
HEENT: supple, anicteric, mmm, eomi
LUNGS: CTA B/L anterolaterally, no wheezes
CV: Reg, S1/S2, no murmur
ABD: soft, BS+, NT/ND
EXT: No cyanosis, clubbing. 2+ edema of B/L LE
NEURO: Gross non-focal
SKIN: Warm, pink, dry. No rash. R groin site soft, NTTP
[2024-07-25] MEDS: LASIX 80 MG IV ×2 (08:22→15:50)
--- NOTE | 2024-07-25 08:46 | PN.DE.MGMTRT ---
Insulin Management
- -
07/25/2024: Diabetes Management Consult Follow up
78 year old female who has had a myriad of medical issues and recent prolonged hospitalization 06/01-06/17. Pt has been re-admitted for multilobar PNA in the left upper lobe and right upper lobe and a possibly left lower lobe. Also noted for
gallbladder sludge and moderate sized gallbladder stones on abd US.
PMH: Diastolic heart failure, OR, CAD s/p CABG in 2021, HTN, HLD, CKD and T2DM.
Her recent hospitalization included norovirus, orthostatic hypotension from significant diarrhea and syncope, multi bacterial urinary tract infection including E. coli and Klebsiella. She was recently discharged from rehab on 70/30 insulin 45 units
in AM and 55 units in PM.
States she sees Dr. Renea Hartley at [facility] on a regular basis for diabetes care. States that she often has to decrease her 70/30 doses based on her blood sugar when she is at home and that Dr. Hartley has agreed that Nicki knows her
diabetes and is OK that she adjusts the insulin.
Her A1C was 8.7% on 05/05/24. Repeat A1C on admission is 7.3% , Cr 1.5, eGFR 35.45
Patient is awake alert and oriented, sitting up @edge of bed eating, offers no complaints, able to discuss diabetes management.
3/5 Cardiac Cath at ~ 5pm - Pulmonary HTN; transferred to IVU.
3/5 Fasting glucose 83. Dinner 70/30 Novolog reduced to 50 units low corrective insulin, 45 units 70/30 with breakfast. Glucose range 131 to 263. Dinner 70/30 was reduced further to 30 units by hospitalist.
3/6 Fasting glucose 154, will make no change to insulin doses: 45 units 70/30 novolog in AM and 30 units 70/30 novolog with dinner.
Will cont to follow and adjust insulin dose if necessary. Discussed with pt and nurse.
Diabetes History
- -
Type of Diabetes: 2 requiring insulin
Pre-Admission Diabetes Regimen
07/25/24
03:15
Creatinine 1.5 H
Lab Results
Hemoglobin A1c 7.3 % (4.0-5.6) H 07/21/24 06:09
Insulin Pump Settings
IP Diabetes Regimen
07/24/24 07/24/24 07/24/24
11:54 18:21 22:13
Glucose
POC Glucose 131 H 263 H 214 H
07/25/24 07/25/24
03:15 06:55
Glucose 157 H
POC Glucose 154 H
Meal type: Dinner
Meal type: Breakfast
Amount consumed: 100%
Amount consumed: 100%
Patient Education
--- NOTE | 2024-07-25 10:09 | PTCARENOTE ---
Assumed care at 0700. Patient AO x3. Denies pain, NSR, +3 pitting edema legs. Compression stockings applied. Weaned to room air POX 97%, lungs CTA, less shortness of breath with exertion. Using bedside commode, voiding yellow urine, Hematest stool
formed brown stool today (results are negative). Call arzate in reach
--- NOTE | 2024-07-25 10:39 | W.PN.GI.CBS2 ---
Today's Communication / Plan
-
LFTs improving slowly, likely due to elevated R heart pressures and severe pulm HTN
Cont cardiac management
MRI negative CBD stone
Will sign off. Please call back if needed
Assessment / Plan
-
Assessment
The patient is a 78-year-old obese female with a past medical history of CAD s/p CABG, HFpEF, hypertension, dyslipidemia, insulin-dependent diabetes mellitus type 2, history of Ferreira's palsy and neuropathy who was brought to the hospital for
evaluation of her chest pain radiating to back, having shortness of breath, some heartburn and indigestion. The patient endorsed having GERD and abdominal discomfort, but denies any associated GI symptoms. Her admission lab results were
significant for elevated LFTs and TB levels. Her follow-up LFT and TB levels remain still elevated without any improvement. Her abdominal US was notable for gallbladder sludge and gallstones but without any findings for acute cholecystitis.
Patient denies any pain on right upper quadrant abdominal area. Patient also reports improvement with her breathing.
Impression
Transaminitis (cholestatic and hepatocellular pattern) due to elevated R heart pressure and severe pulm HTN
GERD
History of constipation
Acute hypoxic respiratory failure likely mix of new developing PNA and acute exacerbation of HFpEF
CAD s/p CABG
Hypertension
Hyperlipidemia
IDDM
CKD stage III
Chronic back pain
History of urinary retention
Subjective
Subjective
Date of Service: July 25, 2024
No complaints. Denies abd pain
Objective
Data Reviewed
Laboratory Data:
Laboratory Results
07/25/24 03:15
07/25/24 03:15
Laboratory Results
PT 14.9 Sec (11.4-14.6) H 07/23/24 07:25
INR 1.14 07/23/24 07:25
APTT 29.1 Sec (23.4-35.0) 07/21/24 07:02
Magnesium 1.7 mg/dl (1.6-2.3) 07/25/24 03:15
Total Bilirubin 3.9 mg/dl (0.2-1.3) H 07/25/24 03:15
AST 275 U/L (14-36) H 07/25/24 03:15
ALT 233 U/L (0-35) H 07/25/24 03:15
Alkaline Phosphatase 408 U/L (38-126) H 07/25/24 03:15
Vital Signs and I&O:
Vital Signs
Temp Pulse Resp BP Pulse Ox
98.8 F 70 20 167/51 97
07/25/24 06:50 07/25/24 07:27 07/25/24 06:50 07/25/24 07:27 07/25/24 09:42
I&O
07/24/24 07/25/24 07/26/24
06:59 06:59 06:59
Intake Total 720 / 720 640 / 640
Output Total 950 / 950 200 / 200
Balance 720 / 720 -310 / -310 -200 / -200
Physical Exam
Physical Exam
GI: Soft, Non Distended and Non Tender
--- NOTE | 2024-07-25 11:45 | W.PN.HOSP.TC ---
Addendum entered and electronically signed by Dixon Marcus MD 07/25/24 12:49:
Seen and examined by me independently in collaboration with the biomedical engineering aide.
Lab data and imaging data reviewed.
Addendum as below :
RHC confirms high filling pressures now on IV Lasix 80 mg twice a day. Patient is feeling improved. This morning is off of oxygen. LFTs are improving.
Continue with IV diuresis for acute CHF decompensation with preserved EF.
Original Note:
Today's Communication/Plan
-
IV diuresis
Assessment / Plan
Assessment / Plan
78-year-old female with history of HFpEF, CKD 3, chronic anemia, recent use of 2 L home O2 nasal cannula, CAD plus bypass January 2022, hypertension, hyperlipidemia, IDDM, obesity, who presents with acute hypoxic respiratory failure secondary to
acute HFpEF exacerbation
PLAN:
Acute hypoxic respiratory failure:
2/2 Acute HFpEF exacerbation
-Recently put on chronic O2 2L, started on 5L NC on arrival, currently off o2, monitor resp status
-s/p right heart cath, Significantly elevated right and left-sided filling pressures with severe pulmonary hypertension and normal cardiac output
-Appreciate cards and pulm
-Start IV lasix 80mg BID, follow
Transaminitis:
Most likely secondary to congestive heart failure, elevated right heart pressures
On arrival: AST/ALT: 454/193, lipase normal, alk phos elevated 262, T. bili 3.4. LFTs trending slowly downward/stable
Positive Mendoza sign on PE on arrival, with initial concern for choledocholithiasis, however, abd MRI showed cholelithiasis without overt MR evidence for acute cholecystitis. No choledocholithiasis.
-Possible that patient passed stone if any was present. no abd symptoms, abd PE unremarkable.
-Hold ezetimibe and atorvastatin
-Appreciate GI
RACHELLE:
Cardiorenal
-Continue IV diuresis 80mg IV BID
Chronic anemia:
Pt reports history of anemia, may have required transfusion 3 years ago. Denies any bleeding.
-Iron studies indicate anemia of chronic disease
-Follow HandH
-Transfuse if Hgb<7
Lower extremity edema:
Right leg venous insufficiency at baseline, increased lower extremity edema bilaterally secondary to HFpEF. No wounds or ulcers.
Likely secondary to heart failure exacerbation.
-Darrel wrap, leg elevation as tolerated
Hx of urinary retention:
-Also had difficulty passing urine while in ED
-Resolved. No catheterization needed
Insulin-dependent diabetes mellitus:
On aspart 55 units at bedtime, aspart 40 units a.m. adjusted as needed at home. HbA1c 7.3
-Reduced dosing to 30units HS, 25u AC due to hypoglycemia, with SSI
-Patient has been off Mounjaro for about a month because it was not offered at rehab
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
Essential hypertension:
-Continue home antihypertensives
GERD:
-Continue pantoprazole
HFpEF:
Continue metoprolol 25 twice daily
CKD 3:
-Avoid nephrotoxic agents, follow BMP while diuresis
Chronic back pain:
Osteoarthritis of spine
-On minimal Tylenol as needed. Hold if worsening LFT
Chronic constipation:
Stable with daily oatmeal (increased fiber)
-Bowel regimen as needed
DVT prophylaxis: Lovenox
CODE STATUS: DNR
Data:
Troponin normal. EKG unremarkable. ProBNP: 2500.
Chest x-ray: mild opacification in the left suprahilar region which is new and concerning for developing pneumonia.
CTA: No evidence of pulmonary embolus. Moderate right and small left pleural effusions. Moderate left upper lobe, mild right upper lobe and minimal left lower lobe findings suggesting pneumonia. Mild right upper lobe and right lower lobe probable
atelectasis. History of recent PNA, negative procalc, nonproductive minimal cough, afebrile.
Home O2 eval: 92% on RA at rest, 86% on RA with ambulation, needs 2L with exertion
s/p right heart cath, Significantly elevated right and left-sided filling pressures with severe pulmonary hypertension and normal cardiac output
Anticipated Discharge: 24 - 48 hours
Subjective/Interval History
-
Date of Service: July 25, 2024
Pt reports improvement in her SOB today. Feels well. No new complaints
Objective Data
-
Labs:
Laboratory Results
07/25/24
03:15
WBC 6.1
Hgb 9.2 L
Hct 27.6 L
Plt Count 249
Sodium 138
Potassium 3.8
Chloride 103
Carbon Dioxide 27
BUN 40 H
Creatinine 1.5 H
Glucose 157 H
Calcium 8.6
Total Bilirubin 3.9 H
AST 275 H
ALT 233 H
Alkaline Phosphatase 408 H
Vital Signs:
Vital Signs
Temp Pulse Resp BP Pulse Ox
98.5 F 70 20 158/44 92
07/25/24 10:48 07/25/24 11:00 07/25/24 10:48 07/25/24 10:49 07/25/24 10:48
I&O
07/24/24 07/25/24 07/26/24
06:59 06:59 06:59
Intake Total 720 / 720 640 / 640
Output Total 950 / 950 200 / 200
Balance 720 / 720 -310 / -310 -200 / -200
Review of Systems
-
History Source: Patient
Respiratory: Reports Trouble Breathing (improving)
Cardiac: Denies Chest Pain
Abdomen/GI: Denies Abdominal Pain, Nausea, Vomiting, Diarrhea or Constipated
Physical Exam
-
General: No Apparent Distress and Comfortable; Negative Respiratory Distress
HEENT: Atraumatic and Moist Mucous Membranes
Respiratory: Crackles (faint crackles in RLL) and Non Labored Respirations; Negative Wheezes, Rales or Rhonchi
Cardiac: Regular Rhythm and S1/S2; Negative Murmur, Rub or Calf Tenderness
GI: Soft, Nontender, Nondistended and Normal Bowel Sounds
Skin: Warm and Dry
Neuro: Awake, Alert and Oriented
Psych: Calm
[2024-07-25] MEDS: DESENEX/MITRAZOL/ZEASORB 1 APPLIC TOPICAL ×2 (11:48→20:50)
[2024-07-25] MEDS: IMDUR (EXTENDED RELEASE) 30 MG PO (11:49)
[2024-07-25] MEDS: APRESOLINE 25 MG PO ×2 (11:49→20:49)
[2024-07-25 11:53] LABS: Glucose - Point of Care 164 mg/dl (70-99)
--- NOTE | 2024-07-25 14:25 | CM ---
Reviewed chart. Mrs. Laura was transferred to IVU. Received consult to check co-pay for Farxiga and Jardiance. Telephone call to her prescription plan. Both Farxiga and Jardiance are on the Tier 3. Her co-pay for Farxiga would be $143.00 a month
and Jardiance co-pay would be $158.00.
[2024-07-25 17:21] LABS: Glucose - Point of Care 218 mg/dl (70-99)
[2024-07-25] MEDS: NOVOLOG FLEXPEN-LOW RESISTANCE 2 UNITS SC (17:33)
[2024-07-25] MEDS: LOVENOX 40 MG SC (17:34)
[2024-07-25] MEDS: NOVOLOG MIX 70/30 FLEXPEN 30 UNITS SC (17:34)
[2024-07-25 22:05] LABS: Glucose - Point of Care 236 mg/dl (70-99)
[2024-07-26] VITALS (9 sets, daily range): BP systolic 122–179; BP diastolic 39–52; PULSE 79; O2SAT 95; BMI 49.0; BMI 47.9
--- NOTE | 2024-07-26 00:06 | PTCARENOTE ---
Pt 89% on RA. 2L O2 applied with PlOx improve to 96%
[2024-07-26 05:11] LABS: Hematocrit 25.6 % (37.0-47.0); Hemoglobin 8.3 g/dL (12.0-16.0); Mean Corp Hgb Conc. 32.4 g/dL (33.0-37.0); Mean Corpuscular Hgb 27.4 pg (27.0-31.0); Mean Corpuscular Volume 84.5 fL (81.0-99.0); Mean Platelet Volume 10.3 fL (7.4-10.4); Platelet Count 239 10^3/uL (130-400); Red Blood Cell Count 3.03 10^6/uL (4.20-5.40); Red Cell Dist. Width 16.6 % (11.5-14.5); White Blood Cell Count 6.3 10^3/uL (4.8-10.8)
[2024-07-26 05:21] LABS: ALT (SGPT) 144 U/L (0-35); AST (SGOT) 93 U/L (14-36); Alkaline Phosphatase 320 U/L (38-126); Blood Urea Nitrogen 43 mg/dl (7-17); Calcium 8.8 mg/dl (8.4-10.2); Carbon Dioxide 28 mmol/L (22-30); Chloride 100 mmol/L (98-107); Estimated Creatinine Clearance 38 ml/min; Glucose 101 mg/dl (70-99); Magnesium 1.6 mg/dl (1.6-2.3); Potassium 3.7 mmol/L (3.5-5.1); Sodium 138 mmol/L (135-145); eGFR 35.45
[2024-07-26 06:52] LABS: Glucose - Point of Care 122 mg/dl (70-99)
--- NOTE | 2024-07-26 07:43 | W.PN.CARDCBS ---
Addendum entered and electronically signed by Agnes Fraga DO 07/26/24 11:47:
I saw and examined the patient.
The Toolmaker's note was reviewed and I agree with the note.
Comment: Patient seen and examined. Overall is happy with her progress with less shortness of breath and was able to ambulate to the bathroom without O2. Improving edema.
General: No acute distress, AAOX3
Heart: Regular, positive S1/S2, No murmur
Lungs: Bronchovesicular breath sounds without wheezes or rhonchi. Decreased particularly right base
Abd: Positive BS, NT/ND, neg rebound/rigidity/guarding
Ext: ++ edema/lymphedema- improved
Neuro: nonfocal
Plan:
Hypoxic respiratory failure, multifactorial: Recent multilobar pneumonia with infiltrates present on CT chest, heart failure with preserved ejection fraction with moderate right pleural effusion, probable sleep apnea, morbid obesity, BMI 48 and
deconditioning [she also has venous insufficiency and a component of lymphedema with expectations that there will always be some degree of lower extremity swelling]
-proBNP 07/21/2024, 2540
-Right heart catheterization July 24, 2024 reviewed: Significantly elevated right/left filling pressures with severe pulmonary hypertension and normal cardiac output.
RA (m) : 23
RV (s/d,m) : 71/15, 28
PA (s/d, m) : 67/31, 47
PCWP (m) : 33 with V waves up to 52
PA saturation: 54.8% on 2 L of oxygen via nasal cannula
AO saturation: Based on noninvasive pulse ox, 95% on 2 L of oxygen via nasal cannula.
RA saturation: 51.6% on 2 L of oxygen via nasal cannula
Cardiac Output : 4.76 L/min by Sean calculation
Cardiac Index : 2.22 L/min/m-2 by Sean calculation
Pulmonary vascular resistance: 2.94 amos unit
-CTA chest negative for PE; no abnormal pleural or parenchymal masses.
-2D echocardiogram June 05, 2024 with normal biventricular size and systolic function with mild LVH and EF low normal 51% by volumetric assessment. No hemodynamically significant valve pathology with aortic sclerosis and trace AI, trace mitral
regurgitation and mild tricuspid regurgitation. Estimated pulmonary artery pressure this study estimated pulmonary pressures 25-30 mmHg. No pericardial effusion. proBNP May 04, 2024 was 149.
-Known coronary artery disease status post CABG in 2021 with no chest pain suggestive of angina and troponins not significantly elevated.
-Continue IV Lasix; volume status is slowly improving
-Continue efforts for normalization of blood pressure:
- Continue metoprolol succinate 25 mg twice daily
- Increase new hydralazine 50mg BID /continue new Imdur 30mg daily
- Amlodipine/ benazepril held at this time due to renal insufficiency. Would stop further amlodipine given edema.
-Eventually will consider resuming ANABEL-I and/or adding Aldactone and SGLT2 inhibitor once renal function has improved.
- Patient had been on hydrochlorothiazide which is currently been held and will likely not be restarted with plan to transition to oral Lasix once more euvolemic
-Will need outpatient pulmonary follow-up to discuss sleep apnea evaluation
-She is on Mounjaro Mondays (prescribed by her claim inspector; she has not taken this in several months)
Elevated LFTs�appreciate and fatty liver infiltration- improving
-Appreciate GI evaluation including abdominal MRI and abdominal ultrasounds
-Gallbladder sludge/multiple moderate size gallstones with no evidence for acute cholecystitis or choledocholithiasis
-Continue diuretic efforts
-Outpatient atorvastatin and ezetimibe held
Dyslipidemia
-Atorvastatin and ezetimibe currently held due to elevated transaminases. Pending LFT improvement could also consider outpatient preauthorization for PCSK9 inhibitor
Type 2 diabetes mellitus
-Hemoglobin A1c 7.3% improved from 8.7 in April
-Continue efforts towards normoglycemia
-Would continue insulin and Mounjaro with eventual addition of SGLT2 inhibitor
-Weight loss strongly advised
Acute on chronic renal sufficiency�monitor renal function closely with diuresis
Normocytic anemia with iron deficiency
-Defer to primary
Suspected SATURNINO�outpatient pulmonary evaluation planned
Will follow with you
Original Note:
Today's Communication / Plan
-
Continue diuresis with IV Lasix
Cr stable
increase hydralazine
PT/OT
Impression / Plan
-
PCP: Dr. Branch
Program Scheduler: Dr. Fraga
Impression:
Presented with SOB and chest pressure
Multilobar pneumonia
Recent admission at w/ UTI, norovirus, RACHELLE 05/2024
Acute HFpEF
Moderate gallstones w/ sludge
Elevated LFTs
CAD
s/p CABG with MORFIN to LAD, SVG to Diag, SVG to OM, SVG to PDA 01/26/22
s/p Pericardial patch repair of medial right atrium 01/26/22
Paroxysmal atrial fibrillation (brief post-op)
DM2
HTN
HLD
Suspected SATURNINO
GERD
Echo: 01/20/22: LV: Normal size. Mild LVH. EF: 50-55% visually. Mid-distal anteroseptal HK. RV: Normal, LA: Mildly dilated, RA: Normal, MV: Mo MS or MR, AV: Trileaflet no AI, TV: Trace TR with PAP 15-20 mmHg
JOSELITO post-op 01/26/22: EF 60-65%, no RWMA, mild MR
Echo 06/05/2024: EF 51%, mild cLVH, aortic sclerosis without stenosis, mild TR, estimated PAP 25-30 mmHg
Plan:
-She presented with shortness of breath. Due to rising creatinine with diuresis she underwent right heart cath 07/24 which showed gross volume overload. Now on IV Lasix 80 mg twice daily and she reports good urine output. If weights accurate
overnight down 6 pounds. Creatinine stable at 1.5
-LFTs downtrending, continue to follow with diuresis
-Off oxygen
-continue anabel wraps of B/L LE
-Echo 05/2024 with EF 51% and no significant valvular disease. No need to repeat at this time.
-Does not appear to be ideal candidate for SGLT2 inhibitor given body habitus
-trop on arrival was 0.032 and trending down. No chest pain since admission. EKG from arrival SR with NSSTS.
-Continue Toprol 25mg BID. Remains in SR on review of telemetry. No afib noted. Not on anticoagulation given low burden.
-Blood pressures improving with addition of hydralazine/Imdur. Will uptitrate hydralazine to 50 mg twice daily. Will not plan to resume amlodipine/benazepril
-Continue aspirin 81mg daily. hgb 8.2. iron studies noted, defer need for repletion to primary service
-PT/OT
-d/w nursing
HPI: Long complex medical history and this very pleasant 78-year-old female who has had a myriad of medical issues and recent prolonged hospitalization. She presents today with multilobar pneumonia via CAT scan in the left upper lobe and right
upper lobe and a possibly left lower lobe. She also has small bilateral pleural effusions and CT and chest x-ray also is read as apical pneumonia. Her abdominal ultrasound does show gallbladder sludge and moderate sized gallbladder stones. She
carries a complex past medical history including diastolic heart failure and four-vessel CABG in 2021. Her recent hospitalization included norovirus, orthostatic hypotension from significant diarrhea and syncope, multi bacterial urinary tract
infection including E. coli and Klebsiella. She was given IV diuretic in the ER and she is having vigorous diuresis. She has been placed on vancomycin and piperacillin by primary team. She is on 2 L of O2 at the bedside but feels relatively
comfortable
Progress Note - Program Scheduler
Subjective
Date of Service: July 26, 2024
Reports feeling significantly improved with good urine output
Objective
Labs:
07/26/24 04:19
07/26/24 04:19
Labs
Hgb 8.3 g/dL (12.0-16.0) L 07/26/24 04:19
Hct 25.6 % (37.0-47.0) L 07/26/24 04:19
Plt Count 239 10^3/uL (130-400) 07/26/24 04:19
PT 14.9 Sec (11.4-14.6) H 07/23/24 07:25
INR 1.14 07/23/24 07:25
APTT 29.1 Sec (23.4-35.0) 07/21/24 07:02
Sodium 138 mmol/L (135-145) 07/26/24 04:19
Potassium 3.7 mmol/L (3.5-5.1) 07/26/24 04:19
BUN 43 mg/dl (7-17) H 07/26/24 04:19
Creatinine 1.5 mg/dL (0.6-1.0) H 07/26/24 04:19
Glucose 101 mg/dl (70-99) H 07/26/24 04:19
Troponins
07/23/24
14:49
Troponin I 0.026
Vital Signs and I&O:
Vital Signs
Temp Pulse Resp BP Pulse Ox
98.9 F 64 16 131/46 99
07/26/24 06:47 07/26/24 04:11 07/26/24 06:47 07/26/24 04:11 07/26/24 06:47
Vital Signs
Temp Pulse Resp BP Pulse Ox
98.9 F 64 16 131/46 99
07/26/24 06:47 07/26/24 04:11 07/26/24 06:47 07/26/24 04:11 07/26/24 06:47
Intake & Output
07/23/24 07/24/24 07/25/24 07/26/24
07:59 07:59 07:59 07:59
Intake Total 960 / 960 720 / 720 640 / 640 830 / 830
Output Total 2222 / 2222 950 / 950 1950 / 1950
Balance -1262 / -1262 720 / 720 -310 / -310 -1120 / -1120
Physical Exam
Physical Exam
GEN: No distress, awake, alert, oriented x3. obese. sitting in chair
HEENT: supple, anicteric, mmm, eomi
LUNGS: CTA B/L anterolaterally, no wheezes
CV: Reg, S1/S2, no murmur
ABD: soft, BS+, NT/ND
EXT: No cyanosis, clubbing. 2+ edema of B/L LE
NEURO: Gross non-focal
SKIN: Warm, pink, dry. No rash.
[2024-07-26] MEDS: PROTONIX 40 MG PO (07:54)
[2024-07-26] MEDS: APRESOLINE 25 MG PO (07:55)
[2024-07-26] MEDS: ASPIR LOW (ENTERIC COATED) 81 MG PO (07:55)
[2024-07-26] MEDS: IMDUR (EXTENDED RELEASE) 30 MG PO (07:55)
[2024-07-26] MEDS: LASIX 80 MG IV ×2 (07:56→16:29)
[2024-07-26] MEDS: TOPROL XL 25 MG PO ×2 (07:56→19:17)
[2024-07-26] MEDS: VITAMIN D3 (cholecalciferol) 50 MCG PO (07:56)
[2024-07-26] MEDS: NOVOLOG MIX 70/30 FLEXPEN 25 UNITS SC (07:58)
[2024-07-26] MEDS: NOVOLOG FLEXPEN-LOW RESISTANCE SC ×2 (07:58→11:45)
[2024-07-26] MEDS: DESENEX/MITRAZOL/ZEASORB 1 APPLIC TOPICAL ×2 (08:00→19:17)
--- NOTE | 2024-07-26 08:16 | PN.DE.MGMTRT ---
Insulin Management
- -
07/26/2024: Diabetes Management Follow up
78 year old female who has had a myriad of medical issues and recent prolonged hospitalization 06/01-06/17. Pt has been re-admitted for multilobar PNA in the left upper lobe and right upper lobe and a possibly left lower lobe. Also noted for
gallbladder sludge and moderate sized gallbladder stones on abd US.
PMH: Diastolic heart failure, [place], CAD s/p CABG in 2021, HTN, HLD, CKD and T2DM.
Her recent hospitalization included norovirus, orthostatic hypotension from significant diarrhea and syncope, multi bacterial urinary tract infection including E. coli and Klebsiella. She was recently discharged from rehab on 70/30 insulin 45 units
in AM and 55 units in PM.
States she sees Dr. Renea Hartley at [facility] on a regular basis for diabetes care. States that she often has to decrease her 70/30 doses based on her blood sugar when she is at home and that Dr. Hartley has agreed that Nicki knows her
diabetes and is OK that she adjusts the insulin.
Her A1C was 8.7% on 05/05/24. Repeat A1C on admission is 7.3% , Cr 1.5, eGFR 35.45
Patient is awake alert and oriented, sitting up @edge of bed eating, offers no complaints, able to discuss diabetes management.
3/5 Cardiac Cath at ~ 5pm - Pulmonary HTN; transferred to IVU.
3/6 insulin dose was adjusted due to potential hypoglycemia. FBG 101(V), 122 POC this AM.
Will make no change to insulin doses: 25 units 70/30 NovoLog in AM and 30 units 70/30 NovoLog with dinner.
Will cont to follow and adjust insulin dose if necessary. Discussed with pt and nurse.
Diabetes History
- -
Type of Diabetes: 2 requiring insulin
Pre-Admission Diabetes Regimen
07/26/24
04:19
Creatinine 1.5 H
Lab Results
Hemoglobin A1c 7.3 % (4.0-5.6) H 07/21/24 06:09
Insulin Pump Settings
IP Diabetes Regimen
07/25/24 07/25/24 07/25/24
11:52 17:19 21:58
Glucose
POC Glucose 164 H 218 H 236 H
07/26/24 07/26/24
04:19 06:51
Glucose 101 H
POC Glucose 122 H
Meal type: Dinner
Meal type: Breakfast
Amount consumed: 100%
Amount consumed: 75%
Patient Education
--- NOTE | 2024-07-26 08:45 | PTCARENOTE ---
Assumed care. Patient feeling much better, edema improved, denies shortness of breath, lungs CTA. Plan of care reviewed, call arzate in reach
[2024-07-26] MEDS: KCL 40 MEQ PO (10:01)
--- NOTE | 2024-07-26 10:18 | CM ---
Reviewed chart. Met with Mrs. Laura to review discharge plans. She states she is feeling well. She states prior to admission she resides alone in a first floor condo with one step to enter. She states prior to admission she was independent with
ambulation and adls. She states she has a walker, rollator and single point cane at home. She states she just spent three weeks at [facility]. She is declining to go to SNF/Rehab. at this time. She states she is current with [facility]. She is agreeable to resumption of care with [facility]. She states she also has home 02 with [employer]. She states the Home 02 is covered by her insurance she is only covering the co-pay. She states she has a prescription plan
and use [facility]. We reviewed the co-pay for Farxiga of $143.00 a month and Jardiance ($151.00). She is agreeable to the co-pay for Farxiga. Placed the one month free coupon in her red discharge folder. Medical work-up in progress
The discharge plan is to return home with resumption of [facility] when medically stable.
[2024-07-26] MEDS: NOVOLOG FLEXPEN-LOW RESISTANCE 2 UNITS SC (11:48)
[2024-07-26 11:49] LABS: Glucose - Point of Care 238 mg/dl (70-99)
--- NOTE | 2024-07-26 12:50 | W.PN.HOSP.TC ---
Addendum entered and electronically signed by Dixon Marcus MD 07/26/24 14:34:
Seen and examined by me independently in collaboration with the director medical surgical.
Lab data and imaging data reviewed.
Addendum as below :
Continued improvement of the symptoms as well as weight.
Continue with IV diuresis per cardiology. Creatinine holding.
Original Note:
Today's Communication/Plan
-
Continue IV diuresis
Assessment / Plan
Assessment / Plan
78-year-old female with history of HFpEF, CKD 3, chronic anemia, recent use of 2 L home O2 nasal cannula, CAD plus bypass January 2022, hypertension, hyperlipidemia, IDDM, obesity, who presents with acute hypoxic respiratory failure secondary to
acute HFpEF exacerbation
PLAN:
Acute hypoxic respiratory failure:
2/2 Acute HFpEF exacerbation
Recently put on chronic O2 2L, started on 5L NC on arrival, currently off o2, monitor resp status
s/p right heart cath, Significantly elevated right and left-sided filling pressures with severe pulmonary hypertension and normal cardiac output
-Appreciate cards and pulm
-Recommend outpt eval for sleep apnea
-Diuresing well. Continue IV lasix 80mg BID, follow IandOs, daily weights, kidney function
Transaminitis:
Most likely secondary to congestive heart failure. Note elevated right heart pressures
On arrival: AST/ALT: 454/193, lipase normal, alk phos elevated 262, T. bili 3.4. LFTs trending down with continued diuresis
Positive Mendoza sign on PE on arrival, with initial concern for choledocholithiasis, however, abd MRI showed cholelithiasis without overt MR evidence for acute cholecystitis. No choledocholithiasis.
-Possible that patient passed stone if any was present, but most likely transaminitis secondary to congestion
-Hold ezetimibe and atorvastatin
-Appreciate GI
RACHELLE:
Cardiorenal
-Continue IV diuresis 80mg IV BID
Chronic anemia:
Pt reports history of anemia, may have required transfusion 3 years ago. Denies any bleeding.
-Iron studies indicate anemia of chronic disease
-Follow HandH
-Transfuse if Hgb<7
Lower extremity edema:
Right leg venous insufficiency at baseline, increased lower extremity edema bilaterally secondary to HFpEFe. No wounds or ulcers.
Likely secondary to heart failure exacerbation.
-Darrel wrap, leg elevation as tolerated
Hx of urinary retention:
-Also had difficulty passing urine while in ED
-Resolved. No catheterization needed
Insulin-dependent diabetes mellitus:
On aspart 55 units at bedtime, aspart 40 units a.m. adjusted as needed at home. HbA1c 7.3
-Reduced dosing to 30units HS, 25u AC due to hypoglycemia, with SSI
-Patient has been off Mounjaro for about a month because it was not offered at rehab
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
Essential hypertension:
-Continue home antihypertensives
GERD:
-Continue pantoprazole
HFpEF:
Continue metoprolol 25 twice daily
CKD 3:
-Avoid nephrotoxic agents, follow BMP while diuresis
Chronic back pain:
Osteoarthritis of spine
-On minimal Tylenol as needed. Hold if worsening LFT
Chronic constipation:
Stable with daily oatmeal (increased fiber)
-Bowel regimen as needed
DVT prophylaxis: Lovenox
CODE STATUS: DNR
Data:
Troponin normal. EKG unremarkable. ProBNP: 2500.
Chest x-ray: mild opacification in the left suprahilar region which is new and concerning for developing pneumonia.
CTA: No evidence of pulmonary embolus. Moderate right and small left pleural effusions. Moderate left upper lobe, mild right upper lobe and minimal left lower lobe findings suggesting pneumonia. Mild right upper lobe and right lower lobe probable
atelectasis. History of recent PNA, negative procalc, nonproductive minimal cough, afebrile.
Home O2 eval: 92% on RA at rest, 86% on RA with ambulation, needs 2L with exertion
s/p right heart cath, Significantly elevated right and left-sided filling pressures with severe pulmonary hypertension and normal cardiac output
Anticipated Discharge: > 48 hours
Subjective/Interval History
-
Date of Service: July 26, 2024
Patient is pleased to report continued improvement in symptoms
Objective Data
-
Labs:
Laboratory Results
07/26/24
04:19
WBC 6.3
Hgb 8.3 L
Hct 25.6 L
Plt Count 239
Sodium 138
Potassium 3.7
Chloride 100
Carbon Dioxide 28
BUN 43 H
Creatinine 1.5 H
Glucose 101 H
Calcium 8.8
Total Bilirubin 2.0 H D
AST 93 H
ALT 144 H
Alkaline Phosphatase 320 H
Vital Signs:
Vital Signs
Temp Pulse Resp BP Pulse Ox
98.8 F 78 18 145/47 98
07/26/24 12:22 07/26/24 12:22 07/26/24 12:22 07/26/24 06:46 07/26/24 12:22
I&O
07/25/24 07/26/24 07/27/24
06:59 06:59 06:59
Intake Total 640 / 640 830 / 830
Output Total 950 / 950 1950 / 1950
Balance -310 / -310 -1120 / -1120
Review of Systems
-
History Source: Patient
Constitutional: Denies No Appetite
Respiratory: Denies Trouble Breathing
Cardiac: Denies Chest Pain
Abdomen/GI: Denies Abdominal Pain, Nausea or Vomiting
Physical Exam
-
General: No Apparent Distress and Comfortable
HEENT: Atraumatic and Moist Mucous Membranes
Respiratory: Clear to Auscultation and Non Labored Respirations; Negative Wheezes, Rales, Rhonchi or Crackles
Cardiac: Regular Rhythm and S1/S2; Negative Murmur, Rub or Calf Tenderness
GI: Soft, Nontender, Nondistended and Normal Bowel Sounds
Musculoskeletal: Edema, Right Lower Extrem and Edema, Left Lower Extrem
Skin: Warm and Dry
Neuro: Awake and Alert
Psych: Calm
[2024-07-26] MEDS: NOVOLOG FLEXPEN-LOW RESISTANCE 4 UNITS SC (17:07)
[2024-07-26] MEDS: NOVOLOG MIX 70/30 FLEXPEN 30 UNITS SC (17:08)
[2024-07-26 17:11] LABS: Glucose - Point of Care 327 mg/dl (70-99)
[2024-07-26] MEDS: LOVENOX 40 MG SC (18:35)
[2024-07-26] MEDS: APRESOLINE 50 MG PO (19:17)
[2024-07-26 21:29] LABS: Glucose - Point of Care 274 mg/dl (70-99)
--- NOTE | 2024-07-26 22:58 | PTCARENOTE ---
Received patient at change of shift. SR on the monitor, HR in the 70s. VSS on room air. R groin intact. No complaints from pt at this time call arzate within reach.
[2024-07-27] VITALS (9 sets, daily range): BP systolic 131–171; BP diastolic 42–58; BMI 47.5
[2024-07-27 06:12] LABS: ALT (SGPT) 106 U/L (0-35); AST (SGOT) 53 U/L (14-36); Alkaline Phosphatase 281 U/L (38-126); Blood Urea Nitrogen 41 mg/dl (7-17); Calcium 8.9 mg/dl (8.4-10.2); Carbon Dioxide 27 mmol/L (22-30); Chloride 101 mmol/L (98-107); Estimated Creatinine Clearance 40 ml/min; Glucose 198 mg/dl (70-99); Potassium 4.2 mmol/L (3.5-5.1); Sodium 136 mmol/L (135-145); Total Bilirubin 1.7 mg/dl (0.2-1.3); Total Protein 5.1 g/dl (6.3-8.2); eGFR 38.51
[2024-07-27] MEDS: NOVOLOG FLEXPEN-LOW RESISTANCE 3 UNITS SC (08:31)
[2024-07-27] MEDS: NOVOLOG MIX 70/30 FLEXPEN 25 UNITS SC (08:33)
[2024-07-27] MEDS: ASPIR LOW (ENTERIC COATED) 81 MG PO (08:35)
[2024-07-27] MEDS: PROTONIX 40 MG PO (08:35)
[2024-07-27] MEDS: TOPROL XL 25 MG PO ×2 (08:35→19:44)
[2024-07-27] MEDS: VITAMIN D3 (cholecalciferol) 50 MCG PO (08:36)
[2024-07-27] MEDS: APRESOLINE 50 MG PO ×2 (08:36→19:43)
[2024-07-27 08:39] LABS: Glucose - Point of Care 254 mg/dl (70-99)
[2024-07-27] MEDS: IMDUR (EXTENDED RELEASE) 30 MG PO (10:23)
[2024-07-27] MEDS: LASIX 80 MG IV (10:23)
[2024-07-27] MEDS: DESENEX/MITRAZOL/ZEASORB 1 APPLIC TOPICAL ×2 (10:27→19:45)
--- NOTE | 2024-07-27 11:05 | W.PN.HOSP.TC ---
Today's Communication/Plan
-
CW IV diuresis
Assessment / Plan
Assessment / Plan
78-year-old female with history of HFpEF, CKD 3, chronic anemia, recent use of 2 L home O2 nasal cannula, CAD plus bypass January 2022, hypertension, hyperlipidemia, IDDM, obesity, who presents with acute hypoxic respiratory failure secondary to
acute HFpEF exacerbation
PLAN:
Acute hypoxic respiratory failure: Resolved
2/2 Acute HFpEF exacerbation
Recently put on chronic O2 2L, started on 5L NC on arrival, currently off o2, monitor resp status
s/p right heart cath, significantly elevated right and left-sided filling pressures with severe pulmonary hypertension and normal cardiac output
-Appreciate cards and pulm
-Recommend outpt eval for sleep apnea
-Diuresing well. Continue IV lasix 80mg BID, follow IandOs, daily weights, kidney function
Transaminitis:
Most likely secondary to congestive heart failure. Note elevated right heart pressures
On arrival: AST/ALT: 454/193, lipase normal, alk phos elevated 262, T. bili 3.4. LFTs trending down with continued diuresis
Positive Mendoza sign on PE on arrival, with initial concern for choledocholithiasis, however, abd MRI showed cholelithiasis without overt MR evidence for acute cholecystitis. No choledocholithiasis.
-Possible that patient passed stone if any was present, but most likely transaminitis secondary to congestion
-Hold ezetimibe and atorvastatin
-Appreciate GI
RACHELLE:
Cardiorenal
-Continue IV diuresis 80mg IV BID
Chronic anemia:
Pt reports history of anemia, may have required transfusion 3 years ago. Denies any bleeding.
-Iron studies indicate anemia of chronic disease
-Follow HandH
-Transfuse if Hgb<7
Lower extremity edema:
Right leg venous insufficiency at baseline, increased lower extremity edema bilaterally secondary to HFpEFe. No wounds or ulcers.
Likely secondary to heart failure exacerbation.
-Darrel wrap, leg elevation as tolerated
Hx of urinary retention:
-Also had difficulty passing urine while in ED
-Resolved. No catheterization needed
Insulin-dependent diabetes mellitus:
On aspart 55 units at bedtime, aspart 40 units a.m. adjusted as needed at home. HbA1c 7.3
-Titrated up her insulin regimen based on last 24 hr blood sugars
-Patient has been off Mounjaro for about a month because it was not offered at rehab
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
Essential hypertension:
-Continue home antihypertensives
GERD:
-Continue pantoprazole
HFpEF:
Continue metoprolol 25 twice daily
CKD 3:
-Avoid nephrotoxic agents, follow BMP while diuresis
Chronic back pain:
Osteoarthritis of spine
-On minimal Tylenol as needed. Hold if worsening LFT
Chronic constipation:
Stable with daily oatmeal (increased fiber)
-Bowel regimen as needed
DVT prophylaxis: Lovenox
CODE STATUS: DNR
Anticipated Discharge: 24 - 48 hours
Subjective/Interval History
-
Date of Service: July 27, 2024
Voices no new specific complaints. Remains improved with the breathing. No chest pain.
Objective Data
-
Labs:
Laboratory Results
07/27/24
04:29
Sodium 136
Potassium 4.2
Chloride 101
Carbon Dioxide 27
BUN 41 H
Creatinine 1.4 H
Glucose 198 H
Calcium 8.9
Total Bilirubin 1.7 H
AST 53 H
ALT 106 H
Alkaline Phosphatase 281 H
Vital Signs:
Vital Signs
Temp Pulse Resp BP Pulse Ox
98.4 F 80 20 157/50 95
07/27/24 10:45 07/27/24 10:23 07/27/24 10:45 07/27/24 10:23 07/27/24 10:45
I&O
07/26/24 07/27/24 07/28/24
06:59 06:59 07:59
Intake Total 830 / 830
Output Total 1949 270 / 270
Balance -1120 / -112 -2024 / -2024 - / -
Review of Systems
-
Constitutional: Denies Fever
Respiratory: Denies Cough
Abdomen/GI: Denies Abdominal Pain, Nausea or Vomiting
Neuro: Denies Dizzy
Physical Exam
-
General: No Apparent Distress
HEENT: Moist Mucous Membranes
Respiratory: Clear to Auscultation
Cardiac: Regular Rhythm and S1/S2
GI: Soft
Neuro: AO x 3
Data Reviewed
-
Labs: Labs Reviewed by me
[2024-07-27] MEDS: NOVOLOG FLEXPEN-LOW RESISTANCE 5 UNITS SC ×2 (12:09→16:42)
[2024-07-27 12:13] LABS: Glucose - Point of Care 380 mg/dl (70-99)
--- NOTE | 2024-07-27 12:23 | W.PN.CARDCBS ---
Today's Communication / Plan
-
Diuresis
Impression / Plan
-
PCP: Dr. Barnch
Steam Drier Tender: Dr. Fraga
Impression:
Presented with SOB and chest pressure
Multilobar pneumonia
Recent admission at w/ UTI, norovirus, RACHELLE 05/2024
Acute HFpEF
Moderate gallstones w/ sludge
Elevated LFTs
CAD
s/p CABG with MORFIN to LAD, SVG to Diag, SVG to OM, SVG to PDA 01/26/22
s/p Pericardial patch repair of medial right atrium 01/26/22
Paroxysmal atrial fibrillation (brief post-op)
DM2
HTN
HLD
Suspected SATURNINO
GERD
Echo: 01/20/22: LV: Normal size. Mild LVH. EF: 50-55% visually. Mid-distal anteroseptal HK. RV: Normal, LA: Mildly dilated, RA: Normal, MV: Mo MS or MR, AV: Trileaflet no AI, TV: Trace TR with PAP 15-20 mmHg
JOSELITO post-op 01/26/22: EF 60-65%, no RWMA, mild MR
Echo 06/05/2024: EF 51%, mild cLVH, aortic sclerosis without stenosis, mild TR, estimated PAP 25-30 mmHg
Plan:
Hypoxic respiratory failure, multifactorial: Recent multilobar pneumonia with infiltrates present on CT chest, heart failure with preserved ejection fraction with moderate right pleural effusion, probable sleep apnea, morbid obesity, BMI 48 and
deconditioning [she also has venous insufficiency and a component of lymphedema with expectations that there will always be some degree of lower extremity swelling]
-proBNP 07/21/2024, 2540
-Right heart catheterization July 24, 2024 reviewed: Significantly elevated right/left filling pressures with severe pulmonary hypertension and normal cardiac output.
RA (m) : 23
RV (s/d,m) : 71/15, 28
PA (s/d, m) : 67/31, 47
PCWP (m) : 33 with V waves up to 52
PA saturation: 54.8% on 2 L of oxygen via nasal cannula
AO saturation: Based on noninvasive pulse ox, 95% on 2 L of oxygen via nasal cannula.
RA saturation: 51.6% on 2 L of oxygen via nasal cannula
Cardiac Output : 4.76 L/min by Sean calculation
Cardiac Index : 2.22 L/min/m-2 by Sean calculation
Pulmonary vascular resistance: 2.94 amos unit
-CTA chest negative for PE; no abnormal pleural or parenchymal masses.
-2D echocardiogram June 05, 2024 with normal biventricular size and systolic function with mild LVH and EF low normal 51% by volumetric assessment. No hemodynamically significant valve pathology with aortic sclerosis and trace AI, trace mitral
regurgitation and mild tricuspid regurgitation. Estimated pulmonary artery pressure this study estimated pulmonary pressures 25-30 mmHg. No pericardial effusion. proBNP May 04, 2024 was 149.
-Known coronary artery disease status post CABG in 2021 with no chest pain suggestive of angina and troponins not significantly elevated.
-She continues to improve now on room air.
-6 pound weight loss with IV Lasix
-Will decrease Lasix to 80 mg IV daily and hopefully transition to oral Lasix 24 to 48 hours
-Blood pressures are improved with goal normotension.
- Continue metoprolol succinate 25 mg twice daily
- New hydralazine 50mg BID /continue new Imdur 30mg daily
- Amlodipine/ benazepril held at this time due to renal insufficiency. Would stop further amlodipine given edema.
-Eventually will consider resuming ANABEL-I and/or adding Aldactone and SGLT2 inhibitor once renal function has improved.
- Patient had been on hydrochlorothiazide which is currently been held and will likely not be restarted with plan to transition to oral Lasix once more euvolemic
Elevated LFTs�appreciate and fatty liver infiltration- improving
-Appreciate GI evaluation including abdominal MRI and abdominal ultrasounds
-Gallbladder sludge/multiple moderate size gallstones with no evidence for acute cholecystitis or choledocholithiasis
-Continue diuretic efforts
-Outpatient atorvastatin and ezetimibe held
Dyslipidemia
-Atorvastatin and ezetimibe currently held due to elevated transaminases. Pending LFT improvement could also consider outpatient preauthorization for PCSK9 inhibitor
Type 2 diabetes mellitus
-Hemoglobin A1c 7.3% improved from 8.7 in April
-Continue efforts towards normoglycemia
-Would continue insulin with eventual addition of SGLT2 inhibitor
-She had previously been on Mounjaro but has been off for a month; denies side effects and would prefer that she resume but will defer to hospitalist.
-Weight loss strongly advised
Acute on chronic renal sufficiency
�monitor renal function closely with diuresis
-Creatinine is improved today down to 1.4
Normocytic anemia with iron deficiency
-Defer to primary
Suspected SATURNINO�-Will need outpatient pulmonary follow-up to discuss sleep apnea evaluation
Will follow with you
HPI: Long complex medical history and this very pleasant 78-year-old female who has had a myriad of medical issues and recent prolonged hospitalization. She presents today with multilobar pneumonia via CAT scan in the left upper lobe and right
upper lobe and a possibly left lower lobe. She also has small bilateral pleural effusions and CT and chest x-ray also is read as apical pneumonia. Her abdominal ultrasound does show gallbladder sludge and moderate sized gallbladder stones. She
carries a complex past medical history including diastolic heart failure and four-vessel CABG in 2021. Her recent hospitalization included norovirus, orthostatic hypotension from significant diarrhea and syncope, multi bacterial urinary tract
infection including E. coli and Klebsiella. She was given IV diuretic in the ER and she is having vigorous diuresis. She has been placed on vancomycin and piperacillin by primary team. She is on 2 L of O2 at the bedside but feels relatively
comfortable
Progress Note - Steam Drier Tender
Subjective
Date of Service: July 27, 2024
Patient seen and examined. She is happy with her progress and is feeling much better with less shortness of breath improved ambulation and not requiring O2. No chest pain or pressure.
Objective
Labs:
07/26/24 04:19
07/27/24 04:29
Labs
Hgb 8.3 g/dL (12.0-16.0) L 07/26/24 04:19
Hct 25.6 % (37.0-47.0) L 07/26/24 04:19
Plt Count 239 10^3/uL (130-400) 07/26/24 04:19
PT 14.9 Sec (11.4-14.6) H 07/23/24 07:25
INR 1.14 07/23/24 07:25
APTT 29.1 Sec (23.4-35.0) 07/21/24 07:02
Sodium 136 mmol/L (135-145) 07/27/24 04:29
Potassium 4.2 mmol/L (3.5-5.1) 07/27/24 04:29
BUN 41 mg/dl (7-17) H 07/27/24 04:29
Creatinine 1.4 mg/dL (0.6-1.0) H 07/27/24 04:29
Glucose 198 mg/dl (70-99) H 07/27/24 04:29
Vital Signs and I&O:
Vital Signs
Temp Pulse Resp BP Pulse Ox
98.4 F 80 20 157/50 95
07/27/24 10:45 07/27/24 10:23 07/27/24 10:45 07/27/24 10:23 07/27/24 10:45
Vital Signs
Temp Pulse Resp BP Pulse Ox
98.4 F 80 20 157/50 95
07/27/24 10:45 07/27/24 10:23 07/27/24 10:45 07/27/24 10:23 07/27/24 10:45
Intake & Output
07/25/24 07/26/24 07/27/24 07/28/24
06:59 06:59 06:59 07:59
Intake Total 640 / 640 830 / 830
Output Total 950 / 950 1950 / 1949 270 / 270
Balance -310 / -310 -0 / -112 -2024 / -2024 - /
Physical Exam
Physical Exam
General: No acute distress, AAOX3
Heart: Regular, positive S1/S2, No murmur
Lungs: Bronchovesicular breath sounds without wheezes or rhonchi.
Abd: Positive BS, NT/ND, neg rebound/rigidity/guarding
Ext: + edema/lymphedema
Neuro: nonfocal
[2024-07-27] MEDS: NOVOLOG MIX 70/30 FLEXPEN 33 UNITS SC (16:43)
[2024-07-27 16:48] LABS: Glucose - Point of Care 377 mg/dl (70-99)
[2024-07-27] MEDS: LOVENOX 40 MG SC (18:53)
[2024-07-27 22:30] LABS: Glucose - Point of Care 233 mg/dl (70-99)
--- NOTE | 2024-07-27 23:31 | PTCARENOTE ---
Received patient at change of shift. SR on the monitor, HR in the 70s. VSS on room air. Darrel wraps removed from legs overnight. No complaints from pt at this time, call arzate within reach.
[2024-07-28] VITALS (11 sets, daily range): BP systolic 130–197; BP diastolic 41–66; PULSE 80; O2SAT 95; BMI 47.1
[2024-07-28 01:48] LABS: Glucose - Point of Care 184 mg/dl (70-99)
[2024-07-28 05:45] LABS: Blood Urea Nitrogen 33 mg/dl (7-17); Calcium 9.2 mg/dl (8.4-10.2); Carbon Dioxide 29 mmol/L (22-30); Chloride 99 mmol/L (98-107); Estimated Creatinine Clearance 51 ml/min; Glucose 158 mg/dl (70-99); Sodium 135 mmol/L (135-145); eGFR 51.43
[2024-07-28 07:45] LABS: Glucose - Point of Care 186 mg/dl (70-99)
[2024-07-28] MEDS: NOVOLOG FLEXPEN-LOW RESISTANCE 1 UNITS SC (08:27)
[2024-07-28] MEDS: NOVOLOG MIX 70/30 FLEXPEN 29 UNITS SC (08:28)
[2024-07-28] MEDS: TOPROL XL 25 MG PO ×2 (08:30→20:34)
[2024-07-28] MEDS: ASPIR LOW (ENTERIC COATED) 81 MG PO (08:30)
[2024-07-28] MEDS: FARXIGA 10 MG PO (08:30)
[2024-07-28] MEDS: PROTONIX 40 MG PO (08:30)
[2024-07-28] MEDS: APRESOLINE 50 MG PO ×2 (08:30→20:33)
[2024-07-28] MEDS: VITAMIN D3 (cholecalciferol) 50 MCG PO (08:31)
[2024-07-28] MEDS: LASIX 80 MG IV (09:28)
[2024-07-28] MEDS: IMDUR (EXTENDED RELEASE) 30 MG PO (09:28)
[2024-07-28] MEDS: DESENEX/MITRAZOL/ZEASORB 1 APPLIC TOPICAL ×2 (09:29→20:33)
[2024-07-28] MEDS: COZAAR 25 MG PO (09:29)
--- NOTE | 2024-07-28 10:04 | W.PN.HOSP.TC ---
Today's Communication/Plan
-
CW diuresis
DC planning
Assessment / Plan
Assessment / Plan
78-year-old female with history of HFpEF, CKD 3, chronic anemia, recent use of 2 L home O2 nasal cannula, CAD plus bypass January 2022, hypertension, hyperlipidemia, IDDM, obesity, who presents with acute hypoxic respiratory failure secondary to
acute HFpEF exacerbation
PLAN:
Acute hypoxic respiratory failure: Resolved
2/2 Acute HFpEF exacerbation
Recently put on chronic O2 2L, started on 5L NC on arrival, currently off o2, monitor resp status
s/p right heart cath, significantly elevated right and left-sided filling pressures with severe pulmonary hypertension and normal cardiac output
-Appreciate cards and pulm
-Recommend outpt eval for sleep apnea
-Diuresing well. Continue IV lasix 80mg BID, follow IandOs, daily weights, kidney function
Transaminitis:
Most likely secondary to congestive heart failure. Note elevated right heart pressures
On arrival: AST/ALT: 454/193, lipase normal, alk phos elevated 262, T. bili 3.4. LFTs trending down with continued diuresis
Positive Mendoza sign on PE on arrival, with initial concern for choledocholithiasis, however, abd MRI showed cholelithiasis without overt MR evidence for acute cholecystitis. No choledocholithiasis.
-Possible that patient passed stone if any was present, but most likely transaminitis secondary to congestion
-Hold ezetimibe and atorvastatin
-Appreciate GI
RACHELLE:
Cardiorenal
-Continue IV diuresis 80mg IV BID
- improving Cr with diuresis
Chronic anemia:
Pt reports history of anemia, may have required transfusion 3 years ago. Denies any bleeding.
-Iron studies indicate anemia of chronic disease
-Follow Hand[facility]
-Transfuse if Hgb<7
Lower extremity edema:
Right leg venous insufficiency at baseline, increased lower extremity edema bilaterally secondary to HFpEFe. No wounds or ulcers.
Likely secondary to heart failure exacerbation.
-Darrel wrap, leg elevation as tolerated
Hx of urinary retention:
-Also had difficulty passing urine while in ED
-Resolved. No catheterization needed
Insulin-dependent diabetes mellitus:
On aspart 55 units at bedtime, aspart 40 units a.m. adjusted as needed at home. HbA1c 7.3
-Improved blood sugars with titration of her insulin regimen
-Patient has been off Mounjaro for about a month because it was not offered at rehab
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
Essential hypertension:
-Continue home antihypertensives
GERD:
-Continue pantoprazole
HFpEF:
Continue metoprolol 25 twice daily
CKD 3:
-Avoid nephrotoxic agents, follow BMP while diuresis
Chronic back pain:
Osteoarthritis of spine
-On minimal Tylenol as needed. Hold if worsening LFT
Chronic constipation:
Stable with daily oatmeal (increased fiber)
-Bowel regimen as needed
DVT prophylaxis: Lovenox
CODE STATUS: DNR
Anticipated Discharge: Within 24 hours
Subjective/Interval History
-
Date of Service: July 28, 2024
Feeling improved. Denies any shortness of breath currently.
Objective Data
-
Labs:
Laboratory Results
07/28/24
05:02
Sodium 135
Potassium 4.0
Chloride 99
Carbon Dioxide 29
BUN 33 H
Creatinine 1.1 H
Glucose 158 H
Calcium 9.2
Vital Signs:
Vital Signs
Temp Pulse Resp BP Pulse Ox
98.5 F 79 18 141/63 92
07/28/24 06:59 07/28/24 09:28 07/28/24 06:59 07/28/24 09:28 07/28/24 06:59
I&O
07/27/24 07/28/24 07/29/24
05:59 06:59 06:59
Output Total
Balance
Review of Systems
-
Cardiac: Denies Chest Pain
Abdomen/GI: Denies Abdominal Pain, Nausea or Vomiting
Neuro: Denies Dizzy
Physical Exam
-
General: No Apparent Distress
Respiratory: Clear to Auscultation and Non Labored Respirations; Negative Accessory Resp Muscle Use
Cardiac: Regular Rhythm and S1/S2; Negative Tachycardic
Neuro: AO x 3
Data Reviewed
-
Labs: Labs Reviewed by me
--- NOTE | 2024-07-28 11:17 | W.PN.CARDCBS ---
Today's Communication / Plan
-
Continue IV Lasix another 24 hours; nearing discharge
Discharge planning
Impression / Plan
-
PCP: Dr. Branch
Data Warehouse Manager: Dr. Fraga
Impression:
Presented with SOB and chest pressure
Multilobar pneumonia
Recent admission at w/ UTI, norovirus, RACHELLE 05/2024
Acute HFpEF
Moderate gallstones w/ sludge
Elevated LFTs
CAD
s/p CABG with MORFIN to LAD, SVG to Diag, SVG to OM, SVG to PDA 01/26/22
s/p Pericardial patch repair of medial right atrium 01/26/22
Paroxysmal atrial fibrillation (brief post-op)
DM2
HTN
HLD
Suspected SATURNINO
GERD
Echo: 01/20/22: LV: Normal size. Mild LVH. EF: 50-55% visually. Mid-distal anteroseptal HK. RV: Normal, LA: Mildly dilated, RA: Normal, MV: Mo MS or MR, AV: Trileaflet no AI, TV: Trace TR with PAP 15-20 mmHg
JOSELITO post-op 01/26/22: EF 60-65%, no RWMA, mild MR
Echo 06/05/2024: EF 51%, mild cLVH, aortic sclerosis without stenosis, mild TR, estimated PAP 25-30 mmHg
Right heart catheterization July 24, 2024: Significantly elevated right/left filling pressures with severe pulmonary hypertension and normal cardiac output.
RA (m) : 23
RV (s/d,m) : 71/15, 28
PA (s/d, m) : 67/31, 47
PCWP (m) : 33 with V waves up to 52
PA saturation: 54.8% on 2 L of oxygen via nasal cannula
AO saturation: Based on noninvasive pulse ox, 95% on 2 L of oxygen via nasal cannula.
RA saturation: 51.6% on 2 L of oxygen via nasal cannula
Cardiac Output : 4.76 L/min by Sean calculation
Cardiac Index : 2.22 L/min/m-2 by Sean calculation
Pulmonary vascular resistance: 2.94 amos unit
CTA chest 07/21/2024 no pulmonary embolism or aortic dissection. Dense right thyroid lesion, 1. No abnormal pleural-parenchymal masses right and small moderate airspace disease in the right upper lobe, left upper lobe and left lower lobe concerning
for pneumonia. Severe atherosclerotic vascular disease.
Right lower extremity duplex 07/21/2024 negative for DVT
Abdominal ultrasound 07/21/2024 with fatty liver infiltration. Gallbladder sludge with many moderate-sized gallstones that have increased in number. No findings of acute cholecystitis. Bilateral pleural effusions.
Abdominal MRI 07/22/2024: Cholelithiasis without overt evidence for acute cholecystitis. No choledocholithiasis.
Plan:
Hypoxic respiratory failure, multifactorial: Recent multilobar pneumonia with infiltrates present on CT chest, heart failure with preserved ejection fraction with moderate right pleural effusion, probable sleep apnea, morbid obesity, BMI 48 and
deconditioning [she also has venous insufficiency and a component of lymphedema with expectations that there will always be some degree of lower extremity swelling]
-She continues to improve now on room air.
-She continues to lose weight with approximately 8 pound weight loss this admission
-Lasix 80 mg IV today
-Farxiga 10 mg daily added
-Anticipate transition to oral Lasix tomorrow 80 mg once daily
-Blood pressures are improved with goal normotension.
- Continue metoprolol succinate 25 mg twice daily
- New hydralazine 50mg BID /continue new Imdur 30mg daily
-Creatinine has improved so we will start Cozaar 25 mg once daily [patient had previously reported a dry cough on ANABEL inhibitor which has improved]
-Will not plan to restart amlodipine benazepril at time of discharge. Will not plan to resume hydrochlorothiazide
Elevated LFTs/cholelithiasis with multiple gallstones and fatty liver infiltration
-Appreciate GI evaluation including abdominal MRI and abdominal ultrasounds
-Gallbladder sludge/multiple moderate size gallstones with no evidence for acute cholecystitis or choledocholithiasis
-Repeat LFTs tomorrow
-Outpatient atorvastatin and ezetimibe held.
Dyslipidemia
-Atorvastatin and ezetimibe currently held due to elevated transaminases. Pending LFT improvement could also consider outpatient preauthorization for PCSK9 inhibitor
Type 2 diabetes mellitus
-Hemoglobin A1c 7.3% improved from 8.7 in April
-Continue efforts towards normoglycemia
-Would continue insulin
-Farxiga added
-She had previously been on Mounjaro but has been off for a month; denies side effects and would prefer that she resume but will defer to hospitalist.
-Weight loss strongly advised
Acute on chronic renal sufficiency
�monitor renal function closely with diuresis
-Creatinine is improved today down to 1.4
Normocytic anemia with iron deficiency
-Defer to primary
Suspected SATURNINO�-Will need outpatient pulmonary follow-up to discuss sleep apnea evaluation. She does have home O2 for as needed use.
Will follow with you
HPI: Long complex medical history and this very pleasant 78-year-old female who has had a myriad of medical issues and recent prolonged hospitalization. She presents today with multilobar pneumonia via CAT scan in the left upper lobe and right
upper lobe and a possibly left lower lobe. She also has small bilateral pleural effusions and CT and chest x-ray also is read as apical pneumonia. Her abdominal ultrasound does show gallbladder sludge and moderate sized gallbladder stones. She
carries a complex past medical history including diastolic heart failure and four-vessel CABG in 2021. Her recent hospitalization included norovirus, orthostatic hypotension from significant diarrhea and syncope, multi bacterial urinary tract
infection including E. coli and Klebsiella. She was given IV diuretic in the ER and she is having vigorous diuresis. She has been placed on vancomycin and piperacillin by primary team. She is on 2 L of O2 at the bedside but feels relatively
comfortable
Progress Note - Data Warehouse Manager
Subjective
Date of Service: July 28, 2024
Seen and examined sitting out of bed to chair. Overall feels well and reports improved shortness of breath/edema. No chest pain.
Objective
Labs:
07/26/24 04:19
07/28/24 05:02
Labs
Hgb 8.3 g/dL (12.0-16.0) L 07/26/24 04:19
Hct 25.6 % (37.0-47.0) L 07/26/24 04:19
Plt Count 239 10^3/uL (130-400) 07/26/24 04:19
PT 14.9 Sec (11.4-14.6) H 07/23/24 07:25
INR 1.14 07/23/24 07:25
APTT 29.1 Sec (23.4-35.0) 07/21/24 07:02
Sodium 135 mmol/L (135-145) 07/28/24 05:02
Potassium 4.0 mmol/L (3.5-5.1) 07/28/24 05:02
BUN 33 mg/dl (7-17) H 07/28/24 05:02
Creatinine 1.1 mg/dL (0.6-1.0) H 07/28/24 05:02
Glucose 158 mg/dl (70-99) H 07/28/24 05:02
Vital Signs and I&O:
Vital Signs
Temp Pulse Resp BP Pulse Ox
98.5 F 70 18 141/63 92
07/28/24 06:59 07/28/24 10:00 07/28/24 06:59 07/28/24 09:28 07/28/24 06:59
Vital Signs
Temp Pulse Resp BP Pulse Ox
98.5 F 70 18 141/63 92
07/28/24 06:59 07/28/24 10:00 07/28/24 06:59 07/28/24 09:28 07/28/24 06:59
Intake & Output
07/26/24 07/27/24 07/28/24 07/29/24
05:59 05:59 06:59 06:59
Intake Total
Output Total
Balance
Physical Exam
Physical Exam
General: No acute distress, AAOX3
Heart: Regular, positive S1/S2, No murmur
Lungs: Bronchovesicular breath sounds without wheezes or rhonchi.
Abd: Positive BS, NT/ND, neg rebound/rigidity/guarding
Ext: + edema/lymphedema- improved
Neuro: nonfocal
[2024-07-28 12:26] LABS: Glucose - Point of Care 188 mg/dl (70-99)
--- NOTE | 2024-07-28 15:26 | PTCARENOTE ---
Pt stated 'I just don't feel right, I don't feel like eating. I am gagging and unable to eat my lunch.' About 30 cc of phlem noted after she had a spoonful of soup. VSS. Pt stated that she was wheezing. No wheezing noted. Pt's home albuterol
inhaler ordered and not given as pt slept and feels better after her nap. No gagging per pt. Pt not given her lunchtime insulin at her request as pt never ate lunch. Will monitor.
[2024-07-28] MEDS: NOVOLOG FLEXPEN-LOW RESISTANCE SC (15:56)
[2024-07-28 16:45] LABS: Glucose - Point of Care 208 mg/dl (70-99)
[2024-07-28] MEDS: NOVOLOG FLEXPEN-LOW RESISTANCE 2 UNITS SC (17:19)
[2024-07-28] MEDS: NOVOLOG MIX 70/30 FLEXPEN 33 UNITS SC (17:20)
[2024-07-28] MEDS: LOVENOX 40 MG SC (17:27)
[2024-07-28 22:49] LABS: Glucose - Point of Care 144 mg/dl (70-99)
--- NOTE | 2024-07-28 22:53 | PTCARENOTE ---
Received patient at change of shift. SR on the monitor, HR in the 70s. Tubigrips removed before bed. No complaints from pt at this time, call arzate within reach.
[2024-07-29] VITALS (11 sets, daily range): BP systolic 116–178; BP diastolic 43–72; PULSE 76; O2SAT 94; BMI 46.1
[2024-07-29 05:44] LABS: ALT (SGPT) 63 U/L (0-35); AST (SGOT) 34 U/L (14-36); Albumin 3.4 g/dl (3.5-5.0); Alkaline Phosphatase 241 U/L (38-126); Blood Urea Nitrogen 28 mg/dl (7-17); Calcium 9.3 mg/dl (8.4-10.2); Carbon Dioxide 30 mmol/L (22-30); Chloride 95 mmol/L (98-107); Estimated Creatinine Clearance 46 ml/min; Glucose 185 mg/dl (70-99); Magnesium 1.5 mg/dl (1.6-2.3); Potassium 4.1 mmol/L (3.5-5.1); Sodium 136 mmol/L (135-145); Total Bilirubin 1.8 mg/dl (0.2-1.3); Total Protein 5.5 g/dl (6.3-8.2); eGFR 46.33
[2024-07-29 05:52] LABS: NT-proBNP 1040 pg/ml
[2024-07-29 06:39] LABS: Glucose - Point of Care 228 mg/dl (70-99)
--- NOTE | 2024-07-29 08:05 | PTCARENOTE ---
Assumed care of pt from prev nsg shift; Pt AAOx3 w/no c/o CP or SOB. Pt is reporting 'not feeling well'; reports having 'poor appetite & upset stomach'. Pt's VSS w/HR in the 70's-90's & BP 163/66 this AM. Pt is SR on telemetry monitoring. Pt
encouraged OOB to CH for breakfast this AM. Pt w/call arzate within reach & plan of care ongoing.
--- NOTE | 2024-07-29 08:19 | PN.DE.MGMTRT ---
Insulin Management
- -
07/29/2024: Diabetes Management Follow up
78 year old female who has had a myriad of medical issues and recent prolonged hospitalization 06/01-06/17. Pt has been re-admitted for multilobar PNA in the left upper lobe and right upper lobe and a possibly left lower lobe. Also noted for
gallbladder sludge and moderate sized gallbladder stones on abd US.
PMH: Diastolic heart failure, NV, CAD s/p CABG in 2021, HTN, HLD, CKD and T2DM.
Her recent hospitalization included norovirus, orthostatic hypotension from significant diarrhea and syncope, multi bacterial urinary tract infection including E. coli and Klebsiella. She was recently discharged from rehab on 70/30 insulin 45 units
in AM and 55 units in PM.
States she sees Dr. Renea Hartley at [facility] on a regular basis for diabetes care. States that she often has to decrease her 70/30 doses based on her blood sugar when she is at home and that Dr. Hartley has agreed that Nicki knows her
diabetes and is OK that she adjusts the insulin.
Her A1C was 8.7% on 05/05/24. Repeat A1C on admission is 7.3% , Cr 1.5, eGFR 35.45
Patient is awake alert and oriented, sitting up in chair, offers no complaints, able to discuss diabetes management.
07/24 Cardiac Cath at ~ 5pm - Pulmonary HTN; transferred to IVU.
07/27 insulin dose was increased to 29 units in AM and 33 units in PM due to elevated blood glucose.
07/28 no significant improvement, glucose range to 186 to 208, requiring additional corrective insulin with meal, HS 144, FBG 185(V), 228 POC this AM
Will increase 70/30 NovoLog insulin dose to 32 units in AM and 35 units with dinner.
Will cont to follow and adjust insulin dose if necessary. Discussed with pt and nurse.
Diabetes History
- -
Type of Diabetes: 2 requiring insulin
Pre-Admission Diabetes Regimen
07/29/24
04:26
Creatinine 1.2 H
Lab Results
Hemoglobin A1c 7.3 % (4.0-5.6) H 07/21/24 06:09
Insulin Pump Settings
IP Diabetes Regimen
07/28/24 07/28/24 07/28/24
12 16:44 22:48
Glucose
POC Glucose 188 H 208 H 144 H
07/29/24 07/29/24
04:26 06:38
Glucose 185 H
POC Glucose 228 H
Meal type: Dinner
Meal type: Breakfast
Amount consumed: 95%
Amount consumed: 100%
Patient Education
--- NOTE | 2024-07-29 08:30 | W.PN.CARDCBS ---
Addendum entered and electronically signed by Adithya Mao MD 07/29/24 13:23:
Complex 78-year-old woman admitted July 21 with evidence of multi lobar pneumonia and HFpEF. Right heart catheterization on July 24 showed pulmonary artery pressure of 67/31 with a wedge pressure of 33 and V waves to 52, cardiac index 2.2, right
atrial pressure 23. Initial weight of 125 kg on admission, body mass index 50, current weight is 114.1 kg.
Current meds: Reviewed
131/48, 79, 18, afebrile 92 pulse, intake and output -1.6 L, weight if accurate is down an additional 2.7 kg. Morbidly obese, no distress, lungs are clear, regular rate and rhythm without obvious murmurs, JVD okay, no edema
proBNP 1040 today, had been 2540 on July 21, was 149 in April, troponin was 0.032. Creatinine 1.8, has been as high as 3.4 in May, BUN and creatinine 28 and 1.2, magnesium 1.5, potassium is 4.1
Impression:
Agree with findings, assessments and plan as listed below by Gloria Jaeger
Heart failure seems compensated. She is not on spironolactone related to RACHELLE in the past. Currently on Farxiga and losartan. Convert from IV to oral Lasix 80 mg a day. Will on Mounjaro as an outpatient, hopefully dose can be uptitrated.
Utility of Entresto probably limited in this situation.
Initial troponin had been up to 2. We could consider an ischemic evaluation but strategy at present will remain conservative given her multiple comorbidities.
Original Note:
Today's Communication / Plan
-
Change to Lasix 80 mg PO daily
Outpatient doses of amlodipine/benazepril and HCTZ stopped
New to losartan, Lasix, Imdur ER, hydralazine
51 min face to face and coordination of care
Impression / Plan
-
PCP: Dr. Branch
Energy Efficiency Engineer: Dr. Fraga
Impression:
Presented with SOB and chest pressure
Multilobar pneumonia
Recent admission at w/ UTI, norovirus, RACHELLE 05/2024
Acute HFpEF
Moderate gallstones w/ sludge
Elevated LFTs
CAD
s/p CABG with MORFIN to LAD, SVG to Diag, SVG to OM, SVG to PDA 01/26/22
s/p Pericardial patch repair of medial right atrium 01/26/22
Paroxysmal atrial fibrillation (brief post-op)
Not chronically anticoagulated due to lack of clinical recurrence and patient preference
DM2
HTN
HLD
Suspected SATURNINO
GERD
Echo: 01/20/22: LV: Normal size. Mild LVH. EF: 50-55% visually. Mid-distal anteroseptal HK. RV: Normal, LA: Mildly dilated, RA: Normal, MV: Mo MS or MR, AV: Trileaflet no AI, TV: Trace TR with PAP 15-20 mmHg
JOSELITO post-op 01/26/22: EF 60-65%, no RWMA, mild MR
Echo 06/05/24: EF 51%, mild cLVH, aortic sclerosis without stenosis, mild TR, estimated PAP 25-30 mmHg
Plan:
-Patient is symptomatically improved and no longer on supplemental oxygen 07/29/24. Now reporting nausea and questioning meds 07/29/24. Reviewed med changes in detail by naming what meds were stopped and started and reasoning behind changes. Patient
with similar symptoms during previous admissions and known multidrug resistant HTN.
-Weight is down 6 lbs overnight and 15 lbs in total this admission with Lasix 40 mg IV BID initially and now 80 mg IV daily. Patient was taking HCTZ 25 mg daily prior to admission, this has been stopped.
-Patient is s/p RHC 07/24/24 and PCWP was 33 which correlated to a weight of 265 lbs.
-EF 51% by echo 06/05/24.
-Outpatient dose of Toprol XL 25 mg BID has been continued
-Outpatient dose of amlodipine/benazepril was stopped. Reported cough prior to admission. Patient now ordered losartan 25 mg daily
-New to Farxiga 10 mg daily this admission, co-pay is $143/month and patient was agreeable to co-pay initially but will need to see if this is sustainable as an outpatient.
-Also new to Imdur ER 30 mg daily and hydralazine 50 mg BID.
-Will not start spironolactone due to RACHELLE on CKD earlier this admission, but can attempt as an outpatient
-BP 163/66 prior to morning meds 07/29/24. No evidence of hypotension.
-Abdominal MRI showed cholelithiasis without evidence for acute cholecystitis and no evidence of choledocholithiasis. If patient had passed a stone then that may have contributed to transaminitis, but this could also just be due to acute HF.
-LFTs have improved. Restart atorvastatin 80 mg daily and Zetia 10 mg daily, ordered by me 07/29/24
-LDL 28 on 07/22/24
-Patient was not taking Mounjaro for the month prior to admission due to side effects
-Advised patient that she would be stable for d/c to home 07/30/24 from a cardiac standpoint and that she should prepare herself for this. Patient declined rehab and wants to go home with VN.
HPI: Long complex medical history and this very pleasant 78-year-old female who has had a myriad of medical issues and recent prolonged hospitalization. She presents today with multilobar pneumonia via CAT scan in the left upper lobe and right
upper lobe and a possibly left lower lobe. She also has small bilateral pleural effusions and CT and chest x-ray also is read as apical pneumonia. Her abdominal ultrasound does show gallbladder sludge and moderate sized gallbladder stones. She
carries a complex past medical history including diastolic heart failure and four-vessel CABG in 2021. Her recent hospitalization included norovirus, orthostatic hypotension from significant diarrhea and syncope, multi bacterial urinary tract
infection including E. coli and Klebsiella. She was given IV diuretic in the ER and she is having vigorous diuresis. She has been placed on vancomycin and piperacillin by primary team. She is on 2 L of O2 at the bedside but feels relatively
comfortable
Progress Note - Energy Efficiency Engineer
Subjective
Date of Service: July 29, 2024
She feels nauseous, but better compared to last night
Objective
Labs:
07/26/24 04:19
07/29/24 04:26
Labs
Hgb 8.3 g/dL (12.0-16.0) L 07/26/24 04:19
Hct 25.6 % (37.0-47.0) L 07/26/24 04:19
Plt Count 239 10^3/uL (130-400) 07/26/24 04:19
PT 14.9 Sec (11.4-14.6) H 07/23/24 07:25
INR 1.14 07/23/24 07:25
APTT 29.1 Sec (23.4-35.0) 07/21/24 07:02
Sodium 136 mmol/L (135-145) 07/29/24 04:26
Potassium 4.1 mmol/L (3.5-5.1) 07/29/24 04:26
BUN 28 mg/dl (7-17) H 07/29/24 04:26
Creatinine 1.2 mg/dL (0.6-1.0) H 07/29/24 04:26
Glucose 185 mg/dl (70-99) H 07/29/24 04:26
Vital Signs and I&O:
Vital Signs
Temp Pulse Resp BP Pulse Ox
98.4 F 81 18 163/66 93
07/29/24 06:48 07/29/24 07:00 07/29/24 06:48 07/29/24 06:51 07/29/24 06:48
Vital Signs
Temp Pulse Resp BP Pulse Ox
98.4 F 81 18 163/66 93
07/29/24 06:48 07/29/24 07:00 07/29/24 06:48 07/29/24 06:51 07/29/24 06:48
Intake & Output
07/27/24 07/28/24 07/29/24 07/30/24
05:59 06:59 06:59 06:59
Intake Total 240 / 240
Output Total 1200 / 1200 200 / 200
Balance -960 / -960 -200 / -200
Physical Exam
Physical Exam
GEN: NAD. AAOx3
HEENT: EOMI, MMM, wearing glasses
LUNGS: RA. No audible wheeze
CV: SR on tele. Reg
ABD: ND
EXT: B/L tubigrips in place. +1 B/L LE edema
NEURO: Gross non-focal
SKIN: No rash
[2024-07-29] MEDS: NOVOLOG FLEXPEN-LOW RESISTANCE 2 UNITS SC (08:43)
[2024-07-29] MEDS: NOVOLOG MIX 70/30 FLEXPEN 29 UNITS SC (08:44)
[2024-07-29] MEDS: ASPIR LOW (ENTERIC COATED) 81 MG PO (08:45)
[2024-07-29] MEDS: APRESOLINE 50 MG PO ×2 (08:45→19:30)
[2024-07-29] MEDS: IMDUR (EXTENDED RELEASE) 30 MG PO (08:45)
[2024-07-29] MEDS: COZAAR 25 MG PO (08:45)
[2024-07-29] MEDS: TOPROL XL 25 MG PO ×2 (08:45→19:30)
[2024-07-29] MEDS: VITAMIN D3 (cholecalciferol) 50 MCG PO (08:45)
[2024-07-29] MEDS: LASIX 80 MG IV (08:46)
[2024-07-29] MEDS: DESENEX/MITRAZOL/ZEASORB 1 APPLIC TOPICAL ×2 (08:48→19:31)
[2024-07-29] MEDS: PROTONIX 40 MG PO (08:49)
[2024-07-29] MEDS: FARXIGA 10 MG PO (08:49)
[2024-07-29] MEDS: FLUSH (NSS) 2 FLUSH IV ×2 (08:49→11:13)
--- NOTE | 2024-07-29 09:44 | W.PN.HOSP.TC ---
Addendum entered and electronically signed by Deshawn Sandoval MD 07/29/24 19:07:
Attending Addendum-
I saw and evaluated the patient. I reviewed the resident�s note and agree with findings and plan as documented in the resident�s note. Sub: Patient feels weak nauseous has poor appetite and SOB. Denies CP. Full 12 point ROS reviewed and negative
except as documented Exam: Vitals reviewed in chart GEN-NAD heart RRR lungs fine crackles at bases abd soft LE b/l LE lymphedema
PLAN:
#Acute hypoxic respiratory failure: Resolved
-2/2 Acute HFpEF exacerbation
-weaned off o2
-s/p right heart cath 07/24, significantly elevated right and left-sided filling pressures with severe pulmonary hypertension and normal cardiac output
-Appreciate cards and pulm
-Recommend outpt eval for sleep apnea
-Diuresing well. transition to PO lasix
-follow IandOs, daily weights (down 6kg), kidney function
- repeat labs in am
#Transaminitis:
-Most likely secondary to congestive heart failure. Note elevated right heart pressures
-LFTs trending down with continued diuresis
-restart ezetimibe and atorvastatin
-Appreciate GI
# Hypomagnesemia:
- replete
- recheck in am
#RACHELLE on CKD3B:
- baseline @ 1.5
- resolved
- Cardiorenal
#Chronic anemia:
-Iron studies indicate anemia of chronic disease
-Follow H and H
-Transfuse if Hgb<7
#Lower extremity edema:
-Right leg venous insufficiency and lymphedema at baseline
-Likely secondary to heart failure exacerbation.
-Darrel wrap, leg elevation as tolerated
#Insulin-dependent diabetes mellitus:
- home dose 70/30 55qhs, 45qam HbA1c 7.3
- Improved blood sugars with titration of her insulin regimen
- increase 70/30 to 32am/35pm
- Mounjaro->transitioned to farxiga
- Appreciate diabetes E BUSINESS SPECIALIST
# Essential hypertension:
-Continue home metoprolol
-imdur and hydralazine added
# GERD:
-Continue pantoprazole
DVT prophylaxis: Lovenox
CODE STATUS: DNR
Dispo- eventual DC home with HC - patient refusing SNF
Time spent coordinating care, review of plan of care with resident, personally reviewed records in EMR, med rec, consults, notes, labs, radiology, d/w nursing � 55 mins
Original Note:
Today's Communication/Plan
-
-Follow-up LFTs
-mobile development manager involving is planned for outpatient scripts
Assessment / Plan
Assessment / Plan
Assessment:
Ms Laura is a 78-year-old female with a PMH of HFpEF, CKD 3, hypertension, chronic anemia, recent use of 2 L home O2 nasal cannula, CAD plus bypass January 2022, hypertension, hyperlipidemia, IDDM, obesity, history of Ferreira's palsy, history of
urinary retention, chronic back pain and neuropathy who was admitted to the hospital with acute hypoxic respiratory failure secondary to acute HFpEF exacerbation. At admission, her chest CT was not significant for pulmonary embolus but showed
bilateral pleural effusion and possible left lower pneumonia. Her lab results were significant for elevated LFTs and TB. Her abdominal ultrasound was notable for gallbladder sludge and gallstones but without any findings for acute cholecystitis or
choledocholithiasis. Abdominal MRI was not remarkable for hepatobiliary diseases. She underwent right cardiac catheterization on 07/24/2024 showing right and left-sided filling pressure with severe PHT and normal cardiac output. Of note, her last
ECHO from 06/05/2024 mild LVH and EV at 51% by volumetric assessment with normal diastolic function.
Problem list
Acute hypoxic respiratory failure
Acute HFpEF
Transaminitis
Nausea/ low appetite
RACHELLE on CKD
Chronic anemia
Chronic lower extremity edema
History of urinary retention
IDDM
Chronic back pain
Essential hypertension
PLAN:
#Acute hypoxic respiratory failure secondary to acute HFpEF exacerbation
-Right cardiac cath on 07/24/2024 noted elevated right left sided filling pressure with severe PHT and normal cardiac output
-Improved , patient denies shortness of breath
-Recently put on chronic O2 2L, started on 5L NC on arrival, currently off o2 since 07/26/24-tolerating well, denies shortness of breath without supplemental oxygen
s/p right heart cath, significantly elevated right and left-sided filling pressures with severe pulmonary hypertension and normal cardiac output
-Appreciate cards and pulm pulmonology assessment
-Recommend outpt eval for sleep apnea-patient is aware
-Continue IV lasix 80mg BID, follow I/Os, daily weights, kidney function
-Continue metoprolol 25 twice daily
-Imdur ER 30 mg daily
#Transaminitis secondary to congestive hepatopathy due to heart failure versus gallstones
-Right cardiac cath on 07/24/2024 noted elevated right left sided with severe PHT
-AST/ALT elevated to 454/193 at admission-trending down AST 34, ALT 63 on 07/29/2024
-Abdominal MRI showed cholelithiasis without evidence for acute cholecystitis/choledocholithiasis.
-Less likely passed a gallstone
-Ezetimibe 10 mg restarted and Atorvastatin 80 mg restarted by cardiology-follow LFTs
#Nausea/ low appetite
-Likely secondary to Fargixa
-Follow-up
-Antiemetic medication as needed
#RACHELLE on CKD likely secondary due to heart failure
-Cr levels trending down with diuresis
-IV Lasix switched to oral Lasix 80 mg p.o.
#Chronic anemia
-Iron studies indicate anemia of chronic disease
-No signs of active bleeding
-Follow hemoglobin
-Transfuse if Hgb<7
#Chronic lower extremity edema
-Right lower extremity peripheral venous ultrasound 07/21/24:No evidence of DVT of the right lower extremity
-Clinically improving edema bilateral
-Darrel wrap, leg elevation as tolerated
-Seems improved with diuresis
#Hx of urinary retention:
-Resolved
-No dysuria
#Insulin-dependent diabetes mellitus:
-Home insulin NovoLog Mix 55 units at bedtime, aspart 40 units a.m. adjusted as needed at home-patient reports she is able to adjust her insulin dose based on her blood sugar level
-Diabetic education nurse visited the patient-planning to discuss her discharge insulin regimen treatment
-HbA1c 7.3
-Improved blood sugars with titration of her insulin regimen
-Mounjaro was switched to Farxiga by cardiology team 07/28/24
-mobile development manager is planning to discuss for outpatient prescription to continue Fargixa
#Essential hypertension:
-Outpatient amlodipine/benazepril and HCTZ was stopped
-Patient was started on losartan 25 mg (home med)
-Hydralazine 50 mg BID was started by cardiology (home med)
#GERD:
-Continue pantoprazole
#Chronic back pain
-Likely at baseline
-Pain medication as needed
-Ordered tox medication
-LFT improved/can be given minimal dose of Tylenol
#Hx of Chronic constipation:
-Stable with daily oatmeal recently before hospitalization, per patient report
-Bowel regimen as needed
-Last bowel movement yesterday/soft normal brown color
Patient is willing to have home rehab following her discharge. It will be discussed with business case analyst.
DVT prophylaxis: Lovenox
CODE STATUS: DNR
Anticipated Discharge: 24 - 48 hours
Subjective/Interval History
-
Date of Service: July 29, 2024
Patient reports feeling nauseous, having cough, dry heaves and low appetite since Monday evening. Denies shortness of breath after weaning from O2 on 07/26/24. She denies chest pain, abdominal pain, heartburn, chills, vomiting, diarrhea and
sick contacts.
Objective Data
-
Labs:
Laboratory Results
07/29/24
04:26
Sodium 136
Potassium 4.1
Chloride 95 L
Carbon Dioxide 30
BUN 28 H
Creatinine 1.2 H
Glucose 185 H
Calcium 9.3
Total Bilirubin 1.8 H
AST 34
ALT 63 H
Alkaline Phosphatase 241 H
Vital Signs:
Vital Signs
Temp Pulse Resp BP Pulse Ox
98.4 F 81 18 163/66 93
07/29/24 06:48 07/29/24 08:46 07/29/24 06:48 07/29/24 08:46 07/29/24 06:48
I&O
07/28/24 07/29/24 07/30/24
06:59 06:59 06:59
Intake Total 240 / 240 240 / 240
Output Total 1200 / 1200 550 / 550
Balance -960 / -960 -310 / -310
Review of Systems
-
History Source: Patient
Constitutional: Reports No Symptoms
Respiratory: Reports No Symptoms and Cough (Had dry cough in the morning and resolved in the afternoon)
Cardiac: Reports No Symptoms
Abdomen/GI: Reports No Symptoms
Breast: Reports No Symptoms
Genitourinary: Reports No Symptoms
Musculoskeletal: Reports No Symptoms
Skin: Reports No Symptoms
Neuro: Reports No Symptoms
Physical Exam
-
General: Well Developed and Well Nourished
HEENT: Normocephalic and Atraumatic
Respiratory: Clear to Auscultation
Cardiac: Regular Rhythm and S1/S2
GI: Soft, Nontender, Nondistended and Normal Bowel Sounds
Musculoskeletal: Other (Bilateral edema/lymphedema-improved)
Neuro: Awake, Alert, Oriented, AO x 3 and Nonfocal/Grossly Intact
Psych: Calm
[2024-07-29] MEDS: LIPITOR 80 MG PO (11:08)
[2024-07-29] MEDS: MAGNESIUM SULFATE 102 GRAMS IV (11:08)
[2024-07-29] MEDS: ZETIA 10 MG PO (11:08)
[2024-07-29 12:17] LABS: Glucose - Point of Care 315 mg/dl (70-99)
[2024-07-29] MEDS: MAGNESIUM OXIDE 500 MG PO (12:47)
--- NOTE | 2024-07-29 12:56 | CM ---
dc plan remains home with dhvn when medically stable.
[2024-07-29] MEDS: NOVOLOG FLEXPEN-LOW RESISTANCE 4 UNITS SC (13:11)
[2024-07-29 17:18] LABS: Glucose - Point of Care 383 mg/dl (70-99)
[2024-07-29] MEDS: LOVENOX 40 MG SC (17:36)
[2024-07-29] MEDS: NOVOLOG MIX 70/30 FLEXPEN 35 UNITS SC (17:37)
[2024-07-29] MEDS: NOVOLOG FLEXPEN-LOW RESISTANCE 5 UNITS SC (17:37)
--- NOTE | 2024-07-29 20:54 | PTCARENOTE ---
Rec'd pt at change of shift. Pt AAO*3, VSS, and SR on TELE monitor. Pt updated on plan of care and denies having any pain or discomfort. Pt resting with call arzate in reach and plan of care ongoing. See MAR and flowchart for full pt care and
assessment.
[2024-07-29 21:11] LABS: Glucose - Point of Care 281 mg/dl (70-99)
[2024-07-30 04:29] VITALS: BMI 45.5
[2024-07-30 04:32] VITALS: BP 138/53
[2024-07-30 05:38] LABS: Hematocrit 30.4 % (37.0-47.0); Hemoglobin 9.6 g/dL (12.0-16.0); Mean Corp Hgb Conc. 31.6 g/dL (33.0-37.0); Mean Corpuscular Hgb 26.8 pg (27.0-31.0); Mean Corpuscular Volume 84.9 fL (81.0-99.0); Platelet Count 304 10^3/uL (130-400); Red Blood Cell Count 3.58 10^6/uL (4.20-5.40); Red Cell Dist. Width 16.8 % (11.5-14.5); White Blood Cell Count 7.6 10^3/uL (4.8-10.8)
[2024-07-30 05:53] LABS: ALT (SGPT) 51 U/L (0-35); AST (SGOT) 30 U/L (14-36); Albumin 3.5 g/dl (3.5-5.0); Alkaline Phosphatase 222 U/L (38-126); Blood Urea Nitrogen 28 mg/dl (7-17); Calcium 9.4 mg/dl (8.4-10.2); Carbon Dioxide 32 mmol/L (22-30); Chloride 96 mmol/L (98-107); Estimated Creatinine Clearance 42 ml/min; Glucose 131 mg/dl (70-99); Magnesium 1.7 mg/dl (1.6-2.3); Potassium 3.8 mmol/L (3.5-5.1); Sodium 136 mmol/L (135-145); Total Bilirubin 1.7 mg/dl (0.2-1.3); Total Protein 5.7 g/dl (6.3-8.2); eGFR 42.09
--- NOTE | 2024-07-30 06:20 | W.PN.HOSP.TC ---
Addendum entered and electronically signed by Deshawn Sandoval MD 07/31/24 00:23:
Attending Addendum-
I saw and evaluated the patient. I reviewed the resident�s note and agree with findings and plan as documented in the resident�s note. Sub: Feels great wants to go home. Denies CP. Full 12 point ROS reviewed and negative except as documented Exam:
Vitals reviewed in chart GEN-NAD heart RRR lungs fine crackles at bases abd soft LE b/l LE lymphedema
PLAN:
#Acute hypoxic respiratory failure
-resolved
-2/2 Acute HFpEF exacerbation
-weaned off o2
-s/p right heart cath 07/24, significantly elevated right and left-sided filling pressures with severe pulmonary hypertension and normal cardiac output
-Appreciate cards and pulm
-Recommend outpt eval for sleep apnea
-Diuresing well. transition to PO lasix
-follow IandOs, daily weights (down 6kg), kidney function
#Transaminitis:
-Most likely secondary to congestive heart failure. Note elevated right heart pressures
-LFTs trending down with continued diuresis
-restarted ezetimibe and atorvastatin
-Appreciate GI
# Hypomagnesemia:
- replete
- recheck in am
#RACHELLE on CKD3B:
- baseline @ 1.5
- resolved
- Cardiorenal
#Chronic anemia:
-Iron studies indicate anemia of chronic disease
-Follow H and H
-Transfuse if Hgb<7
#Lower extremity edema:
-Right leg venous insufficiency and lymphedema at baseline
-Likely secondary to heart failure exacerbation.
-Darrel wrap, leg elevation as tolerated
#Insulin-dependent diabetes mellitus:
- home dose 70/30 55qhs, 45qam HbA1c 7.3
- Improved blood sugars with titration of her insulin regimen
- increase 70/30 to 32am/35pm
- cont Mounjaro and add farxiga
- Appreciate diabetes SECURITY SYSTEMS INSTALLER
# Essential hypertension:
-Continue home metoprolol
-imdur and hydralazine added
# GERD:
-Continue pantoprazole
DVT prophylaxis: Lovenox
CODE STATUS: DNR
Dispo- DC home with HC - patient refusing SNF
Time spent coordinating care, DC planning, review of DC plan of care with resident, transition of care, review of records, med rec/scripts sent electronically, consults, notes, d/w consultants, nursing, family, and CM� 35 mins
Original Note:
Today's Communication/Plan
-
- Discharge is planning today
Assessment / Plan
Assessment / Plan
Assessment:
Ms Laura is a 78-year-old female with a PMH of HFpEF, CKD 3, hypertension, chronic anemia, recent use of 2 L home O2 nasal cannula, CAD plus bypass January 2022, hypertension, hyperlipidemia, IDDM, obesity, history of Ferreira's palsy, history of
urinary retention, chronic back pain and neuropathy who was admitted to the hospital with acute hypoxic respiratory failure secondary to acute HFpEF exacerbation. At admission, her chest CT was not significant for pulmonary embolus but showed
bilateral pleural effusion and possible left lower pneumonia. Her lab results were significant for elevated LFTs and TB. Her abdominal ultrasound was notable for gallbladder sludge and gallstones but without any findings for acute cholecystitis or
choledocholithiasis. Abdominal MRI was not remarkable for hepatobiliary diseases. She underwent right cardiac catheterization on 07/24/2024 showing right and left-sided filling pressure with severe PHT and normal cardiac output. Of note, her last
ECHO from 06/05/2024 mild LVH and EV at 51% by volumetric assessment with normal diastolic function. She was followed by cardiology team and started new medications during follow-up. The patient is planning to be discharged today.
Problem list
Acute hypoxic respiratory failure
Acute HFpEF
Transaminitis
Nausea/ low appetite
RACHELLE on CKD
Chronic anemia
Chronic lower extremity edema
History of urinary retention
IDDM
Chronic back pain
Essential hypertension
PLAN:
#Acute hypoxic respiratory failure secondary to acute HFpEF exacerbation
-Resolved
-Successfully weaned from supplemental oxygen since 07/26/2024/denies shortness of breath
-Right cardiac cath on 07/24/2024 noted elevated right left sided filling pressure with severe PHT and normal cardiac output
-Appreciate pulm pulmonology assessment/ follow up
-Recommend outpt eval for sleep apnea-patient is aware
-Continue diuresis-switched to oral furosemide, follow I/Os, daily weights, kidney function
-Continue metoprolol 25 twice daily
-Imdur ER 30 mg daily
-Appreciate for cardiology discharge plan for recent treatment and follow-up
#Transaminitis secondary to congestive hepatopathy due to heart failure
-Right cardiac cath on 07/24/2024 noted elevated right left sided with severe PHT
-Abdominal MRI showed cholelithiasis without evidence for acute cholecystitis/choledocholithiasis.
-Less likely passed a gallstone
-LFTs trended down
-Ezetimibe 10 mg restarted and Atorvastatin 80 mg restarted by cardiology-follow LFTs
#Nausea/ low appetite
-Resolved
-Likely secondary side effects with Fargixa
-Follow-up
-Antiemetic medication as needed
#RACHELLE on CKD likely secondary due to heart failure
-Cr levels trending down with diuresis
-IV Lasix switched to oral Lasix 80 mg p.o.
#Chronic anemia
-Iron studies indicate anemia of chronic disease
-No signs of active bleeding
-Follow hemoglobin
-Transfuse if Hgb<7
#Chronic lower extremity edema
-Right lower extremity peripheral venous ultrasound 07/21/24:No evidence of DVT of the right lower extremity
-Clinically improving edema bilateral
-Darrel wrap, leg elevation as tolerated
-Seems improved with diuresis
#Hx of urinary retention
-Resolved
-No dysuria
#Insulin-dependent diabetes mellitus
-Home insulin NovoLog Mix 55 units at bedtime, aspart 40 units a.m. adjusted as needed at home-patient reports she is able to adjust her insulin dose based on her blood sugar level
-Diabetic education nurse visited the patient-discussed outpatient treatment adjustment with the patient-planned to change her insulin dose (morning 70/30 dose increased to 32 units and dinner dose of 70/30 insulin to 35)
-HbA1c 7.3
-Improved blood sugars with titration of her insulin regimen
- Farxiga was started by cardiology team 07/28/24 -recommended to continue after discharge on additional to Mounjaro
-music store manager will discuss about the cost of Fargixa with the patient today-will be prescribed for discharge
#Essential hypertension:
-Outpatient amlodipine/benazepril and HCTZ was stopped-patient will discontinue these medications
-Patient was started on losartan 25 mg-will be prescribed for discharge
-Hydralazine 50 mg BID was started by cardiology-will be prescribed for discharge
#GERD:
-Continue pantoprazole
#Chronic back pain
-Likely at baseline
-Pain medication as needed
-Ordered tox medication
-LFT improved/can be given minimal dose of Tylenol
#Hx of Chronic constipation:
-Stable with daily oatmeal recently before hospitalization, per patient report
-Bowel regimen as needed
-Last bowel movement yesterday/soft normal brown color
DVT prophylaxis: Lovenox
CODE STATUS: DNR
Anticipated Discharge: Today
Subjective/Interval History
-
Date of Service: July 30, 2024
Patient reports improvement with her appetite and denies feeling nauseous this morning. She denies other symptoms and had a conversation with cardiology team about her new medications. She was seen by case technician to discuss her new medications`s
cost and her discharge plan.
Objective Data
-
Labs:
Laboratory Results
07/30/24
04:41
WBC 7.6
Hgb 9.6 L
Hct 30.4 L
Plt Count 304 D
Sodium 136
Potassium 3.8
Chloride 96 L
Carbon Dioxide 32 H
BUN 28 H
Creatinine 1.3 H
Glucose 131 H
Calcium 9.4
Total Bilirubin 1.7 H
AST 30
ALT 51 H
Alkaline Phosphatase 222 H
Vital Signs:
Vital Signs
Temp Pulse Resp BP Pulse Ox
98.4 F 74 16 138/53 89
07/30/24 04:32 07/30/24 05:00 07/30/24 04:32 07/30/24 04:32 07/30/24 04:32
I&O
07/28/24 07/29/24 07/30/24
06:59 06:59 06:59
Intake Total 240 / 240 720 / 720
Output Total 1200 / 1200 1150 / 1150
Balance -960 / -960 -430 / -430
Review of Systems
-
History Source: Patient
Constitutional: Reports No Symptoms
EENT: Reports No Symptoms Reported
Respiratory: Reports No Symptoms
Cardiac: Reports No Symptoms
Abdomen/GI: Reports No Symptoms
Genitourinary: Reports No Symptoms
Musculoskeletal: Reports No Symptoms
Skin: Reports No Symptoms
Neuro: Reports No Symptoms
Physical Exam
-
General: Well Developed, Well Nourished and Obese
HEENT: Normocephalic and Atraumatic
Respiratory: Clear to Auscultation
Cardiac: Regular Rhythm and S1/S2
GI: Soft, Nontender and Nondistended
Musculoskeletal: No Clubbing and Other (Bilateral edema/lymphedema-improved)
Skin: Warm
Neuro: Awake, Alert, Oriented, AO x 3 and Nonfocal/Grossly Intact
--- NOTE | 2024-07-30 06:20 | W.DCSUMMARY ---
Addendum entered and electronically signed by Deshawn Sandoval MD 07/31/24 00:25:
Read, reviewed, and agree. See same day progress note for additional details. Multiple changes made to med regimen over hospitalization. Clearly articulated to patient. Patient expressed understanding.
Rodrigo Sandoval MD
Original Note:
Documented by User: Cate Yañez MD, Resident 07/30/24 17:20
Discharge Summary
Discharge Data
Date of Admission: 07/21/24
Date of Discharge: 07/30/24
-
Pending Results: No
Hospital Course
Disposition : Home
Principal Discharge diagnosis : Acute hypoxic respiratory failure, acute heart failure, hypertension,transaminitis, acute kidney injury, insulin dependent diabetes mellitus
Chronic Discharge diagnosis : HFpEF, CKD 3, hypertension, chronic anemia, CAD , hypertension, hyperlipidemia, IDDM, obesity, GERD, chronic lower extremity edema, chronic back pain and neuropathy
Hospital Course :
#Acute hypoxic respiratory failure secondary to acute heart failure Ms Laura is a 78-year-old female who presented to ER on 07/21/2024 for evaluation of her chest pain radiating to back, having shortness of breath, some heartburn and indigestion.
At ER admission, her chest CT result was found significant for pleural effusion and possible left lower pneumonia. Her Pro-BNP was noted elevated. At ER, she was given furosemide 40 mg, Nitropaste, Zosyn and vancomycin. Subsequently, she was
admitted to the hospital and was seen by pulmonology, cardiology. The patient was experiencing shortness of breath since her HI in 01/2022 and recently was on home oxygen at 2 L/min following her discharge from rehab unit on 07/17/24. Regarding
pulmonology team, CT chest/x-ray findings was found likely consistent with her recent pneumonia for which she took 7 days courses of Levaquin last month. The Chest CT findings were considered secondary to heart failure and was continued on diuresis
with clinical improvement and empiric antibiotic treatment was discontinued. The patient underwent right heart cath which showed significantly elevated right and left-sided filling pressures with severe pulmonary hypertension and normal cardiac
output. Per cardiology team, the patient continued to diuresis with Lasix and she was restarted home Toprol 25 mg twice daily and aspirin 81 mg daily. Her potassium and magnesium were repleted based on lab results. Patient`s cardiac medication
adjusted by cardiology team. Her amlodipine-benazepril and HCTZ were decided discontinue. She was stared on new medications with a plan to continue following her discharge including Lasix 80 mg p.o., Imdur 30 mg, hydralazine 50 mg twice daily,
Cozaar 25 mg. Additionally, recommended to continue insulin and Mounjaro with eventual addition of SGLT2 inhibitor ( Fargixa). She was recommended to continue on metoprolol , aspirin, atorvastatin and ezetimibe. She was advised to obtain sleep
study as an outpatient by pulmonology team which could be contributing her cardiac problem.
#Transaminitis: Due patient`s abdominal pain and elevated LFTs and TB levels, she was obtained an abdominal ultrasound which was notable for gallbladder sludge and gallstones but without any findings for acute cholecystitis. Following, patient was
also obtained an abdominal MRI on for further assessment of her upper abdominal pain along with transaminitis which was not significant for cholecystitis/cholangitis and was consulted to GI team. GI team considered her transaminitis related to
hepatic shock syndrome due heart failure. LFTs and TB levels trended down slightly and patient`s pain improved.
#Acute kidney injury: The patient`s creatinine level was found increased and it trended down to her basal level.
#Insulin dependent diabetes mellitus:Insulin dose of the patient was adjusted by diabetic nurse. The patient was informed the patient about her recent insulin dose regimen.
#Other problems: Other chronic problems of the patient was treated as able to. Did not require any acute management.
Important imaging findings :
chest X -ray 07/21/2024
IMPRESSION:
New findings suggesting mild left suprahilar developing pneumonia. Clinical and laboratory correlation recommended. Atelectasis cannot be excluded
Chest CT 07/21/2024
IMPRESSION: No evidence of pulmonary embolus.
Moderate right and small left pleural effusions.
Moderate left upper lobe, mild right upper lobe and minimal left lower lobe findings suggesting pneumonia.
Mild right upper lobe and right lower lobe probable atelectasis.
Small hypodense right thyroid lesion likely a benign nodule. Nonurgent dedicated thyroid ultrasound recommended if not previously evaluated
US Periph Venous LOWER Ext RT 07/21/2024
IMPRESSION:
No evidence of DVT of the right lower extremity.
Abd US 07/21/24
IMPRESSION: New moderate gallbladder sludge and many moderate sized gallstones which have increased in number. No secondary findings to suggest acute cholecystitis. Clinical and laboratory correlation recommended.
Hepatic fatty infiltration. Stable
Nonvisualization of the proximal abdominal aorta due to overlying bowel gas.
Bilateral pleural effusions. New
Abdomen MRI 07/22/24
IMPRESSION: New moderate gallbladder sludge and many moderate sized gallstones which have increased in number. No secondary findings to suggest acute cholecystitis. Clinical and laboratory correlation recommended.
Hepatic fatty infiltration. Stable
Nonvisualization of the proximal abdominal aorta due to overlying bowel gas.
Bilateral pleural effusions. New
Procedure findings :
07/24/24 RIGHT HEART CATHETERIZATION
Date of Procedure: July 24, 2024
Referring: Isaac Tello
INDICATION: Assess invasive hemodynamics in the setting of worsening renal function.
ACCESS: Right common femoral vein, 6 Hungarian sheath, under ultrasound guidance using a micropuncture kit.
Of note, we attempted right brachial venous access multiple times under ultrasound guidance however despite getting good blood return, we could not successfully advance the wire just beyond the proximal portion due to tortuosity.
Ultrasound was utilized for vascular access. The right common femoral vein was visualized under ultrasound, and the vessel was patent. An image was stored permanently in the patient's medical record. Under direct ultrasound guidance, a 6 Hungarian
sheath was inserted into the artery using a micropuncture kit through a modified Seldinger technique.
Hemodynamics (mmHg):
RA (m) : 23
RV (s/d,m) : 71/15, 28
PA (s/d, m) : 67/31, 47
PCWP (m) : 33 with V waves up to 52
PA saturation: 54.8% on 2 L of oxygen via nasal cannula
AO saturation: Based on noninvasive pulse ox, 95% on 2 L of oxygen via nasal cannula.
RA saturation: 51.6% on 2 L of oxygen via nasal cannula
Cardiac Output : 4.76 L/min by Sean calculation
Cardiac Index : 2.22 L/min/m-2 by Sean calculation
Pulmonary vascular resistance: 2.94 amos unit
SEDATION: 15 minutes of procedural sedation was utilized. An independent medical associate was present to assist with and help manage the patient's level of consciousness and physiologic status.
RADIATION SUMMARY: Fluoro Time (min): 1.7, Dose (mGy): 34.01, DAP (Gy.cm2) : 4.55
CONCLUSION:
1. Significantly elevated right and left-sided filling pressures with severe pulmonary hypertension and normal cardiac output.
Discharge Plan
-
Patient Disposition: Home (Routine Discharge)
Discharge Diagnosis/Procedures: Acute hypoxic respiratory failure
Transaminitis due to hepatic shock
Acute kidney injury
Chronic lower extremity edema
Chronic anemia
Hypomagnesemia
Insulin-dependent diabetes mellitus
Essential hypertension
GERD
Chronic back pain
Diet: 2 Gram Sodium and Restrict fluids to 48 oz
Activity: With assistance and As tolerated
Driving Restrictions: As prior to admission
Blood Work: CMP/magnesium in 1 week with PCP
Other Services: VN
Specialty Instructions: Weigh Daily- Call MD for wt gain/loss 3 lbs overnight/5 lbs in 1 week
Activity Restrictions/Additional Instructions:
Chest CT: Small hypodense right thyroid lesion likely a benign nodule. Nonurgent dedicated thyroid ultrasound recommended if not previously evaluated
Pulm: Patient's BMI is 48.5. Weight loss is critical for her. Would recommend her seeing us in the office and if she makes a diagnosis of sleep apnea she would be a candidate for Zepbound
- Recommend outpatient pulmonary/sleep office follow-up to discuss sleep disordered breathing as she thinks she snores and she has non-restorative sleep
Instructions: *[facility] Heart Failure Instructions
Referrals:
[facility] Visiting Nurse [Outside]
Mary Lou Jensen PA-C [Specified Professional Personl] - 08/02/24 7:40 am (You have a cardiology follow-up appointment at the [place] office with Dr. Fraga's physician preschool assistant principal, Mary Lou. Please call with questions. )
Latasha Branch, DO [Family Provider] -
Bhaskar Juares MD [Active] - in four to six weeks (full PFTs on day of office visit)
Additional Discharge Medication Instructions: -STOP taking HCTZ (hydrochlorothiazide), it has been replaced with Lasix (furosemide)
-STOP taking amlodipine/benazepril, it has been replaced with losartan (Cozaar)
-Start taking Imdur ER (isosorbide mononitrate) and hydralazine to help lower blood pressure and reduce risk of recurrent heart failure
-Start taking Farxiga 10 mg daily to reduce risk of recurrent heart failure
Prescriptions:
New
losartan 25 mg Tablet
25 mg PO DAILY Qty: 30 11RF
hydralazine 50 mg Tablet
50 mg PO BID Qty: 60 11RF
dapagliflozin propanediol 10 mg Tablet
10 mg PO DAILY Qty: 30 11RF
isosorbide mononitrate 30 mg Tablet Extended Release 24 Hr
30 mg PO DAILY Qty: 30 11RF
furosemide 80 mg Tablet
80 mg PO DAILY Qty: 30 11RF
magnesium oxide 500 mg magnesium Tablet
500 mg PO DAILY PRN (Reason: reduction of transepidermal water loss) 30 Days Qty: 30 0RF
Continued
cholecalciferol (vitamin D3) [Vitamin D3] 50 mcg (2,000 unit) Capsule
50 mcg PO DAILY
miconazole nitrate [Miconazorb AF] 2 % powder
1 applic topical BID
metoprolol succinate 25 mg tablet extended release 24 hr
25 mg PO BID
pantoprazole [Protonix] 40 mg Tablet,Delayed Release (Dr/Ec)
40 mg PO DAILY
ezetimibe [Zetia] 10 mg Tablet
10 mg PO DAILY
atorvastatin 80 mg Tablet
80 mg PO DAILY
acetaminophen 325 mg Tablet
650 mg PO Q6HPRN PRN (Reason: mild pain)
aspirin 81 mg Tablet,Delayed Release (Dr/Ec)
81 mg PO DAILY
albuterol sulfate 90 mcg/actuation Hfa Aerosol Inhaler
2 puff INHALATION R Q4HPRN PRN (Reason: sob)
Changed
insulin asp prt-insulin aspart [Novolog Mix 70-30FlexPen U-100] 100 unit/mL (70-30) insulin pen
32 unit SC DAILY Qty: 0 0RF
insulin asp prt-insulin aspart [Novolog Mix 70-30FlexPen U-100] 100 unit/mL (70-30) insulin pen
35 unit SC QPM Qty: 0 0RF
Mounjaro 7.5 mg/0.5 mL Pen Injector
2.5 mg SC MO Qty: 0 0RF
Discontinued
amlodipine-benazepril 5-10 mg Capsule
1 cap PO DAILY
hydrochlorothiazide 25 mg Tablet
25 mg PO DAILY
Discharge Orders:
Discharge Patient (As Directed); Ordered 07/30/24
Ordered By: Cate Yañez
Care Plan Goals
Care Plan Goals:
Problem: Readiness for enhanced knowledge related to diagnosis and treatment plan
Goal: Understand your diagnosis and treatment plan needs, including medications if applicable.
Instructions: Know your diagnosis, underlying causes and treatment plan options, including medications if applicable. Consult with your health care team to learn about your diagnosis and treatment plan, including medications if applicable.
Discharge Date and Time
Discharge Date/Time: 07/30/24 15:17
Print Language: GERMAN

Documented by User: Deshawn Sandoval MD 07/31/24 00:20
Discharge Summary
Discharge Data
Date of Admission: 07/21/24
Date of Discharge: 07/31/24
Discharge Plan
-
Patient Disposition: Home (Routine Discharge)
Discharge Diagnosis/Procedures: Acute hypoxic respiratory failure
Transaminitis due to hepatic shock
Acute kidney injury
Chronic lower extremity edema
Chronic anemia
Hypomagnesemia
Insulin-dependent diabetes mellitus
Essential hypertension
GERD
Chronic back pain
Diet: 2 Gram Sodium and Restrict fluids to 48 oz
Activity: With assistance and As tolerated
Driving Restrictions: As prior to admission
Blood Work: CMP/magnesium in 1 week with PCP
Other Services: VN
Specialty Instructions: Weigh Daily- Call MD for wt gain/loss 3 lbs overnight/5 lbs in 1 week
Activity Restrictions/Additional Instructions:
Chest CT: Small hypodense right thyroid lesion likely a benign nodule. Nonurgent dedicated thyroid ultrasound recommended if not previously evaluated
Pulm: Patient's BMI is 48.5. Weight loss is critical for her. Would recommend her seeing us in the office and if she makes a diagnosis of sleep apnea she would be a candidate for Zepbound
- Recommend outpatient pulmonary/sleep office follow-up to discuss sleep disordered breathing as she thinks she snores and she has non-restorative sleep
Instructions: *[facility] Heart Failure Instructions
Referrals:
[facility] Visiting Nurse [Outside]
Mary Lou Jensen PA-C [Specified Professional Personl] - 08/02/24 7:40 am (You have a cardiology follow-up appointment at the [place] office with Dr. Fraga's physician preschool assistant principal, Mary Lou. Please call with questions. )
Latasha Branch, [Family Provider] -
Bhaskar Juares MD [Active] - in four to six weeks (full PFTs on day of office visit)
Additional Discharge Medication Instructions: -STOP taking HCTZ (hydrochlorothiazide), it has been replaced with Lasix (furosemide)
-STOP taking amlodipine/benazepril, it has been replaced with losartan (Cozaar)
-Start taking Imdur ER (isosorbide mononitrate) and hydralazine to help lower blood pressure and reduce risk of recurrent heart failure
-Start taking Farxiga 10 mg daily to reduce risk of recurrent heart failure
Prescriptions:
New
losartan 25 mg Tablet
25 mg PO DAILY Qty: 30 11RF
hydralazine 50 mg Tablet
50 mg PO BID Qty: 60 11RF
dapagliflozin propanediol 10 mg Tablet
10 mg PO DAILY Qty: 30 11RF
isosorbide mononitrate 30 mg Tablet Extended Release 24 Hr
30 mg PO DAILY Qty: 30 11RF
furosemide 80 mg Tablet
80 mg PO DAILY Qty: 30 11RF
magnesium oxide 500 mg magnesium Tablet
500 mg PO DAILY PRN (Reason: reduction of transepidermal water loss) 30 Days Qty: 30 0RF
Continued
cholecalciferol (vitamin D3) [Vitamin D3] 50 mcg (2,000 unit) Capsule
50 mcg PO DAILY
miconazole nitrate [Miconazorb AF] 2 % powder
1 applic topical BID
metoprolol succinate 25 mg tablet extended release 24 hr
25 mg PO BID
pantoprazole [Protonix] 40 mg Tablet,Delayed Release (Dr/Ec)
40 mg PO DAILY
ezetimibe [Zetia] 10 mg Tablet
10 mg PO DAILY
atorvastatin 80 mg Tablet
80 mg PO DAILY
acetaminophen 325 mg Tablet
650 mg PO Q6HPRN PRN (Reason: mild pain)
aspirin 81 mg Tablet,Delayed Release (Dr/Ec)
81 mg PO DAILY
albuterol sulfate 90 mcg/actuation Hfa Aerosol Inhaler
2 puff INHALATION R Q4HPRN PRN (Reason: sob)
Changed
insulin asp prt-insulin aspart [Novolog Mix 70-30FlexPen U-100] 100 unit/mL (70-30) insulin pen
32 unit SC DAILY Qty: 0 0RF
insulin asp prt-insulin aspart [Novolog Mix 70-30FlexPen U-100] 100 unit/mL (70-30) insulin pen
35 unit SC QPM Qty: 0 0RF
Mounjaro 7.5 mg/0.5 mL Pen Injector
2.5 mg SC MO Qty: 0 0RF
Discontinued
amlodipine-benazepril 5-10 mg Capsule
1 cap PO DAILY
hydrochlorothiazide 25 mg Tablet
25 mg PO DAILY
Discharge Orders:
Discharge Patient (As Directed); Ordered 07/30/24
Ordered By: Cate Yañez
Care Plan Goals
Care Plan Goals:
Problem: Readiness for enhanced knowledge related to diagnosis and treatment plan
Goal: Understand your diagnosis and treatment plan needs, including medications if applicable.
Instructions: Know your diagnosis, underlying causes and treatment plan options, including medications if applicable. Consult with your health care team to learn about your diagnosis and treatment plan, including medications if applicable.
Discharge Date and Time
Discharge Date/Time: 07/30/24 15:17
Print Language: GERMAN
[2024-07-30 06:52] VITALS: BP 151/44
[2024-07-30] MEDS: NOVOLOG FLEXPEN-LOW RESISTANCE SC (08:13)
[2024-07-30 08:14] LABS: Glucose - Point of Care 221 mg/dl (70-99)
[2024-07-30] MEDS: NOVOLOG FLEXPEN-LOW RESISTANCE 2 UNITS SC ×2 (08:46→12:16)
[2024-07-30] MEDS: LIPITOR 80 MG PO (08:47)
[2024-07-30] MEDS: PROTONIX 40 MG PO (08:47)
[2024-07-30] MEDS: IMDUR (EXTENDED RELEASE) 30 MG PO (08:47)
[2024-07-30] MEDS: NOVOLOG MIX 70/30 FLEXPEN 32 UNITS SC (08:47)
[2024-07-30] MEDS: LASIX 80 MG PO (08:47)
[2024-07-30] MEDS: COZAAR 25 MG PO (08:47)
[2024-07-30] MEDS: MAGNESIUM OXIDE 500 MG PO (08:48)
[2024-07-30] MEDS: ASPIR LOW (ENTERIC COATED) 81 MG PO (08:48)
[2024-07-30] MEDS: ZETIA 10 MG PO (08:48)
[2024-07-30] MEDS: TOPROL XL 25 MG PO (08:48)
[2024-07-30] MEDS: APRESOLINE 50 MG PO (08:48)
[2024-07-30] MEDS: VITAMIN D3 (cholecalciferol) 50 MCG PO (08:48)
[2024-07-30] MEDS: FARXIGA 10 MG PO (08:48)
[2024-07-30] MEDS: DESENEX/MITRAZOL/ZEASORB 1 APPLIC TOPICAL (08:48)
--- NOTE | 2024-07-30 09:00 | PN.DE.MGMTRT ---
Insulin Management
- -
07/30/2024: Diabetes Management Follow up
78 year old female who has had a myriad of medical issues and recent prolonged hospitalization 06/01-06/17. Pt has been re-admitted for multilobar PNA in the left upper lobe and right upper lobe and a possibly left lower lobe. Also noted for
gallbladder sludge and moderate sized gallbladder stones on abd US.
PMH: Diastolic heart failure, [place], CAD s/p CABG in 2021, HTN, HLD, CKD and T2DM.
Her recent hospitalization included norovirus, orthostatic hypotension from significant diarrhea and syncope, multi bacterial urinary tract infection including E. coli and Klebsiella. She was recently discharged from rehab on 70/30 insulin 45 units
in AM and 55 units in PM.
States she sees Dr. Renea Hartley at [facility] on a regular basis for diabetes care. States that she often has to decrease her 70/30 doses based on her blood sugar when she is at home and that Dr. Hartley has agreed that Nicki knows her
diabetes and is OK that she adjusts the insulin.
Her A1C was 8.7% on 05/05/24. Repeat A1C on admission is 7.3% , Cr 1.5, eGFR 35.45
Patient is awake alert and oriented, sitting up in chair, offers no complaints, able to discuss diabetes management.
07/24 Cardiac Cath at ~ 5pm - Pulmonary HTN; transferred to IVU.
Received 29 units of 70/30 with breakfast 07/29, glucose range 315 to 383, HS glucose 281. AM 70/30 dose increased to 32 units for this AM. Fasting glucose this AM 131 venous, 221 POC. Will continue dinner dose of 70/30 insulin @ 35 units.
Will cont to follow and adjust insulin dose if necessary. Discussed with pt and nurse.
Diabetes History
- -
Type of Diabetes: 2 requiring insulin
Pre-Admission Diabetes Regimen
07/30/24
04:41
Creatinine 1.3 H
Lab Results
Hemoglobin A1c 7.3 % (4.0-5.6) H 07/21/24 06:09
Insulin Pump Settings
IP Diabetes Regimen
07/29/24 07/29/24 07/29/24
12:16 17:17 21:10
Glucose
POC Glucose 315 H 383 H 281 H
07/30/24 07/30/24
04:41 08:13
Glucose 131 H
POC Glucose 221 H
Meal type: Dinner
Meal type: Breakfast
Amount consumed: 100%
Amount consumed: 100%
Patient Education
--- NOTE | 2024-07-30 09:08 | W.PN.CARDCBS ---
Addendum entered and electronically signed by Adithya Mao MD 07/30/24 11:03:
Patient feels well
Current medications: Metoprolol ER 25 mg twice daily, aspirin 81 mg a day, pantoprazole, Lovenox, isosorbide mononitrate 30 mg a day, hydralazine 50 mg twice daily, dapagliflozin 10 mg a day, losartan 25 mg a day, atorvastatin 80 mg daily, ezetimibe
10 mg a day, furosemide 80 mg daily, insulin, magnesium
Pulse 92, resp rate 18 blood pressure 151/44, 138/53, lungs are clear, regular rate and rhythm, no edema JVD okay, still morbidly obese
Hemoglobin 9.6, BUN/creatinine 28 and 1.3, potassium 3.8
Impression: See below
Plan:
Okay for discharge, medications as listed below
We will arrange for cardiac follow-up
Original Note:
Today's Communication / Plan
-
po lasix 80mg daily
toprol 25mg BID
indur 30mg daily
hydralazine 50mg BID
farxiga 10mg daily
cozaar 25mg daily
asa 81mg daily
lipitor 80mg daily
zetia 10mg daily
magnesium oxide 500mg daily
will arrange OP cardiac follow up
Impression / Plan
-
PCP: Dr. Branch
Therapeutic Dietitian: Dr. Fraga
Impression:
Presented with SOB and chest pressure
Multilobar pneumonia
Recent admission at w/ UTI, norovirus, [facility] 05/2024
Acute HFpEF
Moderate gallstones w/ sludge
Elevated LFTs
CAD
s/p CABG with MORFIN to LAD, SVG to Diag, SVG to OM, SVG to PDA 01/26/22
s/p Pericardial patch repair of medial right atrium 01/26/22
Paroxysmal atrial fibrillation (brief post-op)
Not chronically anticoagulated due to lack of clinical recurrence and patient preference
DM2
HTN
HLD
Suspected SATURNINO
GERD
Echo: 01/20/22: LV: Normal size. Mild LVH. EF: 50-55% visually. Mid-distal anteroseptal HK. RV: Normal, LA: Mildly dilated, RA: Normal, MV: Mo MS or MR, AV: Trileaflet no AI, TV: Trace TR with PAP 15-20 mmHg
JOSELITO post-op 01/26/22: EF 60-65%, no RWMA, mild MR
Echo 06/05/24: EF 51%, mild cLVH, aortic sclerosis without stenosis, mild TR, estimated PAP 25-30 mmHg
Plan:
-she is feeling better today, however remains concerned about multiple medication changes. we discussed that for now these medications are necessary to help with BP control as HTN may be etiology of her diastolic heart failure.
-Continue Toprol 25 mg twice daily, losartan 25 mg daily, Imdur 30 mg daily, hydralazine 50 mg twice daily. Outpatient amlodipine/benazepril has been stopped. Overall blood pressure trends are improving from admission
-Farxiga 10 mg daily also new to patient this admission
-weight is down 18 pounds from admission if accurate. transitioned to po lasix 80mg daily. Cr stable at 1.3. no HCTZ upon DC
-Patient is s/p RHC 07/24/24 and PCWP was 33 which correlated to a weight of 265 lbs.
-LFTs improved, suspected secondary to passive congestion. Statin and zetia restarted. Check CMP in 1 week
-Patient was not taking Mounjaro for the month prior to admission due to side effects
-She is stable for discharge to home today from cardiac standpoint. Will arrange outpatient cardiac follow-up
-Discussed with nursing
-Discussed with hospitalist via [place] text
HPI: Long complex medical history and this very pleasant 78-year-old female who has had a myriad of medical issues and recent prolonged hospitalization. She presents today with multilobar pneumonia via CAT scan in the left upper lobe and right
upper lobe and a possibly left lower lobe. She also has small bilateral pleural effusions and CT and chest x-ray also is read as apical pneumonia. Her abdominal ultrasound does show gallbladder sludge and moderate sized gallbladder stones. She
carries a complex past medical history including diastolic heart failure and four-vessel CABG in 2021. Her recent hospitalization included norovirus, orthostatic hypotension from significant diarrhea and syncope, multi bacterial urinary tract
infection including E. coli and Klebsiella. She was given IV diuretic in the ER and she is having vigorous diuresis. She has been placed on vancomycin and piperacillin by primary team. She is on 2 L of O2 at the bedside but feels relatively
comfortable
Progress Note - Therapeutic Dietitian
Subjective
Date of Service: July 30, 2024
Reports feeling well. Breathing much improved
Objective
Labs:
07/30/24 04:41
07/30/24 04:41
Labs
Hgb 9.6 g/dL (12.0-16.0) L 07/30/24 04:41
Hct 30.4 % (37.0-47.0) L 07/30/24 04:41
Plt Count 304 10^3/uL (130-400) D 07/30/24 04:41
PT 14.9 Sec (11.4-14.6) H 07/23/24 07:25
INR 1.14 07/23/24 07:25
APTT 29.1 Sec (23.4-35.0) 07/21/24 07:02
Sodium 136 mmol/L (135-145) 07/30/24 04:41
Potassium 3.8 mmol/L (3.5-5.1) 07/30/24 04:41
BUN 28 mg/dl (7-17) H 07/30/24 04:41
Creatinine 1.3 mg/dL (0.6-1.0) H 07/30/24 04:41
Glucose 131 mg/dl (70-99) H 07/30/24 04:41
Vital Signs and I&O:
Vital Signs
Temp Pulse Resp BP Pulse Ox
98.2 F 92 18 151/44 94
07/30/24 06:51 07/30/24 09:00 07/30/24 06:51 07/30/24 06:52 07/30/24 06:51
Vital Signs
Temp Pulse Resp BP Pulse Ox
98.2 F 92 18 151/44 94
07/30/24 06:51 07/30/24 09:00 07/30/24 06:51 07/30/24 06:52 07/30/24 06:51
Intake & Output
07/28/24 07/29/24 07/30/24 07/31/24
07:59 07:59 07:59 07:59
Intake Total 240 / 240 720 / 720
Output Total 1200 / 1200 1150 / 1150
Balance -960 / -960 -430 / -430
Physical Exam
Physical Exam
GEN: No distress, awake, alert, oriented x3. obese. sitting in chair
HEENT: supple, anicteric, mmm, eomi
LUNGS: CTA B/L, no wheezes/rales
CV: Reg, S1/S2, no murmur
ABD: soft, BS+, NT/ND
EXT: No cyanosis, clubbing. Trace edema of B/L LE
NEURO: Gross non-focal
SKIN: Warm, pink, dry. No rash
--- NOTE | 2024-07-30 10:28 | CM ---
discussed farxiga cost with pt, monthly cost is $143. she is asking if she qualifies for assistance program. pt stated she gets another med thru this program. printed [place] and [place] applic for pt to fill out and give to her provider. pt agreeable to
paying for first month
[2024-07-30 11:00] VITALS: BP 132/58
--- NOTE | 2024-07-30 12:04 | PTCARENOTE ---
Assumed care of pt from prev nsg shift; Pt AAOx3 w/no c/o CP or SOB. Pt's VSS w/HR in the 80's & BP 151/44 this AM. Pt is SR on telemetry monitoring. Pt encouraged OOB to CH again for breakfast this AM. Pt w/call arzate within reach & plan of care
ongoing.
[2024-07-30 12:13] LABS: Glucose - Point of Care 248 mg/dl (70-99)
[2024-07-30 14:14] VITALS: BP 138/39
--- NOTE | 2024-07-30 15:34 | PTCARENOTE ---
Pt's IV line & tele monitor D/C'd; Pt assisted w/dressing prior to son arriving. D/C instructions discussed w/pt & pt's son. Pt escorted out via WC w/son driving her home.
--- NOTE | 2024-07-31 10:49 | W.HF.CON ---
Heart Failure
- LV Function
Left ventricular function study result: LV Ejection fraction >/= 50% (ECHO 06/05/24)
Ejection Fraction Percentage: 51
- ARNI
Patient already on ARNI: No
Heart Failure ARNI Not Indicated: LV Ejection Fraction >/= 40%
- ACEI/ARB
Patient already on ACEI/ARB: Yes
- Beta Karan
Patient already on Evidence Based Beta Karan: Yes
- Mineralocorticord Receptor Antagonist
Patient already on MRA: No
Heart Failure MRA Not Indicated: LV Ejection Fraction > 40%
- SGLT-2 Inhibitor
Patient already on SGLT-2 Inhibitor: Yes
- Hydralazine & Isosorbide Dinitrate
Patient already on Hydralazine & Isosorbide Dinitrate: Yes
- NYHA CHF Classification
NYHA CHF Classification Level: Class III - Symptoms w/ min exertion, interferes w/ nml daily activity
- ACC/AHA Stage
ACC/AHA Stage: Stage C: Symptomatic Heart Failure
== END 2024-07-30 15:17 | disposition home or self-care (01) | DRG 286 ==
LOC: IVU 14:16
PROVIDERS: Emergency Medicine; Internal Medicine; Internal Medicine Cardiovascular Disease; Internal Medicine Interventional Cardiology; Nurse Practitioner Adult Health; Physician Assistant; Student in an Organized Health Care Education/Training Program; ADMITTING PHYSICIAN Internal Medicine; ATTENDING PHYSICIAN Family Medicine; CONSULT PHYSICIAN Internal Medicine Cardiovascular Disease; CONSULT PHYSICIAN Internal Medicine Critical Care Medicine; EMERGENCY PHYSICIAN Emergency Medicine; FAMILY PHYSICIAN Internal Medicine; OTHER PHYSICIAN Internal Medicine Gastroenterology
PROC: 4A023N6 Measurement of Cardiac Sampling and Pressure, Right Heart, Percutaneous Approach (ICD-10-PCS; 2024-07-24)
DX: I13.0 Hypertensive heart and chronic kidney disease with heart failure and stage 1 through stage 4 chronic kidney disease, or unspecified chronic kidney disease (principal); I50.33 Acute on chronic diastolic (congestive) heart failure; J96.21 Acute and chronic respiratory failure with hypoxia; J18.9 Pneumonia, unspecified organism; K72.00 Acute and subacute hepatic failure without coma; N17.9 Acute kidney failure, unspecified; Z68.42 Body mass index [BMI] 45.0-49.9, adult; J98.11 Atelectasis; N18.32 Chronic kidney disease, stage 3b; E11.22 Type 2 diabetes mellitus with diabetic chronic kidney disease; E11.40 Type 2 diabetes mellitus with diabetic neuropathy, unspecified; E11.65 Type 2 diabetes mellitus with hyperglycemia; D63.1 Anemia in chronic kidney disease; I25.10 Atherosclerotic heart disease of native coronary artery without angina pectoris; Z95.1 Presence of aortocoronary bypass graft; Z82.49 Family history of ischemic heart disease and other diseases of the circulatory system; E78.2 Mixed hyperlipidemia; Z79.4 Long term (current) use of insulin; E66.01 Morbid (severe) obesity due to excess calories; K21.9 Gastro-esophageal reflux disease without esophagitis; G89.29 Other chronic pain; Z99.81 Dependence on supplemental oxygen; I25.2 Old myocardial infarction; Z87.01 Personal history of pneumonia (recurrent); I27.20 Pulmonary hypertension, unspecified; Z79.82 Long term (current) use of aspirin; E83.42 Hypomagnesemia; I87.2 Venous insufficiency (chronic) (peripheral); I89.0 Lymphedema, not elsewhere classified; Z66 Do not resuscitate; Z77.22 Contact with and (suspected) exposure to environmental tobacco smoke (acute) (chronic); Z86.16 Personal history of COVID-19; Z79.899 Other long term (current) drug therapy; K80.70 Calculus of gallbladder and bile duct without cholecystitis without obstruction; E07.9 Disorder of thyroid, unspecified; Z83.3 Family history of diabetes mellitus; K76.0 Fatty (change of) liver, not elsewhere classified; I48.0 Paroxysmal atrial fibrillation; K59.09 Other constipation; M47.9 Spondylosis, unspecified; Z82.5 Family history of asthma and other chronic lower respiratory diseases
CPT/HCPCS: 71045; 71275; 74183; 76700; 76937; 80048; 80053; 80061; 80202; 81003; 82728; 82962; 83036; 83540; 83550; 83735; 83880; 84145; 84443; 84484; 85025; 85027; 85610; 85730; 86704; 86706; 86708; 86803; 87040; 87340; 87641; 93005; 93451; 93971; 96374; 96375; 97116; 97162; 97166; 97530; 97535; 99152; 99285; A9575; C1894; Q9967